=== PATIENT | female | born 1945 | race African-American/Black ===

== ENCOUNTER 2017-01-13 13:05 | Inpatient (IN) | payer OTHER, MEDICARE ==
[~2017-01-13] VITALS: Ht 160 cm; Wt 65.9 kg
--- NOTE | 2017-01-13 13:05 | NUR ---
PATIETN DIRECTLY TO CT SCAN AT THIS TIME WITH DR DE GUZMAN AND RNs RUDDY AND STAR.
--- NOTE | 2017-01-13 13:12 | NUR ---
STROKE ALERT CALLED PER NIKUNJ GODWIN AT 131
--- NOTE | 2017-01-13 13:20 | ED NEURO DEFICIT/STROKE ---
History of Present Illness General Chief Complaint: General Adult Stated Complaint: UNRESPONSIVE EPISODE Source: patient, family, EMS Exam Limitations: clinical condition Vital Signs & Intake/Output Vital Signs & Intake/Output Vital Signs Date Time Temp Pulse Resp B/P Pulse O2 O2 Flow FiO2 Ox Delivery Rate 01/14 0903 99.0 60 20 207/105 01/14 0400 100 Nasal 1.0L Cannula 01/14 0330 60 203/95 01/14 0025 64 213/108 01/14 0000 100 Nasal 1.0L Cannula 01/14 0000 99.3 66 22 220/80 100 Nasal 1.0L Cannula 01/13 2145 98 Nasal 1.0L Cannula 01/13 2133 64 221/93 01/13 1945 84 196/72 01/13 1909 97.8 64 18 192/70 100 Nasal 1.0L Cannula 01/13 1833 97.3 63 14 200/78 100 Nasal 1.0L Cannula 01/13 1809 97.3 65 16 212/80 01/13 1751 97.3 65 16 212/80 100 Nasal 2.0L Cannula 01/13 1728 97.2 68 15 220/78 01/13 1646 68 15 220/78 100 Nasal 3.0L Cannula 01/13 1537 100 Nasal 3.0L Cannula 01/13 1536 97.2 69 16 228/94 100 Nasal 3.0L Cannula 01/13 1518 97.3 71 20 240/88 01/13 1512 71 240/88 01/13 1455 97.3 62 20 250/94 01/13 1449 62 20 250/94 100 Nasal 4.0L Cannula 01/13 1431 97.3 64 16 234/92 01/13 1418 97.3 71 18 234/92 95 Nasal 4.0L Cannula 01/13 1350 64 24 260/110 01/13 1334 97.3 64 24 260/110 95 Nasal 2.0L Cannula 01/13 1320 95 Nasal 4.0L Cannula ED Intake and Output 01/14 0000 01/13 1200 Intake Total 100 Output Total Balance 100 Intake, IV 100 Patient 160 lb Weight Allergies Coded Allergies: No Known Allergies (01/13/17) Reconcile Medications Allopurinol 100 MG TABLET 1 TAB PO DAILY GOUT (Reported) Aspirin (Ecotrin*) 81 MG TABLET.DR 1 TAB PO EOD HEART/BLOOD (Reported) Calcium Acetate 667 MG CAPSULE 1 CAP PO TID PHOSPHORUS BINDER (Reported) Carvedilol 25 MG TABLET 0.5 TAB PO BID HEART/BP (Reported) Diltiazem HCl (Diltiazem 24HR ER) 360 MG CAP.ER.24H 1 CAP PO DAILY HEART/BP ( Reported) Doxazosin Mesylate 4 MG TABLET 1 TAB PO AD BP (Reported) Irbesartan 300 MG TABLET 1 TAB PO DAILY BP (Reported) Lovastatin 20 MG TABLET 1 TAB PO DAILY CHOLESTEROL (Reported) Metoclopramide HCl (Reglan) 5 MG TABLET 1 TAB PO 4 TIMES/DAY NPO N/V ( Reported) Omeprazole 40 MG CAPSULE.DR 1 CAP PO DAILY GI (Reported) Vit B Cmplx 3/FA/Vit C/Biotin (Jenny-Anthony Rx Tablet) 1 MG-60 MG-300 MCG TABLET 1 TAB PO DAILY SUPPLEMENT (Reported) Warfarin Sodium (Jantoven) (Unknown Strength) TABLET (Unknown Dose) PO AD BLOOD THINNER (Reported) Triage Nurses Notes Reviewed? yes Onset: Abrupt Duration: JUST PRIOR TO ARRIVAL Timing: single episode today Severity: severe New Weakness: RUE, RLE, right facial Baseline: alert, oriented x 3 Associated Symptoms: seizures HPI: 71-year-old female with history of hypertension, end-stage renal disease on hemodialysis of his history of previous CVA in 1979 presents via ambulance from home for chief complaint of seizure and unresponsive episode. According to the daughter (who is a nurse), she was complaining of headache. She measured her BP to be 200/80 and shortly after that she had tonic clonic movement of all extremities and had a right culver fixed gaze. After the seizure stopped she was unresponsive for a brief few seconds and then was post ictal. She states she vomited a large amount of food and then started to come to. She states she was protecting her airway at home. Past History Medical History Any Pertinent Medical History? see below for history Neurological: CVA Cardiovascular: hypertension Renal: ESRD on HD Surgical History Surgical History: none (av fistula) Psychosocial History Tobacco Use: Never used ETOH Use: denies use Illicit Drug Use: denies illicit drug use Family History Hx Contributory? No Review of Systems Review of Systems Constitutional: Denies: chills, fever. EENTM: Reports: no symptoms. Respiratory: Denies: short of breath. Cardiovascular: Denies: chest pain. GI: Denies: abdominal pain. Genitourinary: Reports: no symptoms. Musculoskeletal: Reports: no symptoms. Skin: Reports: no symptoms. Neurological/Psychological: Reports: confusion, headache, tremors. Hematologic/Endocrine: Denies: bleeding. Immunologic/Allergic: Reports: no symptoms. All Other Systems: Reviewed and Negative Physical Exam Physical Exam General Appearance: well developed/nourished, alert, moderate distress, severe distress Head: RIGHT FACIAL DROOP Eyes: Bilateral: PERRL. Ears, Nose, Throat: normal ENT inspection Neck: normal inspection, supple, full range of motion Respiratory: normal breath sounds, chest non-tender, no respiratory distress Cardiovascular: regular rate/rhythm Peripheral Pulses: 2+ radial (R), 2+ radial (L) Gastrointestinal: soft, non-tender Extremities: RIGHT LEG FLACCID RIGHT ARM 2/5 STRENGTH 2+ RADIAL PULSE Cranial Nerves: normal hearing, facial asymmetry, facial droop Coordination/Gait: UNTESTABLE Motor/Sensory: weak motor strength RUE, weak motor strength RLE Core Measures CVA/TIA Diagnosis: Yes NIH Stroke Scale: Total 13 Date Last Known Well: 01/13/17 Time Last Known Well: 1200 Neurological S/S of CVA: Right Hemiparesis, Slurred Speech Symptom Start Date: 01/13/17 Reason tPA not ordered+ Medical Contraindication Severe Sepsis Present: No Septic Shock Present: No Progress Differential Diagnosis: CVA/TIA, INTRACRANIAL HEMORRHAGE, ELIJAH'S PARALYSIS AFTER CVA, HYPERTENSIVE CRISIS Plan of Care: Orders Procedure Date/time Status ELECTROENCEPHALOGRAM 01/14 1643 Active SWALLOW EVALUATION 01/14 09 Active PT Evaluate & Treat 01/14 900 Active PROTHROMBIN TIME 01/14 0500 Complete ICU LAB BUNDLE 01/14 0500 Complete CBC WITHOUT DIFFERENTIAL 01/14 0500 Complete MRI-HEAD W & W/O SHANNON 01/14 UNK Active MISSING MEDICATION FORM 01/14 UNK Active ECHOCARDIOGRAM 01/14 UNK Active Nothing by Mouth 01/13 D Active Hemo-Dialysis 01/14 2156 Active VRE ACTIVE SURVIELLANCE 01/13 2102 Active ACTIVE SURVEILLANCE NARES 01/13 2102 Active Wound Care/Dressing 01/13 2035 Active Weight 01/13 2035 Active VTE Mechanical Prophylaxis 01/13 2035 Active Vital Signs 01/13 2035 Active Turn and Reposition 01/13 2035 Active Drains/Tubes 01/13 2035 Active Teach/Educate 01/13 2035 Active Skin Integrity Protocol 01/13 2035 Active Skin/Pressure Ulcer Assess (Sk 01/13 2035 Active Precautions 01/13 2035 Active Pain Treatment and Response 01/13 2035 Active Nutritional Intake, Monitor 01/13 2035 Active Isolation 01/13 2035 Active CIWA 01/13 2035 Active Patient Care Conference 01/13 2035 Active Activity/Ambulation 01/13 2035 Active URINALYSIS 01/13 180 Active Pathway - chart 01/13 153 Active Lab Add-on Test 01/13 153 Active Code Status 01/13 1534 Active Patient Data 01/13 1415 Active Admit to inpatient 01/13 1409 Active Vital Signs 01/13 1409 Active Code Status 01/13 1347 Complete Intake & Output 01/13 1335 Active LIPID PANEL 01/13 1330 Complete GLYCOSYLATED HGB 01/13 1330 Complete TROPONIN LEVEL 01/13 1319 Complete PARTIAL THROMBOPLASTIN TIME 01/13 1319 Complete PROTHROMBIN TIME 01/13 1319 Complete COMPREHENSIVE METABOLIC PANEL 01/13 1319 Complete CBC WITHOUT DIFFERENTIAL 01/13 1319 Complete EKG 01/13 1319 Active TYPE & SCREEN (NOT X-MATCH) 01/13 1319 Complete FingerStick- Glucose 01/13 1307 Active OXYGEN SETUP CHG 01/13 UNK Complete OXYGEN 01/13 UNK Complete OXYGEN TRANSPORT 01/13 UNK Complete OXYGEN DAILY CHARGE 01/13 UNK Complete House Staff 01/13 UNK Active VTE Mechanical Prophylaxis 01/13 UNK Active Vital Signs 01/13 UNK Active Precautions 01/13 UNK Active NIH Stroke Scale 01/13 UNK Active Mauro, Insertion/Removal/Asses 01/13 UNK Active PHYSICIAN CONSULT 01/13 UNK Active Current Medications Sig/Keyla Start time Last Medication Dose Stop Time Status Admin Aspirin 300 MG DAILY 01/14 1000 AC (Aspirin) Laboratory Tests 01/14/17 0400: Anion Gap 15, Estimated GFR 3 L, Glucose 87, Calcium 9.2, Phosphorus 5.8 H, Magnesium 2.3, Total Bilirubin 0.5, AST 16, ALT 29, Albumin 3.1 L, PT 13.2 H, INR 1.26 H, CBC w Diff NO MAN DIFF REQ, RBC 3.76 L, MCV 91.6, MCH 29.5, RDW 15.2 H, MPV 9.5, Gran % 64.7, Lymphocytes % 21.5, Monocytes % 10.4 H, Eosinophils % 2.8, Basophils % 0.6, Absolute Granulocytes 6.4, Absolute Lymphocytes 2.1, Absolute Monocytes 1.0 H, Absolute Eosinophils 0.3, Absolute Basophils 0.1, PUBS MCHC 32.2 L 01/13/17 1413: RBC 4.29, MCV 92.0, MCH 29.0, RDW 15.6 H, MPV 9.2, Gran % 77.2 H, Lymphocytes % 14.2 L, Monocytes % 4.9, Eosinophils % 3.3, Basophils % 0.4, Absolute Granulocytes 6.5, Absolute Lymphocytes 1.2, Absolute Monocytes 0.4, Absolute Eosinophils 0.3, Absolute Basophils 0, PUBS MCHC 31.5 L 01/13/17 1330: Anion Gap 22 H, Estimated GFR 4 L, BUN/Creatinine Ratio 4.7 L, Glucose 123 H , Hemoglobin A1c 5.1, Calcium 9.2, Total Bilirubin 0.6, AST 19, ALT 27, Alkaline Phosphatase 80, Troponin I < 0.01, Total Protein 7.5, Albumin 3.8, Globulin 3.7, Albumin/Globulin Ratio 1.0 L, Triglycerides 93, Cholesterol 168, LDL Cholesterol, Calc 91, HDL Cholesterol 59, Cholesterol/HDL Ratio 3, PT 12.7 H, INR 1.21 H, APTT 22 L Microbiology 01/13 2030 UPPER RESP: Surveillance Culture - RECD 01/13 2030 GI: Surveillance Culture - RECD STROKE CODE CALLED CT NEGATIVE FOR BLEED. BP 260/140. D/W DR PINON. NIH 13. 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 IV KEPPRA LOADED. IV LABETALOL ORDERED. patient on coumadin, IMPROVING RIGHT ARM SYMPTOMS, tpa contraindicated. REPEAT DOSES OF LABETALOL GIVEN. SYSTOLIC GOAL IS 180. REPEAT IV LABETALOL. GIVEN D/W DR PINON AT BEDSIDE. WILL TRY IV CARDIZEM FOR IMPROVED BP CONTROL. PATIENT REMAINS IMPROVED. (GAB ODELL,ERICK) Diagnostic Imaging: Viewed by Me: Radiology Read, CT Scan. Discussed w/RAD: Radiology Read, CT Scan. Radiology Impression: PATIENT: HERO LAWRENCE PRESENT AGE: 71 PATIENT ACCOUNT NO: [id number] : 43 LOCATION: [facility] ORDERING PHYSICIAN: ERICK HENSON MD SERVICE DATE: 01/13/17-1309 EXAM TYPE: CAT - CT HEAD WO IV CONTRAST EXAMINATION: CT HEAD WITHOUT CONTRAST CLINICAL INFORMATION: 71-year-old female with facial droop, episode of unresponsiveness, slurred speech. Suspected CVA. COMPARISON: None TECHNIQUE: Contiguous axial imaging was performed from the skull base to vertex without intravenous administration of contrast. DLP: 600.71 mGy-cm FINDINGS: There is no evidence of acute intracranial hemorrhage or territorial infarction. No abnormal mass effect or midline shift is seen. Preston to white matter differentiation is well preserved. No extra-axial fluid collections are identified. The ventricles are normal in size. There is evidence of encephalomalacia involving the left frontal lobe, extending into the adjacent external capsule and asymmetric ipsilateral dilatation of the left lateral ventricle present, consistent with old left MCA territorial infarction. Mild age-appropriate diffuse cortical atrophy and mild chronic microvascular deep white matter ischemic changes are noted. The osseous structures and soft tissues are normal. The mastoid air cells and visualized portions of the paranasal sinuses are well aerated. Subcentimeter calcification is noted at right parietal convexity region likely represent dural calcification versus calcified small meningioma. IMPRESSION: 1. No acute intracranial pathology. 2. 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 This critical result was discussed with Dr. Henson at 1:34 PM on 01/13/2017 and it was ascertained that the content and urgency of the report was understood at the time of direct communication. DICTATED BY: LIAM ESTRADA MD DATE/TIME DICTATED:01/13/171327 REHABILITATOR:KELI DATE/TIME TRANSCRIBED:01/13/171327 CONFIDENTIAL, DO NOT COPY WITHOUT APPROPRIATE AUTHORIZATION. <Electronically signed in Other Vendor System> SIGNED BY: LIAM ESTRADA MD 01/13/17 1339 Initial ED EKG: NSR Rhythm Strip: normal sinus rhythm Comments: PATIENT: HERO LAWRENCE PRESENT AGE: 71 PATIENT ACCOUNT NO: [id number] : 43 LOCATION: [facility] ORDERING PHYSICIAN: ERICK HENSON MD SERVICE DATE: 01/13/17-1346 EXAM TYPE: RAD - XRY-PORTABLE CHEST XRAY EXAMINATION: XR PORTABLE CHEST CLINICAL INFORMATION: Seizure, vomiting. Suspected aspiration. COMPARISON: Chest radiograph done at [facility] on 04/26/2015. TECHNIQUE: Portable AP erect view of the chest was obtained. FINDINGS: The patient is rotated to the right. Low lung volume is noted bilaterally. The cardiomediastinal silhouette is moderately enlarged with apparent widening of the superior mediastinum which could be related to the positioning. No discrete focal airspace disease. No effusion. There is a radiopaque stent seen projecting over the inferior part of the left axilla, new since prior study. IMPRESSION: Technically limited study. No discrete airspace disease to suspect pneumonia. Low lung volume. Apparent widening of the mediastinum, could be related to the technique and positioning. DICTATED BY: LIAM ESTRADA MD Departure Departure Time of Disposition: 1409 Disposition: STILL A PATIENT Condition: Stable Clinical Impression Primary Impression: Seizure Secondary Impressions: Elijah's paralysis Departure Forms: Customer Survey General Discharge Information Admission Note Spoke With: GRACE BAILEY M.D Documentation of Exam: Documentation of any treatments & extenuating circumstances including Concerns Regarding Discharge (functional status, medication knowledge or non-compliance, living conditions, etc.) that warrant an admission rather than observation: [ICU MONITOR, NEURO CHECKS, IV KEPPRA, BLOOD PRESSURE MEDICATIONS/MANAGEMENT, NEURO CONSULT DR PINON, CAROTID U/S, REPEAT NEURO IMAGING, RENAL CONSULT FOR DIALYSIS TOMORROW] Critical Care Note Critical Care Note Critical Care Time: 75-104 min
--- NOTE | 2017-01-13 13:20 | NUR ---
PINK RESTRICTION BAND APPLIED TO LEFT UPPER EXTREMITY.
--- NOTE | 2017-01-13 13:39 | CT SCAN REPORT ---
EXAMINATION: CT HEAD WITHOUT CONTRAST CLINICAL INFORMATION: 71-year-old female with facial droop, episode of unresponsiveness, slurred speech. Suspected CVA. COMPARISON: None TECHNIQUE: Contiguous axial imaging was performed from the skull base to vertex without intravenous administration of contrast. DLP: 600.71 mGy-cm FINDINGS: There is no evidence of acute intracranial hemorrhage or territorial infarction. No abnormal mass effect or midline shift is seen. Preston to white matter differentiation is well preserved. No extra-axial fluid collections are identified. The ventricles are normal in size. There is evidence of encephalomalacia involving the left frontal lobe, extending into the adjacent external capsule and asymmetric ipsilateral dilatation of the left lateral ventricle present, consistent with old left MCA territorial infarction. Mild age-appropriate diffuse cortical atrophy and mild chronic microvascular deep white matter ischemic changes are noted. The osseous structures and soft tissues are normal. The mastoid air cells and visualized portions of the paranasal sinuses are well aerated. Subcentimeter calcification is noted at right parietal convexity region likely represent dural calcification versus calcified small meningioma. IMPRESSION: 1. No acute intracranial pathology. 2. 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 This critical result was discussed with Dr. Henson at 1:34 PM on 01/13/2017 and it was ascertained that the content and urgency of the report was understood at the time of direct communication.
--- NOTE | 2017-01-13 13:44 | NUR ---
CHARLEEN DOSE VERIFIED WITH ARCHANA DENNIS.
--- NOTE | 2017-01-13 13:50 | NUR ---
REPEAT BP 240/92. GOAL SYSTOLIC 180. SECOND 10MG DOSE IV LABETOLOL ADMINISTERED.
[2017-01-13 13:51] LABS: PT 12.7 SEC (9.4-12.5); PTT 22 SEC (25-37)
--- NOTE | 2017-01-13 13:53 | NUR ---
PORTABLE CHEST XRAY IN PROGRESS.
--- NOTE | 2017-01-13 14:11 | NUR ---
CRITICAL TEST RESULTS [id number] HERO LAWRENCE 71 F TESTS AND RESULTS: CREATININE Results received and read back by: STAR ROJO Results received date and time: 01/13/17 1412 The following provider was notified of the results, and read the results back: DR AGUIRRE Notified date and time: 01/13/17 at 1412
--- NOTE | 2017-01-13 14:19 | NUR ---
REPEAT BP 234/92. MANUALLY. FAMILY REMAINS AT BEDSIDE.
--- NOTE | 2017-01-13 14:31 | NUR ---
THIRD DOSE OF 10MG LABETALOL; 234/92. ABLE TO MOVE RIGHT LOWER EXTREMITITY. SPEECH LIMITED. AROUSABLE TO VERBAL STIMULI. FAMILY AT BEDSIDE FOR EMOTIONAL SUPPORT. REMAINS ON ARC TRIMMER; RATE 60s.
--- NOTE | 2017-01-13 14:32 | History & Physical ---
AAYUSH ODELL,[facility] 01/13/17 1432: General Information and HPI History of Present Illness: 71-year-old female with past medical history of hypertension, ESRD on hemodialysis(MWF), history of CVA in 1987(no deficits), history of ADayron davis currently on Coumadin, came in with chief complaint of seizure and unresponsiveness. At baseline she is verbal, completely oriented to time space person but during she was not able to answer any questions. Majority of the history was taken from her daughter who was at the bed side. As per daughter, early in the morning she was complete of headache, upon checking the blood pressure was 200/ 80, soon followed by right hand shakiness, after which she started vomiting, evidence of tongue bite, no reports of no bladder or bowel incontinence. She does not have any history of seizure. The whole episode lasted for 10-15 minutes, she was nonverbal, drowsy after the episode. No recent changes in medication, She also has been compliant with her blood pressure medication. Patient has been having episodes of hyper and hypotensive in past, gets midodrine as needed with dialysis. Her blood pressure in the past has never been elevated more than 200 systolic. Denies any chest pain, palpitation, dizziness, abdominal pain, any recent changes in bowel movements, urinary symptoms, recent travels, sick contacts. She lives by herself, at baseline is able to do her daily chores herself without any difficulty. Does not smoke, denies alcohol consumption, denies any illicit drug abuse.She follows Dr. Huerta as her billet sawyer, Dr. Mcpherson as her ticket scheduler. Allergies/Medications Allergies: Coded Allergies: No Known Allergies (01/13/17) Compliance With Home Meds: GOOD Past History Travel History Traveled to [place] past 21 day No Medical History Neurological: CVA 1987 (NO DEFICITS) EENT: NONE Cardiovascular: hypertension, hyperlipidemia Respiratory: NONE Gastrointestinal: NONE Hepatic: NONE Renal: ESRDHD MON, WED, FRI Past Family/Social History Family History Relations & Conditions if any Relation not specified for: *No pertinent family history Psychosocial History Where do you live? Home Who Do You Live With? self Primary Language: Armenian Smoking Status: Never Smoked ETOH Use: denies use Illicit Drug Use: denies illicit drug use Functional Ability ADLs Independent: dressing, eating, toileting, bathing. Ambulation: independent Review of Systems Review of Systems Constitutional: Reports: see HPI. Exam & Diagnostic Data Last 24 Hrs of Vital Signs/I&O Vital Signs Date Time Temp Pulse Resp B/P Pulse O2 O2 Flow FiO2 Ox Delivery Rate 01/13 1537 100 Nasal 3.0L Cannula 01/13 1536 97.2 69 16 228/94 100 Nasal 3.0L Cannula 01/13 1518 97.3 71 20 240/88 01/13 1512 71 240/88 01/13 1455 97.3 62 20 250/94 01/13 1449 62 20 250/94 100 Nasal 4.0L Cannula 01/13 1431 97.3 64 16 234/92 01/13 1418 97.3 71 18 234/92 95 Nasal 4.0L Cannula 01/13 1350 64 24 260/110 01/13 1334 97.3 64 24 260/110 95 Nasal 2.0L Cannula 01/13 1320 95 Nasal 4.0L Cannula Physical Exam General Appearance No Acute Distress Skin No Rashes HEENT Atraumatic, PERRLA, EOMI Cardiovascular Regular Rate, Normal S1, Normal S2, No Murmurs Lungs Clear to Auscultation, Normal Air Movement Abdomen Normal Bowel Sounds, Soft, No Tenderness Neurological not following commands Extremities No Clubbing, No Cyanosis, trace b/l edema Diagnostic Data EKG Results Sinus rhythm, heart rate 64, QTC 450 CXR Results Technically limited study. No discrete airspace disease to suspect pneumonia. Low lung volume. Apparent widening of the mediastinum, could be related to the technique and positioning. Assessment/Plan Assessment: 71-year-old female with past medical history of hypertension, ESRD on hemodialysis, history of CVA in 1987, history of A. fib currently on Coumadin, came in with chief complaint of seizure and unresponsiveness. Vitals upon presentation afebrile, pulse 64, respiratory rate 24, blood pressure 260/110, Satting in the 90s on 2 L of nasal cannula oxygen. Head CT done upon presentation did not show any acute intracranial pathology. 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 Patient to be admitted to ICU for close monitoring : Hypertensive emergency: -Patient presented with blood pressure of 260/110, received a total of 30mg of labetalol, 10 MG of hydralazine. Blood pressure 234>250>240 systolic. -Patient started on labetalol dripwith goal blood pressure reduction off 25%, 180-190 systolic blood pressure to maintain permissive hypertension to ensure adequate cerebral perfusion. -Head CT done upon presentation did not show any acute intracranial pathology. 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 -MRI head in a.m. -Neurology and cardiology consult. Seizure: -She was found to have right extremity shakiness, along with tongue bite, no evidence of bowel or bladder incontinence, followed by confusion questionable postictal state -Does not have any history of seizure, not clear yet if a true seizure. -Aspiration precaution, keep head of bed elevated, seizure precautions. -Patient started on Keppra 100omg Q12. -EEG in a.m. -Neurology consult has been placed Dr. Villagran will see the patient. Atrial fibrillation currently on Coumadin : -Coumadin on hold for now, last dose of Coumadin on Saturday last week -Neuro to be consulted when to start coumadin End-stage renal disease on dialysis: -Patient sees Cleveland Huerta MD as her billet sawyer, gets dialysis on Saturday. -Nephrology service will be made aware. Diet : Nothing by mouth will get official swallow well DVT prophylaxis SQ hep/ALPS Patient is full code As Ranked By This Provider Problem List: 1. Seizure 2. Hypertensive emergency Core Measures/Miscellaneous Acute Coronary Syndrome ACS Diagnosis: No Cerebrovascular Accident CVA/TIA Diagnosis: Yes NIH Stroke Scale: Total 1 Date Last Known Well: 01/13/17 Time Last Known Well: 0900 Neurological S/S of CVA: Dizziness (headache) Symptom Start Date: 01/13/17 Symptom Start Time: 1100 Reason tPA not ordered Warfarin Therapy Started Bedside Swallow Eval Done: No Days in Hospital: 1 Antithrombotic: No No Antithrombotic d/t: Warfarin Therapy Started AFIB: Atrial Fibrillation Aflutter: No Anticoagulant: Yes Evidence of Atherosclerosis: Yes LDL Assessed Within 24 Hours: Yes Currently on Statin: No Rehab Needs Assessed: Medical Eval for Rehab PT Consult Ordered: Yes Congestive Heart Failure CHF Diagnosis: No Venous Thromboembolism VTE Risk Factors: Acute medical illness, Age > 40 No [facility] VTE prophylaxis d/t: No contraindications No VTE Pharm Prophylaxis d/t: No contraindications VTE Diagnosis: No VTE Type: NONE VTE Confirmed by (Test): NONE Severe Sepsis Severe Sepsis Present: No Septic Shock Septic Shock Present: No Miscellaneous Documentation Primary Care Physician: ANNETTE DE LA ROSA MD Patient sees these Specialists . Level of Patient Care: Critical Care (CRI) AVRIL ODELL,CAREN 01/13/17 8219: Past History Surgical History Surgical History: none Resident Review Statement Resident Statement: examined this patient, discussed with internal medicine nurse practitioner, agreed with internal medicine nurse practitioner, discussed with family, reviewed EMR data (avail), discussed with nursing Other Findings: 71 YRS old female with past medical history of end-stage renal disease and had hemodialysis ( MWF) , atrial fibrillation on Coumadin, previous CVA in 1979 without any residual damage, hypertension presents to the ED with complaints of unresponsiveness and seizure. History obtained from the daughter who is a nurse. Patient was complaining of headache this morning, blood pressure was checked and was found to be 200/80. Family also noticed her right upper extremity started twitching which lasted for a few minutes with deviation of her eyes to was the same side. Patient was confused after the event, staring and not talking. She was unaware of what was going around her. She had one episode of vomiting after the event. She is a chronic dialysis patient and has history of labile blood pressure. Blood pressure varies low and high, but never was this high. She is on midodrine but she sometimes need midodrine after dialysis if blood pressure is low, otherwise she takes her blood pressure medications regularly. According to the family INR is unstable too, requiring frequent adjustment of warfarin dosing which is managed by her ticket scheduler. Patient took her blood pressure medications this morning. And received 5 mg of Coumadin yesterday. At baseline she is independent, lives alone, her daughters help her and taking her to dialysis. Please look at H&P for labs and imaging. Examination patient arousable, lethargic, in mild distress HEENT: Pupils reactive to light, blood noticed on the tongue Cardiovascular: Stone, history regular, no murmurs Respiratory: Bilateral breath sounds equal Abdomen: Soft, nontender Neurology: Normal tone in the upper extremity, knee reflex bilaterally present, equivocal Babinski, rest of the exam not done due to patient's presentation Extremities: No pedal edema Assessment and plan: 71-year-old female with past medical history of a atrial fibrillation on Coumadin, hypertension, right-sided carotid endarterectomy presented to the ED with complaints of seizure and unresponsiveness. It is unlikely that this could be a primary seizure given her age. Seizure could be secondary to Hypertensive urgency which could have precipated it. She may have had a ischemic stroke, given her subtherapeutic INR and a previous history of carotid stenosis requiring endarterectomy which possibly precipitated a seizure. CAT scan in the ED ruled out intracranial bleed. She was not a candidate for TPA given her systolic pressure was more than 180. She is at high risk of hemorrhagic conversion given her extremely high blood pressure. Her postictal state explains that this could be Elijah's paralysis. She will need an MRI to rule out acute stroke. 1. Seizure most likely secondary to ischemic stroke vs infection( afebrile, no neck stiffness) vs space occupiying lesion( CT normal) -we'll admit the patient ICU - NPO -Neuro checks Q1 -She received 1000 Keppra every 12 which we will continue. -. Discussed with neurology recommended to continue Keppra and obtain MRI. - We'll obtain carotid ultrasound to rule out ischemic stroke, echocardiogram to look for source of emboli - Per rectal aspirin - Statins once able to swallow. - Cardiology consult - We will continue her on rectal aspirin pending swallow eval - PT/OT - Awaiting Neuro input on AC. 2. Hypertensive emergency - Blood pressure on admission was 260 - Funduscopic examination unobtainable due to presentation -Goal reduction is not more than 25%. Maintain blood pressure between 180-190 - We'll continue labetalol and hydralazine pushes for now. - If blood pressure does not respond we'll start her on labetalol drip - Will restart blood pressure medications once able to swallow 3. Chronic kidney disease on dialysis -We will obtain nephrology a.m. as patient has to have dialysis tomorrow - Potassium appears to be stable 4. A fib on Coumadin: - Will hold her Coumadin - Cardio consult for further assistance in managing blood pressure and AC - Echo ordered 5. Gout: - Will hold her PO medication untill patient able to take by mouth FULL code status DVT ppx with SHRUTHI BAILEY MD,GRACE 01/13/17 6391: General Information and HPI Allergies/Medications Home Med list Allopurinol 100 MG TABLET 1 TAB PO DAILY GOUT (Reported) Aspirin (Ecotrin*) 81 MG TABLET.DR 1 TAB PO EOD HEART/BLOOD (Reported) Calcium Acetate 667 MG CAPSULE 1 CAP PO TID PHOSPHORUS BINDER (Reported) Carvedilol 25 MG TABLET 0.5 TAB PO BID HEART/BP (Reported) Diltiazem HCl (Diltiazem 24HR ER) 360 MG CAP.ER.24H 1 CAP PO DAILY HEART/BP ( Reported) Doxazosin Mesylate 4 MG TABLET 1 TAB PO AD BP (Reported) Irbesartan 300 MG TABLET 1 TAB PO DAILY BP (Reported) Lovastatin 20 MG TABLET 1 TAB PO DAILY CHOLESTEROL (Reported) Metoclopramide HCl (Reglan) 5 MG TABLET 1 TAB PO 4 TIMES/DAY NPO N/V ( Reported) Omeprazole 40 MG CAPSULE.DR 1 CAP PO DAILY GI (Reported) Vit B Cmplx 3/FA/Vit C/Biotin (Jenny-Anthony Rx Tablet) 1 MG-60 MG-300 MCG TABLET 1 TAB PO DAILY SUPPLEMENT (Reported) Warfarin Sodium (Jantoven) (Unknown Strength) TABLET (Unknown Dose) PO AD BLOOD THINNER (Reported) Core Measures/Miscellaneous Miscellaneous Documentation Attending Case Discussed With: GRACE BAILEY M.D Attending MD Review Statement Attending Statement Attending MD Statement: examined this patient, discuss w/resident/PA/SHOPPER'S AIDE, agreed w/resident/PA/SHOPPER'S AIDE, discussed with family, reviewed EMR data (avail), discussed with nursing, amended to note Attending Assessment/Plan: Patient is a 71-year-old female with history of stroke with no baseline deficit, end-stage renal disease on hemodialysis and hypertension. Brought in for evaluation today after initially complaining of headache. On evaluation by her daughter she was found to have a blood pressure of 200 systolic. Patient developed generalized tonic-clonic movements particularly in the right upper extremity during the time of evaluation by her daughter. She was brought to the ED for eval. On arrival in the emergency room she was found to have a right facial droop. It is reported to me that patient was somnolent and not following commands when she arrived. Blood pressure was elevated with systolic blood pressure of 260. Head CT showed no acute intracranial process. She received several doses of labetalol and hydralazine with her blood pressure improving to about 220 systolic. Following discussion with the neurology service she was referred to the inpatient medical service for further management. Her daughters provided additional history to me that her blood pressure recently during dialysis has been running low to the point where they're told to hold her blood pressure medication and she was given midodrine on the days of dialysis. They however reported that midodrine was discontinued over a week and will and that she has been taking her routine blood pressure medications. Coreg dose however was decreased recently from 25 mg to 12.5 mg twice daily. She continued on her Cardizem and Ibersatan. When I evaluated the patient in the emergency room she was sleepy but arousable. She moved all extremities spontaneously and to command. She answers simple questions appropriately with short responses. She was able to identify her daughters at the bedside. She had a right facial droop with the daughter reports is new for her. Upper muscle strength in all extremities could not be adequately tested. She has normal muscle tone. Problems: 1. Hypertensive emergency 2. Altered mental status; likely metabolic encephalopathy from elevated blood pressure. 3. Rule out seizure 4. Atrial fibrillation on anticoagulation with subtherapeutic INR. Apparently she has not received her Coumadin since Saturday after initially being stopped for an elevated INR. 5. End-stage renal disease on hemodialysis 6. Widened mediastinum on chest x-ray. Plan: -Admit to the inpatient medical service. Further care will be continued in the intensive care unit. -Keep nothing by mouth and maintain seizure precautions. Elevate head of bed to prevent aspiration. -Patient appears to be responding to combination of IV labetalol and hydralazine. Will continue this regimen in the left avoid excessive reduction of her blood pressure. With her presenting blood pressure of 260 systolic, the target blood pressure of 25% reduction is 195 mmHg systolic. -If blood pressure becomes difficult to control with this regimen, initiate labetalol infusion. -Neuro checks every 1 hour. -Continue Keppra infusion as recommended by the neurology service. EEG in the morning. -Modified the dialysis service of her admission for hemodialysis tomorrow. -Hold Coumadin while blood pressure is markedly elevated to avoid spontaneous intracranial hemorrhage. Resume once blood pressure is better controlled mental status improves. -DVT prophylaxis with bilateral compression devices and subcutaneous heparin. -Once she is more clinically stable recommend chest CT with IV contrast for further evaluation of her widened mediastinum. -Please notify the adoption counselor on-call of patient's admission to the ICU and follow any additional recommendations.
[2017-01-13 14:44] LABS: ABSOLUTE BASOPHIL COUNT 0 /CUMM (0.0-0.2); ABSOLUTE EOSINOPHIL COUNT 0.3 /CUMM (0.0-0.7); ABSOLUTE GRANULOCYTE CT 6.5 /CUMM (1.4-6.5); ABSOLUTE LYMPH COUNT 1.2 /CUMM (1.2-3.4); ABSOLUTE MONOCYTE COUNT 0.4 /CUMM (0.10-0.60); BASOPHIL % 0.4 % (0.0-2.0); EOSINOPHIL % 3.3 % (0-5); GRANULOCYTE % 77.2 % (42.2-75.2); HEMATOCRIT 39.5 % (37-47); MEAN CORPUSCULAR HGB CONC 31.5 G/DL (33.0-37.0); MEAN PLATELET VOLUME 9.2 FL (7.4-10.4); PLATELET COUNT 224 /CUMM (130-400); RBC DISTRIBUTION WIDTH 15.6 % (11.5-14.5); RED BLOOD CELL CT 4.29 /CUMM (4.20-5.40); WHITE BLOOD CELL COUNT 8.4 /CUMM (4.8-10.8)
--- NOTE | 2017-01-13 14:54 | RADIOLOGY REPORT ---
EXAMINATION: XR PORTABLE CHEST CLINICAL INFORMATION: Seizure, vomiting. Suspected aspiration. COMPARISON: Chest radiograph done at [facility] on 04/26/2015. TECHNIQUE: Portable AP erect view of the chest was obtained. FINDINGS: The patient is rotated to the right. Low lung volume is noted bilaterally. The cardiomediastinal silhouette is moderately enlarged with apparent widening of the superior mediastinum which could be related to the positioning. No discrete focal airspace disease. No effusion. There is a radiopaque stent seen projecting over the inferior part of the left axilla, new since prior study. IMPRESSION: Technically limited study. No discrete airspace disease to suspect pneumonia. Low lung volume. Apparent widening of the mediastinum, could be related to the technique and positioning.
--- NOTE | 2017-01-13 14:55 | NUR ---
DR DE GUZMAN INFORMED OF REPEAT VITALS, 10MG HYDRALAZINE GIVEN NOW PER DR DE GUZMAN. HOUSE STAFF AT BEDSIDE. PT LAZAR, NOT FOLLOWING COMMANDS.
--- NOTE | 2017-01-13 15:40 | NUR ---
REPEAT BLOOD PRESSURE 228/94. RATE 69.
--- NOTE | 2017-01-13 15:59 | NUR ---
ULTRASOUND AT BEDSIDE. RESENDIZ INSERTED - 20CC CLEAR YELLOW URINE NOTED IN RESENDIZ TUBING - NOT COLLECTED AT THIS TIME. REPEAT PRESSURE 220/84.
--- NOTE | 2017-01-13 16:24 | NUR ---
DR ABILEY AT BEDSIDE TO DISCUSS PLAN OF CARE.
--- NOTE | 2017-01-13 16:30 | NUR ---
HOLDING LABETALOL DRIP ON HOLD AT THIS TIME PER HOUSE STAFF.
--- NOTE | 2017-01-13 16:35 | NUR ---
PER DR. BAILEY, HOLD OFF ON LABETOLOL GTT AT THIS TIME.
--- NOTE | 2017-01-13 16:57 | NUR ---
PT HAS A BED 114-01
--- NOTE | 2017-01-13 17:06 | ULTRASOUND REPORT ---
EXAMINATION: BILATERAL DUPLEX CAROTID ULTRASOUND CLINICAL INDICATION: 71-year-old female with seizure. COMPARISON: CT of the head done earlier today. TECHNIQUE: Real-time ultrasound and Doppler techniques (integrating B-mode 2D vascular images, Doppler spectral analysis and color flow Doppler imaging) were utilized to interrogate the extracranial carotid and vertebral arteries bilaterally. FINDINGS: On the RIGHT, there is mild atherosclerotic plaques are present at the carotid bifurcation. In the distal CCA, the peak systolic velocity is 71.5 cm/sec. In the proximal ICA, the peak systolic velocity is 123 cm/sec, and the end diastolic velocity is 15 cm/sec. The ICA/CCA ratio is 1.7. On the LEFT, there is moderate atherosclerotic plaques are present at the carotid bifurcation, extending into the origin, proximal part of the internal carotid artery. In the distal CCA, the peak systolic velocity is 52.2 cm/sec. In the proximal ICA, the peak systolic velocity is 288 cm/sec, and the end diastolic velocity is 12.6 cm/sec. The ICA/CCA ratio is 5.5. The vertebral arteries show antegrade flow with normal waveforms bilaterally. IMPRESSION: 1. The right internal carotid artery shows no hemodynamically significant stenosis. 2. The left internal carotid artery shows hemodynamically significant stenosis. 3. Both vertebral arteries are patent, and show antegrade flow.
--- NOTE | 2017-01-13 17:13 | Event Note ---
Event Note Event Note: Patient is being admitted to intensive care unit for further management of her hypertensive emergency.
--- NOTE | 2017-01-13 17:15 | Admission Certification ---
Admission Certification Certification Statement - As attending physician, I certify that at the time of - admission, based on clinical presentation, severity of - symptoms, need for further diagnostic testing and - therapeutic interventions, and risk of adverse outcomes - without in-hospital treatment, in my clinical assessment, - this patient requires an acute hospital stay for a minimum - of two nights or longer. I have also considered psychsocial - factors such as support system, advanced age, financial - issues, cognitive issues, and failed out-patient treatments, - past re-admission history, safety of patient, and lack of - compliance as applicable. Specific rationale supporting this admission is: Patient is being admitted to intensive care unit for further management of her hypertensive emergency.
[2017-01-13] MEDS ORDERED: DILTIAZEM 24HR360 MG PO (17:40)
[2017-01-13] MEDS ORDERED: IRBESARTAN300 M1 PO (17:40)
[2017-01-13] MEDS ORDERED: CARVEDILOL25 M1 PO (17:41)
[2017-01-13] MEDS ORDERED: JANTOVEN2.5 M1 PO (17:42)
[2017-01-13] MEDS ORDERED: LOVASTATIN20 M1 PO (17:42)
[2017-01-13] MEDS ORDERED: OMEPRAZOLE40 M1 PO (17:42)
[2017-01-13] MEDS ORDERED: ASPIRIN EC81 M1 PO (17:43)
[2017-01-13] MEDS ORDERED: CALCIUM ACETAT667 M3 PO (17:44)
[2017-01-13] MEDS ORDERED: DOXAZOSIN MESYLA4 M1 PO (17:45)
[2017-01-13] MEDS ORDERED: RENA-VITE RX T1 EACH PO (17:45)
[2017-01-13] MEDS ORDERED: ALLOPURINOL100 M1 PO (17:45)
--- NOTE | 2017-01-13 17:45 | NUR ---
QUESTION REGARDING CARDIZEM ORDER. ICU CALLED TO CONTACT DR MACKENZIE.
[2017-01-13] MEDS ORDERED: REGLAN5 M1 PO (17:46)
--- NOTE | 2017-01-13 17:56 | Cons- Neurology ---
General Information and HPI Consulting Request Date of Consult: 01/13/17 Requested By: GRACE BAILEY M.D Reason for Consult: Seizure Source of Information: patient, family, old records Exam Limitations: clinical condition History of Present Illness: This is a very pleasant 71-year-old woman with a previous of the MCA infarct ( 1987) was at home today in her normal state of health and she was noted by her daughter to be behaving odd and and was found to have very high blood pressure around 240 systolic. As her daughter was removing the blood pressure cuff she suddenly went into what seemed like a seizure with her right arm jerking and her eyes deviating to the right side. When on for about 10 seconds after which she passed out and vomited. MS was called and she was taken to the hospital without recurrence. In the hospital she was found to have a residual right facial droop and right arm weakness and was very laconic. She has since recovered some of her ability to speak but is highly hypersomnolent. Therefore cannot add any more to history. Her her daughters she has never had a seizure before. She is on dialysis for end-stage renal disease. Her last dialysis was on Saturday and everything was fine with it. She was also recently noted to have hypertension and was placed on midodrine but this was stopped last Saturday. Allergies/Medications Allergies: Coded Allergies: No Known Allergies (01/13/17) Home Med List: Allopurinol 100 MG TABLET 1 TAB PO DAILY GOUT (Reported) Aspirin (Ecotrin*) 81 MG TABLET.DR 1 TAB PO EOD HEART/BLOOD (Reported) Calcium Acetate 667 MG CAPSULE 1 CAP PO TID PHOSPHORUS BINDER (Reported) Carvedilol 25 MG TABLET 0.5 TAB PO BID HEART/BP (Reported) Diltiazem HCl (Diltiazem 24HR ER) 360 MG CAP.ER.24H 1 CAP PO DAILY HEART/BP ( Reported) Doxazosin Mesylate 4 MG TABLET 1 TAB PO AD BP (Reported) Irbesartan 300 MG TABLET 1 TAB PO DAILY BP (Reported) Lovastatin 20 MG TABLET 1 TAB PO DAILY CHOLESTEROL (Reported) Metoclopramide HCl (Reglan) 5 MG TABLET 1 TAB PO 4 TIMES/DAY NPO N/V ( Reported) Omeprazole 40 MG CAPSULE.DR 1 CAP PO DAILY GI (Reported) Vit B Cmplx 3/FA/Vit C/Biotin (Jenny-Anthony Rx Tablet) 1 MG-60 MG-300 MCG TABLET 1 TAB PO DAILY SUPPLEMENT (Reported) Warfarin Sodium (Jantoven) (Unknown Strength) TABLET (Unknown Dose) PO AD BLOOD THINNER (Reported) Review of Systems Review of Systems: As per HPI otherwise negative to temporal complete review of systems. Past History Travel History Traveled to [place] past 21 day No Medical History Neurological: CVA 1987 (NO DEFICITS) EENT: NONE Cardiovascular: hypertension, hyperlipidemia Respiratory: NONE Gastrointestinal: NONE Hepatic: NONE Renal: ESRDHD MON, WED, SAT Surgical History Surgical History: none Family History Relations & Conditions If Any: Relation not specified for: *No pertinent family history Psychosocial History Where Do You Live? Home Who Do You Live With? self Primary Language: Vincentian Smoking Status: Never Smoked ETOH Use: denies use Illicit Drug Use: denies illicit drug use Functional Ability ADLs Independent: dressing, eating, toileting, bathing. Ambulation: independent Exam & Diagnostic Data Vital Signs and I&O Vital Signs Date Time Temp Pulse Resp B/P Pulse O2 O2 Flow FiO2 Ox Delivery Rate 01/13 1728 97.2 68 15 220/78 01/13 1646 68 15 220 100 Nasal 3.0L Cannula 01/13 1537 100 Nasal 3.0L Cannula 01/13 1536 97.2 69 16 228/94 100 Nasal 3.0L Cannula 01/13 1518 97.3 71 20 240/88 01/13 1512 71 240/88 01/13 1455 97.3 62 20 250/94 01/13 1449 62 20 250/94 100 Nasal 4.0L Cannula 01/13 1431 97.3 64 16 234/92 01/13 1418 97.3 71 18 234/92 95 Nasal 4.0L Cannula 01/13 1350 64 24 260/110 01/13 1334 97.3 64 24 260/110 95 Nasal 2.0L Cannula 01/13 1320 95 Nasal 4.0L Cannula Physical Exam: General: The patient is in no distress. Pleasant and cooperative. MSE: Hypersomnolent and could not suspect if most of the exam. Cardiovascular: S1 and S2 are normal, regular rate and rhythm, and normal pedal pulses. Vision: Visual silver are intact to threat. Neurological: Extra ocular movements intact, JAH, slight right lower facial droop, tongue midline, uvula raises equally in the midline, V1-V3 sensation to touch is intact and equal bilaterallty, sternocleidomastoid and trapezius are strong on both sides, muscles of mastication are strong. No dysarthria noted. Motor exam reveals can move all limbs although the right arm seems weaker than the other limbs. Sensory exam did not reveal any deficits to touch. Reflexes are hyperactive on the right side. Last 48 Hours of Lab Results: Laboratory Tests 01/13 01/13 1413 1330 Chemistry Sodium (137 - 145 mmol/L) 138 Potassium (3.5 - 5.1 mmol/L) 4.2 Chloride (98 - 107 mmol/L) 100 Carbon Dioxide (22 - 30 mmol/L) 16 L Anion Gap (5 - 16) 22 H BUN (7 - 17 mg/dL) 48 H Creatinine (0.5 - 1.0 mg/dL) 10.3 *H Estimated GFR (>60 ml/min) 4 L BUN/Creatinine Ratio (7 - 25 %) 4.7 L Glucose (65 - 99 mg/dL) 123 H Hemoglobin A1c (4.2 - 5.8 %) Pending Calcium (8.4 - 10.2 mg/dL) 9.2 Total Bilirubin (0.2 - 1.3 mg/dL) 0.6 AST (14 - 36 U/L) 19 ALT (9 - 52 U/L) 27 Alkaline Phosphatase (<127 U/L) 80 Troponin I (< 0.11 ng/ml) < 0.01 Total Protein (6.3 - 8.2 g/dL) 7.5 Albumin (3.5 - 5.0 g/dL) 3.8 Globulin (1.9 - 4.2 gm/dL) 3.7 Albumin/Globulin Ratio (1.1 - 2.2 %) 1.0 L Triglycerides (<150 mg/dL) 93 Cholesterol (<200 MG/DL) 168 LDL Cholesterol, Calc (65 - 129 mg/dL) 91 HDL Cholesterol (40 - 60 mg/dL) 59 Cholesterol/HDL Ratio (0.00 - 4.23 %) 3 Coagulation PT (9.4 - 12.5 SEC) 12.7 H INR (0.90 - 1.19) 1.21 H APTT (25 - 37 SEC) 22 L Hematology WBC (4.8 - 10.8 /CUMM) 8.4 RBC (4.20 - 5.40 /CUMM) 4.29 Hgb (12.0 - 16.0 G/DL) 12.4 Hct (37 - 47 %) 39.5 MCV (81.0 - 99.0 FL) 92.0 MCH (27.0 - 31.0 PG) 29.0 RDW (11.5 - 14.5 %) 15.6 H Plt Count (130 - 400 /CUMM) 224 MPV (7.4 - 10.4 FL) 9.2 Gran % (42.2 - 75.2 %) 77.2 H Lymphocytes % (20.5 - 51.1 %) 14.2 L Monocytes % (1.7 - 9.3 %) 4.9 Eosinophils % (0 - 5 %) 3.3 Basophils % (0.0 - 2.0 %) 0.4 Absolute Granulocytes (1.4 - 6.5 /CUMM) 6.5 Absolute Lymphocytes (1.2 - 3.4 /CUMM) 1.2 Absolute Monocytes (0.10 - 0.60 /CUMM) 0.4 Absolute Eosinophils (0.0 - 0.7 /CUMM) 0.3 Absolute Basophils (0.0 - 0.2 /CUMM) 0 PUBS MCHC (33.0 - 37.0 G/DL) 31.5 L Imaging/Other Studies: IMPRESSION: 1. No acute intracranial pathology. 2. 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 This critical result was discussed with Dr. Henson at 1:34 PM on 01/13/2017 and it was ascertained that the content and urgency of the report was understood at the time of direct communication. Assessment/Plan Assessment: 71-year-old woman with a left MCA stroke occurring 30 years ago, now presenting with hypertensive emergency and a seizure. The seizure was complex partial seizure. Despite her having a potential focus for seizures within the left MCA old infarct it is odd that she would develop seizure disorder 30 years after the insult. It is possible that this was a provoked seizure with focality due to the hypertensive emergency in combination with the old damage she sustained in her MCA stroke years ago. Recommend obtaining an EEG to correct her eyes better and see if there is any other signs of systems aberrant electricity within the old stroke region. Recommendations: 1. Obtain EEG. 2. Continue with Keppra 500 every 12 hours. 3. Work with jarvism when necessary to bring blood pressure to 180 systolic. If this does not work resort to a drip. 4. Check UA for UTI. 5. MRI brain to exclude a new stroke. Consult Acknowledgment - Thank you for your consult request.
--- NOTE | 2017-01-13 18:30 | NUR ---
LABETALOL REMAINS ON HOLD AT THIS TIME.
--- NOTE | 2017-01-13 18:33 | NUR ---
repeat pressure 200/78
--- NOTE | 2017-01-13 18:55 | NUR ---
[facility]: [phone]
--- NOTE | 2017-01-13 19:11 | NUR ---
ASSUMED CARE AT THIS TIME, PT AWAKE AND ALERT TO VERBAL STIMILI, MANUAL BP 192/70, NSR ON MONITOR HR 64, PT NOTED WITH R SIDE FACIAL DROOP WHICH PER PREVIOUS NURSE PT ARRIVED WITH DROOP, PT DENIES PAIN AT THIS TIME, PT ABLE TO UNDERSTAND PT , BUT SPEECH NOTED TO BE SLIGHTLY GARBLED WHICH PREVIOUS NURSE ALSO STATED THAT THERE HAS BEEN NO CHANGE IN SPEECH SINCE ARRIVAL. PT ABLE TO MOVE ALL EXTREMITIES WHEN ASKED. RESENDIZ IN PLACE WITH NO URINE NOTED IN BAG, PT IS DIALYSIS PATIENT AND STATES THAT SHE DOES NOT PUT OUT URINE. LIGHTS DIMMED FOR COMFORT AND WILL CONTINUE TO MONITOR.
--- NOTE | 2017-01-13 19:16 | NUR ---
PER GILA CONNOLLY RN LABEETALOL DRIP IS ON HOLD PER DR BAILEY.
--- NOTE | 2017-01-13 19:50 | NUR ---
REPORT TO ERIC AND TRANSPORT CALLED
--- NOTE | 2017-01-13 19:56 | NUR ---
TRANSPORT HERE FOR PT
--- NOTE | 2017-01-13 22:45 | NUR ---
PT RECEIVED FROM ER DROWSY BUT AROUSABLE, LAZAR TO COMMAND, SPEECH SL SLURRED.SKIN INTACT. ORIENTED TO UNIT AND ACTIVITY RESTRICTIONS CALL LIGHT IN REACH. BP REMAINS ELEVATED AFTER DILTIAZEM GIVEN DR WILKINS AWARE
[2017-01-14] VITALS: BP 220/80
[2017-01-14 04:52] LABS: PT 13.2 SEC (9.4-12.5)
[2017-01-14 04:53] LABS: ABSOLUTE BASOPHIL COUNT 0.1 /CUMM (0.0-0.2); ABSOLUTE EOSINOPHIL COUNT 0.3 /CUMM (0.0-0.7); ABSOLUTE GRANULOCYTE CT 6.4 /CUMM (1.4-6.5); ABSOLUTE LYMPH COUNT 2.1 /CUMM (1.2-3.4); BASOPHIL % 0.6 % (0.0-2.0); EOSINOPHIL % 2.8 % (0-5); GRANULOCYTE % 64.7 % (42.2-75.2); MEAN CORPUSCULAR HGB 29.5 PG (27.0-31.0); MEAN CORPUSCULAR HGB CONC 32.2 G/DL (33.0-37.0); MEAN CORPUSCULAR VOLUME 91.6 FL (81.0-99.0); MEAN PLATELET VOLUME 9.5 FL (7.4-10.4); PLATELET COUNT 227 /CUMM (130-400); RBC DISTRIBUTION WIDTH 15.2 % (11.5-14.5); RED BLOOD CELL CT 3.76 /CUMM (4.20-5.40); WHITE BLOOD CELL COUNT 9.9 /CUMM (4.8-10.8)
[2017-01-14 05:01] LABS: HEMATOCRIT 34.4 % (37-47)
--- NOTE | 2017-01-14 07:30 | Cons- CRCU ---
ISABELLAFRANKIESURESHZAFAR 01/14/17 0729: General Information and HPI Consulting Request Date of Consult: 01/14/17 Requested By: Dr Beckman History of Present Illness: This is a 71-year-old female with past medical history of hypertension, end- stage renal disease on hemodialysis Saturday and Saturday, history of CVA in 1987 with no residual deficits, history of atrial fibrillation on Coumadin came in on 01/13/2017 with chief complaint of seizure-like episodes and unresponsiveness and was found to be in hypertensive emergeny.On presentation most of the history was obtained from the daughter, who is a nurse. Prior to presentation the patient was complaining of headache since morning of admission, her blood pressure was checked at home and was found to be 200/80. It was also noticed that she was having right upper extremity twitching which lasted for a few minutes and deviation of her eyes on the same side. She was confused after the event, she was staring and not talking. She wasn't aware of whar was going around her.She also had one episode of vomiting after the event. She is a chronic dialysis patient has history of labile blood pressure. Blood pressure varies low and high however has never been on the higher side since this admission.She was intially evaluated ny nuerology at the ED, CT head was done, no active haemorrhage was found. [facility] from [facility] were reviewed and it was noted that over the last year, her pressures were mostly on the lower side and gradullat she had been tapered off the antihypertensvies and her BP was noted to be as low as 89/48 and it was also noted that she tends ot drop BP after dialysis also. Allergies/Medications Allergies: Coded Allergies: No Known Allergies (01/13/17) Home Med List: Allopurinol 100 MG TABLET 1 TAB PO DAILY GOUT (Reported) Aspirin (Ecotrin*) 81 MG TABLET.DR 1 TAB PO EOD HEART/BLOOD (Reported) Calcium Acetate 667 MG CAPSULE 1 CAP PO TID PHOSPHORUS BINDER (Reported) Carvedilol 25 MG TABLET 0.5 TAB PO BID HEART/BP (Reported) Diltiazem HCl (Diltiazem 24HR ER) 360 MG CAP.ER.24H 1 CAP PO DAILY HEART/BP ( Reported) Doxazosin Mesylate 4 MG TABLET 1 TAB PO AD BP (Reported) Irbesartan 300 MG TABLET 1 TAB PO DAILY BP (Reported) Lovastatin 20 MG TABLET 1 TAB PO DAILY CHOLESTEROL (Reported) Metoclopramide HCl (Reglan) 5 MG TABLET 1 TAB PO 4 TIMES/DAY NPO N/V ( Reported) Omeprazole 40 MG CAPSULE. 1 CAP PO DAILY GI (Reported) Vit B Cmplx 3/FA/Vit C/Biotin (Jenny-Anthony Rx Tablet) 1 MG-60 MG-300 MCG TABLET 1 TAB PO DAILY SUPPLEMENT (Reported) Warfarin Sodium (Jantoven) (Unknown Strength) TABLET (Unknown Dose) PO AD BLOOD THINNER (Reported) Current Medications: Current Medications Sig/Keyla Start time Last Medication Dose Route Stop Time Status Admin Aspirin 300 MG DAILY 01/14 1000 AC AZ Aspirin 300 MG ONCE ONE 01/13 1500 DC 01/13 AZ 01/13 1501 1512 Diltiazem HCl 5 MG ONCE ONE 01/14 0015 DC 01/14 IV PUSH 01/14 0016 0025 Diltiazem HCl 5 MG Q6P PRN 01/13 2300 AC 01/14 IV 0330 Diltiazem HCl 0 .STK-MED ONE 01/13 1809 DC .ROUTE Diltiazem HCl 15 MG ONCE ONE 01/13 1730 DC 01/13 IV PUSH 01/13 1731 1809 Heparin Sodium 5,000 UNIT Q8 01/13 2200 AC 01/13 (Porcine) SC 2206 Hydralazine HCl 10 MG ONCE ONE 01/13 1500 DC 01/13 IV 01/13 1501 1455 Hydralazine HCl 0 .STK-MED ONE 01/13 1454 DC .ROUTE Labetalol HCl 20 MG ONCE ONE 01/13 1715 DC 01/13 IV 01/13 1716 1728 Labetalol HCl 200 MG Q24H 01/13 1630 DC Dextrose/Water 200 ML IV Labetalol HCl 0 .STK-MED ONE 01/13 1518 DC IV Labetalol HCl 20 MG ONCE ONE 01/13 1515 DC 01/13 IV 01/13 1516 1518 Labetalol HCl 10 MG ONCE ONE 01/13 1430 DC 01/13 IV 01/13 1431 1431 Labetalol HCl 0 .STK-MED ONE 01/13 1332 DC IV Labetalol HCl 20 MG ONCE ONE 01/13 1330 DC 01/13 IV 01/13 1331 1350 Levetiracetam 500 MG Q12 01/13 2200 AC 01/13 N/A 1 UNIT IV 2206 Levetiracetam 1,000 MG Q12 01/13 1329 DC 01/13 N/A 1 UNIT IV 1344 Patient Medication 1 UNIT ONE NR 01/13 1900 DC Teaching ED 01/13 1930 Review of Systems Review of Systems Constitutional: Reports: see HPI. EENTM: Reports: see HPI. Cardiovascular: Reports: see HPI. Respiratory: Denies: cough, hemoptysis. GI: Denies: abdominal pain, bloating, constipation, diarrhea. Genitourinary: Reports: see HPI. Musculoskeletal: Reports: see HPI. Skin: Reports: see HPI. Past History Travel History Traveled to [place] past 21 day No Medical History Blood Transfusion Hx: No Neurological: CVA 1987 (NO DEFICITS) EENT: NONE Cardiovascular: hypertension, hyperlipidemia Respiratory: NONE Gastrointestinal: NONE Hepatic: NONE Renal: ESRDHD MON, WED, FRI Musculoskeletal: ARTHRITIS GOUT Psychiatric: NONE Endocrine: NONE Blood Disorders: NONE Cancer(s): NONE [employer]ICE [employer]IDENT OF [employer]/Reproductive: NONE Surgical History Surgical History: none, AVFISTULA Family History Relations & Conditions If Any: Relation not specified for: *No pertinent family history Psychosocial History Where Do You Live? Home Who Do You Live With? self Services at Home: NONE Primary Language: Bhutanese Smoking Status: Never Smoked ETOH Use: denies use Illicit Drug Use: denies illicit drug use Functional Ability ADLs Independent: dressing, eating, toileting, bathing. Ambulation: independent Employment History Employment: Retired Exam & Diagnostic Data Last 24 Hrs of Vital Signs/I&O Vital Signs Date Time Temp Pulse Resp B/P Pulse O2 O2 Flow FiO2 Ox Delivery Rate 01/14 0400 100 Nasal 1.0L Cannula 01/14 0330 60 203/95 01/14 0025 64 213/108 01/14 0000 100 Nasal 1.0L Cannula 01/14 0000 99.3 66 22 220/80 100 Nasal 1.0L Cannula 01/135 98 Nasal 1.0L Cannula 01/133 64 221/93 01/13 1945 84 196/72 01/13 190 97.8 64 18 192/70 100 Nasal 1.0L Cannula 01/13 1833 97.3 63 14 200/78 100 Nasal 1.0L Cannula 01/13 1809 97.3 65 16 212/80 01/13 1751 97.3 65 16 212/80 100 Nasal 2.0L Cannula 01/13 1728 97.2 68 15 220/78 01/13 1646 68 15 220 100 Nasal 3.0L Cannula 01/13 1537 100 Nasal 3.0L Cannula 01/13 1536 97.2 69 16 228/94 100 Nasal 3.0L Cannula 01/13 1518 97.3 71 20 240/88 01/13 1512 71 240/88 01/13 1455 97.3 62 20 250/94 01/13 1449 62 20 250/94 100 Nasal 4.0L Cannula 01/13 1431 97.3 64 16 234/92 01/13 1418 97.3 71 18 234/92 95 Nasal 4.0L Cannula 01/13 1350 64 24 260/110 09 1334 97.3 64 24 260/110 95 Nasal 2.0L Cannula 01/13 1320 95 Nasal 4.0L Cannula Intake & Output 01/14 1600 01/14 0800 01/14 0000 Intake Total 0 100 Output Total 0 Balance 0 100 Intake, IV 0 100 Intake, Oral 0 Output, Urine 0 Patient 72.575 kg Weight Last 48 Hrs of Labs/Jesse: Laboratory Tests 01/14/17 0400: Anion Gap 15, Estimated GFR 3 L, Glucose 87, Calcium 9.2, Phosphorus 5.8 H, Magnesium 2.3, Total Bilirubin 0.5, AST 16, ALT 29, Albumin 3.1 L, PT 13.2 H, INR 1.26 H, CBC w Diff NO MAN DIFF REQ, RBC 3.76 L, MCV 91.6, MCH 29.5, RDW 15.2 H, MPV 9.5, Gran % 64.7, Lymphocytes % 21.5, Monocytes % 10.4 H, Eosinophils % 2.8, Basophils % 0.6, Absolute Granulocytes 6.4, Absolute Lymphocytes 2.1, Absolute Monocytes 1.0 H, Absolute Eosinophils 0.3, Absolute Basophils 0.1, PUBS MCHC 32.2 L 01/13/17 1413: RBC 4.29, MCV 92.0, MCH 29.0, RDW 15.6 H, MPV 9.2, Gran % 77.2 H, Lymphocytes % 14.2 L, Monocytes % 4.9, Eosinophils % 3.3, Basophils % 0.4, Absolute Granulocytes 6.5, Absolute Lymphocytes 1.2, Absolute Monocytes 0.4, Absolute Eosinophils 0.3, Absolute Basophils 0, PUBS MCHC 31.5 L 01/13/17 1330: Anion Gap 22 H, Estimated GFR 4 L, BUN/Creatinine Ratio 4.7 L, Glucose 123 H , Hemoglobin A1c Pending, Calcium 9.2, Total Bilirubin 0.6, AST 19, ALT 27, Alkaline Phosphatase 80, Troponin I < 0.01, Total Protein 7.5, Albumin 3.8, Globulin 3.7, Albumin/Globulin Ratio 1.0 L, Triglycerides 93, Cholesterol 168, LDL Cholesterol, Calc 91, HDL Cholesterol 59, Cholesterol/HDL Ratio 3, PT 12.7 H, INR 1.21 H, APTT 22 L Assessment/Plan Impression/Plan: In summary this is a 71-year-old female with past medical history of end-stage renal disease on hemodialysis Saturday and Saturday, atrial fibrillation on Coumadin, previous CVA in 1979 without any residual damage, labile hypertension was brought into the emergency department after having a seizure- like episode with post ictal confusion and unresponsiveness along with extremely high blood pressure 200/80 noted at home along with headache since the morning of admission. Vitals on admission temperature of 99.3, pulse of 60, respiration around 20s, blood pressure was noted to be systolic ranging from 221 up to 203, diastolic 70s up to 110. She was placed on 1 L of nasal cannula and was saturating 98%. Relevant labs white count of 9.9 on presentation, H/H of 11.1/34.4, BUN and creatinine was noted to be 55/11.3. Estimated GFR was 3 L. Initial presentation phosphorus was 5.8. And had an anion gap of 22, glucose of 123. INR of 1.21, lipid profile is within normal limits. Troponin was negative. Initially on presentation, stroke alert called, however CT was negative for any intracranial hemorrhage, blood pressure was noted to be 260/140 at the emergency department and IV Keppra was loaded. And continued to receive IV labetalol at the emergency department. IV Cardizem pushes were also given on the day of admission and overnight. Initially there was a thought of starting IV labetalol drip however this was not started and patient's blood pressure was managed with the Cardizem pushes. She was seen by Dr. Villagran at the emergency department. EKG showed normal sinus rhythm, no acute changes. Chest x-ray on the day of admission did not show any discrete airspace disease, low lung volumes and widening of the mediastinum. Nuerology saw the patient on 01/13/2017 and was thought that probably she had a complex partial seizure probably provoked with a hypertensive emergency in combination with the old left MCA stroke that she had 30 years ago (less likely) . It was decided to obtain an EEG and she was placed on Keppra 500 mg twice a day. Problem list along with assessment and plan Cardiology * Patiet came in with hypertensive emergency, has a history of A. fib on Coumadin. * Initial blood pressure was 260/140. * She recieved Iv labetalol pushes 70mg, * pressures coming down, however still around 200/100. * Patient had previously been hypotensive going back to previous years record at [facility] in last hour. * Will hold her Coumadin * Cardio consult for further assistance in managing blood pressure and AC * Echo pending. * Goal reduction is not more than 25%. Maintain blood pressure between 150 to 160 Metabolic * She is a chronic dialysis patient and has history of labile blood pressure, dialysis done today, next dialysis tmrw in am. * Blood pressure varies low and high, but never was this high. * She is on midodrine but she sometimes need midodrine after dialysis if blood pressure is low, otherwise she takes her blood pressure medications regularly. * Gout: Will hold her PO medication untill patient able to take by mouth Alimentary Nuerology Seizure most likely secondary to ischemic stroke vs infection( afebrile, no neck stiffness) vs space occupiying lesion( CT normal) * NPO pneding swallow. * Neuro checks Q1 * nuero consult aprreciated. * continue kepra BID. * Mri head awaited, will go after dialysis. * Carotid ultrasound resulted. * Ct asa and statin. * Cardiology consult appreciated. * PT/OT FC dvt px coumadin Consult Acknowledgment - Thank you for your consult request. CRISTOBAL ODELL,Lisseth STEVENS 01/14/17 1057: Assessment/Plan Other Findings/Comments: I have personally seen and examined the patient. Briefly, the patient is a 71- year-old female with a past medical history significant for hypertension, end- stage renal disease on hemodialysis, and a stroke in 1987 without residual deficits. She also has a history of atrial fibrillation on Coumadin. She presented with seizure like episodes and change in mental status. She was evaluated in the ED and found to have hypertensive emergency. She was further evaluated for seizures noting she had a head CT that showed no evidence of intracranial bleed. A CVA was considered however because the patient was extremely hypertensive, she was not a candidate for TPA. She was thought to have evidence of hot paralysis and an MRI has been ordered but not completed as of yet. For now, we will monitor the patient's neuro checks every hour. She received Keppra which she will continue. We discussed the case with neurology noting they recommended to continue Keppra and obtain an MRI. We will obtain a carotid ultrasound to rule out carotid artery disease. She will continue to receive aspirin and statins. A cardiology consult was placed. We'll request PT /OT. We'll follow up neurology's recommendations. For the patient's blood pressure, I have discussed this with nephrology at length. We will have a goal reduction of 25%, noting her blood pressure was 260 mmHg on admission. We'll maintain the blood pressure between 180 and 1 90 mmHg. We will continue labetalol and hydralazine. We will restart her blood pressure medicines once she is able to swallow. A nephrology consult was placed for hemodialysis. We will continue the patient on Coumadin for therapeutic INR. Echocardiogram has been ordered and we'll follow up the results. The patient will be nothing by mouth pending a swallowing evaluation which has been ordered. I have discussed the plan of care with housestaff and asked him to contact me should the patient' s condition change or deteriorate. Consult Acknowledgment - Thank you for your consult request.
[2017-01-14 08:00] VITALS: BP 204/80
--- NOTE | 2017-01-14 08:45 | NUR ---
REC'D THE PT IN BED DROWSY BUT AROUSABLE. PT IS A&OX2, CONFUSED TO TIME, ATTEMPTS TO REORIENT DON'T WORK. PT HAS A R FACIAL DROOP. MOVES BUE BUT THE R HAND GRASP IS SL WEAKER THAN THE L. CAN RAISE BLE OFF THE BED BUT IS UNABLE TO HOLD THEM IN THE AIR. PT IS IN A 1ST DEGREE AVBLOCK W/O ECTOPY PER THE INTEGRATION PROJECT MANAGER. NO EDEMA NOTED. DENISE BS WITH RHONCHI IN [place]CK[place]/RU/RML BUT DIMINSIHED AT THE BASES. O2 SAT IS 99% ON A 1LNC. ABD IS SOFT WITH NORMOACTIVE BOWEL SOUNDS. NPO AT THIS TIME IS AWAITING A SWALLOW EVALUATION. RESENDIZ IN PLACE DRAINING VERY SCANT AMOUNTS OF CLEAR YELLOW URINE. PT ONLY DRAINED 11ML OF URINE FROM 06-0800. DUE TO RECEIVE HEMO-DIALYSIS TODAY.
--- NOTE | 2017-01-14 10:00 | NUR ---
AT 0900 THE PT'S BP WAS NOTED TO BE 207/105 VIA THE AUTOCUFF. MILAGRO LOONEY NOTIFIED AND THE PT WAS ADMINISTERED CARDIZEM 5MG IV AT THAT TIME PER MD ORDER. BP CURRENTLY 193/99. PT HAD A BEDSIDE ECHO PERFORMED AT 0900.
--- NOTE | 2017-01-14 10:30 | Cons- Nephrology ---
General Information and HPI Consulting Request Date of Consult: 01/14/17 Requested By: GRACE BAILEY M.D Reason for Consult: Evaluation and management of end-stage renal disease Source of Information: old records Exam Limitations: clinical condition History of Present Illness: This 71-year-old woman with history of hypertension and end-stage renal disease has been on dialysis since 2011. She presented with a new seizure and likewise found to have accelerated hypertension. She remains somewhat confused. Of note , she recently had the reinstitution of her blood pressure medicines. She had been hospitalized in November 2015 with intractable hypotension. Reviewing the outpatient dialysis records, her blood pressure had been well controlled up until November of this year. In fact, she was on midodrine in an effort to keep her blood pressure elevated for dialysis. In November of last year heard Doxazosin had been stopped. According to the outpatient dialysis unit, Cleveland Huerta MD had been re-instituting blood pressure medications. It seems that her pressure had begun to rise in the middle of November. The patient herself cannot give me any history at this time. As an outpatient, long before she started dialysis, her compliance with blood pressure medicines as often an area of doubt. Is being said, up until this November, her blood pressure if anything has been running at target and sometimes low particularly after dialysis. Allergies/Medications Allergies: Coded Allergies: No Known Allergies (01/13/17) Home Med List: Allopurinol 100 MG TABLET 1 TAB PO DAILY GOUT (Reported) Aspirin (Ecotrin*) 81 MG TABLET.DR 1 TAB PO EOD HEART/BLOOD (Reported) Calcium Acetate 667 MG CAPSULE 1 CAP PO TID PHOSPHORUS BINDER (Reported) Carvedilol 25 MG TABLET 0.5 TAB PO BID HEART/BP (Reported) Diltiazem HCl (Diltiazem 24HR ER) 360 MG CAP.ER.24H 1 CAP PO DAILY HEART/BP ( Reported) Doxazosin Mesylate 4 MG TABLET 1 TAB PO AD BP (Reported) Irbesartan 300 MG TABLET 1 TAB PO DAILY BP (Reported) Lovastatin 20 MG TABLET 1 TAB PO DAILY CHOLESTEROL (Reported) Metoclopramide HCl (Reglan) 5 MG TABLET 1 TAB PO 4 TIMES/DAY NPO N/V ( Reported) Omeprazole 40 MG CAPSULE.DR 1 CAP PO DAILY GI (Reported) Vit B Cmplx 3/FA/Vit C/Biotin (Jenny-Anthony Rx Tablet) 1 MG-60 MG-300 MCG TABLET 1 TAB PO DAILY SUPPLEMENT (Reported) Warfarin Sodium (Jantoven) (Unknown Strength) TABLET (Unknown Dose) PO AD BLOOD THINNER (Reported) Review of Systems Review of Systems: Unobtainable Past History Travel History Traveled to [place] past 21 day No Medical History Blood Transfusion Hx: No Neurological: CVA 1987 (NO DEFICITS) EENT: NONE Cardiovascular: hypertension, hyperlipidemia Respiratory: NONE Gastrointestinal: diverticulosis Hepatic: NONE Renal: ESRD on HD, glomerulonephritis, ESRDHD MON, WED, SAT, end-stage renal disease was felt to be due to hypertension and/or a chronic glomerulonephritis., on hemodialysis since 2011 Musculoskeletal: ARTHRITIS GOUT Psychiatric: NONE Endocrine: hyperparathyroidism (secondary) Blood Disorders: 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 She had a bone marrow which was negative for multiple myeloma in March 2015 Cancer(s): NONE LIBRARY AIDE/Reproductive: NONE Other Medical Hx: Positive PPD Surgical History Surgical History: cataract removal, , tubal ligation, AVFISTULA Family History Relations & Conditions If Any: Relation not specified for: *No pertinent family history Psychosocial History Where Do You Live? Home Who Do You Live With? self Services at Home: NONE Primary Language: Bengali Smoking Status: Never Smoked ETOH Use: denies use Illicit Drug Use: denies illicit drug use Functional Ability ADLs Independent: dressing, eating, toileting, bathing. Ambulation: independent Exam & Diagnostic Data Vital Signs and I&O Vital Signs Date Time Temp Pulse Resp B/P Pulse O2 O2 Flow FiO2 Ox Delivery Rate 01/14 0903 99.0 60 20 207/105 01/14 0400 100 Nasal 1.0L Cannula 01/14 0330 60 203/95 01/14 0025 64 213/108 01/14 0000 100 Nasal 1.0L Cannula 01/14 0000 99.3 66 22 220/80 100 Nasal 1.0L Cannula 01/135 98 Nasal 1.0L Cannula 01/133 64 221/93 01/13 1945 84 196/72 01/13 1909 97.8 64 18 192/70 100 Nasal 1.0L Cannula 01/13 1833 97.3 63 14 200/78 100 Nasal 1.0L Cannula 01/13 1809 97.3 65 16 212/80 01/13 1751 97.3 65 16 212/80 100 Nasal 2.0L Cannula 01/13 1728 97.2 68 15 220/78 01/13 1646 68 15 220/78 100 Nasal 3.0L Cannula 01/13 1537 100 Nasal 3.0L Cannula 01/13 1536 97.2 69 16 228/94 100 Nasal 3.0L Cannula 01/13 1518 97.3 71 20 240/88 01/13 1512 71 240/88 01/13 1455 97.3 62 20 250/94 01/13 1449 62 20 250/94 100 Nasal 4.0L Cannula 01/13 1431 97.3 64 16 234/92 01/13 1418 97.3 71 18 234/92 95 Nasal 4.0L Cannula 01/13 1350 64 24 260/110 01/13 1334 97.3 64 24 260/110 95 Nasal 2.0L Cannula 01/13 1320 95 Nasal 4.0L Cannula Intake & Output 01/14 1600 01/14 04001/13 0400 01/12 1600 01/12 0400 Intake Total 0 100 Output Total 0 Balance 0 100 Intake, IV 0 100 Intake, Oral 0 Output, Urine 0 Patient 160 lb Weight Physical Exam General Appearance: well developed/nourished, no apparent distress, lethargic Head: atraumatic, normal appearance Eyes: Bilateral: PERRL, EOMI. Ears, Nose, Throat: hearing grossly normal Neck: normal inspection, supple Respiratory: normal breath sounds Cardiovascular: regular rate/rhythm, edema Peripheral Pulses: 2+ popliteal (R), 2+ popliteal (L), 2+ tibialis posterior (R), 2+ tibialis posterior (L), 2+ dorsalis pedis (R), 2+ dorsalis pedis (L) Gastrointestinal: normal bowel sounds, soft, non-tender Back: normal inspection, normal range of motion, vertebral tenderness Cranial Nerves: normal hearing, normal speech, PERRL Skin: intact, normal color, warm/dry Results Pertinent Lab Results: Laboratory Tests 01/14 01/13 01/13 0400 1413 1330 Chemistry Sodium (137 - 145 mmol/L) 137 138 Potassium (3.5 - 5.1 mmol/L) 3.9 4.2 Chloride (98 - 107 mmol/L) 100 100 Carbon Dioxide (22 - 30 mmol/L) 21 L 16 L Anion Gap (5 - 16) 15 22 H BUN (7 - 17 mg/dL) 55 H 48 H Creatinine (0.5 - 1.0 mg/dL) 11.3 *H 10.3 *H Estimated GFR (>60 ml/min) 3 L 4 L BUN/Creatinine Ratio (7 - 25 %) 4.7 L Glucose (65 - 99 mg/dL) 87 123 H Hemoglobin A1c (4.2 - 5.8 %) 5.1 Calcium (8.4 - 10.2 mg/dL) 9.2 9.2 Phosphorus (2.5 - 4.5 mg/dL) 5.8 H Magnesium (1.6 - 2.3 mg/dL) 2.3 Total Bilirubin (0.2 - 1.3 mg/dL) 0.5 0.6 AST (14 - 36 U/L) 16 19 ALT (9 - 52 U/L) 29 27 Alkaline Phosphatase (<127 U/L) 80 Troponin I (< 0.11 ng/ml) < 0.01 Total Protein (6.3 - 8.2 g/dL) 7.5 Albumin (3.5 - 5.0 g/dL) 3.1 L 3.8 Globulin (1.9 - 4.2 gm/dL) 3.7 Albumin/Globulin Ratio (1.1 - 2.2 %) 1.0 L Triglycerides (<150 mg/dL) 93 Cholesterol (<200 MG/DL) 168 LDL Cholesterol, Calc (65 - 129 mg/dL) 91 HDL Cholesterol (40 - 60 mg/dL) 59 Cholesterol/HDL Ratio (0.00 - 4.23 %) 3 Coagulation PT (9.4 - 12.5 SEC) 13.2 H 12.7 H INR (0.90 - 1.19) 1.26 H 1.21 H APTT (25 - 37 SEC) 22 L Hematology CBC w Diff NO MAN DIFF REQ WBC (4.8 - 10.8 /CUMM) 9.9 8.4 RBC (4.20 - 5.40 /CUMM) 3.76 L 4.29 Hgb (12.0 - 16.0 G/DL) 11.1 L 12.4 Hct (37 - 47 %) 34.4 L 39.5 MCV (81.0 - 99.0 FL) 91.6 92.0 MCH (27.0 - 31.0 PG) 29.5 29.0 RDW (11.5 - 14.5 %) 15.2 H 15.6 H Plt Count (130 - 400 /CUMM) 227 224 MPV (7.4 - 10.4 FL) 9.5 9.2 Gran % (42.2 - 75.2 %) 64.7 77.2 H Lymphocytes % (20.5 - 51.1 %) 21.5 14.2 L Monocytes % (1.7 - 9.3 %) 10.4 H 4.9 Eosinophils % (0 - 5 %) 2.8 3.3 Basophils % (0.0 - 2.0 %) 0.6 0.4 Absolute Granulocytes (1.4 - 6.5 /CUMM) 6.4 6.5 Absolute Lymphocytes (1.2 - 3.4 /CUMM) 2.1 1.2 Absolute Monocytes (0.10 - 0.60 /CUMM) 1.0 H 0.4 Absolute Eosinophils (0.0 - 0.7 /CUMM) 0.3 0.3 Absolute Basophils (0.0 - 0.2 /CUMM) 0.1 0 PUBS MCHC (33.0 - 37.0 G/DL) 32.2 L 31.5 L Imaging/Other Studies: PATIENT: HERO LAWRENCE PRESENT AGE: 71 PATIENT ACCOUNT NO: [id number] : 43 LOCATION: [facility] ORDERING PHYSICIAN: ERICK HENSON MD SERVICE DATE: 01/13/17 EXAM TYPE: RAD - XRY-PORTABLE CHEST XRAY EXAMINATION: XR PORTABLE CHEST CLINICAL INFORMATION: Seizure, vomiting. Suspected aspiration. COMPARISON: Chest radiograph done at [facility] on 04/26/2015. TECHNIQUE: Portable AP erect view of the chest was obtained. FINDINGS: The patient is rotated to the right. Low lung volume is noted bilaterally. The cardiomediastinal silhouette is moderately enlarged with apparent widening of the superior mediastinum which could be related to the positioning. No discrete focal airspace disease. No effusion. There is a radiopaque stent seen projecting over the inferior part of the left axilla, new since prior study. IMPRESSION: Technically limited study. No discrete airspace disease to suspect pneumonia. Low lung volume. Apparent widening of the mediastinum, could be related to the technique and positioning. DICTATED BY: LIAM ESTRADA MD DATE/TIME DICTATED:01/13/171430 GLAZE MAKER:KELI DATE/TIME TRANSCRIBED:01/13/171430 CONFIDENTIAL, DO NOT COPY WITHOUT APPROPRIATE AUTHORIZATION. <Electronically signed in Other Vendor System> SIGNED BY: LIAM ESTRADA MD 01/13/17 1454 PATIENT: HERO LAWRENCE PRESENT AGE: 71 PATIENT ACCOUNT NO: [id number] : 43 LOCATION: [facility] ORDERING PHYSICIAN: ERICK HENSON MD SERVICE DATE: 01/13/17 EXAM TYPE: CAT - CT HEAD WO IV CONTRAST EXAMINATION: CT HEAD WITHOUT CONTRAST CLINICAL INFORMATION: 71-year-old female with facial droop, episode of unresponsiveness, slurred speech. Suspected CVA. COMPARISON: None TECHNIQUE: Contiguous axial imaging was performed from the skull base to vertex without intravenous administration of contrast. DLP: 600.71 mGy-cm FINDINGS: There is no evidence of acute intracranial hemorrhage or territorial infarction. No abnormal mass effect or midline shift is seen. [place] to white matter differentiation is well preserved. No extra-axial fluid collections are identified. The ventricles are normal in size. There is evidence of encephalomalacia involving the left frontal lobe, extending into the adjacent external capsule and asymmetric ipsilateral dilatation of the left lateral ventricle present, consistent with old left MCA territorial infarction. Mild age-appropriate diffuse cortical atrophy and mild chronic microvascular deep white matter ischemic changes are noted. The osseous structures and soft tissues are normal. The mastoid air cells and visualized portions of the paranasal sinuses are well aerated. Subcentimeter calcification is noted at right parietal convexity region likely represent dural calcification versus calcified small meningioma. IMPRESSION: 1. No acute intracranial pathology. 2. 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 This critical result was discussed with Dr. Henson at 1:34 PM on 01/13/2017 and it was ascertained that the content and urgency of the report was understood at the time of direct communication. DICTATED BY: LIAM ESTRADA MD DATE/TIME DICTATED:01/13/171327 GLAZE MAKER:KELI DATE/TIME TRANSCRIBED:01/13/171327 CONFIDENTIAL, DO NOT COPY WITHOUT APPROPRIATE AUTHORIZATION. <Electronically signed in Other Vendor System> SIGNED BY: LIAM ESTRADA MD 01/13/17 [id number] Assessment/Plan Assessment/Recommendations Assessment: 1. Accelerated hypertension. Apparently labetalol was causing bradycardia. Other suggestions would be to use hydralazine or perhaps nicardipine if he can be obtained. In addition, we'll challenge her dry weight today and plan 3 L of ultrafiltration. 2. End-stage renal disease on hemodialysis since 2011 3. History of hypertension 4. Status post CVA but that was back in 1987 5. Anemia. Given her blood pressure, we'll hold the Epogen for now Recommendations: 1. Hemodialysis today. 2. Resume blood pressure medicines at home once she is taking by mouth 3. Next dialysis will be on Saturday
--- NOTE | 2017-01-14 11:12 | RADIOLOGY REPORT ---
EXAMINATION: XR PORTABLE CHEST CLINICAL INFORMATION: Elevated blood pressure. Dialysis patient. COMPARISON: 01/13/2017 TECHNIQUE: Portable AP view of the chest was obtained. FINDINGS: Low lung volumes. Central vascular prominence without overt edema. No significant pleural effusion. No pneumothorax. The cardiomediastinal silhouette is unchanged, with a calcified aorta. IMPRESSION: Central vascular prominence without overt edema.
--- NOTE | 2017-01-14 11:32 | NUR ---
PHYSICAL THERAPY. PT CONSULT RECEIVED AND CHART REVIEWED. DISCUSSED W/ NSG, Pt CURRENTLY W/ UNCONTROLLED HTN, PLAN IS FOR DIALYSIS THIS AFTERNOON. PT WILL F/U APPROPRIATE.
--- NOTE | 2017-01-14 12:40 | Cons- Cardiology ---
General Information and HPI Consulting Request Date of Consult: 01/14/17 Requested By: GRACE BAILEY M.D Reason for Consult: HTN urgency, ESRD Source of Information: patient, old records Exam Limitations: poor historian History of Present Illness: This is a 71 y/o Female with a PMH of prior CVA, ESRD on dialysis for last 5 years, HTN, and PAF on Coumadin, and HLD who presented to [place] with reported decreased mental status and seizure activity. She was also noted to be hypertensive. On my interview with the patient she was a limited historian and the HPI was obtained from the medical record. Of note the patient had issues with hypotension in the past although it appears recently BP had been trending up and some of her previous discontinued BP medications were being restarted. In the past she had required Midodrine for periods of low BP. Per report until recently that patient had been in her USOH without complaints of dyspnea, chest pain, or palpitations. Allergies/Medications Allergies: Coded Allergies: No Known Allergies (01/13/17) Home Med List: Allopurinol 100 MG TABLET 1 TAB PO DAILY GOUT (Reported) Aspirin (Ecotrin*) 81 MG TABLET.DR 1 TAB PO EOD HEART/BLOOD (Reported) Calcium Acetate 667 MG CAPSULE 1 CAP PO TID PHOSPHORUS BINDER (Reported) Carvedilol 25 MG TABLET 0.5 TAB PO BID HEART/BP (Reported) Diltiazem HCl (Diltiazem 24HR ER) 360 MG CAP.ER.24H 1 CAP PO DAILY HEART/BP ( Reported) Doxazosin Mesylate 4 MG TABLET 1 TAB PO AD BP (Reported) Irbesartan 300 MG TABLET 1 TAB PO DAILY BP (Reported) Lovastatin 20 MG TABLET 1 TAB PO DAILY CHOLESTEROL (Reported) Metoclopramide HCl (Reglan) 5 MG TABLET 1 TAB PO 4 TIMES/DAY NPO N/V ( Reported) Omeprazole 40 MG CAPSULE.DR 1 CAP PO DAILY GI (Reported) Vit B Cmplx 3/FA/Vit C/Biotin (Jenny-Anthony Rx Tablet) 1 MG-60 MG-300 MCG TABLET 1 TAB PO DAILY SUPPLEMENT (Reported) Warfarin Sodium (Jantoven) (Unknown Strength) TABLET (Unknown Dose) PO AD BLOOD THINNER (Reported) Current Medications: Current Medications Sig/Keyla Start time Last Medication Dose Route Stop Time Status Admin Aspirin 300 MG DAILY 01/14 1000 AC 01/14 RI 1118 Aspirin 300 MG ONCE ONE 01/13 1500 DC 01/13 RI 01/13 1501 1512 Diltiazem HCl 5 MG ONCE ONE 01/14 0015 DC 01/14 IV PUSH 01/14 0016 0025 Diltiazem HCl 5 MG Q6P PRN 01/13 2300 AC 01/14 IV 0903 Diltiazem HCl 0 .STK-MED ONE 01/13 1809 DC .ROUTE Diltiazem HCl 15 MG ONCE ONE 01/13 1730 DC 01/13 IV PUSH 01/13 1731 1809 Heparin Sodium 5,000 UNIT Q8 01/13 2200 AC 01/13 (Porcine) SC 2206 Hydralazine HCl 10 MG ONCE ONE 01/13 1500 DC 01/13 IV 01/13 1501 1455 Hydralazine HCl 0 .STK-MED ONE 01/13 1454 DC .ROUTE Labetalol HCl 20 MG ONCE ONE 01/13 1715 DC 01/13 IV 01/13 1716 1728 Labetalol HCl 200 MG Q24H 01/13 1630 DC Dextrose/Water 200 ML IV Labetalol HCl 0 .STK-MED ONE 01/13 1518 DC IV Labetalol HCl 20 MG ONCE ONE 01/13 1515 DC 01/13 IV 01/13 1516 1518 Labetalol HCl 10 MG ONCE ONE 01/13 1430 DC 01/13 IV 01/13 1431 1431 Labetalol HCl 0 .STK-MED ONE 01/13 1332 DC IV Labetalol HCl 20 MG ONCE ONE 01/13 1330 DC 01/13 IV 01/13 1331 1350 Levetiracetam 500 MG Q12 01/13 2200 AC 01/14 N/A 1 UNIT IV 1010 Levetiracetam 1,000 MG Q12 01/13 1329 DC 01/13 N/A 1 UNIT IV 1344 Patient Medication 1 UNIT ONE NR 01/13 1900 PR Teaching ED 01/13 1930 Review of Systems Review of Systems: Review of systems Limited as the patient is a limited historian Past History Travel History Traveled to [place] past 21 day No Medical History Blood Transfusion Hx: No Neurological: CVA EENT: NONE Cardiovascular: hypertension Respiratory: NONE Gastrointestinal: diverticulosis Hepatic: NONE Renal: ESRD on HD Musculoskeletal: ARTHRITIS GOUT Psychiatric: NONE Endocrine: hyperparathyroidism (secondary) Blood Disorders: 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 Home Who Do You Live With? self Services at Home: NONE Primary Language: Latvian Smoking Status: Never Smoked ETOH Use: denies use Illicit Drug Use: denies illicit drug use Functional Ability ADLs Independent: dressing, eating, toileting, bathing. Ambulation: independent Exam & Diagnostic Data Vital Signs and I&O Vital Signs Date Time Temp Pulse Resp B/P Pulse O2 O2 Flow FiO2 Ox Delivery Rate 01/14 1200 100 Nasal 1.0L Cannula 01/14 0903 99.0 60 20 207/105 01/14 0800 99 Nasal 1.0L Cannula 01/14 0800 99.0 64 20 204/80 99 Nasal 1.0L Cannula 01/14 0400 100 Nasal 1.0L Cannula 01/14 0330 60 203/95 01/14 0025 64 213/108 01/14 0000 100 Nasal 1.0L Cannula 01/14 0000 99.3 66 22 220/80 100 Nasal 1.0L Cannula 01/13 2145 98 Nasal 1.0L Cannula 01/13 2133 64 221/93 01/13 1945 84 196/72 01/13 1909 97.8 64 18 192/70 100 Nasal 1.0L Cannula 01/13 1833 97.3 63 14 200/78 100 Nasal 1.0L Cannula 01/13 1809 97.3 65 16 212/80 01/13 1751 97.3 65 16 212/80 100 Nasal 2.0L Cannula 01/13 1728 97.2 68 15 220/78 01/13 1646 68 15 220/78 100 Nasal 3.0L Cannula 01/13 1537 100 Nasal 3.0L Cannula 01/13 1536 97.2 69 16 228/94 100 Nasal 3.0L Cannula 01/13 1518 97.3 71 20 240/88 01/13 1512 71 240/88 01/13 1455 97.3 62 20 250/94 01/13 1449 62 20 250/94 100 Nasal 4.0L Cannula 01/13 1431 97.3 64 16 234/92 01/13 1418 97.3 71 18 234/92 95 Nasal 4.0L Cannula 01/13 1350 64 24 260/110 01/13 1334 97.3 64 24 260/110 95 Nasal 2.0L Cannula 01/13 1320 95 Nasal 4.0L Cannula Intake & Output 01/14 0801/14 0000 01/13 1600 01/13 0801/13 0000 Intake Total 0 100 Output Total 0 Balance 0 100 Intake, IV 0 100 Intake, Oral 0 Output, Urine 0 Patient 157 lb 160 lb Weight Physical Exam: General: no apparent distress. Lethargic but responding. Eyes: No obvious scleral icterus. HEENT: No jugular venous distention or abnormal jugular venous pulsations. Cardiovascular: Normal intensity S1/S2. Regular. 2-3/6 systolic murmur. Respiratory: No rales or rhonchi Abdomen: no guarding or rebound tenderness. Musculoskeletal: No clubbing or cyanosis noted, no edema Skin: Warm Neurologic: No gross focal deficits noted. Lymph: No gross lymphadenopathy. Labs/Jesse Results: Laboratory Tests 01/14 01/13 01/13 0400 1413 1330 Chemistry Sodium (137 - 145 mmol/L) 137 138 Potassium (3.5 - 5.1 mmol/L) 3.9 4.2 Chloride (98 - 107 mmol/L) 100 100 Carbon Dioxide (22 - 30 mmol/L) 21 L 16 L Anion Gap (5 - 16) 15 22 H BUN (7 - 17 mg/dL) 55 H 48 H Creatinine (0.5 - 1.0 mg/dL) 11.3 *H 10.3 *H Estimated GFR (>60 ml/min) 3 L 4 L BUN/Creatinine Ratio (7 - 25 %) 4.7 L Glucose (65 - 99 mg/dL) 87 123 H Hemoglobin A1c (4.2 - 5.8 %) 5.1 Calcium (8.4 - 10.2 mg/dL) 9.2 9.2 Phosphorus (2.5 - 4.5 mg/dL) 5.8 H Magnesium (1.6 - 2.3 mg/dL) 2.3 Total Bilirubin (0.2 - 1.3 mg/dL) 0.5 0.6 AST (14 - 36 U/L) 16 19 ALT (9 - 52 U/L) 29 27 Alkaline Phosphatase (<127 U/L) 80 Troponin I (< 0.11 ng/ml) < 0.01 Total Protein (6.3 - 8.2 g/dL) 7.5 Albumin (3.5 - 5.0 g/dL) 3.1 L 3.8 Globulin (1.9 - 4.2 gm/dL) 3.7 Albumin/Globulin Ratio (1.1 - 2.2 %) 1.0 L Triglycerides (<150 mg/dL) 93 Cholesterol (<200 MG/DL) 168 LDL Cholesterol, Calc (65 - 129 mg/dL) 91 HDL Cholesterol (40 - 60 mg/dL) 59 Cholesterol/HDL Ratio (0.00 - 4.23 %) 3 Coagulation PT (9.4 - 12.5 SEC) 13.2 H 12.7 H INR (0.90 - 1.19) 1.26 H 1.21 H APTT (25 - 37 SEC) 22 L Hematology CBC w Diff NO MAN DIFF REQ WBC (4.8 - 10.8 /CUMM) 9.9 8.4 RBC (4.20 - 5.40 /CUMM) 3.76 L 4.29 Hgb (12.0 - 16.0 G/DL) 11.1 L 12.4 Hct (37 - 47 %) 34.4 L 39.5 MCV (81.0 - 99.0 FL) 91.6 92.0 MCH (27.0 - 31.0 PG) 29.5 29.0 RDW (11.5 - 14.5 %) 15.2 H 15.6 H Plt Count (130 - 400 /CUMM) 227 224 MPV (7.4 - 10.4 FL) 9.5 9.2 Gran % (42.2 - 75.2 %) 64.7 77.2 H Lymphocytes % (20.5 - 51.1 %) 21.5 14.2 L Monocytes % (1.7 - 9.3 %) 10.4 H 4.9 Eosinophils % (0 - 5 %) 2.8 3.3 Basophils % (0.0 - 2.0 %) 0.6 0.4 Absolute Granulocytes (1.4 - 6.5 /CUMM) 6.4 6.5 Absolute Lymphocytes (1.2 - 3.4 /CUMM) 2.1 1.2 Absolute Monocytes (0.10 - 0.60 /CUMM) 1.0 H 0.4 Absolute Eosinophils (0.0 - 0.7 /CUMM) 0.3 0.3 Absolute Basophils (0.0 - 0.2 /CUMM) 0.1 0 PUBS MCHC (33.0 - 37.0 G/DL) 32.2 L 31.5 L Diagnostic Data EKG Results tracing personally reviewed, shows SR at 64 bpm with borderline 1st degree AVB and PRWP CXR Results IMPRESSION: Central vascular prominence without overt edema. Other Results Telemetry shows SR Head CT IMPRESSION: 1. No acute intracranial pathology. 2. 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 Assessment/Plan Assessment/Plan 1. AMS with seizure 2. Hypertensive Crisis 3. Hx of CVA 4. PAF on outpatient Coumadin 5. ESRD on dialysis 6. Murmur on exam Concern that elevated BP may have contributed to AMS/seizure. Neurology and Nephrology following. Will need to bring her BP down slowly/carefully and she has had issues with hypotension as well in the past. Would not favor IV cardizem , would use IV Hydralazine/labetalol until able to take PO medications, if not effective can start Labetalol or Nicardipine gtt but this may require arterial line BP monitoring. Remains in SR. INR subtherapeutic, resume Coumadin, MRI is pending. Echo is pending. When able to take PO would carefully resume her outpatient antihypertensive regimen. Keep on telemetry but no evidence of severe bradycardia at this time. No evidence of CHF or ACS. Condition is guarded. Collins Liz MD [facility] Consult Acknowledgment - Thank you for your consult request.
[2017-01-14 16:00] VITALS: BP 143/69
--- NOTE | 2017-01-14 20:34 | ECHOCARDIOGRAM REPORT ---
HERO LAWRENCE Age: 71 : 1945 Gender: F Exam Date: 01/14/2017 08:52 Exam Location: [facility] Ht (in): 63 Wt (lb): 160 BSA: 1.82 BP: 202 / 78 Ordering Physician: CAREN MACKENZIE MD Referring Physician: CAREN MACKENZIE MD Technologist: Armida Vilchis Room Number: 114 Indications: STROKE Rhythm: Technical Quality: Fair FINDINGS Left Ventricle Left ventricular cavity size normal. Left ventricular wall thickness mildly to moderately increased. No obvious regional wall motion abnormalities. Left ventricular ejection fraction is estimated at > 55 %. Abnormal relaxation filling pattern of the left ventricle (stage 1 diastolic dysfunction). Right Ventricle Normal right ventricular size and function. Right Atrium Normal right atrial size. Left Atrium Mild left atrial dilatation. Mitral Valve No mitral stenosis. Mild mitral annular calcification. Trace mitral regurgitation. Aortic Valve Diffuse thickening of the aortic valve cusps with reduced excursion. Mild aortic stenosis. Mild aortic regurgitation. Tricuspid Valve Structurally normal tricuspid valve. Trace tricuspid regurgitation. Unable to estimate the right ventricular systolic pressure. Pulmonic Valve Pulmonic valve not well visualized, grossly normal. Pericardium No pericardial effusion. Great Vessels Normal size aortic root. CONCLUSIONS Left ventricular cavity size normal. Left ventricular wall thickness mildly to moderately increased. No obvious regional wall motion abnormalities. Left ventricular ejection fraction is estimated at > 55 %. Abnormal relaxation filling pattern of the left ventricle (stage 1 diastolic dysfunction). Normal right ventricular size and function. Mild left atrial dilatation. Diffuse thickening of the aortic valve cusps with reduced excursion. Mild aortic stenosis. Unable to estimate the right ventricular systolic pressure. No pericardial effusion. Jorge Luis Liz M.D. (Electronically Signed) Final Date: 14 January 2017 20:34 MEASUREMENTS (Male / Female) Normal Values 2D ECHO LV Diastolic Diameter PLAX 3.4 cm 4.2 - 5.9 / 3.9 - 5.3 cm LV Systolic Diameter PLAX 2.2 cm 2.1 - 4.0 cm LV Fractional Shortening PLAX 35.3 % 25 - 46 % LV Ejection Fraction 2D Teich 65.8 % IVS Diastolic Thickness 1.2 cm LVPW Diastolic Thickness 1.3 cm LV Relative Wall Thickness 0.7 RV Internal Dim ED PLAX 2.2 cm 1.9 - 3.8 cm LVOT Diameter 2.0 cm Aortic Root Diameter 3.0 cm LA Systolic Diameter LX 3.3 cm 3.0 - 4.0 / 2.7 - 3.8 cm LA Volume 90.0 cm 18 - 58 / 22 - 52 cm Ascending Aorta Diameter 3.4 cm DOPPLER AV Peak Velocity 278.0 cm/s AV Peak Gradient 30.9 mmHg AV Mean Velocity 163.0 cm/s AV Mean Gradient 13.0 mmHg AV Velocity Time Integral 60.0 cm AI Deceleration [place] 243.0 cm/s AI Peak Velocity 429.0 cm/s AI Pressure Half Time 517.0 ms AI Peak Gradient 73.6 mmHg LVOT Peak Velocity 157.0 cm/s LVOT Peak Gradient 9.9 mmHg LVOT Mean Velocity 103.0 cm/s LVOT Mean Gradient 5.0 mmHg LVOT Velocity Time Integral 40.5 cm LVOT Stroke Volume 127.2 cm AV Area Cont Eq vti 2.1 cm AV Area Cont Eq pk 1.8 cm MV Peak Velocity 142.0 cm/s MV Peak Gradient 8.1 mmHg MV Mean Velocity 81.3 cm/s MV Mean Gradient 3.0 mmHg Mitral E Point Velocity 91.3 cm/s Mitral A Point Velocity 122.0 cm/s Mitral E to A Ratio 0.7 MV PHT Velocity 121.0 cm/s MV Deceleration [place] 424.0 cm/s MV Pressure Half Time 85.6 ms MV Area PHT 2.6 cm MV Deceleration Time 327.0 ms MR Peak Velocity 293.0 cm/s MR Peak Gradient 34.3 mmHg TR Peak Velocity 262.0 cm/s TR Peak Gradient 27.5 mmHg Right Atrial Pressure 5.0 mmHg Pulmonary Artery Systolic Pressu 32.5 mmHg Right Ventricular Systolic Press 32.5 mmHg PV Peak Velocity 116.0 cm/s PV Peak Gradient 5.4 mmHg PV Mean Velocity 82.2 cm/s PV Mean Gradient 3.0 mmHg PV Velocity Time Integral 27.5 cm LV E' Lateral Velocity 6.7 cm/s Mitral E to LV E' Lateral Ratio 13.6 LV E' Septal Velocity 6.5 cm/s Mitral E to LV E' Septal Ratio 14.0
--- NOTE | 2017-01-14 22:17 | NUR ---
PATIENT BP CONTINUING TO RISE. DR MASSEY NOTIFIED THAT MANUAL BP NOW 190/90. PATIENT ASYMPTOMATIC WITH NIH OF 0. ALERT CONVERSIVE.
[2017-01-15] VITALS: BP 200/100
--- NOTE | 2017-01-15 00:35 | NUR ---
PT AWAKE AND ALERT, DNIES PAIN AT THIS TIME MANUAL BP 200/100. CARDEVILOL 12.5MG PO GIVEN ORDERED. WILL MONITOR BP. MOVING ALL HER EXTREMETIES. NO DRIFT NOTED. LEFT AV SHUNT POSITIVE THRILL.
--- NOTE | 2017-01-15 01:11 | NUR ---
AUTOMATIC CUFF 190/106, AND DR. MASSEY AWARE.
--- NOTE | 2017-01-15 02:28 | NUR ---
MANUAL BP 200/80; AUTOMATIC CUFF 202/93. HYDRALAZINE 10MG IV GIVEN ORFERED BY . WILL MONITOR BP.
[2017-01-15 04:22] LABS: ABSOLUTE BASOPHIL COUNT 0.1 /CUMM (0.0-0.2); ABSOLUTE EOSINOPHIL COUNT 0.4 /CUMM (0.0-0.7); ABSOLUTE GRANULOCYTE CT 4.2 /CUMM (1.4-6.5); ABSOLUTE MONOCYTE COUNT 1.1 /CUMM (0.10-0.60); BASOPHIL % 0.7 % (0.0-2.0); EOSINOPHIL % 5.2 % (0-5); GRANULOCYTE % 54.1 % (42.2-75.2); MEAN CORPUSCULAR HGB 29.3 PG (27.0-31.0); MEAN CORPUSCULAR VOLUME 91.7 FL (81.0-99.0); MEAN PLATELET VOLUME 8.8 FL (7.4-10.4); PLATELET COUNT 237 /CUMM (130-400); RBC DISTRIBUTION WIDTH 15.4 % (11.5-14.5); RED BLOOD CELL CT 3.93 /CUMM (4.20-5.40); WHITE BLOOD CELL COUNT 7.8 /CUMM (4.8-10.8)
[2017-01-15 04:26] LABS: PT 15.2 SEC (9.4-12.5)
--- NOTE | 2017-01-15 04:48 | NUR ---
MANUAL BP 180/90, AWARE.
--- NOTE | 2017-01-15 07:04 | PN- Resident CRCU ---
Subjective HPI/CRCU Issues: Ms Crystal was seen and examined this morning. She reports no issues overnight although states she was unable to sleep well owing to the increased light coming into her room. She also states that she was very cold overnight and was unable to get much rest. She does endorse feeling better from a medical persepective. She denies any headaches or vision changes. She denies any motor or facial weakness. She denies any fever, chills, nausea, vomiting. Objective Vital Signs & I&O Last 8 Hrs of Vitals and I&O: BP: 01/15: T: 98, UT: 70, RR: 22, BP: 190/74 Pulse Ox 100 % on RA Exam General Appearance: well developed/nourished, no apparent distress, alert Respiratory: normal breath sounds, chest non-tender, quiet respiration Cardiovascular: regular rate/rhythm, systolic murmur Gastrointestinal: normal bowel sounds, soft, non-tender Extremities: normal inspection, no edema Cranial Nerves: normal hearing, normal speech Current Medications: Current Medications Sig/Keyla Start time Last Medication Dose Route Stop Time Status Admin Aspirin 300 MG DAILY 01/14 1000 AC 01/14 UT 1118 Carvedilol 12.5 MG BID 01/14 2300 AC 01/14 PO 2325 Carvedilol 12.5 MG BID 01/14 2211 DC PO Diltiazem HCl 5 MG Q6P PRN 01/13 2300 DC 01/14 IV 0903 Heparin Sodium 5,000 UNIT Q8 01/13 2200 DC 01/13 (Porcine) SC 2206 Hydralazine HCl 10 MG ONCE ONE 01/15 0230 DC 01/15 IV 01/15 0231 0223 Levetiracetam 500 MG Q12 01/13 2200 AC 01/14 N/A 1 UNIT IV 2139 Losartan Potassium 50 MG ONCE ONE 01/15 0845 DC PO 01/15 0846 Potassium Chloride 10 MEQ ONCE ONE 01/15 0600 DC 01/15 PO 01/15 0601 0616 Warfarin Sodium 5 MG COUMADIN 1700 ONE 01/15 1700 AC PO 01/15 1701 Warfarin Sodium 5 MG COUMADIN 1700 ONE 01/14 1700 DC 01/14 PO 01/14 1701 1759 Impression/Plan Impression/Problem List Impression: Ms Crystal is a 71-year-old female with past medical history of end-stage renal disease on hemodialysis, Saturday, Saturday and Saturday, atrial fibrillation on Coumadin, previous CVA in 1979 (without any residual damage), labile hypertension who was brought into the emergency department after having a seizure-like episode with post ictal confusion and decreased response. Cardiology Overnight the patient's blood pressures trended as follows: 143/69-->194/97--> 200/100-->202/93-->190/74, she is currently still not at goal. Following recommendations from cardiology we will begin the patient on her by mouth home medications. Patient takes at Irbesartan 300 mg at home, conversion checked with pharmacy: Losartan 50mg (this works out to 150 mg). Followed by additional 50 mg dose this evening if need be. If patient continues to remain hypertensive we can begin diltiazem. Respiratory Noncontrast CT scan of chest to rule out cause of widened mediastinum found on chest x-ray: 01/13/2017. Renal H&H above goal (11.5/36.0). We'll continue to hold off additional Neupogen for now. She will get additional hemodialysis scheduled for today 01/15/2017. Obtain repeat hemodialysis on 01/16/2017. Paricalcitol 3 days a week. Neurology Initial neurologic consult 01/13 stated that patient may have had a partial seizure provoked in the setting of hypertensive urgency. EEG and MRI results are pending. Continue Keppra 500 mg every 12 hours. Continue Statin. Alimentary Tolerating by mouth intake well. Continue current diet. May consider the addition of oral medications as tolerated. Ensure significant blood pressure drop does not occur > 25% in a 24 hour period. DVT prophylaxis Will dose Coumadin 7.5 mg this evening. INR today: Patient is on ALPS. Monitor INR in a.m. CODE: Full Code Problem List: 1. Seizure 2. Elijah's paralysis 3. Hypertension 4. Hypertensive emergency Pain Ratin Tomorrow's Labs & Rationales: CBC BEP INR Plan DVT/Prophylaxis: mechanical, pharmacological
[2017-01-15 08:00] VITALS: BP 190/74
--- NOTE | 2017-01-15 09:06 | PN- CRCU ---
Subjective HPI/Critical Care Issues: The patient is awake and alert. She appears less confused. She is afebrile. The patient's blood pressure continues to fluctuate, noting she is ranging in the 150s to the low 200s. She denies any headache or visual change. She is thirsty and wants to eat. There were no overnight events reported. Objective Current Medications: Current Medications Sig/Keyla Start time Last Medication Dose Route Stop Time Status Admin Aspirin 300 MG DAILY 01/14 1000 AC 01/14 MS 1118 Carvedilol 12.5 MG BID 01/14 2300 AC 01/14 PO 2325 Carvedilol 12.5 MG BID 01/14 2211 DC PO Diltiazem HCl 5 MG Q6P PRN 01/13 2300 DC 01/14 IV 0903 Heparin Sodium 5,000 UNIT Q8 01/13 2200 DC 01/13 (Porcine) SC 2206 Hydralazine HCl 10 MG ONCE ONE 01/15 0230 DC 01/15 IV 01/15 0231 0223 Levetiracetam 500 MG Q12 01/13 2200 AC 01/14 N/A 1 UNIT IV 2139 Losartan Potassium 50 MG ONCE ONE 01/15 0845 DC PO 01/15 0846 Potassium Chloride 10 MEQ ONCE ONE 01/15 0600 DC 01/15 PO 01/15 0601 0616 Warfarin Sodium 5 MG COUMADIN 1700 ONE 01/14 1700 DC 01/14 PO 01/14 1701 1759 Vital Signs & I&O Last 24 Hrs of Vitals and I&O: Vital Signs Date Time Temp Pulse Resp B/P Pulse O2 O2 Flow FiO2 Ox Delivery Rate 01/15 0400 99 Room Air 01/15 0223 64 26 202/93 01/15 0000 98 Room Air 01/15 0000 98.0 66 20 200/100 98 Room Air 01/14 2325 69 16 194/97 01/14 2000 98 Room Air 01/14 1600 100 Nasal 1.0L Cannula 01/14 1600 98.0 70 16 143/69 100 Nasal 1.0L Cannula 01/14 1200 100 Nasal 1.0L Cannula 01/14 0903 99.0 60 20 207/105 Intake & Output 01/15 1600 01/15 0800 01/15 0000 Intake Total 50 430 Output Total 4007 Balance 50 -3577 Intake, IV 110 Intake, Oral 50 320 Output, 4000 Dialysate Output, Urine 7 Exam General Appearance: no apparent distress, awake, comfortable Head: atraumatic, normal appearance Neck: supple Respiratory: diminished breath sounds, clear anteriorly Cardiovascular: regular rate/rhythm Abdomen: normal bowel sounds, soft, non-tender Extremities: edema present Skin: intact, normal color, warm/dry Results Last 24 Hrs of Lab Results: Laboratory Tests 01/15/17 0400: Anion Gap 17 H, Estimated GFR 5 L, Glucose 86, Calcium 8.6, Phosphorus 4.3, Magnesium 2.0, Total Bilirubin 0.5, AST 17, ALT 26, Albumin 3.5, PT 15.2 H, INR 1.45 H, CBC w Diff NO MAN DIFF REQ, RBC 3.93 L, MCV 91.7, MCH 29.3, RDW 15.4 H, MPV 8.8, Gran % 54.1, Lymphocytes % 26.3, Monocytes % 13.7 H, Eosinophils % 5.2 H, Basophils % 0.7, Absolute Granulocytes 4.2, Absolute Lymphocytes 2.0, Absolute Monocytes 1.1 H, Absolute Eosinophils 0.4, Absolute Basophils 0.1, PUBS MCHC 32.0 L Diagnostic Data CXR Findings: Central vascular prominence without overt edema. Impression/Plan Impression/Plan Impression/Plan: 1. Hypertensive emergency with seizure-like activity - BP better controlled but remains suboptimal. 2. History of PAF, on Coumadin. 3. End-stage renal disease, on hemodialysis since 2011. 4. Widened mediastinum, rule out etiology. 5. 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 6. History of gout. Recommendations: * Await hemodialysis. * Continue to monitor blood pressure closely. * Will continue to follow up cardiology and nephrology recommendations regarding BP control. * Resume Coumadin as per cardiology. * Check a noncontrast CT scan of the chest. * Follow-up EEG and MRI results. * Continue Keppra 500 mg every 12 hours per neurology. * OT/PT. * Continue aspirin and statins. * DVT prophylaxis at all times - on coumadin and alps. * Continue to monitor in the critical care unit.
--- NOTE | 2017-01-15 09:22 | PN- Cardiology ---
Subjective Subjective: The patient specifically denies chest pain or shortness of breath. She is eating breakfast. Review of Systems: Eyes no blurred or double vision Ears no deafness or ringing Nose and throat no recurrent sinusitis Lungs per history of present illness Heart per history of present illness Abdomen no nausea vomiting Musculoskeletal occasional muscle and joint pains Psych no anxiety or depression Neuro without recurrent headache or seizures Endocrine no heat or cold intolerance Objective Vital Signs and I&Os Vital Signs Date Time Temp Pulse Resp B/P Pulse O2 O2 Flow FiO2 Ox Delivery Rate 01/15 0400 99 Room Air 01/15 0223 64 26 202/93 01/15 0000 98 Room Air 01/15 0000 98.0 66 20 200/100 98 Room Air 01/14 2325 69 16 194/97 01/14 2000 98 Room Air 01/14 1600 100 Nasal 1.0L Cannula 01/14 1600 98.0 70 16 143/69 100 Nasal 1.0L Cannula 01/14 1200 100 Nasal 1.0L Cannula Intake & Output 01/15 1600 01/15 0800 01/15 0000 01/14 1600 01/14 0800 01/14 0000 Intake Total 50 430 100 0 100 Output Total 4007 11 0 Balance 50 -3577 89 0 100 Intake, IV 110 100 0 100 Intake, Oral 50 320 0 Output, 4000 Dialysate Output, Urine 7 11 0 Patient 157 lb 160 lb Weight Physical Exam: Patient is a well-developed well-nourished female appearing in no acute distress HEENT is unremarkable Neck is supple there is no JVD Lungs few scattered rhonchi Heart regular rhythm S1 and S2 are normal no gallops or rubs 2/6 systolic ejection murmur at the right upper sternal border Abdomen bowel sounds positive Extremities without edema Current Medications: Current Medications Sig/Keyla Start time Last Medication Dose Route Stop Time Status Admin Aspirin 300 MG DAILY 01/14 1000 AC 01/14 [place] 1118 Carvedilol 12.5 MG BID 01/14 2300 AC 01/14 PO 2325 Carvedilol 12.5 MG BID 01/14 221 DC PO Diltiazem HCl 5 MG Q6P PRN 01/13 2300 DC 01/14 IV 0903 Heparin Sodium 5,000 UNIT Q8 01/13 2200 DC 01/13 (Porcine) SC 2206 Hydralazine HCl 10 MG ONCE ONE 01/15 0230 DC 01/15 IV 01/15 0231 0223 Levetiracetam 500 MG Q12 01/13 2200 AC 01/14 N/A 1 UNIT IV 2139 Losartan Potassium 50 MG ONCE ONE 01/15 0845 DC PO 01/15 0846 Potassium Chloride 10 MEQ ONCE ONE 01/15 0600 DC 01/15 PO 01/15 0601 0616 Warfarin Sodium 5 MG COUMADIN 1700 ONE 01/14 1700 DC 01/14 PO 01/14 1701 1759 Results Last 48 Hrs of Labs/Mics: Laboratory Tests 01/15/17 0400: Anion Gap 17 H, Estimated GFR 5 L, Glucose 86, Calcium 8.6, Phosphorus 4.3, Magnesium 2.0, Total Bilirubin 0.5, AST 17, ALT 26, Albumin 3.5, PT 15.2 H, INR 1.45 H, CBC w Diff NO MAN DIFF REQ, RBC 3.93 L, MCV 91.7, MCH 29.3, RDW 15.4 H, MPV 8.8, Gran % 54.1, Lymphocytes % 26.3, Monocytes % 13.7 H, Eosinophils % 5.2 H, Basophils % 0.7, Absolute Granulocytes 4.2, Absolute Lymphocytes 2.0, Absolute Monocytes 1.1 H, Absolute Eosinophils 0.4, Absolute Basophils 0.1, PUBS MCHC 32.0 L 01/14/17 0400: Anion Gap 15, Estimated GFR 3 L, Glucose 87, Calcium 9.2, Phosphorus 5.8 H, Magnesium 2.3, Total Bilirubin 0.5, AST 16, ALT 29, Albumin 3.1 L, PT 13.2 H, INR 1.26 H, CBC w Diff NO MAN DIFF REQ, RBC 3.76 L, MCV 91.6, MCH 29.5, RDW 15.2 H, MPV 9.5, Gran % 64.7, Lymphocytes % 21.5, Monocytes % 10.4 H, Eosinophils % 2.8, Basophils % 0.6, Absolute Granulocytes 6.4, Absolute Lymphocytes 2.1, Absolute Monocytes 1.0 H, Absolute Eosinophils 0.3, Absolute Basophils 0.1, PUBS MCHC 32.2 L 01/13/17 1805: Urine Color Cancelled, Urine Clarity Cancelled, Urine pH Cancelled, Ur Specific [place] Cancelled, Urine Protein Cancelled, Urine Ketones Cancelled, Urine Nitrite Cancelled, Urine Bilirubin Cancelled, Urine Urobilinogen Cancelled, Ur Leukocyte Esterase Cancelled, Ur Microscopic Cancelled, Urine Hemoglobin Cancelled, Urine Glucose Cancelled 01/13/17 1413: RBC 4.29, MCV 92.0, MCH 29.0, RDW 15.6 H, MPV 9.2, Gran % 77.2 H, Lymphocytes % 14.2 L, Monocytes % 4.9, Eosinophils % 3.3, Basophils % 0.4, Absolute Granulocytes 6.5, Absolute Lymphocytes 1.2, Absolute Monocytes 0.4, Absolute Eosinophils 0.3, Absolute Basophils 0, PUBS MCHC 31.5 L 01/13/17 1330: Anion Gap 22 H, Estimated GFR 4 L, BUN/Creatinine Ratio 4.7 L, Glucose 123 H , Hemoglobin A1c 5.1, Calcium 9.2, Total Bilirubin 0.6, AST 19, ALT 27, Alkaline Phosphatase 80, Troponin I < 0.01, Total Protein 7.5, Albumin 3.8, Globulin 3.7, Albumin/Globulin Ratio 1.0 L, Triglycerides 93, Cholesterol 168, LDL Cholesterol, Calc 91, HDL Cholesterol 59, Cholesterol/HDL Ratio 3, PT 12.7 H, INR 1.21 H, APTT 22 L Microbiology 01/13 2030 UPPER RESP: Surveillance Culture - COMP 01/13 2030 GI: Surveillance Culture - COMP Telemetry personally reviewed sinus rhythm Recent Imaging Studies: Echocardiogram CONCLUSIONS Left ventricular cavity size normal. Left ventricular wall thickness mildly to moderately increased. No obvious regional wall motion abnormalities. Left ventricular ejection fraction is estimated at > 55 %. Abnormal relaxation filling pattern of the left ventricle (stage 1 diastolic dysfunction). Normal right ventricular size and function. Mild left atrial dilatation. Diffuse thickening of the aortic valve cusps with reduced excursion. Mild aortic stenosis. Unable to estimate the right ventricular systolic pressure. No pericardial effusion. Assessment/Plan Assessment/Plan 1. AMS with seizure improved 2. Hypertensive Crisis blood pressure still not at goal 3. Hx of CVA 4. PAF on outpatient Coumadin 5. ESRD on dialysis 6. Murmur on exam due to mild aortic stenosis Recommendations 1. As discussed with the residents since patient is tolerating by mouth would slowly resume her outpatient antihypertensive regimen. She is currently on carvedilol 12.5 twice a day would add irbesartan but started 150 mg daily and titrate as needed for blood pressure control. If she still remains hypertensive would then resume diltiazem. 2. Continue Coumadin monitoring INR 3. Maintain telemetry 4. Continue dialysis Continue telemetry? Yes
--- NOTE | 2017-01-15 10:31 | PN- Nephrology ---
Assessment/Plan Assessment: ESRD - Had been off anti-hypertensives and required midodrine during dialysis. Has needed reinstitution of BP meds in the last couple of months. Does have some extra fluid on exam but not significant. That being said, this may be the underlying cause of her HTN and she may just need further reduction in her EDW. Seizure - Seen by Neurology - noted to be Complex partial seizure in the setting of significant HTN. EEG pending. HTN - Plan for further ultrafiltration today to see if we can bring down her blood pressure. Her home BP meds are being slowly reintroduced as outlined by Dr. Mcpherson. Anemia - Hg above goal. Can hold off on further Epogen for now, especially while so hypertensive. CKD-MBD - Gets Hectorol which can be converted to Paricalctiol. Suggestion: -Dialysis today - 3L UF as tolerated -Dialysis tomorrow -Please get daily weights - ideally standing -Slow reintroduction of anti-hypertensives as outlined by Dr. Mcpherson - need to be careful given that we will be removing a lot of fluid with dialysis -f/u EEG -Paricalcitol TIW -Hold Epogen Please call [phone] with ?'s Subjective Subjective: Pt seen and examined on dialysis BP somewhat down with dialysis yesterday - 260/110 on presentation - now 190/74 Pt without specific complaints Last weight yesterday AM of 157lbs (71.2kg) - her target weight as an outpatient is 71.5kg Objective Vital Signs and I&Os Vital Signs Date Time Temp Pulse Resp B/P Pulse O2 O2 Flow FiO2 Ox Delivery Rate 01/15 0800 98.0 70 22 190/74 100 Room Air 01/15 0400 99 Room Air 01/15 0223 64 26 202/93 01/15 0000 98 Room Air 01/15 0000 98.0 66 20 200/100 98 Room Air 01/14 2325 69 16 194/97 01/14 2000 98 Room Air 01/14 1600 100 Nasal 1.0L Cannula 01/14 1600 98.0 70 16 143/69 100 Nasal 1.0L Cannula 01/14 1200 100 Nasal 1.0L Cannula Intake & Output 01/15 1600 01/15 0400 01/14 1600 01/14 0400 01/13 1600 01/13 0400 Intake Total 50 430 100 100 Output Total 4007 11 Balance 50 -3577 89 100 Intake, IV 110 100 100 Intake, Oral 50 320 0 Output, 4000 Dialysate Output, Urine 7 11 Patient 157 lb 160 lb Weight Physical Exam: Gen - NAD HEENT - supple CV - RRR Chest - clear anteriorly Abd - soft, nontender Ext - trace-1+ thigh edema Neuro - alert, oriented Current Medications: Current Medications Sig/Keyla Start time Last Medication Dose Route Stop Time Status Admin Aspirin 300 MG DAILY 01/14 1000 AC 01/14 [place] 1118 Carvedilol 12.5 MG BID 01/14 2300 AC 01/14 PO 2325 Carvedilol 12.5 MG BID 01/14 2211 DC PO Diltiazem HCl 5 MG Q6P PRN 01/13 2300 DC 01/14 IV 0903 Heparin Sodium 5,000 UNIT Q8 01/13 2200 DC 01/13 (Porcine) SC 2206 Hydralazine HCl 10 MG ONCE ONE 01/15 0230 DC 01/15 IV 01/15 0231 0223 Levetiracetam 500 MG Q12 01/13 2200 AC 01/14 N/A 1 UNIT IV 2139 Losartan Potassium 50 MG ONCE ONE 01/15 0845 DC PO 01/15 0846 Potassium Chloride 10 MEQ ONCE ONE 01/15 0600 DC 01/15 PO 01/15 0601 0616 Warfarin Sodium 5 MG COUMADIN 1700 ONE 01/15 1700 CAN PO 01/15 1701 Warfarin Sodium 7.5 MG COUMADIN 1700 ONE 01/15 1700 UNVr PO 01/15 1701 Warfarin Sodium 5 MG COUMADIN 1700 ONE 01/14 1700 DC 01/14 PO 01/14 1701 1759 Results Pertinent Lab Results: Laboratory Tests 01/15 01/14 0400 0400 Chemistry Sodium (137 - 145 mmol/L) 140 137 Potassium (3.5 - 5.1 mmol/L) 3.5 3.9 Chloride (98 - 107 mmol/L) 101 100 Carbon Dioxide (22 - 30 mmol/L) 22 21 L Anion Gap (5 - 16) 17 H 15 BUN (7 - 17 mg/dL) 24 H 55 H Creatinine (0.5 - 1.0 mg/dL) 7.7 *H 11.3 *H Estimated GFR (>60 ml/min) 5 L 3 L Glucose (65 - 99 mg/dL) 86 87 Calcium (8.4 - 10.2 mg/dL) 8.6 9.2 Phosphorus (2.5 - 4.5 mg/dL) 4.3 5.8 H Magnesium (1.6 - 2.3 mg/dL) 2.0 2.3 Total Bilirubin (0.2 - 1.3 mg/dL) 0.5 0.5 AST (14 - 36 U/L) 17 16 ALT (9 - 52 U/L) 26 29 Albumin (3.5 - 5.0 g/dL) 3.5 3.1 L Coagulation PT (9.4 - 12.5 SEC) 15.2 H 13.2 H INR (0.90 - 1.19) 1.45 H 1.26 H Hematology CBC w Diff NO MAN DIFF REQ NO MAN DIFF REQ WBC (4.8 - 10.8 /CUMM) 7.8 9.9 RBC (4.20 - 5.40 /CUMM) 3.93 L 3.76 L Hgb (12.0 - 16.0 G/DL) 11.5 L 11.1 L Hct (37 - 47 %) 36.0 L 34.4 L MCV (81.0 - 99.0 FL) 91.7 91.6 MCH (27.0 - 31.0 PG) 29.3 29.5 RDW (11.5 - 14.5 %) 15.4 H 15.2 H Plt Count (130 - 400 /CUMM) 237 227 MPV (7.4 - 10.4 FL) 8.8 9.5 Gran % (42.2 - 75.2 %) 54.1 64.7 Lymphocytes % (20.5 - 51.1 %) 26.3 21.5 Monocytes % (1.7 - 9.3 %) 13.7 H 10.4 H Eosinophils % (0 - 5 %) 5.2 H 2.8 Basophils % (0.0 - 2.0 %) 0.7 0.6 Absolute Granulocytes (1.4 - 6.5 /CUMM) 4.2 6.4 Absolute Lymphocytes (1.2 - 3.4 /CUMM) 2.0 2.1 Absolute Monocytes (0.10 - 0.60 /CUMM) 1.1 H 1.0 H Absolute Eosinophils (0.0 - 0.7 /CUMM) 0.4 0.3 Absolute Basophils (0.0 - 0.2 /CUMM) 0.1 0.1 PUBS MCHC (33.0 - 37.0 G/DL) 32.0 L 32.2 L 01/13 01/13 01/13 1805 1413 1330 Chemistry Sodium (137 - 145 mmol/L) 138 Potassium (3.5 - 5.1 mmol/L) 4.2 Chloride (98 - 107 mmol/L) 100 Carbon Dioxide (22 - 30 mmol/L) 16 L Anion Gap (5 - 16) 22 H BUN (7 - 17 mg/dL) 48 H Creatinine (0.5 - 1.0 mg/dL) 10.3 *H Estimated GFR (>60 ml/min) 4 L BUN/Creatinine Ratio (7 - 25 %) 4.7 L Glucose (65 - 99 mg/dL) 123 H Hemoglobin A1c (4.2 - 5.8 %) 5.1 Calcium (8.4 - 10.2 mg/dL) 9.2 Total Bilirubin (0.2 - 1.3 mg/dL) 0.6 AST (14 - 36 U/L) 19 ALT (9 - 52 U/L) 27 Alkaline Phosphatase (<127 U/L) 80 Troponin I (< 0.11 ng/ml) < 0.01 Total Protein (6.3 - 8.2 g/dL) 7.5 Albumin (3.5 - 5.0 g/dL) 3.8 Globulin (1.9 - 4.2 gm/dL) 3.7 Albumin/Globulin Ratio (1.1 - 2.2 %) 1.0 L Triglycerides (<150 mg/dL) 93 Cholesterol (<200 MG/DL) 168 LDL Cholesterol, Calc (65 - 129 mg/dL) 91 HDL Cholesterol (40 - 60 mg/dL) 59 Cholesterol/HDL Ratio (0.00 - 4.23 %) 3 Coagulation PT (9.4 - 12.5 SEC) 12.7 H INR (0.90 - 1.19) 1.21 H APTT (25 - 37 SEC) 22 L Hematology WBC (4.8 - 10.8 /CUMM) 8.4 RBC (4.20 - 5.40 /CUMM) 4.29 Hgb (12.0 - 16.0 G/DL) 12.4 Hct (37 - 47 %) 39.5 MCV (81.0 - 99.0 FL) 92.0 MCH (27.0 - 31.0 PG) 29.0 RDW (11.5 - 14.5 %) 15.6 H Plt Count (130 - 400 /CUMM) 224 MPV (7.4 - 10.4 FL) 9.2 Gran % (42.2 - 75.2 %) 77.2 H Lymphocytes % (20.5 - 51.1 %) 14.2 L Monocytes % (1.7 - 9.3 %) 4.9 Eosinophils % (0 - 5 %) 3.3 Basophils % (0.0 - 2.0 %) 0.4 Absolute Granulocytes (1.4 - 6.5 /CUMM) 6.5 Absolute Lymphocytes (1.2 - 3.4 /CUMM) 1.2 Absolute Monocytes (0.10 - 0.60 /CUMM) 0.4 Absolute Eosinophils (0.0 - 0.7 /CUMM) 0.3 Absolute Basophils (0.0 - 0.2 /CUMM) 0 PUBS MCHC (33.0 - 37.0 G/DL) 31.5 L Urines Urine Color Cancelled Urine Clarity Cancelled Urine pH Cancelled Ur Specific [place] Cancelled Urine Protein Cancelled Urine Ketones Cancelled Urine Nitrite Cancelled Urine Bilirubin Cancelled Urine Urobilinogen Cancelled Ur Leukocyte Esterase Cancelled Ur Microscopic Cancelled Urine Hemoglobin Cancelled Urine Glucose Cancelled Imaging/Other Studies: EXAM TYPE: RAD - XRY-PORTABLE CHEST XRAY EXAMINATION: XR PORTABLE CHEST CLINICAL INFORMATION: Elevated blood pressure. Dialysis patient. COMPARISON: 01/13/2017 TECHNIQUE: Portable AP view of the chest was obtained. FINDINGS: Low lung volumes. Central vascular prominence without overt edema. No significant pleural effusion. No pneumothorax. The cardiomediastinal silhouette is unchanged, with a calcified aorta. IMPRESSION: Central vascular prominence without overt edema. TTE CONCLUSIONS Left ventricular cavity size normal. Left ventricular wall thickness mildly to moderately increased. No obvious regional wall motion abnormalities. Left ventricular ejection fraction is estimated at > 55 %. Abnormal relaxation filling pattern of the left ventricle (stage 1 diastolic dysfunction). Normal right ventricular size and function. Mild left atrial dilatation. Diffuse thickening of the aortic valve cusps with reduced excursion. Mild aortic stenosis. Unable to estimate the right ventricular systolic pressure. No pericardial effusion. CT Head IMPRESSION: 1. No acute intracranial pathology. 2. 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
--- NOTE | 2017-01-15 11:26 | NUR ---
PHYSICAL THERAPY: Attempted to see patient this A.M. Patient continues to experience high uncontrollable blood pressure and was currently recieving dialysis. Will f/u as appropriate for P.TDayron stevenin.
--- NOTE | 2017-01-15 15:27 | CT SCAN REPORT ---
EXAMINATION: CT CHEST WITHOUT CONTRAST CLINICAL INFORMATION: : found on C-Xray 01/13/2017 Presumptive Dx: Rule out etiology of Widened Mediastinum Signs Symptoms: Diminished BS, Apparent widening of the mediastinum COMPARISON: Portable chest x-ray 01/14/2017. PA lateral chest 04/26/2015 TECHNIQUE: Multidetector volumetric CT imaging of the chest was done. Axial MIP volume rendering provided. Sagittal and coronal reformatted images were obtained. DLP: 177.22 mGy-cm FINDINGS: LUNGS: The lungs are clear with no evidence of inflammation or nodules. MEDIASTINUM: No mass or significant adenopathy. No fluid collection or hematoma. The ascending aorta measures 3.7 cm transverse at the level of the main pulmonary artery. Descending thoracic aorta at the aortic hiatus measures 2.5 cm. There is scattered vascular wall calcifications of aorta. No pericardial effusion. Assessment of the hilar difficult without IV contrast but no evidence for mass or significant lymphadenopathy. PLEURA: There is no pleural effusion. No pleural mass or thickening. AXILLA: No lymphadenopathy. UPPER ABDOMEN: Unremarkable. OSSEOUS STRUCTURES: Degenerative change of the spine with disc height narrowing and endplate spurs of the thoracic vertebrae. IMPRESSION: No acute change of the chest. No mediastinal mass or significant lymphadenopathy.
[2017-01-15 16:00] VITALS: BP 158/84
--- NOTE | 2017-01-15 17:50 | ELECTROENCEPHALOGRAM REPORT ---
Electroencephalogram Report Electroencephalogram Results Date of service: 01/15/17 Attending MD: GRACE BAILEY M.D [employer] Making Machine Operator: MONET Kay EEG Number: [id number] Test Utilizes: 10-20 system, 21 lead 18 channel digital recording Pertinent Hx/Physical/Neuro Findings/Clin Diagnosis: Altered mental status, Seizure Inpatient Medications: Current Medications Sig/Keyla Start time Last Medication Dose Route Stop Time Status Admin Aspirin 325 MG DAILY 01/16 1000 AC PO Aspirin 300 MG DAILY 01/14 1000 DC 01/15 RI 1250 Carvedilol 12.5 MG BID 01/14 2300 AC 01/15 PO 1249 Carvedilol 12.5 MG BID 01/14 2211 DC PO Diltiazem HCl 5 MG Q6P PRN 01/13 2300 DC 01/14 IV 0903 Hydralazine HCl 10 MG ONCE ONE 01/15 0230 DC 01/15 IV 01/15 0231 0223 Levetiracetam 500 MG Q12 01/13 2200 AC 01/15 N/A 1 UNIT IV 1249 Losartan Potassium 50 MG ONCE ONE 01/15 0845 DC 01/15 PO 01/15 0846 1249 Paricalcitol 6 MCG Saturday .. 01/16 1000 AC IV Potassium Chloride 10 MEQ ONCE ONE 01/15 0600 DC 01/15 PO 01/15 0601 0616 Warfarin Sodium 5 MG COUMADIN 1700 ONE 01/15 1700 CAN PO 01/15 1701 Warfarin Sodium 7.5 MG COUMADIN 1700 ONE 01/15 1700 DC 01/15 PO 01/15 1701 1659 Interpretation: When awake with eyes open the background is composed of irregular 8-9 hertz activity better formed anteriorly and centrally, with very low amplitdue beta activity superimposed and a degree of muscle artifact. With eyes closed there is a rapid onset of generalized higher amplitude slow activity in the theta and delta range. Slowing at times takes a somewhat anterior dominant triphasic appearance. No lateralized or epileptiform abnormalities are encountered. Hyperventilation could not be done, photic stimulaton adds no additional information. Impression: Abnormal due to generalized slowing of variable degree consistent with a diffuse toxic or metabolic encephalopathy but without focal or epileptiform abnormalities.
--- NOTE | 2017-01-15 19:44 | NUR ---
PT A/OX3, MOVES ALL EXTREMITIES, FOLLOWS COMMANDS, PUPILS EQUAL, ROUND, REACT SLUGGISHLY TO LIGHT. DENIES ANY PAIN AT PRESENT. BREATH SOUNDS CLEAR WITH DIMINISHED BREATH SOUNDS AT BASES BILATERALLY. NO COUGH, SOB OR RESP DISTRESS NOTED AT PRESENT. SEE FLOW SHEET FOR VS, 02 SATS, I/O'S. MONITOR SHOWS NSR, NO ECTOPY NOTED AT PRESENT. BP STABLE AT PRESENT. ABD SOFT, NONTENDER, NONDISTENDED, POSITIVE BOWEL SOUNDS. DOES NOT VOID. SKIN INTACT. LT AV SHUNT WITH POSITIVE THRILL AND BRUIT
[2017-01-15 23:00] VITALS: BP 160/70
[2017-01-16 05:57] LABS: PT 25.2 SEC (9.4-12.5)
[2017-01-16 06:00] LABS: ABSOLUTE BASOPHIL COUNT 0 /CUMM (0.0-0.2); ABSOLUTE EOSINOPHIL COUNT 0.4 /CUMM (0.0-0.7); ABSOLUTE GRANULOCYTE CT 5.4 /CUMM (1.4-6.5); ABSOLUTE LYMPH COUNT 2.5 /CUMM (1.2-3.4); ABSOLUTE MONOCYTE COUNT 1.4 /CUMM (0.10-0.60); BASOPHIL % 0.3 % (0.0-2.0); EOSINOPHIL % 4.5 % (0-5); GRANULOCYTE % 55.1 % (42.2-75.2); HEMATOCRIT 37.9 % (37-47); MEAN CORPUSCULAR HGB 29.1 PG (27.0-31.0); MEAN CORPUSCULAR HGB CONC 31.6 G/DL (33.0-37.0); MEAN CORPUSCULAR VOLUME 91.8 FL (81.0-99.0); MEAN PLATELET VOLUME 9.1 FL (7.4-10.4); PLATELET COUNT 234 /CUMM (130-400); RBC DISTRIBUTION WIDTH 15.7 % (11.5-14.5); RED BLOOD CELL CT 4.13 /CUMM (4.20-5.40); WHITE BLOOD CELL COUNT 9.7 /CUMM (4.8-10.8)
--- NOTE | 2017-01-16 06:35 | NUR ---
PT SLEPT MOST OF NIGHT. DROWSY, AROUSABLE TO VERBAL STIMULI. MOVES ALL EXTREMITIES, EQUAL STRENGHT, PUPILS EQUAL AND REACT SLUGGISHLY TO LIGHT. BREATH SOUNDS CLEAR WITH DIMINISHED BREATH SOUNDS AT BASES BILATERALLY. OCC COUGH NOTED, NONPRODUCTIVE, NO SOB OR RESP DISTRESS NOTED AT PRESENT. MONITOR NSR, NO ECTOPY NOTED THOUGHOUT SHIFT. SBP-180'S FOR PAST 2 HOURS-REPORTED TO AND DT. CUI-NO ORDERS GIVEN AT PRESENT PT TO BE DIALYZED TODAY PER DR. SANDOVAL. DOES NOT VOID. SKIN INTACT. DENIED ANY PAIN THOUGHOUT SHIFT
--- NOTE | 2017-01-16 06:54 | PN- Resident CRCU ---
Subjective HPI/CRCU Issues: Ms Crystal was seen and examined this morning. She is resting comfortably in bed. Patient appears very somnolent and laconic however is able to answer questions without any difficulty. Patient endorses that she was able to get some rest last night. She denies any vision changes, headaches, seizure-like activity or any paralysis. Patient denies any fever, chills, nausea, vomiting. Patient is tolerating by mouth intake well. Patient is scheduled for dialysis later this morning Objective Vital Signs & I&O Last 8 Hrs of Vitals and I&O: T: 99.0 GA:70 RR:18 BP: 142/78 98 on RA Exam General Appearance: well developed/nourished, no apparent distress Respiratory: normal breath sounds, chest non-tender, no respiratory distress Cardiovascular: regular rate/rhythm Gastrointestinal: normal bowel sounds, soft, non-tender Extremities: normal inspection, normal capillary refill, Edema R>L Current Medications: Current Medications Sig/Ekyla Start time Last Medication Dose Route Stop Time Status Admin Aspirin 325 MG DAILY 01/16 1000 AC 01/16 PO 1255 Atorvastatin Calcium 5 MG 1700 01/16 1700 AC PO Carvedilol 12.5 MG BID 01/14 2300 AC 01/16 PO 1255 Docusate Sodium 100 MG DAILY 01/16 1129 AC 01/16 PO 1255 Levetiracetam 500 MG BID 01/16 1330 AC PO Levetiracetam 500 MG BID 01/16 1314 DC PO Levetiracetam 500 MG Q12 01/13 2200 DC 01/16 N/A 1 UNIT IV 1255 Paricalcitol 6 MCG Saturday .. 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 Cardiology Overnight the patient's blood pressures trended as follows: 162/72-->160/70--> 160/72-->142/78. she is currently still not at goal. The patient does have a tendency to rebound her pressure after hemodialysis however we have not seen this change. We'll continue to monitor prior to administering any antihypertensive medications. Following recommendations from cardiology we will coninue he patient on her by mouth home medications, if pressure continues to increase. Patient takes at Irbesartan 300 mg, this can be reduced to 150mg: Losartan 50mg (this works out to 150 mg Irbesartan). Respiratory Noncontrast CT scan of chest to rule out cause of widened mediastinum found on chest x-ray: 01/13/2017.No acute change of the chest. No mediastinal mass or significant lymphadenopathy. Renal H&H above goal (12./37.9). We'll continue to hold off additional Neupogen for now. She will get additional hemodialysis scheduled for today 01/16/2017. Obtain repeat hemodialysis on 01/18/2017. Paricalcitol 3 days a week. Neurology Initial neurologic consult 01/13 stated that patient may have had a partial seizure provoked in the setting of hypertensive urgency. MRI results are pending. Continue Keppra 500 mg every 12 hours.--> PO Keppra Continue Statin, 5 mg Alimentary Tolerating by mouth intake well. Continue current diet. May consider the addition of oral medications as tolerated. Ensure significant blood pressure drop does not occur > 25% in a 24 hour period. Colace for constipation relief. DVT prophylaxis Will dose Coumadin 5.0 mg this evening. INR today: 2.42 Patient is on ALPS. Monitor INR in a.m. CODE: Full Code Problem List: 1. Hypertensive emergency 2. Elijah's paralysis 3. Seizure Pain Ratin Tomorrow's Labs & Rationales: CBC: Monitor H/H INR: Coumadin Monitoring ICU Bundle: Monitor Electorlytes Plan DVT/Prophylaxis: mechanical, pharmacological
[2017-01-16 08:00] VITALS: BP 160/72
--- NOTE | 2017-01-16 09:36 | PN- Nephrology ---
Assessment/Plan Assessment: ESRD - BP dropped during dialysis yesterday. Some of her HTN may be volume mediated but I think she's reaching her EDW. Goal 1-2L UF during dialysis today. Seizure - Seen by Neurology - noted to be Complex partial seizure in the setting of significant HTN. EEG pending. Going for MRI. HTN - If BP remains elevated after dialysis today, BP meds should continue to be uptitrated. Goal BP ~140-150/90. Anemia - Hg above goal. Can hold off on further Epogen for now. CKD-MBD - Gets Hectorol which can be converted to Paricalctiol. Suggestion: -Dialysis today - 1-2L UF as tolerated -Next dialysis on Saturday -Needs standing weight after dialysis today (apparently scale on 2nd floor is most accurate) -Cont current anti-hypertensives and uptitrate if BP remains above goal after dialysis today -f/u EEG, MRI -Paricalcitol TIW -Hold Epogen Please call [phone] with ?'s Subjective Subjective: Pt seen and examined at dialysis yesterday Yesterday had 2.3L removed - BP dropped during dialysis to 84/59 SBP on monitor this AM ~180 CT performed - no fluid Pt without specific complaints Objective Vital Signs and I&Os Vital Signs Date Time Temp Pulse Resp B/P Pulse O2 O2 Flow FiO2 Ox Delivery Rate 01/16 0400 98 Room Air Room Air 01/16 0000 98 Room Air Room Air 01/15 2300 98.4 64 18 160/70 98 Room Air Room Air 01/15 2203 69 19 162/70 01/15 1947 98 Room Air Room Air 01/15 1600 97.4 70 18 158/84 98 Room Air 01/15 1249 78 150/70 01/15 1249 78 150/70 Intake & Output 01/16 1600 01/16 0400 01/15 1600 01/15 0400 01/14 1600 01/14 0400 Intake Total 0 220 590 430 100 100 Output Total 0 0 2300 4007 11 Balance 0 220 -1710 -3577 89 100 Intake, IV 0 100 100 110 100 100 Intake, Oral 0 120 490 320 0 Number 0 0 0 Bowel Movements Output, 2300 4000 Dialysate Output, Urine 0 0 0 7 11 Patient 143 lb 151 lb 157 lb 160 lb Weight Physical Exam: Gen - NAD HEENT - supple CV - RRR Chest - clear anteriorly Abd - soft, nontender Ext - no significant edema in thighs Neuro - alert, oriented to person, place, and time Access - VITALIY AVF Current Medications: Current Medications Sig/Keyla Start time Last Medication Dose Route Stop Time Status Admin Aspirin 325 MG DAILY 01/16 1000 AC PO Aspirin 300 MG DAILY 01/14 1000 DC 01/15 [place] 1250 Carvedilol 12.5 MG BID 01/14 2300 AC 01/15 PO 220 Levetiracetam 500 MG Q12 01/13 2200 AC 01/15 N/A 1 UNIT IV 2203 Paricalcitol 6 MCG Saturday .. 01/16 1000 AC IV Warfarin Sodium 5 MG COUMADIN 1700 ONE 01/15 1700 CAN PO 01/15 170 Warfarin Sodium 7.5 MG COUMADIN 170 ONE 01/15 1700 DC 01/15 PO 01/15 170 1659 Results Pertinent Lab Results: Laboratory Tests 01/16 01/15 0450 0400 Chemistry Sodium (137 - 145 mmol/L) 140 140 Potassium (3.5 - 5.1 mmol/L) 4.2 3.5 Chloride (98 - 107 mmol/L) 99 101 Carbon Dioxide (22 - 30 mmol/L) 25 22 Anion Gap (5 - 16) 16 17 H BUN (7 - 17 mg/dL) 22 H 24 H Creatinine (0.5 - 1.0 mg/dL) 7.4 *H 7.7 *H Estimated GFR (>60 ml/min) 5 L 5 L Glucose (65 - 99 mg/dL) 92 86 Calcium (8.4 - 10.2 mg/dL) 9.7 8.6 Phosphorus (2.5 - 4.5 mg/dL) 5.0 H 4.3 Magnesium (1.6 - 2.3 mg/dL) 2.0 2.0 Total Bilirubin (0.2 - 1.3 mg/dL) 0.4 0.5 AST (14 - 36 U/L) 15 17 ALT (9 - 52 U/L) 21 26 Albumin (3.5 - 5.0 g/dL) 3.8 3.5 Coagulation PT (9.4 - 12.5 SEC) 25.2 H 15.2 H INR (0.90 - 1.19) 2.42 H 1.45 H Hematology CBC w Diff NO MAN DIFF REQ NO MAN DIFF REQ WBC (4.8 - 10.8 /CUMM) 9.7 7.8 RBC (4.20 - 5.40 /CUMM) 4.13 L 3.93 L Hgb (12.0 - 16.0 G/DL) 12.0 11.5 L Hct (37 - 47 %) 37.9 36.0 L MCV (81.0 - 99.0 FL) 91.8 91.7 MCH (27.0 - 31.0 PG) 29.1 29.3 RDW (11.5 - 14.5 %) 15.7 H 15.4 H Plt Count (130 - 400 /CUMM) 234 237 MPV (7.4 - 10.4 FL) 9.1 8.8 Gran % (42.2 - 75.2 %) 55.1 54.1 Lymphocytes % (20.5 - 51.1 %) 25.4 26.3 Monocytes % (1.7 - 9.3 %) 14.7 H 13.7 H Eosinophils % (0 - 5 %) 4.5 5.2 H Basophils % (0.0 - 2.0 %) 0.3 0.7 Absolute Granulocytes (1.4 - 6.5 /CUMM) 5.4 4.2 Absolute Lymphocytes (1.2 - 3.4 /CUMM) 2.5 2.0 Absolute Monocytes (0.10 - 0.60 /CUMM) 1.4 H 1.1 H Absolute Eosinophils (0.0 - 0.7 /CUMM) 0.4 0.4 Absolute Basophils (0.0 - 0.2 /CUMM) 0 0.1 PUBS MCHC (33.0 - 37.0 G/DL) 31.6 L 32.0 L 01/14 01/13 01/13 0400 1805 1413 Chemistry Sodium (137 - 145 mmol/L) 137 Potassium (3.5 - 5.1 mmol/L) 3.9 Chloride (98 - 107 mmol/L) 100 Carbon Dioxide (22 - 30 mmol/L) 21 L Anion Gap (5 - 16) 15 BUN (7 - 17 mg/dL) 55 H Creatinine (0.5 - 1.0 mg/dL) 11.3 *H Estimated GFR (>60 ml/min) 3 L Glucose (65 - 99 mg/dL) 87 Calcium (8.4 - 10.2 mg/dL) 9.2 Phosphorus (2.5 - 4.5 mg/dL) 5.8 H Magnesium (1.6 - 2.3 mg/dL) 2.3 Total Bilirubin (0.2 - 1.3 mg/dL) 0.5 AST (14 - 36 U/L) 16 ALT (9 - 52 U/L) 29 Albumin (3.5 - 5.0 g/dL) 3.1 L Coagulation PT (9.4 - 12.5 SEC) 13.2 H INR (0.90 - 1.19) 1.26 H Hematology CBC w Diff NO MAN DIFF REQ WBC (4.8 - 10.8 /CUMM) 9.9 8.4 RBC (4.20 - 5.40 /CUMM) 3.76 L 4.29 Hgb (12.0 - 16.0 G/DL) 11.1 L 12.4 Hct (37 - 47 %) 34.4 L 39.5 MCV (81.0 - 99.0 FL) 91.6 92.0 MCH (27.0 - 31.0 PG) 29.5 29.0 RDW (11.5 - 14.5 %) 15.2 H 15.6 H Plt Count (130 - 400 /CUMM) 227 224 MPV (7.4 - 10.4 FL) 9.5 9.2 Gran % (42.2 - 75.2 %) 64.7 77.2 H Lymphocytes % (20.5 - 51.1 %) 21.5 14.2 L Monocytes % (1.7 - 9.3 %) 10.4 H 4.9 Eosinophils % (0 - 5 %) 2.8 3.3 Basophils % (0.0 - 2.0 %) 0.6 0.4 Absolute Granulocytes (1.4 - 6.5 /CUMM) 6.4 6.5 Absolute Lymphocytes (1.2 - 3.4 /CUMM) 2.1 1.2 Absolute Monocytes (0.10 - 0.60 /CUMM) 1.0 H 0.4 Absolute Eosinophils (0.0 - 0.7 /CUMM) 0.3 0.3 Absolute Basophils (0.0 - 0.2 /CUMM) 0.1 0 PUBS MCHC (33.0 - 37.0 G/DL) 32.2 L 31.5 L Urines Urine Color Cancelled Urine Clarity Cancelled Urine pH Cancelled Ur Specific [place] Cancelled Urine Protein Cancelled Urine Ketones Cancelled Urine Nitrite Cancelled Urine Bilirubin Cancelled Urine Urobilinogen Cancelled Ur Leukocyte Esterase Cancelled Ur Microscopic Cancelled Urine Hemoglobin Cancelled Urine Glucose Cancelled 01/13 1330 Chemistry Sodium (137 - 145 mmol/L) 138 Potassium (3.5 - 5.1 mmol/L) 4.2 Chloride (98 - 107 mmol/L) 100 Carbon Dioxide (22 - 30 mmol/L) 16 L Anion Gap (5 - 16) 22 H BUN (7 - 17 mg/dL) 48 H Creatinine (0.5 - 1.0 mg/dL) 10.3 *H Estimated GFR (>60 ml/min) 4 L BUN/Creatinine Ratio (7 - 25 %) 4.7 L Glucose (65 - 99 mg/dL) 123 H Hemoglobin A1c (4.2 - 5.8 %) 5.1 Calcium (8.4 - 10.2 mg/dL) 9.2 Total Bilirubin (0.2 - 1.3 mg/dL) 0.6 AST (14 - 36 U/L) 19 ALT (9 - 52 U/L) 27 Alkaline Phosphatase (<127 U/L) 80 Troponin I (< 0.11 ng/ml) < 0.01 Total Protein (6.3 - 8.2 g/dL) 7.5 Albumin (3.5 - 5.0 g/dL) 3.8 Globulin (1.9 - 4.2 gm/dL) 3.7 Albumin/Globulin Ratio (1.1 - 2.2 %) 1.0 L Triglycerides (<150 mg/dL) 93 Cholesterol (<200 MG/DL) 168 LDL Cholesterol, Calc (65 - 129 mg/dL) 91 HDL Cholesterol (40 - 60 mg/dL) 59 Cholesterol/HDL Ratio (0.00 - 4.23 %) 3 Coagulation PT (9.4 - 12.5 SEC) 12.7 H INR (0.90 - 1.19) 1.21 H APTT (25 - 37 SEC) 22 L Imaging/Other Studies: EXAMINATION: CT CHEST WITHOUT CONTRAST CLINICAL INFORMATION: : found on C-Xray 01/13/2017 Presumptive Dx: Rule out etiology of Widened Mediastinum Signs Symptoms: Diminished BS, Apparent widening of the mediastinum COMPARISON: Portable chest x-ray 01/14/2017. PA lateral chest 04/26/2015 TECHNIQUE: Multidetector volumetric CT imaging of the chest was done. Axial MIP volume rendering provided. Sagittal and coronal reformatted images were obtained. DLP: 177.22 mGy-cm FINDINGS: LUNGS: The lungs are clear with no evidence of inflammation or nodules. MEDIASTINUM: No mass or significant adenopathy. No fluid collection or hematoma. The ascending aorta measures 3.7 cm transverse at the level of the main pulmonary artery. Descending thoracic aorta at the aortic hiatus measures 2.5 cm. There is scattered vascular wall calcifications of aorta. No pericardial effusion. Assessment of the hilar difficult without IV contrast but no evidence for mass or significant lymphadenopathy. PLEURA: There is no pleural effusion. No pleural mass or thickening. AXILLA: No lymphadenopathy. UPPER ABDOMEN: Unremarkable. OSSEOUS STRUCTURES: Degenerative change of the spine with disc height narrowing and endplate spurs of the thoracic vertebrae. IMPRESSION: No acute change of the chest. No mediastinal mass or significant lymphadenopathy. TTE CONCLUSIONS Left ventricular cavity size normal. Left ventricular wall thickness mildly to moderately increased. No obvious regional wall motion abnormalities. Left ventricular ejection fraction is estimated at > 55 %. Abnormal relaxation filling pattern of the left ventricle (stage 1 diastolic dysfunction). Normal right ventricular size and function. Mild left atrial dilatation. Diffuse thickening of the aortic valve cusps with reduced excursion. Mild aortic stenosis. Unable to estimate the right ventricular systolic pressure. No pericardial effusion.
--- NOTE | 2017-01-16 09:37 | PN- CRCU ---
Subjective HPI/Critical Care Issues: The patient is sleeping comfortably but then arousable. Her blood pressure continues to fluctuate, noting she was very elevated at 213/100 this morning. The patient is being prepared for dialysis. Her respiratory status remained stable noting she is 100% on room air. Her MAXIMUM TEMPERATURE over the past 24 hours was 99.4. She reports feeling tired but offers no other complaints. Objective Current Medications: Current Medications Sig/Keyla Start time Last Medication Dose Route Stop Time Status Admin Aspirin 325 MG DAILY 01/16 1000 AC PO Aspirin 300 MG DAILY 01/14 1000 DC 01/15 [place] 1250 Carvedilol 12.5 MG BID 01/14 2300 AC 01/15 PO 2203 Levetiracetam 500 MG Q12 01/13 220 AC 01/15 N/A 1 UNIT IV 220 Paricalcitol 6 MCG Saturday .. 01/16 1000 AC IV Warfarin Sodium 5 MG COUMADIN 1700 ONE 01/15 1700 CAN PO 01/15 1701 Warfarin Sodium 7.5 MG COUMADIN 1700 ONE 01/15 1700 DC 01/15 PO 01/15 1701 1659 Vital Signs & I&O Last 24 Hrs of Vitals and I&O: Vital Signs Date Time Temp Pulse Resp B/P Pulse O2 O2 Flow FiO2 Ox Delivery Rate 01/16 0400 98 Room Air Room Air 01/16 0000 98 Room Air Room Air 01/15 2300 98.4 64 18 160/70 98 Room Air Room Air 01/15 2203 69 19 162/70 01/15 1947 98 Room Air Room Air 01/15 1600 97.4 70 18 158/84 98 Room Air 01/15 1249 78 150/70 01/15 1249 78 150/70 Intake & Output 01/16 1600 01/16 0800 01/16 0000 Intake Total 0 220 Output Total 0 0 Balance 0 220 Intake, IV 0 100 Intake, Oral 0 120 Number 0 0 Bowel Movements Output, Urine 0 0 Patient 143 lb Weight Exam General Appearance: no apparent distress, awake, comfortable Head: atraumatic, normal appearance Neck: supple Respiratory: diminished breath sounds, clear anteriorly Cardiovascular: regular rate/rhythm Abdomen: normal bowel sounds, soft, non-tender Extremities: edema present Skin: intact, normal color, warm/dry Results Last 24 Hrs of Lab Results: Laboratory Tests 01/16/17 0450: Anion Gap 16, Estimated GFR 5 L, Glucose 92, Calcium 9.7, Phosphorus 5.0 H, Magnesium 2.0, Total Bilirubin 0.4, AST 15, ALT 21, Albumin 3.8, PT 25.2 H, INR 2.42 H, CBC w Diff NO MAN DIFF REQ, RBC 4.13 L, MCV 91.8, MCH 29.1, RDW 15.7 H, MPV 9.1, Gran % 55.1, Lymphocytes % 25.4, Monocytes % 14.7 H, Eosinophils % 4.5, Basophils % 0.3, Absolute Granulocytes 5.4, Absolute Lymphocytes 2.5, Absolute Monocytes 1.4 H, Absolute Eosinophils 0.4, Absolute Basophils 0, PUBS MCHC 31.6 L Impression/Plan Impression/Plan Impression/Plan: 1. Hypertensive crisis, blood pressure still not at goal. 2. History of PAF, on Coumadin. 3. End-stage renal disease, on hemodialysis since 2011. 4. Widened mediastinum, rule out etiology. 5. 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 6. History of gout. 7. Mild aortic stenosis. Recommendations: * For hemodialysis today. * Continue to monitor blood pressure closely. * Will continue to follow up cardiology recommendations regarding BP control. Medication will need to be titrated were optimal control. * Resume Coumadin as per cardiology. * Check a noncontrast CT scan of the chest. * Follow-up EEG and MRI results. * Continue Keppra 500 mg every 12 hours per neurology, will follow up input. * OT/PT. * Continue aspirin and statins. * DVT prophylaxis at all times - on coumadin and alps. * Continue to monitor in the critical care unit.
--- NOTE | 2017-01-16 09:41 | NUR ---
PHYSICAL THERAPY: ATTEMPTED TO SEE PATIENT THIS A.M.; BLOOD PRESSURE IS BETTER MANAGED; HOWEVER PATIENT IS CURRENTLY RECIEVING DIAYLSIS. WILL F/U APPROPRIATE LATER TODAY TO COMPLETE P.T. EVALUATION.
--- NOTE | 2017-01-16 12:12 | PN- Cardiology ---
Subjective Subjective: Patient seen while undergoing dialysis. Laying flat and appears comfortable. Mental status improved. Objective Vital Signs and I&Os Vital Signs Date Time Temp Pulse Resp B/P Pulse O2 O2 Flow FiO2 Ox Delivery Rate 01/16 0800 98 Room Air 01/16 0800 99.0 67 18 160/72 98 Room Air 01/16 0400 98 Room Air Room Air 01/16 0000 98 Room Air Room Air 01/15 2300 98.4 64 18 160/70 98 Room Air Room Air 01/15 2203 69 19 162/70 01/15 1947 98 Room Air Room Air 01/15 1600 97.4 70 18 158/84 98 Room Air 01/15 1249 78 150/70 01/15 1249 78 150/70 Intake & Output 01/16 1600 01/16 0800 01/16 0000 01/15 1600 01/15 0800 01/15 0000 Intake Total 0 220 540 50 430 Output Total 0 0 2300 4007 Balance 0 220 -1760 50 -3577 Intake, IV 0 100 100 110 Intake, Oral 0 120 440 50 320 Number 0 0 0 Bowel Movements Output, 2300 4000 Dialysate Output, Urine 0 0 0 7 Patient 144 lb 143 lb 151 lb Weight Physical Exam: General: no apparent distress. Alert. Eyes: No obvious scleral icterus. HEENT: No jugular venous distention or abnormal jugular venous pulsations. Cardiovascular: Normal intensity S1/S2. Regular. 2/6 systolic murmur. Respiratory: No rales or rhonchi Abdomen: no guarding or rebound tenderness. Musculoskeletal: No clubbing or cyanosis noted, no edema Skin: Warm Current Medications: Current Medications Sig/Keyla Start time Last Medication Dose Route Stop Time Status Admin Aspirin 325 MG DAILY 01/16 1000 AC PO Aspirin 300 MG DAILY 01/14 1000 DC 01/15 [place] 1250 Atorvastatin Calcium 5 MG 1700 01/16 1700 AC PO Carvedilol 12.5 MG BID 01/14 2300 AC 01/15 PO 2203 Docusate Sodium 100 MG DAILY 01/16 1129 AC PO Levetiracetam 500 MG Q12 01/13 2200 AC 01/15 N/A 1 UNIT IV 2204 Paricalcitol 6 MCG Saturday .. 01/16 1000 AC IV Warfarin Sodium 5 MG COUMADIN 1700 ONE 01/16 1700 AC PO 01/16 1701 Warfarin Sodium 7.5 MG COUMADIN 1700 ONE 01/15 1700 DC 01/15 PO 01/15 1701 1659 Results Last 48 Hrs of Labs/Mics: Laboratory Tests 01/16/17 0450: Anion Gap 16, Estimated GFR 5 L, Glucose 92, Calcium 9.7, Phosphorus 5.0 H, Magnesium 2.0, Total Bilirubin 0.4, AST 15, ALT 21, Albumin 3.8, PT 25.2 H, INR 2.42 H, CBC w Diff NO MAN DIFF REQ, RBC 4.13 L, MCV 91.8, MCH 29.1, RDW 15.7 H, MPV 9.1, Gran % 55.1, Lymphocytes % 25.4, Monocytes % 14.7 H, Eosinophils % 4.5, Basophils % 0.3, Absolute Granulocytes 5.4, Absolute Lymphocytes 2.5, Absolute Monocytes 1.4 H, Absolute Eosinophils 0.4, Absolute Basophils 0, PUBS MCHC 31.6 L 01/15/17 0400: Anion Gap 17 H, Estimated GFR 5 L, Glucose 86, Calcium 8.6, Phosphorus 4.3, Magnesium 2.0, Total Bilirubin 0.5, AST 17, ALT 26, Albumin 3.5, PT 15.2 H, INR 1.45 H, CBC w Diff NO MAN DIFF REQ, RBC 3.93 L, MCV 91.7, MCH 29.3, RDW 15.4 H, MPV 8.8, Gran % 54.1, Lymphocytes % 26.3, Monocytes % 13.7 H, Eosinophils % 5.2 H, Basophils % 0.7, Absolute Granulocytes 4.2, Absolute Lymphocytes 2.0, Absolute Monocytes 1.1 H, Absolute Eosinophils 0.4, Absolute Basophils 0.1, PUBS MCHC 32.0 L Recent Imaging Studies: Telemetry tracings were personally reviewed and shows sinus rhythm with some brief paroxysms of atrial fibrillation Assessment/Plan Assessment/Plan 1. AMS with seizure, improved 2. Hypertensive Crisis, improving 3. Hx of CVA 4. PAF on outpatient Coumadin 5. ESRD on dialysis 6. Murmur on exam due to mild aortic stenosis Blood pressure improved compared with presentation and is now back on carvedilol. Mental status has also improved. INR now therapeutic today. If no hypotension with dialysis consider resuming the outpatient irbesartan at a lower dose of 150 mg by mouth daily. Collins Liz MD [facility] Continue telemetry? Yes
--- NOTE | 2017-01-16 12:37 | NUR ---
OCCUPATIONAL THERAPY NOTE: OT CONSULT RECEIVED AND CHART REVIEWED. PT RECEIVING HD IN AM. OT WILL F/U TOMORROW IF APPROPRIATE.
[2017-01-16 16:00] VITALS: BP 120/70
--- NOTE | 2017-01-16 16:24 | MRI REPORT ---
EXAMINATION: MR BRAIN WITHOUT CONTRAST CLINICAL INFORMATION: Hypertensive emergency. Question stroke. COMPARISON: Head CT 01/13/2017. TECHNIQUE: The patient was only able to tolerate a single sagittal T1 and single axial diffusion series for this exam. No additional imaging could be obtained. FINDINGS/IMPRESSION: Nondiagnostic sagittal T1 and axial diffusion series are obtained for this study. The stroke sensitive diffusion series is markedly obscured by artifact. No large territorial infarcts are identified however small infarcts could be obscured given the degree of artifact. Any repeat MR imaging should be performed with sedation.
--- NOTE | 2017-01-16 20:31 | NUR ---
PT DROWSY, AROUSABLE TO VERBAL STIMULI, FOLLOWS COMMANDS, MOVES ALL EXTEMITIES PUPILS EQUAL AND REACT SLUGGISHLY TO LIGHT. BREATH SOUNDS CLEAR WITH BREATH SOUNDS. NO COUGH, SOB OR RESP DISTRESS NOTED AT PRESENT. SEE FLOW SHEET FOR VS, O2 SATS, I/O'S. MONITOR SHOWS 1ST AVB, NO ECTOPY. BP STABLE AT PRESENT. NO SEIZURE ACTIVITY NOTED AT PRESENT. ABD SOFT, NONTENDER, NONDISTENDED, POSITIVE BOWEL SOUNDS. DOES NOT VOID. SKIN INTACT. LT AV SHUNT WITH POSITIVE THRILL AND BRUIT
[2017-01-16 23:00] VITALS: BP 164/80
[2017-01-17 06:24] LABS: ABSOLUTE BASOPHIL COUNT 0 /CUMM (0.0-0.2); ABSOLUTE EOSINOPHIL COUNT 0.2 /CUMM (0.0-0.7); ABSOLUTE GRANULOCYTE CT 9.3 /CUMM (1.4-6.5); ABSOLUTE LYMPH COUNT 2.5 /CUMM (1.2-3.4); BASOPHIL % 0.2 % (0.0-2.0); EOSINOPHIL % 1.3 % (0-5); GRANULOCYTE % 66.2 % (42.2-75.2); HEMATOCRIT 39.8 % (37-47); MEAN CORPUSCULAR HGB 29.1 PG (27.0-31.0); MEAN CORPUSCULAR HGB CONC 31.8 G/DL (33.0-37.0); MEAN CORPUSCULAR VOLUME 91.7 FL (81.0-99.0); MEAN PLATELET VOLUME 9.3 FL (7.4-10.4); PLATELET COUNT 235 /CUMM (130-400); RBC DISTRIBUTION WIDTH 16.1 % (11.5-14.5); RED BLOOD CELL CT 4.34 /CUMM (4.20-5.40); WHITE BLOOD CELL COUNT 14.1 /CUMM (4.8-10.8)
[2017-01-17 06:53] LABS: PT 60.8 SEC (9.4-12.5)
--- NOTE | 2017-01-17 07:15 | PN- Resident CRCU ---
Subjective HPI/CRCU Issues: Ms Crystal was seen and examined this morning. She is resting comfortably in bed. She reports no issues overnight. She continues to be somnolent and expresses that she is tired. She does state that she has been able to get adequate rest. She currently denies any further complaints and is laconic. Tolerateing PO intake well. She denies any fever, chills, nausea, vomiting. Objective Vital Signs & I&O Last 8 Hrs of Vitals and I&O: T: 98.2 MT: 74 RR: 22 BP: 141/71 97% on RA Exam General Appearance: well developed/nourished, no apparent distress, alert, comfortable Neck: normal inspection Respiratory: normal breath sounds, chest non-tender, no respiratory distress Cardiovascular: systolic murmur Gastrointestinal: normal bowel sounds, soft, non-tender Extremities: normal inspection, no edema Cranial Nerves: normal speech Skin: intact Current Medications: Current Medications Sig/Keyla Start time Last Medication Dose Route Stop Time Status Admin Aspirin 325 MG DAILY 01/16 1000 DC 01/16 PO 1255 Atorvastatin Calcium 5 MG 1700 01/16 1700 AC 01/16 PO 1738 Carvedilol 12.5 MG BID 01/14 2300 AC 01/17 PO 0935 Docusate Sodium 100 MG DAILY 01/16 1129 AC 01/17 PO 0935 Levetiracetam 500 MG BID 01/16 1330 AC 01/17 PO 0935 Levetiracetam 500 MG BID 01/16 1314 DC PO Levetiracetam 500 MG Q12 01/13 2200 DC 01/16 N/A 1 UNIT IV 1255 Losartan Potassium 50 MG ONCE ONE 01/17 0845 DC PO 01/17 0846 Paricalcitol 6 MCG Saturday .. 01/16 1000 AC 01/16 IV 1030 Warfarin Sodium 5 MG COUMADIN 1700 ONE 01/16 1700 DC 01/16 PO 01/16 1701 1738 Radiology Findings: MRI: FINDINGS/IMPRESSION: Nondiagnostic sagittal T1 and axial diffusion series are obtained for this study. The stroke sensitive diffusion series is markedly obscured by artifact. No large territorial infarcts are identified however small infarcts could be obscured given the degree of artifact. Any repeat MR imaging should be performed with sedation. Impression/Plan Impression/Problem List Impression: Ms Crystal is a 71-year-old female with past medical history of end-stage renal disease on hemodialysis, Saturday, Saturday and Saturday, atrial fibrillation on Coumadin, previous CVA in 1979 (without any residual damage), labile hypertension who was brought into the emergency department after having a seizure-like episode with post ictal confusion and decreased response. Cardiology The patient does have a tendency to rebound her pressure after hemodialysis however we have not seen this change. We'll continue to monitor prior to administering any antihypertensive medications. Following recommendations from cardiology we will coninue he patient on her by mouth home medications, if pressure continues to increase. Patient takes at Irbesartan 300 mg, this can be reduced to 150mg: Losartan 50mg was ordered but not administered, this has been held owing to the patient being hypotensive. Respiratory Noncontrast CT scan of chest to rule out cause of widened mediastinum found on chest x-ray: 01/13/2017.No acute change of the chest. No mediastinal mass or significant lymphadenopathy. Renal H&H above goal (12.6/39.8). We'll continue to hold off additional Neupogen for now. She will get additional hemodialysis scheduled for today 01/16/2017. Obtain repeat hemodialysis on 01/18/2017. Paricalcitol 3 days a week. Neurology Initial neurologic consult 01/13 stated that patient may have had a partial seizure provoked in the setting of hypertensive urgency. Continue Keppra 500 mg every 12 hours.--> PO Keppra--> Reduced to 500mg Daily from 01/18/2017, confrimed with Neurologist. Continue Statin, 5 mg Alimentary Tolerating by mouth intake well. Continue current diet. May consider the addition of oral medications as tolerated. Ensure significant blood pressure drop does not occur > 25% in a 24 hour period. Colace for constipation relief. Dulcolax MT Suppository Ordered. DVT prophylaxis Coumadin 5.0 mg dosed 01/16/2017. INR today: 5.69. Hold Further coumadin. Once INR drifts down, maintain INR with 1-2 mg daily. Aspirin discontinued Patient is on ALPS. Monitor INR in a.m. CODE: Full Code Problem List: 1. Hypertensive emergency 2. Hypertension 3. Elijah's paralysis 4. Seizure Pain Ratin Tomorrow's Labs & Rationales: CBC: monitror H/H INR: Coumadin Dosing BEP: Monitor electrolytes Plan DVT/Prophylaxis: mechanical, pharmacological
--- NOTE | 2017-01-17 07:38 | NUR ---
PT SLEPT MOST OF NIGHT. DROWSY, AROUSABLE TO VERBAL STIMULI, FOLLOWS COMMANDS. NO SEIZURE ACTIVITY NOTED THOUGHOUT SHIFT. NSR-1ST DEGREE AVB THOUGHOUT SHIFT, NO ECTOPY. PT DNV. DENIED ANY PAIN THOUGHOUT SHIFT. NO OTHER CHANGE IN PT ASSESSMENTS THOUGHOUT SHIFT
[2017-01-17 08:00] VITALS: BP 140/70
--- NOTE | 2017-01-17 08:34 | NUR ---
OCCUPATIONAL THERAPY NOTE: CHART REVIEWED, PT WITH ELEVATED INR 5.89 TODAY. OT CX FOR TODAY. OT WILL F/U WITH PT TOMORROW IF MEDICALLY APPROPRIATE. THANK YOU.
--- NOTE | 2017-01-17 08:38 | PN- Cardiology ---
Subjective Subjective: Patient appears to be resting. Does not volunteer for spontaneous speech but answers appropriately. Telemetry reviewed sinus rhythm throughout. Objective Vital Signs and I&Os Vital Signs Date Time Temp Pulse Resp B/P Pulse O2 O2 Flow FiO2 Ox Delivery Rate 01/17 0400 99 Room Air Room Air 01/17 0000 98 Room Air Room Air 01/16 2302 77 27 167/84 01/16 2300 99.6 75 25 164/80 98 Room Air Room Air 01/16 2000 96 Room Air Room Air 01/16 1600 98.0 71 18 120/70 95 Room Air 01/16 1255 70 142/78 Intake & Output 01/17 1600 01/17 0800 01/17 0000 01/16 1600 01/16 0800 01/16 0000 Intake Total 0 120 210 0 220 Output Total 0 0 1500 0 0 Balance 0 120 -1290 0 220 Intake, IV 0 110 0 100 Intake, Oral 0 120 100 0 120 Number 0 0 0 0 0 Bowel Movements Output, 1500 Dialysate Output, Urine 0 0 0 0 0 Patient 141 lb 143 lb Weight Physical Exam: Gen. exam patient appears comfortable supine resting quietly. Head normocephalic atraumatic Eyes sclera anicteric conjunctiva showed no pallor extraocular muscles were normal Neck no jugular venous distention no thyroid masses no palpable nodes Chest lungs were clear bilaterally Heart regular rhythm with a 1 to 2/6 systolic murmur Abdomen soft no organomegaly bowel sounds normal Extremities, brawny induration but no definite edema Neurological no gross motor deficit Current Medications: Current Medications Sig/Keyla Start time Last Medication Dose Route Stop Time Status Admin Aspirin 325 MG DAILY 01/16 1000 AC 01/16 PO 1255 Atorvastatin Calcium 5 MG 1700 01/16 1700 AC 01/16 PO 1738 Carvedilol 12.5 MG BID 01/14 2300 AC 01/16 PO 2302 Docusate Sodium 100 MG DAILY 01/16 1129 AC 01/16 PO 1255 Levetiracetam 500 MG BID 01/16 1330 AC 01/16 PO 2302 Levetiracetam 500 MG BID 01/16 1314 DC PO Levetiracetam 500 MG Q12 01/13 2200 DC 01/16 N/A 1 UNIT IV 1255 Paricalcitol 6 MCG Saturday .. 01/16 1000 AC 01/16 IV 1030 Warfarin Sodium 5 MG COUMADIN 1700 ONE 01/16 1700 DC 01/16 PO 01/16 1701 1738 Results Last 48 Hrs of Labs/Mics: Laboratory Tests 01/17/17 0525: Anion Gap 17 H, Estimated GFR 6 L, BUN/Creatinine Ratio 3.4 L, PT 60.8 *H, INR 5.89 *H, CBC w Diff NO MAN DIFF REQ, RBC 4.34, MCV 91.7, MCH 29.1, RDW 16.1 H, MPV 9.3, Gran % 66.2, Lymphocytes % 18.0 L, Monocytes % 14.3 H, Eosinophils % 1.3, Basophils % 0.2, Absolute Granulocytes 9.3 H, Absolute Lymphocytes 2.5, Absolute Monocytes 2.0 H, Absolute Eosinophils 0.2, Absolute Basophils 0, PUBS MCHC 31.8 L 01/16/17 0450: Anion Gap 16, Estimated GFR 5 L, Glucose 92, Calcium 9.7, Phosphorus 5.0 H, Magnesium 2.0, Total Bilirubin 0.4, AST 15, ALT 21, Albumin 3.8, PT 25.2 H, INR 2.42 H, CBC w Diff NO MAN DIFF REQ, RBC 4.13 L, MCV 91.8, MCH 29.1, RDW 15.7 H, MPV 9.1, Gran % 55.1, Lymphocytes % 25.4, Monocytes % 14.7 H, Eosinophils % 4.5, Basophils % 0.3, Absolute Granulocytes 5.4, Absolute Lymphocytes 2.5, Absolute Monocytes 1.4 H, Absolute Eosinophils 0.4, Absolute Basophils 0, PUBS MCHC 31.6 L Recent Imaging Studies: Echocardiogram revealed CONCLUSIONS Left ventricular cavity size normal. Left ventricular wall thickness mildly to moderately increased. No obvious regional wall motion abnormalities. Left ventricular ejection fraction is estimated at > 55 %. Abnormal relaxation filling pattern of the left ventricle (stage 1 diastolic dysfunction). Normal right ventricular size and function. Mild left atrial dilatation. Diffuse thickening of the aortic valve cusps with reduced excursion. Mild aortic stenosis. Unable to estimate the right ventricular systolic pressure. No pericardial effusion. Assessment/Plan Assessment/Plan In summary this 71-year-old female has the following problems 1. AMS with seizure, improved 2. Hypertensive Crisis, improving 3. Hx of CVA 4. PAF on outpatient Coumadin 5. ESRD on dialysis Her blood pressure has been fair. She could be started on losartan 50 mg. In absence of known coronary disease or known atherosclerotic carotid disease I don 't see any indication for aspirin particularly in combination with anticoagulants. Supratherapeutic INR is noted. I would hold warfarin until she drifts downwards and then to start her on a maintenance dose of 1-2 mg. Continue telemetry? Yes
--- NOTE | 2017-01-17 10:15 | PN- CRCU ---
Subjective HPI/Critical Care Issues: The patient is awake and resting. She does not offer any particular complaints. She is not eating well. She wants to get out of bed. She has had improved blood pressure control which still need some improvement. There were no overnight events reported. Objective Current Medications: Current Medications Sig/Keyla Start time Last Medication Dose Route Stop Time Status Admin Aspirin 325 MG DAILY 01/16 1000 DC 01/16 PO 1255 Atorvastatin Calcium 5 MG 1700 01/16 1700 AC 01/16 PO 1738 Carvedilol 12.5 MG BID 01/14 2300 AC 01/17 PO 0935 Docusate Sodium 100 MG DAILY 01/16 1129 AC 01/17 PO 0935 Levetiracetam 500 MG BID 01/16 1330 AC 01/17 PO 0935 Levetiracetam 500 MG BID 01/16 1314 DC PO Levetiracetam 500 MG Q12 01/13 2200 DC 01/16 N/A 1 UNIT IV 1255 Losartan Potassium 50 MG ONCE ONE 01/17 0845 DC PO 01/17 0846 Paricalcitol 6 MCG Saturday .. 01/16 1000 AC 01/16 IV 1030 Warfarin Sodium 5 MG COUMADIN 1700 ONE 01/16 1700 DC 01/16 PO 01/16 1701 1738 Vital Signs & I&O Last 24 Hrs of Vitals and I&O: Vital Signs Date Time Temp Pulse Resp B/P Pulse O2 O2 Flow FiO2 Ox Delivery Rate 01/17 0935 74 141/71 01/17 0400 99 Room Air Room Air 01/17 0000 98 Room Air Room Air 01/16 2302 77 27 167/84 01/16 2300 99.6 75 25 164/80 98 Room Air Room Air 01/16 2000 96 Room Air Room Air 01/16 1600 98.0 71 18 120/70 95 Room Air 01/16 1255 70 142/78 Intake & Output 01/17 1600 01/17 0800 01/17 0000 Intake Total 0 120 Output Total 0 0 Balance 0 120 Intake, IV 0 Intake, Oral 0 120 Number 0 0 Bowel Movements Output, Urine 0 0 Exam General Appearance: no apparent distress, awake, comfortable Head: atraumatic, normal appearance Neck: supple Respiratory: diminished breath sounds, clear anteriorly Cardiovascular: regular rate/rhythm Abdomen: normal bowel sounds, soft, non-tender Extremities: edema present Skin: intact, normal color, warm/dry Results Last 24 Hrs of Lab Results: Laboratory Tests 01/17/17 0525: Anion Gap 17 H, Estimated GFR 6 L, BUN/Creatinine Ratio 3.4 L, PT 60.8 *H, INR 5.89 *H, CBC w Diff NO MAN DIFF REQ, RBC 4.34, MCV 91.7, MCH 29.1, RDW 16.1 H, MPV 9.3, Gran % 66.2, Lymphocytes % 18.0 L, Monocytes % 14.3 H, Eosinophils % 1.3, Basophils % 0.2, Absolute Granulocytes 9.3 H, Absolute Lymphocytes 2.5, Absolute Monocytes 2.0 H, Absolute Eosinophils 0.2, Absolute Basophils 0, PUBS MCHC 31.8 L Diagnostic Data Radiology Findings: Nondiagnostic sagittal T1 and axial diffusion series are obtained for this study. The stroke sensitive diffusion series is markedly obscured by artifact. No large territorial infarcts are identified however small infarcts could be obscured given the degree of artifact. Any repeat MR imaging should be performed with sedation. Impression/Plan Impression/Plan Impression/Plan: 1. Hypertensive crisis, blood pressure still not at goal, but overall control is improving. 2. History of PAF, on Coumadin. 3. End-stage renal disease, on hemodialysis since 2011. 4. Widened mediastinum, rule out etiology. 5. 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 6. History of gout. 7. Mild aortic stenosis. Recommendations: * Continue to monitor blood pressure closely. * Will continue to follow up cardiology recommendations regarding BP control. Medication will need to be titrated for optimal control. * Hold Coumadin as per cardiology, monitor INR. * Check a noncontrast CT scan of the chest. * Continue Keppra 500 mg every 12 hours per neurology, will follow up input. * OT/PT. * Continue aspirin and statins. * DVT prophylaxis at all times - INR elevated and on and alps. * Downgraded from ICU. Please discuss with cardiology if they prefer the patient on telemetry, otherwise transfer to [facility].
--- NOTE | 2017-01-17 10:26 | PN- Nephrology ---
Assessment/Plan Assessment: ESRD - Weights significantly down and BP much improved. HTN must have been volume. She must have been failing to thrive with significant weight loss of fat/muscle. Seizure - Seen by Neurology - noted to be Complex partial seizure in the setting of significant HTN. EEG pending. MRI limited by artifact but no large CVA. HTN - Much improved. May be OK on Carvedilol monotherapy. Anemia - Hg above goal. Can hold off on further Epogen for now. CKD-MBD - Gets Hectorol which can be converted to Paricalctiol. Suggestion: -Dialysis tomorrow -Daily weights -Cont Carvedilol monotherapy -Paricalcitol TIW -Hold Epogen Please call [phone] with ?'s Subjective Subjective: Pt had dialysis yesterday - 1.5L UF Weight after dialysis was 64kg (prior EDW was 71.5kg) BP much improved - 141/71 this AM On carvedilol 12.5mg BID only Pt groggy and unable to elicit any complaints EEG without focal or epileptiform abnormalities MRI without large infarct but limited by artifact Objective Vital Signs and I&Os Vital Signs Date Time Temp Pulse Resp B/P Pulse O2 O2 Flow FiO2 Ox Delivery Rate 01/17 0935 74 141/71 01/17 0800 98.2 72 22 140/70 97 Room Air 01/17 0400 99 Room Air Room Air 01/17 0000 98 Room Air Room Air 01/16 2302 77 27 167/84 01/16 2300 99.6 75 25 164/80 98 Room Air Room Air 01/16 2000 96 Room Air Room Air 01/16 1600 98.0 71 18 120/70 95 Room Air 01/16 1255 70 142/78 Intake & Output 01/17 1600 01/17 0400 01/16 1600 01/16 0400 01/15 1600 01/15 0400 Intake Total 0 120 210 220 590 430 Output Total 0 0 1500 0 2300 4007 Balance 0 120 -1290 220 -1710 -3577 Intake, IV 0 110 100 100 110 Intake, Oral 0 120 100 120 490 320 Number 0 0 0 0 0 Bowel Movements Output, 1500 2300 4000 Dialysate Output, Urine 0 0 0 0 0 7 Patient 141 lb 143 lb 151 lb Weight Physical Exam: Gen - groggy HEENT - supple CV - RRR Chest - clear anteriorly Abd - soft, nontender Ext - no significant edema Neuro - very groggy - unable to determine orientation Access - VITALIY AVF Current Medications: Current Medications Sig/Keyla Start time Last Medication Dose Route Stop Time Status Admin Aspirin 325 MG DAILY 01/16 1000 DC 01/16 PO 1255 Atorvastatin Calcium 5 MG 1700 01/16 1700 AC 01/16 PO 1738 Carvedilol 12.5 MG BID 01/14 2300 AC 01/17 PO 0935 Docusate Sodium 100 MG DAILY 01/16 1129 AC 01/17 PO 0935 Levetiracetam 500 MG BID 01/16 1330 AC 01/17 PO 0935 Levetiracetam 500 MG BID 01/16 1314 DC PO Levetiracetam 500 MG Q12 01/13 2200 DC 01/16 N/A 1 UNIT IV 1255 Losartan Potassium 50 MG ONCE ONE 01/17 0845 DC PO 01/17 0846 Paricalcitol 6 MCG Saturday .. 01/16 1000 AC 01/16 IV 1030 Warfarin Sodium 5 MG COUMADIN 1700 ONE 01/16 1700 DC 01/16 PO 01/16 1701 1738 Results Pertinent Lab Results: Laboratory Tests 01/17 01/16 0525 0450 Chemistry Sodium (137 - 145 mmol/L) 138 140 Potassium (3.5 - 5.1 mmol/L) 4.2 4.2 Chloride (98 - 107 mmol/L) 96 L 99 Carbon Dioxide (22 - 30 mmol/L) 25 25 Anion Gap (5 - 16) 17 H 16 BUN (7 - 17 mg/dL) 22 H 22 H Creatinine (0.5 - 1.0 mg/dL) 6.5 *H 7.4 *H Estimated GFR (>60 ml/min) 6 L 5 L BUN/Creatinine Ratio (7 - 25 %) 3.4 L Glucose (65 - 99 mg/dL) 92 Calcium (8.4 - 10.2 mg/dL) 9.7 Phosphorus (2.5 - 4.5 mg/dL) 5.0 H Magnesium (1.6 - 2.3 mg/dL) 2.0 Total Bilirubin (0.2 - 1.3 mg/dL) 0.4 AST (14 - 36 U/L) 15 ALT (9 - 52 U/L) 21 Albumin (3.5 - 5.0 g/dL) 3.8 Coagulation PT (9.4 - 12.5 SEC) 60.8 *H 25.2 H INR (0.90 - 1.19) 5.89 *H 2.42 H Hematology CBC w Diff NO MAN DIFF REQ NO MAN DIFF REQ WBC (4.8 - 10.8 /CUMM) 14.1 H 9.7 RBC (4.20 - 5.40 /CUMM) 4.34 4.13 L Hgb (12.0 - 16.0 G/DL) 12.6 12.0 Hct (37 - 47 %) 39.8 37.9 MCV (81.0 - 99.0 FL) 91.7 91.8 MCH (27.0 - 31.0 PG) 29.1 29.1 RDW (11.5 - 14.5 %) 16.1 H 15.7 H Plt Count (130 - 400 /CUMM) 235 234 MPV (7.4 - 10.4 FL) 9.3 9.1 Gran % (42.2 - 75.2 %) 66.2 55.1 Lymphocytes % (20.5 - 51.1 %) 18.0 L 25.4 Monocytes % (1.7 - 9.3 %) 14.3 H 14.7 H Eosinophils % (0 - 5 %) 1.3 4.5 Basophils % (0.0 - 2.0 %) 0.2 0.3 Absolute Granulocytes (1.4 - 6.5 /CUMM) 9.3 H 5.4 Absolute Lymphocytes (1.2 - 3.4 /CUMM) 2.5 2.5 Absolute Monocytes (0.10 - 0.60 /CUMM) 2.0 H 1.4 H Absolute Eosinophils (0.0 - 0.7 /CUMM) 0.2 0.4 Absolute Basophils (0.0 - 0.2 /CUMM) 0 0 PUBS MCHC (33.0 - 37.0 G/DL) 31.8 L 31.6 L 01/15 0400 Chemistry Sodium (137 - 145 mmol/L) 140 Potassium (3.5 - 5.1 mmol/L) 3.5 Chloride (98 - 107 mmol/L) 101 Carbon Dioxide (22 - 30 mmol/L) 22 Anion Gap (5 - 16) 17 H BUN (7 - 17 mg/dL) 24 H Creatinine (0.5 - 1.0 mg/dL) 7.7 *H Estimated GFR (>60 ml/min) 5 L Glucose (65 - 99 mg/dL) 86 Calcium (8.4 - 10.2 mg/dL) 8.6 Phosphorus (2.5 - 4.5 mg/dL) 4.3 Magnesium (1.6 - 2.3 mg/dL) 2.0 Total Bilirubin (0.2 - 1.3 mg/dL) 0.5 AST (14 - 36 U/L) 17 ALT (9 - 52 U/L) 26 Albumin (3.5 - 5.0 g/dL) 3.5 Coagulation PT (9.4 - 12.5 SEC) 15.2 H INR (0.90 - 1.19) 1.45 H Hematology CBC w Diff NO MAN DIFF REQ WBC (4.8 - 10.8 /CUMM) 7.8 RBC (4.20 - 5.40 /CUMM) 3.93 L Hgb (12.0 - 16.0 G/DL) 11.5 L Hct (37 - 47 %) 36.0 L MCV (81.0 - 99.0 FL) 91.7 MCH (27.0 - 31.0 PG) 29.3 RDW (11.5 - 14.5 %) 15.4 H Plt Count (130 - 400 /CUMM) 237 MPV (7.4 - 10.4 FL) 8.8 Gran % (42.2 - 75.2 %) 54.1 Lymphocytes % (20.5 - 51.1 %) 26.3 Monocytes % (1.7 - 9.3 %) 13.7 H Eosinophils % (0 - 5 %) 5.2 H Basophils % (0.0 - 2.0 %) 0.7 Absolute Granulocytes (1.4 - 6.5 /CUMM) 4.2 Absolute Lymphocytes (1.2 - 3.4 /CUMM) 2.0 Absolute Monocytes (0.10 - 0.60 /CUMM) 1.1 H Absolute Eosinophils (0.0 - 0.7 /CUMM) 0.4 Absolute Basophils (0.0 - 0.2 /CUMM) 0.1 PUBS MCHC (33.0 - 37.0 G/DL) 32.0 L Imaging/Other Studies: MRI FINDINGS/IMPRESSION: Nondiagnostic sagittal T1 and axial diffusion series are obtained for this study. The stroke sensitive diffusion series is markedly obscured by artifact. No large territorial infarcts are identified however small infarcts could be obscured given the degree of artifact. Any repeat MR imaging should be performed with sedation.
--- NOTE | 2017-01-17 11:43 | Event Note ---
Event Note Event Note: S: Patient continues to be somnolent over the last 24 hours. She is alert and oriented 3 and able to follow verbal and motor commands. She is currently comfortable seated on the chair beside the bed. B: Since Keppra was recently started on her admission on 01/13/2017 this may be a contributing factor to the patient's somnolence due to the fact that she is not on any other sedating medications. A phone call was made to the on-call neurologist and after a brief discussion the following conclusion was reached. A/R: Dose of Keppra will be reduced to 500 mg on a daily basis. Dr. Ramirez will attempt to see the patient over the course of the day.
--- NOTE | 2017-01-17 13:42 | Transfer of Care Summary ---
Hospital Course Course Hospital Course: Ms Crystal is a 71-year-old female with past medical history of end-stage renal disease on hemodialysis, Saturday, Saturday and Saturday, atrial fibrillation on Coumadin, previous CVA in 1979 (without any residual damage), labile hypertension who was brought into the emergency department after having a seizure-like episode with post ictal confusion and decreased response. While the patient was admitted in the intensive care unit her blood pressure was carefully managed. She subsequently had an EEG and an MRI to rule out any acute pathological issues. She was started on Keppra owing to seizures which was evident at the time prior to presentation at the emergency department. A noncontrast CT of the chest was performed to rule out widened mediastinum etiology. After being stabilized in the intensive care unit she was subsequently transferred to the general medical floor for further management. Pertinent Lab Results: EXAMINATION: BILATERAL DUPLEX CAROTID ULTRASOUND CLINICAL INDICATION: 71-year-old female with seizure. COMPARISON: CT of the head done earlier today. TECHNIQUE: Real-time ultrasound and Doppler techniques (integrating B-mode 2D vascular images, Doppler spectral analysis and color flow Doppler imaging) were utilized to interrogate the extracranial carotid and vertebral arteries bilaterally. FINDINGS: On the RIGHT, there is mild atherosclerotic plaques are present at the carotid bifurcation. In the distal CCA, the peak systolic velocity is 71.5 cm/sec. In the proximal ICA, the peak systolic velocity is 123 cm/sec, and the end diastolic velocity is 15 cm/sec. The ICA/CCA ratio is 1.7. On the LEFT, there is moderate atherosclerotic plaques are present at the carotid bifurcation, extending into the origin, proximal part of the internal carotid artery. In the distal CCA, the peak systolic velocity is 52.2 cm/sec. In the proximal ICA, the peak systolic velocity is 288 cm/sec, and the end diastolic velocity is 12.6 cm/sec. The ICA/CCA ratio is 5.5. The vertebral arteries show antegrade flow with normal waveforms bilaterally. IMPRESSION: 1. The right internal carotid artery shows no hemodynamically significant stenosis. 2. The left internal carotid artery shows hemodynamically significant stenosis. 3. Both vertebral arteries are patent, and show antegrade flow. DICTATED BY: LIAM ESTRADA MD Assessment/Plan: Cardiology Management of this patient's antihypertensive regiment has to be carefully monitored. Her home dose of Irbesartan 300 mg daily, needs to be addressed. Prior to discharge from the intensive care unit the patient's angiotensin receptor zuly was reduced. Renal Since admission the patient was aggressively dialyzed and attempts to reduce the amount of fluid she are on board was addressed. The patient does have a tendency to rebound her pressure after hemodialysis however we have not seen this change on the final day of admission in the ICU. Ensure blood pressure medications are started based on what the patient can tolerate to prevent any rapid fluctuations and changes of her hypertension. Neurology Initial neurologic consult 01/13 stated that patient may have had a partial seizure provoked in the setting of hypertensive urgency. Initially the patient was started on Keppra 500 mg every 12 hours. This was subsequently decreased to 500 mg daily. Please confirm with neurology whether they would like the patient to be continued on Keppra and at what dose. Patient was continued on her statin while she was admitted. DVT prophylaxis While the patient was admitted it was recommended from cardiology that aspirin be discontinued. Please touch base with cardiology one more time to find out whether this patient should be kept off aspirin indefinitely. The patient's INR was subsequently elevated owing to multifactorial causes. It is imperative to ensure that this patient is Coumadin is dosed appropriately. She normally follows up with her new accounts representative Dr. Mcpherson on a weekly basis to ensure her INR is kept within the therapeutic range. Please follow-up with speech therapy regarding diet the patient should be sent home on. CODE: Full Code
[2017-01-17 14:16] VITALS: BP 130/80
--- NOTE | 2017-01-17 14:41 | Discharge Summary ---
Visit Information Visit Dates Admission Date: 01/13/17 Discharge Date: 01/21/17 Hospital Course Course Attending Physician: GRACE BAILEY M.D Primary Care Physician: RJ ODELL,ANNETTE Zuluaga Hospital Course: This is a 71 y/o Female with a PMH of prior CVAwith no residual deficit, ESRD on dialysis for last 5 years, HTN, and PAF on Coumadin, and HLD who presented to [place] with reported decreased mental status and seizure activity. She was also noted to be hypertensive. On evaluation by her daughter she was found to have a blood pressure of 200 systolic @ home. Patient developed generalized tonic- clonic movements particularly in the right upper extremity during the time of evaluation by her daughter. She was brought to the ED for eval. On arrival in the emergency room she was found to have a right facial droop. Was also reported by the ED that patient was somnolent and not following commands when she arrived. Blood pressure was elevated with systolic blood pressure of 260on repeat examination and measurement. Head CT showed no acute intracranial process. She received several doses of labetalol and hydralazine with her blood pressure improving to about 220 systolic. Her daughters provided additional that her blood pressure recently during dialysis has been running low to the point where they're told to hold her blood pressure medication and she was given midodrine on the days of dialysis. They however reported that midodrine was discontinued over a week and will and that she has been taking her routine blood pressure medications. Coreg dose however was decreased recently from 25 mg to 12.5 mg twice daily. She continued on her Cardizem and Ibersatan Following discussion with the neurology service she was referred to the the medical service and was admitted to the ICU and was treated for the following problems: Patient's physical exam at the time of presentation was as follows: Physical Exam: General: The patient is in no distress. Pleasant and cooperative. MSE: Hypersomnolent and could not suspect if most of the exam. Cardiovascular: S1 and S2 are normal, regular rate and rhythm, and normal pedal pulses. Vision: Visual silver are intact to threat. Neurological: Extra ocular movements intact, JAH, slight right lower facial droop, tongue midline, uvula raises equally in the midline, V1-V3 sensation to touch is intact and equal bilaterallty, sternocleidomastoid and trapezius are strong on both sides, muscles of mastication are strong. No dysarthria noted. Motor exam reveals can move all limbs although the right arm seems weaker than the other limbs. Sensory exam did not reveal any deficits to touch. Reflexes are hyperactive on the right side. The patient was admitted in the ICUAnd then ultimately to general medicine floor for the following problems: 1. AMS with seizure 2. Hypertensive Crisis 3. Hx of CVA 4. PAF on outpatient Coumadin 5. ESRD on dialysis(MWF)since 2011 6. History of cardiac 7. Widened mediastinum on chest x-ray of unknown etiology Hospital course Considering the patient's initial nausea mental status CVA was considered that the patient was hypertensive TPA was not up suitable and the patient was not a candidate for TPA therapy. Considering a seizure episodePatient was started on IV Keppra initially 500 mg twice a day with inflated taper to 250 mg bid . Consiodering the patient's blood pressure it was reduced from 220 to 180 systolic. Slowly the patient's outpatient blood pressure medications were resumed. She was initially started on carvedilol monotherapy considering that the patient becomes hypotensive during the hemodialysis. Cardiology team was also consulted who recommended that it was okay for the patient to be resumed on a ARB,Lorasatrtin 50 mg po daily with holding rafi,eter <140/90 neurological workup for CVA which includes CT head and MRI was negative for any intracranial pathology or any acute bleed or ischemia She was discharged home with [facility] Allergies: Coded Allergies: No Known Allergies (01/13/17) Significant Procedures: XAM TYPE: MRI - MRI-HEAD W/O SHANNON EXAMINATION: MR BRAIN WITHOUT CONTRAST CLINICAL INFORMATION: Hypertensive emergency. Question stroke. COMPARISON: Head CT 01/13/2017. TECHNIQUE: The patient was only able to tolerate a single sagittal T1 and single axial diffusion series for this exam. No additional imaging could be obtained. FINDINGS/IMPRESSION: Nondiagnostic sagittal T1 and axial diffusion series are obtained for this study. The stroke sensitive diffusion series is markedly obscured by artifact. No large territorial infarcts are identified however small infarcts could be obscured given the degree of artifact. Any repeat MR imaging should be performed with sedation. EXAM TYPE: CARD - ECHOCARDIOGRAM HERO LAWRENCE Age: 71 : 1945 Gender: F Exam Date: 01/14/2017 08:52 Exam Location: [facility] Ht (in): 63 Wt (lb): 160 BSA: 1.82 BP: 202 / 78 Ordering Physician: CAREN MACKENZIE MD Referring Physician: CAREN MACKENZIE MD Technologist: Armida Vilchis Room Number: 114 Indications: STROKE Rhythm: Technical Quality: Fair FINDINGS Left Ventricle Left ventricular cavity size normal. Left ventricular wall thickness mildly to moderately increased. No obvious regional wall motion abnormalities. Left ventricular ejection fraction is estimated at > 55 %. Abnormal relaxation filling pattern of the left ventricle (stage 1 diastolic dysfunction). Right Ventricle Normal right ventricular size and function. Right Atrium Normal right atrial size. Left Atrium Mild left atrial dilatation. Mitral Valve No mitral stenosis. Mild mitral annular calcification. Trace mitral regurgitation. Aortic Valve Diffuse thickening of the aortic valve cusps with reduced excursion. Mild aortic stenosis. Mild aortic regurgitation. Tricuspid Valve Structurally normal tricuspid valve. Trace tricuspid regurgitation. Unable to estimate the right ventricular systolic pressure. Pulmonic Valve Pulmonic valve not well visualized, grossly normal. Pericardium No pericardial effusion. Great Vessels Normal size aortic root. CONCLUSIONS Left ventricular cavity size normal. Left ventricular wall thickness mildly to moderately increased. No obvious regional wall motion abnormalities. Left ventricular ejection fraction is estimated at > 55 %. Abnormal relaxation filling pattern of the left ventricle (stage 1 diastolic dysfunction). Normal right ventricular size and function. Mild left atrial dilatation. Diffuse thickening of the aortic valve cusps with reduced excursion. Mild aortic stenosis. Unable to estimate the right ventricular systolic pressure. No pericardial effusion. EEG: Interpretation: When awake with eyes open the background is composed of irregular 8-9 hertz activity better formed anteriorly and centrally, with very low amplitdue beta activity superimposed and a degree of muscle artifact. With eyes closed there is a rapid onset of generalized higher amplitude slow activity in the theta and delta range. Slowing at times takes a somewhat anterior dominant triphasic appearance. No lateralized or epileptiform abnormalities are encountered. Hyperventilation could not be done, photic stimulaton adds no additional information. Impression: Abnormal due to generalized slowing of variable degree consistent with a diffuse toxic or metabolic encephalopathy but without focal or epileptiform abnormalities. Disposition Summary Disposition Principal Diagnosis: Hypertensive emergency Additional Diagnosis: 1. AMS with seizure 2. Hypertensive Crisis 3. Hx of CVA 4. PAF on outpatient Coumadin 5. ESRD on dialysis(MWF)since 2011 6. History of cardiac 7. Widened mediastinum on chest x-ray of unknown etiolog Discharge Disposition: home health services Discharge Instructions General Discharge Information Code Status: Full Code Patient's Diet: As tolerated Patient's Activity: Tolerated Follow-Up Instructions/Appts: f/u with pcp in 1 week f/u with pathology secretary in 1 week Medications at Discharge Discharge Medications: Stop taking the following medications: Irbesartan (Irbesartan) 300 MG TABLET ORAL DAILY Qty = 90 Aspirin (Ecotrin*) 81 MG TABLET.DR MADRIGAL Every other day Continue taking these medications: Diltiazem HCl (Diltiazem 24HR ER) 360 MG CAP.ER.24H 1 Capsule ORAL DAILY Qty = 90 Comments: Last Taken: NOT GIVEN Time: Carvedilol (Carvedilol) 25 MG TABLET 0.5 Tablet ORAL TWICE DAILY Qty = 180 Comments: Last Taken: 01/21/17 Time: 5 PM Omeprazole (Omeprazole) 40 MG CAPSULE. 1 Capsule ORAL DAILY Qty = 30 Comments: Last Taken: 01/21/17 Time: 06 AM Warfarin Sodium (Jantoven) (Unknown Strength) TABLET Unknown Dose ORAL As Directed Comments: Last Taken: NOT GIVEN Time: Lovastatin (Lovastatin) 20 MG TABLET 1 Tablet ORAL DAILY Qty = 90 Comments: Last Taken: 01/21/17 Time: 5 PM Calcium Acetate (Calcium Acetate) 667 MG CAPSULE 1 Capsule ORAL THREE TIMES DAILY Qty = 390 Comments: Last Taken: NOT GIVEN Time: Vit B Cmplx 3/FA/Vit C/Biotin (Jenny-Anthony Rx Tablet) 1 MG-60 MG-300 MCG TABLET 1 Tablet ORAL DAILY Comments: Last Taken: NOT GIVEN Time: Doxazosin Mesylate (Doxazosin Mesylate) 4 MG TABLET 1 Tablet ORAL As Directed Qty = 90 Comments: Last Taken: NOT GIVEN Time: Allopurinol (Allopurinol) 100 MG TABLET 1 Tablet ORAL DAILY Qty = 90 Comments: Last Taken: NOT GIVEN Time: Metoclopramide HCl (Reglan) 5 MG TABLET 1 Tablet ORAL 4 TIMES/DAY NPO Start taking the following new medications: Levetiracetam (Keppra) 500 MG TABLET 250 Milligram ORAL TWICE DAILY Qty = 30 No Refills Comments: Last Taken: 01/21/17 Time: 5 PM Losartan Potassium (Cozaar) 50 MG TABLET 1 Tablet ORAL DAILY Qty = 30 No Refills Instructions: TAKE IF BP > 140/90 Comments: Last Taken: 01/21/17 Time: 5 PM Copies To: PRIYA ODELL,VELIA Cota; RJ ODELL,ANNETTE Zuluaga; CINDY ODELL,ANAMARIA
[2017-01-17] MEDS ORDERED: KEPPRA500 M1 PO (14:47)
[2017-01-17] MEDS ORDERED: COZAAR50 M1 PO (14:47)
--- NOTE | 2017-01-17 14:49 | Patient Discharge Instructions ---
Discharge Instructions General Discharge Information You were seen/treated for: Hypertensive crisis or elevated blood pressure Special Instructions: primary care physician in one week Acute Coronary Syndrome Inclusion Criteria At DC or during hospital stay patient has or had the following: ACS DIAGNOSIS No Discharge Core Measures Meds if any: Prescribed or Continued at Discharge Meds if any: NOT Prescribed or Continued at Discharge Congestive Heart Failure Inclusion Criteria At DC or during hospital stay patient has or had the following: CHF DIAGNOSIS No Discharge Core Measures Meds if any: Prescribed or Continued at Discharge Meds if any: NOT Prescribed or Continued at Discharge Cerebrovascular accident Inclusion Criteria At DC or during hospital stay patient has or had the following: CVA/TIA Diagnosis No Discharge Core Measures Meds if any: Prescribed or Continued at Discharge Meds if any: NOT Prescribed or Continued at Discharge Venous thromboembolism Inclusion Criteria VTE Diagnosis No VTE Type NONE VTE Confirmed by (Test) NONE Discharge Core Measures - Per Current guidelines, there needs to be overlap - treatment for the first 5 days of Warfarin therapy. - If discharged on Warfarin prior to 5 days of - overlap therapy, the patient will need to be - assessed for post discharge needs including - *Post discharge parental anticoagulation - *Warfarin and/or parental anticoagulation education - *Follow up date to check INR post discharge At least 5 days overlap therapy as Inpatient No Meds if any: Prescribed or Continued at Discharge Note: Overlap Therapy is Warfarin and Anticoagulant Meds if any: NOT Prescribed or Continued at Discharge
--- NOTE | 2017-01-17 17:53 | PN- Neurology ---
Subjective Subjective: To reevaluate due to hypersomnolence According to family the patient improved considerably after presenting 9 with seizure-like activity consisting of shaking of the right arm and head and eye deviation. She has had a remote left hemispheric stroke with persistent mild right side weakness. There is no history of prior seizures and none reported since in this hospitalization Family states that mental status had improved but in the last 2 days has been progressively declining. She is hard to arouse and at this point will not even stay awake to be fed. The patient herself can offer no complaints or further information Review of Systems: Awake only long enough to deny headache and pain. RLS limited by her clinical state Objective Vital Signs and I&Os Vital Signs Date Time Temp Pulse Resp B/P Pulse O2 O2 Flow FiO2 Ox Delivery Rate 01/17 1416 98.1 75 20 130/80 92 Room Air 01/17 1312 70 118/70 01/17 0935 74 141/71 01/17 0800 98.2 72 22 140/70 97 Room Air 01/17 0400 99 Room Air Room Air 01/17 0000 98 Room Air Room Air 01/16 2302 77 27 167/84 01/16 2300 99.6 75 25 164/80 98 Room Air Room Air 01/16 2000 96 Room Air Room Air Intake & Output 01/17 1600 01/17 0800 01/17 0000 01/16 1600 01/16 0800 01/16 0000 Intake Total 240 0 120 210 0 220 Output Total 0 0 1500 0 0 Balance 240 0 120 -1290 0 220 Intake, IV 0 0 110 0 100 Intake, Oral 240 0 120 100 0 120 Number 1 0 0 0 0 0 Bowel Movements Output, 1500 Dialysate Output, Urine 0 0 0 0 0 Patient 141 lb 143 lb Weight Physical Exam: Appears comfortable, skin color and temperature good, no apparent distress. Breathing regularly. Neck supple. Arouses briefly to light stimulation and voice but falls rapidly back to sleep. Stayed awake long enough to give her first name. Not oriented to [place] saying she was in [facility]. Unable to give month or year, family feels this could be pre-existing memory impairment Pupils midsize equal round and reactive to light Eyes conjugate, followed somewhat to the left and right with conjugate movements. Racial asymmetry. 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 Tone decreased on the right and tendon reflexes slightly brisker on the left. Right Babinski sign. Unable to perform remaining elements of the complete neuro exam due to her somnolence Current Medications: Current Medications Sig/Keyla Start time Last Medication Dose Route Stop Time Status Admin Aspirin 325 MG DAILY 01/16 1000 DC 01/16 PO 1255 Atorvastatin Calcium 5 MG 1700 01/16 1700 AC 01/16 PO 1738 Bisacodyl 10 MG ONCE ONE 01/17 1030 DC 01/17 NM 01/17 1031 1256 Carvedilol 12.5 MG BID 01/14 2300 AC 01/17 PO 0935 Docusate Sodium 100 MG DAILY 01/16 1129 AC 01/17 PO 0935 Levetiracetam 500 MG DAILY 01/18 1000 AC PO Levetiracetam 500 MG BID 01/16 1330 DC 01/17 PO 0935 Losartan Potassium 50 MG DAILY 01/18 1000 AC PO Losartan Potassium 50 MG ONCE ONE 01/17 0845 DC PO 01/17 0846 Paricalcitol 6 MCG Saturday .. 01/16 1000 AC 01/16 IV 1030 Results Last 24 Hours of Lab Results: Laboratory Tests 01/17 0525 Chemistry Sodium (137 - 145 mmol/L) 138 Potassium (3.5 - 5.1 mmol/L) 4.2 Chloride (98 - 107 mmol/L) 96 L Carbon Dioxide (22 - 30 mmol/L) 25 Anion Gap (5 - 16) 17 H BUN (7 - 17 mg/dL) 22 H Creatinine (0.5 - 1.0 mg/dL) 6.5 *H Estimated GFR (>60 ml/min) 6 L BUN/Creatinine Ratio (7 - 25 %) 3.4 L Coagulation PT (9.4 - 12.5 SEC) 60.8 *H INR (0.90 - 1.19) 5.89 *H Hematology CBC w Diff NO MAN DIFF REQ WBC (4.8 - 10.8 /CUMM) 14.1 H RBC (4.20 - 5.40 /CUMM) 4.34 Hgb (12.0 - 16.0 G/DL) 12.6 Hct (37 - 47 %) 39.8 MCV (81.0 - 99.0 FL) 91.7 MCH (27.0 - 31.0 PG) 29.1 RDW (11.5 - 14.5 %) 16.1 H Plt Count (130 - 400 /CUMM) 235 MPV (7.4 - 10.4 FL) 9.3 Gran % (42.2 - 75.2 %) 66.2 Lymphocytes % (20.5 - 51.1 %) 18.0 L Monocytes % (1.7 - 9.3 %) 14.3 H Eosinophils % (0 - 5 %) 1.3 Basophils % (0.0 - 2.0 %) 0.2 Absolute Granulocytes (1.4 - 6.5 /CUMM) 9.3 H Absolute Lymphocytes (1.2 - 3.4 /CUMM) 2.5 Absolute Monocytes (0.10 - 0.60 /CUMM) 2.0 H Absolute Eosinophils (0.0 - 0.7 /CUMM) 0.2 Absolute Basophils (0.0 - 0.2 /CUMM) 0 PUBS MCHC (33.0 - 37.0 G/DL) 31.8 L Recent Imaging Studies: MRI nondiagnostic due to movement CT of brain without contrast 01/13/2017: There is no evidence of acute intracranial hemorrhage or territorial infarction. No abnormal mass effect or midline shift is seen. Preston to white matter differentiation is well preserved. No extra-axial fluid collections are identified. The ventricles are normal in size. There is evidence of encephalomalacia involving the left frontal lobe, extending into the adjacent external capsule and asymmetric ipsilateral dilatation of the left lateral ventricle present, consistent with old left MCA territorial infarction. Mild age-appropriate diffuse cortical atrophy and mild chronic microvascular deep white matter ischemic changes are noted. Carotid Dopplers and echocardiogram revealed no pertinent abnormalities EEG revealed generalized slowing consistent with a toxic or metabolic encephalopathy but no epileptiform abnormalities Assessment/Plan Assessment: Worsening hypersomnolence over the last few days despite steady improvement in renal parameters on dialysis. Suspect adverse reaction to Keppra, cannot fully exclude subclinical nonconvulsive seizure Single seizure, occurred with elevated BUN and creatinine, prior stroke A likely focus for seizure development, no history of seizures over the years, however. On Keppra but risk of seizure recurrence not fully established Plan: EEG Keppra dose reduced, if EEG shows no epileptiform abnormalities would discontinue completely Improvement in mental state may lag behind erection of metabolic abnormalities and withdrawal of medications If somnolence persists check ABG to rule out elevated CO2, check TSH
--- NOTE | 2017-01-17 20:45 | NUR ---
MD AWARE THAT PT IS DROWSY AND AROUSABLE AT TIMES. PT WAS ABLE TO STATE LAST NAME. FAMILY WAS AT BEDSIDE ATTEMPTING TO FEED PT. CONTINUE TO MONITOR.
[2017-01-17 23:30] VITALS: BP 124/62
[2017-01-18 07:37] VITALS: BP 120/66
--- NOTE | 2017-01-18 11:18 | PN- Nephrology ---
See Addendum Assessment/Plan Assessment: ESRD - Weights significantly down and BP much improved. HTN must have been volume. She must have been failing to thrive with significant weight loss of fat/muscle. Seizure - Seen by Neurology - noted to be Complex partial seizure in the setting of significant HTN. EEG without focal or epileptiform abnormalities. MRI limited by artifact but no large CVA. Lethargy - ?Medication effect. BP is down so cannot rule out relative hypoperfusion - should back off a bit on BP control. There does not seem to be any other obvious etiology - she has had multiple radiologic studies which were negative for anything acute. HTN - Much improved. I would try and target a BP closer to 140/90 to see if that helps improve her mental status. Anemia - Hg above goal. Can hold off on further Epogen for now. CKD-MBD - Gets Hectorol which can be converted to Paricalctiol. Suggestion: -Dialysis today - ~1L goal UF -Would hold ARB - target BP ~140/90 -Cont carvedilol -Daily weights -Paricalcitol TIW -Hold Epogen -Management of anti-epileptics as per Neurology Please call [phone] with ?'s Subjective Subjective: Pt out to floor SBP 110's-140's/60's-80's Very drowsy although following commands - not eliciting any complaints ?Medication effect - seen by Dr. Ramirez (Neurology) - plan for dose reduction of Keppra and EEG Weight today of 111lbs not accurate Objective Vital Signs and I&Os Vital Signs Date Time Temp Pulse Resp B/P Pulse O2 O2 Flow FiO2 Ox Delivery Rate 01/18 0737 98.9 68 20 120/66 95 Room Air 01/18 0000 Room Air 01/17 2330 99.2 71 20 124/62 94 Room Air 01/17 2115 78 134/82 01/17 1600 Room Air 01/17 1416 98.1 75 20 130/80 92 Room Air 01/17 1312 70 118/70 Intake & Output 01/18 0400 01/17 1600 01/17 0400 01/16 1600 01/16 0400 Intake Total 0 240 120 210 220 Output Total 0 0 1500 0 Balance 0 240 120 -1290 220 Intake, IV 0 110 100 Intake, Oral 0 240 120 100 120 Number 1 0 0 0 Bowel Movements Output, 1500 Dialysate Output, Urine 0 0 0 0 Patient 111 lb 141 lb 143 lb Weight Physical Exam: Gen - groggy HEENT - supple CV - RRR Chest - clear anteriorly Abd - soft, nontender Ext - no significant edema Neuro - very groggy - unable to determine orientation Access - VITALIY AVF Current Medications: Current Medications Sig/Keyla Start time Last Medication Dose Route Stop Time Status Admin Atorvastatin Calcium 5 MG 1700 01/16 1700 AC 01/17 PO 1849 Carvedilol 12.5 MG BID 01/14 2300 AC 01/17 PO 2115 Docusate Sodium 100 MG DAILY 01/16 1129 AC 01/17 PO 0935 Levetiracetam 500 MG DAILY 01/18 1000 AC PO Levetiracetam 500 MG BID 01/16 1330 DC 01/17 PO 0935 Losartan Potassium 50 MG DAILY 01/18 1000 AC PO Paricalcitol 6 MCG Saturday .. 01/16 1000 AC 01/16 IV 1030 Results Pertinent Lab Results: Laboratory Tests 01/17 01/16 0525 0450 Chemistry Sodium (137 - 145 mmol/L) 138 140 Potassium (3.5 - 5.1 mmol/L) 4.2 4.2 Chloride (98 - 107 mmol/L) 96 L 99 Carbon Dioxide (22 - 30 mmol/L) 25 25 Anion Gap (5 - 16) 17 H 16 BUN (7 - 17 mg/dL) 22 H 22 H Creatinine (0.5 - 1.0 mg/dL) 6.5 *H 7.4 *H Estimated GFR (>60 ml/min) 6 L 5 L BUN/Creatinine Ratio (7 - 25 %) 3.4 L Glucose (65 - 99 mg/dL) 92 Calcium (8.4 - 10.2 mg/dL) 9.7 Phosphorus (2.5 - 4.5 mg/dL) 5.0 H Magnesium (1.6 - 2.3 mg/dL) 2.0 Total Bilirubin (0.2 - 1.3 mg/dL) 0.4 AST (14 - 36 U/L) 15 ALT (9 - 52 U/L) 21 Albumin (3.5 - 5.0 g/dL) 3.8 Coagulation PT (9.4 - 12.5 SEC) 60.8 *H 25.2 H INR (0.90 - 1.19) 5.89 *H 2.42 H Hematology CBC w Diff NO MAN DIFF REQ NO MAN DIFF REQ WBC (4.8 - 10.8 /CUMM) 14.1 H 9.7 RBC (4.20 - 5.40 /CUMM) 4.34 4.13 L Hgb (12.0 - 16.0 G/DL) 12.6 12.0 Hct (37 - 47 %) 39.8 37.9 MCV (81.0 - 99.0 FL) 91.7 91.8 MCH (27.0 - 31.0 PG) 29.1 29.1 RDW (11.5 - 14.5 %) 16.1 H 15.7 H Plt Count (130 - 400 /CUMM) 235 234 MPV (7.4 - 10.4 FL) 9.3 9.1 Gran % (42.2 - 75.2 %) 66.2 55.1 Lymphocytes % (20.5 - 51.1 %) 18.0 L 25.4 Monocytes % (1.7 - 9.3 %) 14.3 H 14.7 H Eosinophils % (0 - 5 %) 1.3 4.5 Basophils % (0.0 - 2.0 %) 0.2 0.3 Absolute Granulocytes (1.4 - 6.5 /CUMM) 9.3 H 5.4 Absolute Lymphocytes (1.2 - 3.4 /CUMM) 2.5 2.5 Absolute Monocytes (0.10 - 0.60 /CUMM) 2.0 H 1.4 H Absolute Eosinophils (0.0 - 0.7 /CUMM) 0.2 0.4 Absolute Basophils (0.0 - 0.2 /CUMM) 0 0 PUBS MCHC (33.0 - 37.0 G/DL) 31.8 L 31.6 L Imaging/Other Studies: MRI 01/16 FINDINGS/IMPRESSION: Nondiagnostic sagittal T1 and axial diffusion series are obtained for this study. The stroke sensitive diffusion series is markedly obscured by artifact. No large territorial infarcts are identified however small infarcts could be obscured given the degree of artifact. Any repeat MR imaging should be performed with sedation.
--- NOTE | 2017-01-18 11:26 | PN- Housestaff ---
KIZZY ODELL,SILVANA 01/18/17 1125: Subjective Follow-up For: HTN crisis santanazure esrd on HD A.fiv on coumadin Subjective: Separation at bedside this a.m. She looked much improved. She was sitting up in chair and eating breakfast. She was responsive and seemed much less lethargic than yesterday. Review of Systems Constitutional: Reports: no symptoms. Cardiovascular: Denies: chest pain. Respiratory: Denies: cough, short of breath. Gastrointestinal: Denies: abdominal pain, constipation, diarrhea. Genitourinary: Reports: no symptoms. Musculoskeletal: Denies: back pain. Skin: Reports: no symptoms. Objective Last 24 Hrs of Vital Signs/I&O Vital Signs Date Time Temp Pulse Resp B/P Pulse O2 O2 Flow FiO2 Ox Delivery Rate 01/18 0737 98.9 68 20 120/66 95 Room Air 01/18 0000 Room Air 01/17 2330 99.2 71 20 124/62 94 Room Air 01/17 2115 78 134/82 01/17 1600 Room Air Intake & Output 01/18 1600 01/18 0800 01/18 0000 Intake Total 300 0 Output Total Balance 300 0 Intake, Oral 300 0 Patient 50.349 kg Weight Physical Exam General Appearance: Alert, Oriented X3, Cooperative, No Acute Distress Skin: No Rashes HEENT: Atraumatic, PERRLA Neck: Supple Cardiovascular: Regular Rate, Normal S1, Normal S2 Lungs: Normal Air Movement Abdomen: Soft Neurological: Normal Speech Extremities: No Clubbing, No Cyanosis Current Medications: Current Medications Sig/Keyla Start time Last Medication Dose Route Stop Time Status Admin Atorvastatin Calcium 5 MG 1700 01/16 1700 AC 01/17 PO 1849 Carvedilol 12.5 MG BID 01/14 2300 AC 01/17 PO 2115 Docusate Sodium 100 MG DAILY 01/16 1129 AC 01/17 PO 0935 Levetiracetam 250 MG BID 01/18 2200 AC PO Levetiracetam 500 MG DAILY 01/18 1000 DC PO Losartan Potassium 50 MG DAILY 01/18 1000 AC PO Paricalcitol 6 MCG Saturday .. 01/16 1000 AC 01/16 IV 1030 Last 24 Hrs of Lab/Jesse Results Last 24 Hrs of Labs/Mics: Laboratory Tests 01/18/17 1410: PT Pending, INR Pending 01/18/17 1155: Anion Gap 20 H, Estimated GFR 4 L, BUN/Creatinine Ratio 4.4 L, Glucose 154 H , Calcium 9.0, CBC w Diff NO MAN DIFF REQ, RBC 3.86 L, MCV 91.4, MCH 29.2, RDW 15.4 H, MPV 9.4, Gran % 70.0, Lymphocytes % 17.6 L, Monocytes % 8.5, Eosinophils % 3.5, Basophils % 0.4, Absolute Granulocytes 8.7 H, Absolute Lymphocytes 2.2, Absolute Monocytes 1.1 H, Absolute Eosinophils 0.4, Absolute Basophils 0.1, PUBS MCHC 32.0 L 01/18/17 0500: Sodium Cancelled, Potassium Cancelled, Chloride Cancelled, Carbon Dioxide Cancelled, Anion Gap Cancelled, BUN Cancelled, Creatinine Cancelled, BUN/ Creatinine Ratio Cancelled Assessment/Plan Assessment: This is a 68-year-old woman with past medical history significant for ESRD on hemodialysis, A. fib on Coumadin, CVA 1979 without residual deficit, labile hypertension who came to the ED for chief complaint of a seizure-like episode with some confusion and decreased responsiveness. plan: Leukocytosis: Patient has new onset leukocytosis today at 14. Previously under 10. She has remained afebrile and has no complaints of pain. Currently unsure of etiology. We'll remeasure her CBC and treated appropriately. * Repeat CBC in a.m. * Monitor clinically * Follow off antibiotics Hypertension: Patient came in w/ a systolic of 260. After appropriate blood pressure management in ICU today her blood pressure is 120/66. There was concern that aggressive management of her blood pressure was depressing her mental status. She was scheduled to start losartan yesterday per Dr. Mp Vieira MD the help desk team leader. * Hold off losartan today * Consider starting losartan tomorrow blood pressure permits * Continue to monitor BP Widened mediastinum: Chest x-ray on 01/13/2017 showed a widened mediastinum, is subsequent CT scan ruled out any acute intra-thoracic pathology suggest mass or significant lymphadenopathy. ESRD: Patient is on Saturday hemodialysis. * Continue MWF regimen * Paricalcitol 3 days a week. Anemia: Patient has hemoglobin of 12.6 and hematocrit of 39.8. Currently above goal. * Hold Neupogen Seizure: Patient came in with complex partial seizure possibly secondary to hypertensive crisis. He was started on Keppra 500 mg every 12 then subsequently decreased to 500 daily on 01/18/2017, and today was switched to 250 by mouth twice a day. * Continue Keppra 250 mg by mouth twice a day * Continue statin * Patient is tolerating by mouth intake well continue regular diet * Manage blood pressure adequately * Per neurology, if patient continues to be lethargic we'll consider imaging and a TSH. Atrial fibrillation: Patient has had prolonged history of A. fib on Coumadin. Initially she was subtherapeutic given 7.5 and 5 mg. Subsequent INR measured at 5.89 and her Coumadin was held. Today we are pending her INR * Monitor INR * Dose Coumadin Alps Full code Renal diet Problem List: 1. Seizure 2. Hypertensive emergency Pain Ratin Pain Location: none Pain Goal: Remain pain free Pain Plan: none Tomorrow's Labs & Rationales: cbc bep NEENAGUSTAVO Nielsen 01/18/17 1356: Attending MD Review Statement Attending Statement Attending MD Statement: examined this patient, discuss w/resident/PA/SENIOR PLANNING ANALYST, agreed w/resident/PA/SENIOR PLANNING ANALYST, discussed with family, reviewed EMR data (avail), discussed with nursing, discussed with case mgmt, reviewed images Attending Assessment/Plan: 71 o/f with PMH of ESRD on HD, HTN, stroke, gout, Mild aortic stenosis comes with hypertensive crisis managed in critical care setting started on keppra possible seizure vs toxic metabolic encephlaopthy transferred to floor yesterday ASSESSMENT 1. Hypertensive crisis 2. History of PAF, on Coumadin. 3. End-stage renal disease, on hemodialysis since 2011. 4. Widened mediastinum, rule out etiology. 5. 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 6. History of gout. 7. Mild aortic stenosis. 8. Supratherapeutic INR. PLAN monitor BP, HD plan as per nephro. Hold Coumadin as per cardiology, monitor INR. f/u noncontrast CT scan of the chest. Continue Keppra as per neurology, f/u neurology Continue aspirin and statins. DVT prophylaxis at all times - INR elevated and on and alps. cardio/nephro/neurology on board. PT eval for d/c planning. STR , patient wants to go home. d/c planning.
--- NOTE | 2017-01-18 11:30 | NUR ---
PT TO DIALYSIS, PO MEDS HELD TILL AFTER DIALYSIS
[2017-01-18 12:38] LABS: ABSOLUTE BASOPHIL COUNT 0.1 /CUMM (0.0-0.2); ABSOLUTE EOSINOPHIL COUNT 0.4 /CUMM (0.0-0.7); ABSOLUTE GRANULOCYTE CT 8.7 /CUMM (1.4-6.5); ABSOLUTE LYMPH COUNT 2.2 /CUMM (1.2-3.4); ABSOLUTE MONOCYTE COUNT 1.1 /CUMM (0.10-0.60); BASOPHIL % 0.4 % (0.0-2.0); EOSINOPHIL % 3.5 % (0-5); HEMATOCRIT 35.3 % (37-47); MEAN CORPUSCULAR HGB 29.2 PG (27.0-31.0); MEAN CORPUSCULAR VOLUME 91.4 FL (81.0-99.0); MEAN PLATELET VOLUME 9.4 FL (7.4-10.4); PLATELET COUNT 218 /CUMM (130-400); RBC DISTRIBUTION WIDTH 15.4 % (11.5-14.5); RED BLOOD CELL CT 3.86 /CUMM (4.20-5.40); WHITE BLOOD CELL COUNT 12.4 /CUMM (4.8-10.8)
[2017-01-18] MEDS ORDERED: KEPPRA500 M1 PO (14:27)
--- NOTE | 2017-01-18 14:50 | Event Note ---
Event Note Event Note: Spoke to Dr. Anguiano, the covering neurologist who recommended that the patient should be continued on Keppra 250 mg twice a day and should be discharging dose as well.
[2017-01-18 15:46] LABS: PT 98.2 SEC (9.4-12.5)
--- NOTE | 2017-01-18 15:49 | NUR ---
SPEECH THERAPY: ATTEMPTED TO SEE PT FOR DYSPHAGIA TX. UNABLE TO BE SEEN 2' PT CURRENTLY PARTICIPATING IN DIALYSIS. ST CONTINUE TO FOLLOW CLINICALLY INDICATED. D/W RN.
[2017-01-18 16:25] VITALS: BP 112/70
[2017-01-18 22:06] VITALS: BP 106/62
[2017-01-19 07:12] VITALS: BP 120/64
--- NOTE | 2017-01-19 08:32 | PN- Housestaff ---
THAD ODELL,ISNMIL 01/19/17 0832: Subjective Follow-up For: HTN crisis siezure esrd on HD A.fiv on coumadin Subjective: Afebrile, hemodynamically stable, sitting on recliner looks relaxed and comfortable. No acute overnight events reported. Patient denies any current complaints. Review of Systems Constitutional: Reports: no symptoms. Objective Last 24 Hrs of Vital Signs/I&O Vital Signs Date Time Temp Pulse Resp B/P Pulse O2 O2 Flow FiO2 Ox Delivery Rate 01/19 1327 97.5 59 18 100/80 100 Room Air 01/19 0917 70 114/70 01/19 0916 70 114/70 01/19 0712 99.6 68 20 120/64 93 Room Air 01/18 2206 98.9 92 20 106/62 94 Room Air 01/18 2115 68 102/72 01/18 1625 97.4 90 20 112/70 95 Room Air Intake & Output 01/19 1600 01/19 0800 01/19 0000 Intake Total 130 240 Output Total Balance 130 240 Intake, IV 10 Intake, Oral 120 240 Patient 63.616 kg Weight Physical Exam General Appearance: Alert, Oriented X3, Cooperative, No Acute Distress HEENT: Atraumatic, PERRLA, EOMI, Mucous Membr. moist/pink Cardiovascular: Regular Rate, Normal S1, Normal S2, No Murmurs Lungs: Clear to Auscultation, Normal Air Movement Abdomen: Normal Bowel Sounds, Soft, No Tenderness Neurological: Normal Speech Extremities: No Clubbing, No Cyanosis, No Edema Current Medications: Current Medications Sig/Keyla Start time Last Medication Dose Route Stop Time Status Admin Atorvastatin Calcium 5 MG 1700 01/16 1700 AC 01/18 PO 1619 Carvedilol 12.5 MG BID 01/14 2300 AC 01/19 PO 0917 Docusate Sodium 100 MG DAILY 01/16 1129 AC 01/19 PO 0917 Levetiracetam 250 MG BID 01/18 2200 AC 01/19 PO 0917 Levetiracetam 500 MG DAILY 01/18 1000 DC PO Losartan Potassium 50 MG DAILY 01/18 1000 AC PO Paricalcitol 6 MCG Saturday .. 01/16 1000 AC 01/16 IV 1030 Last 24 Hrs of Lab/Jesse Results Last 24 Hrs of Labs/Mics: Laboratory Tests 01/19/17 0805: Anion Gap 17 H, Estimated GFR 6 L, BUN/Creatinine Ratio 3.9 L, PT 69.0 *H, INR 6.70 *H, CBC w Diff NO MAN DIFF REQ, RBC 3.95 L, MCV 92.3, MCH 29.3, RDW 16.0 H, MPV 9.4, Gran % 59.9, Lymphocytes % 23.0, Monocytes % 9.6 H, Eosinophils % 7.0 H, Basophils % 0.5, Absolute Granulocytes 6.3, Absolute Lymphocytes 2.4, Absolute Monocytes 1.0 H, Absolute Eosinophils 0.7, Absolute Basophils 0.1, PUBS MCHC 31.7 L 01/18/17 1410: PT 98.2 *H, INR 9.56 *H Assessment/Plan Assessment: This is a 68-year-old woman with past medical history significant for ESRD on hemodialysis, A. fib on Coumadin, CVA 1979 without residual deficit, labile hypertension who came to the ED for chief complaint of a seizure-like episode with some confusion and decreased responsiveness. plan: Leukocytosis: Patient has new onset leukocytosis yesterday at 14 up from 10 the day before. She has remained afebrile and has no complaints of pain. This morning her WBCs is back to 10 without any intervention. The etiology of this transient leukocytosis is not clear. * Repeat CBC in a.m. * Monitor clinically * Follow off antibiotics Hypertension: Patient came in w/ a systolic of 260. After appropriate blood pressure management in ICU today her blood pressure is 120/66. There was concern that aggressive management of her blood pressure was depressing her mental status. She was scheduled to start losartan [address] Mp Em MD the order department supervisor. Patient blood pressure still low. * Continue holding losartan today * Consider starting losartan tomorrow blood pressure permits * Continue to monitor BP Widened mediastinum: Chest x-ray on 01/13/2017 showed a widened mediastinum, is subsequent CT scan ruled out any acute intra-thoracic pathology suggest mass or significant lymphadenopathy. * NTD ESRD: Patient is on Saturday hemodialysis. * Continue MWF regimen * Paricalcitol 3 days a week. Anemia: Patient has hemoglobin of 11.6 and hematocrit of 36.5. Currently above goal. * Continue holding Neupogen Seizure: Patient came in with complex partial seizure possibly secondary to hypertensive crisis. He was started on Keppra 500 mg every 12 then subsequently decreased to 500 daily on 01/18/2017, and today was switched to 250 by mouth twice a day. * Continue Keppra 250 mg by mouth twice a day * Continue statin * Patient is tolerating by mouth intake well continue regular renal dialysis diet * Manage blood pressure adequately * Per neurology, if patient continues to be lethargic we'll consider imaging and a TSH. Atrial fibrillation: Patient has had prolonged history of A. fib on Coumadin. Initially she was subtherapeutic given 7.5 and 5 mg. yesterday INR was 9.56, this a.m. INR 6.75. * Continue holding Coumadin * Monitor INR Alps Full code Renal diet Problem List: 1. Hypertensive emergency 2. Hypertension 3. Seizure Pain Ratin Pain Location: na Pain Goal: Remain pain free Pain Plan: see A&P Tomorrow's Labs & Rationales: INR GUSTAVO CHAUDHARY 01/19/17 1026: Attending MD Review Statement Attending Statement Attending MD Statement: examined this patient, discuss w/resident/PA/REGIONAL FACILITIES MANAGER, agreed w/resident/PA/REGIONAL FACILITIES MANAGER, discussed with family, reviewed EMR data (avail), discussed with nursing, discussed with case mgmt, reviewed images, amended to note Attending Assessment/Plan: 71 o/f with PMH of ESRD on HD, HTN, stroke, gout, Mild aortic stenosis comes with hypertensive crisis managed in critical care setting started on keppra possible seizure vs toxic metabolic encephlaopthy transferred to floor. Patient stable. ASSESSMENT 1. Hypertensive crisis 2. History of PAF, on Coumadin. 3. End-stage renal disease, on hemodialysis since 2011. 4. Widened mediastinum, rule out etiology. 5. 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 6. History of gout. 7. Mild aortic stenosis. 8. Supratherapeutic INR. PLAN monitor BP, HD plan as per nephro. Hold Coumadin as per cardiology, monitor INR. f/u noncontrast CT scan of the chest. Continue Keppra as per neurology, f/u neurology Continue aspirin and statins. DVT prophylaxis at all times - INR elevated and on and alps. cardio/nephro/neurology on board. PT eval for d/c planning. STR , patient wants to go home. d/c planning.
[2017-01-19 08:36] LABS: ABSOLUTE BASOPHIL COUNT 0.1 /CUMM (0.0-0.2); ABSOLUTE EOSINOPHIL COUNT 0.7 /CUMM (0.0-0.7); ABSOLUTE GRANULOCYTE CT 6.3 /CUMM (1.4-6.5); ABSOLUTE LYMPH COUNT 2.4 /CUMM (1.2-3.4); BASOPHIL % 0.5 % (0.0-2.0); GRANULOCYTE % 59.9 % (42.2-75.2); HEMATOCRIT 36.5 % (37-47); MEAN CORPUSCULAR HGB 29.3 PG (27.0-31.0); MEAN CORPUSCULAR HGB CONC 31.7 G/DL (33.0-37.0); MEAN CORPUSCULAR VOLUME 92.3 FL (81.0-99.0); MEAN PLATELET VOLUME 9.4 FL (7.4-10.4); PLATELET COUNT 235 /CUMM (130-400); RED BLOOD CELL CT 3.95 /CUMM (4.20-5.40); WHITE BLOOD CELL COUNT 10.6 /CUMM (4.8-10.8)
[2017-01-19 13:27] VITALS: BP 100/80
--- NOTE | 2017-01-19 13:34 | PN- Neurology ---
Subjective Subjective: Follow-up seizure-like episode and lethargy. Currently seems much more alert on lower dose of Keppra Objective Vital Signs and I&Os Vital Signs Date Time Temp Pulse Resp B/P Pulse O2 O2 Flow FiO2 Ox Delivery Rate 01/19 1327 97.5 59 18 100/80 100 Room Air 01/19 0917 70 114/70 01/19 0916 70 114/70 01/19 0712 99.6 68 20 120/64 93 Room Air 01/18 2206 98.9 92 20 106/62 94 Room Air 01/18 2115 68 102/72 01/18 1625 97.4 90 20 112/70 95 Room Air Intake & Output 01/19 1600 01/19 0800 01/19 0000 01/18 1600 01/18 0800 01/18 0000 Intake Total 130 240 300 0 Output Total Balance 130 240 300 0 Intake, IV 10 Intake, Oral 120 240 300 0 Patient 140 lb 111 lb Weight Awake and alert. Up in chair and feeding self. Face symmetric. No dysarthria. No gross lateralizing weakness. Current Medications: Current Medications Sig/Keyla Start time Last Medication Dose Route Stop Time Status Admin Atorvastatin Calcium 5 MG 1700 01/16 1700 AC 01/18 PO 1619 Carvedilol 12.5 MG BID 01/14 2300 AC 01/19 PO 0917 Docusate Sodium 100 MG DAILY 01/16 1129 AC 01/19 PO 0917 Levetiracetam 250 MG BID 01/18 2200 AC 01/19 PO 0917 Levetiracetam 500 MG DAILY 01/18 1000 DC PO Losartan Potassium 50 MG DAILY 01/18 1000 AC PO Paricalcitol 6 MCG Saturday .. 01/16 1000 AC 01/16 IV 1030 Assessment/Plan Assessment: Neurologically stable. Lethargy seems to be resolved. Plan: Continue Keppra 250 mg twice a day. Please call with any further questions.
[2017-01-19 20:10] VITALS: BP 120/50
[2017-01-20 06:56] VITALS: BP 116/56
[2017-01-20 08:03] LABS: ABSOLUTE BASOPHIL COUNT 0 /CUMM (0.0-0.2); ABSOLUTE EOSINOPHIL COUNT 0.8 /CUMM (0.0-0.7); ABSOLUTE GRANULOCYTE CT 6.3 /CUMM (1.4-6.5); ABSOLUTE LYMPH COUNT 2.6 /CUMM (1.2-3.4); BASOPHIL % 0.4 % (0.0-2.0); EOSINOPHIL % 7.2 % (0-5); GRANULOCYTE % 58.4 % (42.2-75.2); HEMATOCRIT 33.9 % (37-47); MEAN CORPUSCULAR HGB 29.4 PG (27.0-31.0); MEAN CORPUSCULAR HGB CONC 32.2 G/DL (33.0-37.0); MEAN CORPUSCULAR VOLUME 91.4 FL (81.0-99.0); MEAN PLATELET VOLUME 9.5 FL (7.4-10.4); PLATELET COUNT 233 /CUMM (130-400); RBC DISTRIBUTION WIDTH 15.4 % (11.5-14.5); RED BLOOD CELL CT 3.71 /CUMM (4.20-5.40); WHITE BLOOD CELL COUNT 10.8 /CUMM (4.8-10.8)
--- NOTE | 2017-01-20 08:23 | PN- Housestaff ---
THAD ODELL,ISMAIL 01/20/17 0823: Subjective Follow-up For: HTN crisis siezure esrd on HD A.fiv on coumadin Subjective: Afebrile, hemodynamically stable, sitting on recliner looks relaxed and comfortable. No acute overnight events reported. Patient denies any current complaints. Review of Systems Constitutional: Reports: no symptoms. Objective Last 24 Hrs of Vital Signs/I&O Vital Signs Date Time Temp Pulse Resp B/P Pulse O2 O2 Flow FiO2 Ox Delivery Rate 01/20 1050 62 122/60 01/20 1049 62 122/60 01/20 0656 98.6 60 17 116/56 97 Room Air 01/19 2010 98.8 61 16 120/50 96 Room Air 01/19 2005 61 120/50 01/19 1600 Room Air 01/19 1327 97.5 59 18 100/80 100 Room Air Intake & Output 01/20 1600 01/20 0800 01/20 0000 Intake Total 120 130 Output Total Balance 120 130 Intake, IV 10 Intake, Oral 120 120 Patient 65.771 kg Weight Physical Exam General Appearance: Alert, Oriented X3, Cooperative, No Acute Distress Skin: No Rashes HEENT: Atraumatic, PERRLA, EOMI, Mucous Membr. moist/pink Cardiovascular: Normal S1, Normal S2 Lungs: Clear to Auscultation, Normal Air Movement Abdomen: Normal Bowel Sounds, Soft, No Tenderness Neurological: Normal Speech, Strength at 5/5 X4 Ext Extremities: No Clubbing, No Cyanosis, No Edema Current Medications: Current Medications Sig/Keyla Start time Last Medication Dose Route Stop Time Status Admin Atorvastatin Calcium 5 MG 1700 01/16 1700 AC 01/19 PO 1814 Carvedilol 12.5 MG BID 01/14 2300 AC 01/20 PO 1049 Docusate Sodium 100 MG DAILY 01/16 1129 AC 01/20 PO 1049 Levetiracetam 250 MG BID 01/18 2200 AC 01/20 PO 1048 Losartan Potassium 50 MG DAILY 01/18 1000 AC PO Paricalcitol 6 MCG Saturday .. 01/16 1000 AC 01/16 IV 1030 Last 24 Hrs of Lab/Jesse Results Last 24 Hrs of Labs/Mics: Laboratory Tests 01/20/17 0620: PT 55.6 *H, INR 5.38 *H, CBC w Diff NO MAN DIFF REQ, RBC 3.71 L, MCV 91.4, MCH 29.4, RDW 15.4 H, MPV 9.5, Gran % 58.4, Lymphocytes % 24.4, Monocytes % 9.6 H, Eosinophils % 7.2 H, Basophils % 0.4, Absolute Granulocytes 6.3, Absolute Lymphocytes 2.6, Absolute Monocytes 1.0 H, Absolute Eosinophils 0.8, Absolute Basophils 0, PUBS MCHC 32.2 L Assessment/Plan Assessment: This is a 68-year-old woman with past medical history significant for ESRD on hemodialysis, A. fib on Coumadin, CVA 1979 without residual deficit, labile hypertension who came to the ED for chief complaint of a seizure-like episode with some confusion and decreased responsiveness. plan: Leukocytosis: This morning her WBCs is still 10 without any intervention. The etiology of this transient leukocytosis is not clear. * Repeat CBC in a.m. * Monitor clinically * Follow off antibiotics Hypertension: Patient came in w/ a systolic of 260. After appropriate blood pressure management in ICU today her blood pressure is 120/66. There was concern that aggressive management of her blood pressure was depressing her mental status. She was scheduled to start losartan [address] Mp Em MD the sales and production manager. Patient blood pressure still low. * Continue holding losartan today * Consider starting losartan tomorrow blood pressure permits * Continue to monitor BP Widened mediastinum: Chest x-ray on 01/13/2017 showed a widened mediastinum, is subsequent CT scan ruled out any acute intra-thoracic pathology suggest mass or significant lymphadenopathy. * NTD ESRD: Patient is on Saturday hemodialysis. * Continue MWF regimen * Paricalcitol 3 days a week. Anemia: Patient has hemoglobin of 11.6 and hematocrit of 36.5. Currently above goal. * Continue holding Neupogen Seizure: Patient came in with complex partial seizure possibly secondary to hypertensive crisis. He was started on Keppra 500 mg every 12 then subsequently decreased to 500 daily on 01/18/2017, and today was switched to 250 by mouth twice a day. * Continue Keppra 250 mg by mouth twice a day * Continue statin * Patient is tolerating by mouth intake well continue regular renal dialysis diet * Manage blood pressure adequately * Per neurology, if patient continues to be lethargic we'll consider imaging and a TSH. Atrial fibrillation: Patient has had prolonged history of A. fib on Coumadin. Initially she was subtherapeutic given 7.5 and 5 mg. yesterday INR today is 5 * Continue holding Coumadin * Monitor INR Alps Full code Renal diet Problem List: 1. Seizure 2. Hypertension Pain Ratin Pain Location: NA Pain Goal: Remain pain free Pain Plan: See A&P Tomorrow's Labs & Rationales: CBC and BEP and INR GUSTAVO CHAUDHARY 01/20/17 0908: Attending MD Review Statement Attending Statement Attending MD Statement: examined this patient, discuss w/resident/PA/FIRE EXTINGUISHER INSTALLER, agreed w/resident/PA/FIRE EXTINGUISHER INSTALLER, discussed with family, reviewed EMR data (avail), discussed with nursing, discussed with case mgmt, reviewed images, amended to note Attending Assessment/Plan: 71 o/f with PMH of ESRD on HD, HTN, stroke, gout, Mild aortic stenosis comes with hypertensive crisis managed in critical care setting started on keppra possible seizure vs toxic metabolic encephlaopthy transferred to floor. Patient stable. ASSESSMENT 1. Hypertensive crisis 2. History of PAF, on Coumadin. 3. End-stage renal disease, on hemodialysis since 2011. 4. Widened mediastinum, rule out etiology. 5. 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 6. History of gout. 7. Mild aortic stenosis. 8. Supratherapeutic INR. PLAN monitor BP, HD plan as per nephro. Hold Coumadin as per cardiology, monitor INR. f/u noncontrast CT scan of the chest. Continue Keppra as per neurology, f/u neurology Continue aspirin and statins. DVT prophylaxis at all times - INR elevated and on and alps. cardio/nephro/neurology on board. PT eval for d/c planning. STR , patient wants to go home. d/c planning. conuslt case managment.
[2017-01-20 09:12] LABS: PT 55.6 SEC (9.4-12.5)
[2017-01-20 13:41] VITALS: BP 100/70
[2017-01-20 20:01] VITALS: BP 118/70
--- NOTE | 2017-01-20 20:10 | CT SCAN REPORT ---
EXAMINATION: CT CHEST WITHOUT CONTRAST CLINICAL INFORMATION: Mediastinal mass. COMPARISON: Chest CT dated 01/15/2017. TECHNIQUE: Multidetector volumetric CT imaging of the chest was done. Axial MIP volume rendering provided. Sagittal and coronal reformatted images were obtained. DLP: 206.47 mGy-cm FINDINGS: OFFICE MACHINES SALES REPRESENTATIVE: No significant findings. LUNGS: The lungs are clear with no evidence of inflammation or nodules. MEDIASTINUM: No mediastinal mass is identified. There is mild cardiomegaly. Atherosclerotic calcifications are seen within the thoracic aorta. There is no significant mediastinal adenopathy. PLEURA: There is no pleural effusion. No pleural mass or thickening. AXILLA: No lymphadenopathy. UPPER ABDOMEN: Multiple subcentimeter hypodensities are seen within the visualized aspect of the liver, too small to characterize. The largest measures 7 mm in greatest diameter. The partially visualized kidneys are atrophic. Extensive diverticular seen within the hepatic flexure. OSSEOUS STRUCTURES: Bridging endplate osteophytes are seen within the lower thoracic spine. There are no lytic or blastic osseous lesions. IMPRESSION: 1. No pulmonary consolidation or mass. No pleural effusion or pneumothorax. 2. No mediastinal mass. Mild cardiomegaly. 3. Multiple subcentimeter hypodensities within the liver, too small to characterize. Partially visualized, atrophic kidneys. Colonic diverticula within the visualized hepatic flexure. 4. No significant interval change since the prior examination.
[2017-01-20 22:02] VITALS: BP 160/64
[2017-01-21 06:57] VITALS: BP 160/70
--- NOTE | 2017-01-21 09:52 | PN- Housestaff ---
KIZZY ODELL,SILVANA 01/21/17 0951: Subjective Follow-up For: HTN CVA Subjective: Saw patient at bedside this a.m. She stated that she felt well. No acute overnight events. No complaints. Review of Systems Constitutional: Denies: chills, malaise, weakness. EENTM: Reports: no symptoms. Cardiovascular: Reports: no symptoms. Denies: chest pain, palpitations. Respiratory: Denies: short of breath. Gastrointestinal: Denies: abdominal pain. Genitourinary: Reports: no symptoms. Objective Last 24 Hrs of Vital Signs/I&O Vital Signs Date Time Temp Pulse Resp B/P Pulse O2 O2 Flow FiO2 Ox Delivery Rate 01/21 0657 98.3 62 18 160/70 96 Room Air 01/21 0000 98 Room Air 01/20 2202 98.0 95 20 160/64 98 01/20 2002 60 118/70 01/20 2001 97.6 60 16 118/70 97 01/20 1341 98.0 60 18 100/70 92 Room Air 01/20 1050 62 122/60 01/20 1049 62 122/60 Intake & Output 01/21 1600 01/21 0800 01/21 0000 Intake Total 0 Output Total 0 Balance 0 Intake, IV 0 Intake, Oral 0 Number 0 Bowel Movements Output, Urine 0 Patient 66.224 kg Weight Physical Exam General Appearance: Alert, Oriented X3, Cooperative, No Acute Distress Skin: No Rashes, No Significant Lesion HEENT: Atraumatic, PERRLA, EOMI Neck: Supple Cardiovascular: Regular Rate, Normal S1, Normal S2, 3/6 MURMUR AT rusb Lungs: Normal Air Movement Abdomen: Soft, No Tenderness Extremities: No Edema Current Medications: Current Medications Sig/Keyla Start time Last Medication Dose Route Stop Time Status Admin Atorvastatin Calcium 5 MG 1700 01/16 1700 AC 01/20 PO 1623 Carvedilol 12.5 MG BID 01/14 2300 AC 01/20 PO 2001 Docusate Sodium 100 MG DAILY 01/16 1129 AC 01/20 PO 1049 Levetiracetam 250 MG BID 01/18 2200 AC 01/20 PO 2002 Losartan Potassium 50 MG DAILY 01/18 1000 AC PO Paricalcitol 6 MCG Saturday .. 01/16 1000 AC 01/16 IV 1030 Assessment/Plan Assessment: This is a 68-year-old woman with past medical history significant for ESRD on hemodialysis, A. fib on Coumadin, CVA 1979 without residual deficit, labile hypertension who came to the ED for chief complaint of a seizure-like episode with some confusion and decreased responsiveness. PLAN: Leukocytosis: Pending wbc this AM. Was 14--> 10--> pending. * Repeat CBC in a.m. * Monitor clinically * Follow off antibiotics Hypertension: Patient came in w/ a systolic of 260. After appropriate blood pressure management in ICU. today her blood pressure is 160/70. She was scheduled to start losartan [address] Mp Weaver MD the manager office but held off as bp was low. Today will start medication. * Start losartan today * Continue to monitor BP Widened mediastinum: RESOLVED. Chest x-ray on 01/13/2017 showed a widened mediastinum, is subsequent CT scan ruled out any acute intra-thoracic pathology suggest mass or significant lymphadenopathy. ESRD: STABLE. Patient is on Saturday hemodialysis. * Continue MWF regimen * Paricalcitol 3 days a week. Anemia: Patient has hemoglobin of 11.6 and hematocrit of 36.5. * Continue holding Neupogen Seizure: STABLE. Patient came in with complex partial seizure possibly secondary to hypertensive crisis. He was started on Keppra 500 mg every 12 then subsequently decreased to 500 daily on 01/18/2017, and now on 250 by mouth twice a day. * Continue Keppra 250 mg by mouth twice a day * Continue statin * Patient is tolerating by mouth intake well continue regular renal dialysis diet * Manage blood pressure adequately * Per neurology, if patient continues to be lethargic we'll consider imaging and a TSH. Atrial fibrillation: Patient has had prolonged history of A. fib on Coumadin. Initially she was subtherapeutic given 7.5 and 5 mg. yesterday INR today is 5 * Continue holding Coumadin * Monitor INR Alps Full code Renal diet Problem List: 1. Hypertension 2. Hypertensive emergency Pain Ratin Pain Location: none Pain Goal: Remain pain free Pain Plan: none Tomorrow's Labs & Rationales: none GUSTAVO CHAUDHARY 01/21/17 1146: Attending MD Review Statement Attending Statement Attending MD Statement: examined this patient, discuss w/resident/PA/CLIENT ACCOUNT MANAGER, agreed w/resident/PA/CLIENT ACCOUNT MANAGER, discussed with family, reviewed EMR data (avail), discussed with nursing, discussed with case mgmt, reviewed images, amended to note Attending Assessment/Plan: 71 o/f with PMH of ESRD on HD, HTN, stroke, gout, Mild aortic stenosis comes with hypertensive crisis managed in critical care setting started on keppra possible seizure vs toxic metabolic encephlaopthy transferred to floor. Patient stable. ASSESSMENT 1. Hypertensive crisis 2. History of PAF, on Coumadin. 3. End-stage renal disease, on hemodialysis since 2011. 4. Widened mediastinum, rule out etiology. 5. 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 6. History of gout. 7. Mild aortic stenosis. 8. Supratherapeutic INR. PLAN monitor BP, HD plan as per nephro. Hold Coumadin as per cardiology, monitor INR. resume couamdin at home. CT chest with no acute pathology. multiple subcentimeter hypodensity in liver unable to characterize. f/u outpatient PCP. Continue Keppra as per neurology, f/u neurology as o/p. Continue aspirin and statins. DVT prophylaxis at all times - INR elevated and on and alps. cardio/nephro/neurology on board. PT eval for d/c planning. STR , patient wants to go home. d/c planning. conuslt case managment. patient stable to be discharged.
--- NOTE | 2017-01-21 12:04 | NUR ---
NURSING NOTE: PT LEFT FLOOR VIA BED WITH DISTRIBUTION FOR DIALYSIS.PT AWAKE, A/OX3, SOFT SPOKEN, DENIES COMPLAINTS, ATE LUNCH BEFORE GOING TO DILAYSIS. PT REQUESTING ALL AM MEDS AFTER DILAYSIS. AM WEIGHT OBTAINED. LAB LABELS SENT WITH PT; CHERYL RN AWARE, CONT TO MONITOR. AWAIT RETURN TO FLOOR
--- NOTE | 2017-01-21 12:18 | PN- Nephrology ---
Assessment/Plan Assessment: Stable from renal standpoint. Does not look volume overloaded. Suggestion: Will UF 2 liters with dialysis today. Subjective Subjective: Patient with no new complaints. Denies SOB. Objective Vital Signs and I&Os Vital Signs Date Time Temp Pulse Resp B/P Pulse O2 O2 Flow FiO2 Ox Delivery Rate 01/21 0657 98.3 62 18 160/70 96 Room Air 01/21 0000 98 Room Air 01/20 2202 98.0 95 20 160/64 98 01/20 2002 60 118/70 01/20 2001 97.6 60 16 118/70 97 01/20 1341 98.0 60 18 100/70 92 Room Air Intake & Output 01/21 1600 01/21 0400 01/20 0400 01/19 1600 01/19 0400 Intake Total 0 645 130 610 240 Output Total 0 Balance 0 645 130 610 240 Intake, IV 0 10 10 Intake, Oral 0 645 120 600 240 Number 0 Bowel Movements Output, Urine 0 Patient 146 lb 145 lb 140 lb Weight Physical Exam: NAD VS as above. Lungs: clear CV: no rub Abd: non-tender Exts: no edema Neuro: A&O Current Medications: Current Medications Sig/Keyla Start time Last Medication Dose Route Stop Time Status Admin Atorvastatin Calcium 5 MG 1700 01/16 1700 AC 01/20 PO 1623 Carvedilol 12.5 MG BID 01/14 2300 AC 01/20 PO 2001 Docusate Sodium 100 MG DAILY 01/16 1129 AC 01/20 PO 1049 Levetiracetam 250 MG BID 01/18 2200 AC 01/20 PO 2002 Losartan Potassium 50 MG DAILY 01/18 1000 AC PO Paricalcitol 6 MCG Saturday .. 01/16 1000 AC 01/16 IV 1030 Results Pertinent Lab Results: Laboratory Tests 01/20 01/19 0620 0805 Chemistry Sodium (137 - 145 mmol/L) 143 Potassium (3.5 - 5.1 mmol/L) 4.0 Chloride (98 - 107 mmol/L) 98 Carbon Dioxide (22 - 30 mmol/L) 28 Anion Gap (5 - 16) 17 H BUN (7 - 17 mg/dL) 25 H Creatinine (0.5 - 1.0 mg/dL) 6.4 *H Estimated GFR (>60 ml/min) 6 L BUN/Creatinine Ratio (7 - 25 %) 3.9 L Coagulation PT (9.4 - 12.5 SEC) 55.6 *H 69.0 *H INR (0.90 - 1.19) 5.38 *H 6.70 *H Hematology CBC w Diff NO MAN DIFF REQ NO MAN DIFF REQ WBC (4.8 - 10.8 /CUMM) 10.8 10.6 RBC (4.20 - 5.40 /CUMM) 3.71 L 3.95 L Hgb (12.0 - 16.0 G/DL) 10.9 L 11.6 L Hct (37 - 47 %) 33.9 L 36.5 L MCV (81.0 - 99.0 FL) 91.4 92.3 MCH (27.0 - 31.0 PG) 29.4 29.3 RDW (11.5 - 14.5 %) 15.4 H 16.0 H Plt Count (130 - 400 /CUMM) 233 235 MPV (7.4 - 10.4 FL) 9.5 9.4 Gran % (42.2 - 75.2 %) 58.4 59.9 Lymphocytes % (20.5 - 51.1 %) 24.4 23.0 Monocytes % (1.7 - 9.3 %) 9.6 H 9.6 H Eosinophils % (0 - 5 %) 7.2 H 7.0 H Basophils % (0.0 - 2.0 %) 0.4 0.5 Absolute Granulocytes (1.4 - 6.5 /CUMM) 6.3 6.3 Absolute Lymphocytes (1.2 - 3.4 /CUMM) 2.6 2.4 Absolute Monocytes (0.10 - 0.60 /CUMM) 1.0 H 1.0 H Absolute Eosinophils (0.0 - 0.7 /CUMM) 0.8 0.7 Absolute Basophils (0.0 - 0.2 /CUMM) 0 0.1 PUBS MCHC (33.0 - 37.0 G/DL) 32.2 L 31.7 L 14 1410 Coagulation PT (9.4 - 12.5 SEC) 98.2 *H INR (0.90 - 1.19) 9.56 *H
[2017-01-21 13:05] LABS: ABSOLUTE BASOPHIL COUNT 0 /CUMM (0.0-0.2); ABSOLUTE EOSINOPHIL COUNT 0.9 /CUMM (0.0-0.7); ABSOLUTE GRANULOCYTE CT 4.3 /CUMM (1.4-6.5); ABSOLUTE LYMPH COUNT 2.2 /CUMM (1.2-3.4); ABSOLUTE MONOCYTE COUNT 0.6 /CUMM (0.10-0.60); BASOPHIL % 0.5 % (0.0-2.0); EOSINOPHIL % 10.9 % (0-5); GRANULOCYTE % 53.9 % (42.2-75.2); HEMATOCRIT 32.8 % (37-47); MEAN CORPUSCULAR HGB 29.4 PG (27.0-31.0); MEAN CORPUSCULAR HGB CONC 32.3 G/DL (33.0-37.0); MEAN CORPUSCULAR VOLUME 91.2 FL (81.0-99.0); MEAN PLATELET VOLUME 9.3 FL (7.4-10.4); PLATELET COUNT 258 /CUMM (130-400); RBC DISTRIBUTION WIDTH 15.3 % (11.5-14.5)
--- NOTE | 2017-01-21 13:16 | NUR ---
SPEECH THERAPY: PER MD DECISION, PT UPGRADED TO REGULAR DIET (FROM PUREE) AND THIN LIQUIDS. ST ATTEMPTED TO SEE PT FOR DYSPHAGIA TX, HOWEVER, PT CURRENTLY PARTICIPATING IN DIALYSIS. RN STATES THAT PT HAS BEEN TOLERATING REGULAR DIET/THIN LIQUIDS W/OUT DIFFICULTY. ST CONTINUE TO FOLLOW FOR DIET TOLERANCE. D/W RN.
[2017-01-21 17:04] VITALS: BP 152/90
--- NOTE | 2017-01-21 17:09 | NUR ---
PT UP TO FLOOR FROM DIALYSIS VIA BED. PT A/O. PT ON RA. VITALIY AV FISTULA + BRUIT + THRILL. BANDAID PRESENT TO SITE C/D/I. NO DRAINAGE. PT WEIGHED ON CHAIR SCALE. SEE VFS. PT PLACED IN CHAIR AND EATING DINNER . DENIES PAIN WILL MONITOR .
[2017-01-21] MEDS ORDERED: COZAAR50 M1 PO (18:14)
== END 2017-01-21 19:06 | disposition home health service (06) | DRG 100 ==
LOC: ENRESERVDT → ENRESERVTM → ERH 13:05 → ERHI 14:09 → CRI 14:09 → 2NA 01-17 13:21
PROVIDERS: Emergency Medicine; Internal Medicine; Internal Medicine Nephrology; Student in an Organized Health Care Education/Training Program; ADMIT Internal Medicine
DX: G40.209 Localization-related (focal) (partial) symptomatic epilepsy and epileptic syndromes with complex partial seizures, not intractable, without status epilepticus (principal); G93.41 Metabolic encephalopathy; I48.2 Chronic atrial fibrillation; I12.0 Hypertensive chronic kidney disease with stage 5 chronic kidney disease or end stage renal disease; N18.6 End stage renal disease; I48.91 Unspecified atrial fibrillation; G83.84 Todd's paralysis (postepileptic); D63.1 Anemia in chronic kidney disease; I35.0 Nonrheumatic aortic (valve) stenosis; I16.1 Hypertensive emergency; Z99.2 Dependence on renal dialysis; Z79.01 Long term (current) use of anticoagulants; Z86.73 Personal history of transient ischemic attack (TIA), and cerebral infarction without residual deficits; M10.9 Gout, unspecified
CPT/HCPCS: 2NAP; 70551; CCU; 36415; 82436; 93005; 93010; 93306; 95816; 96374; 96375; 97110-GO; 97116-GO; 97162-GP; 97165-GO; 97530-GO; 99291; J0360; J1644; J1953; J2501

== ENCOUNTER 2017-12-08 20:45 | Inpatient (IN) | payer OTHER, MEDICARE ==
[~2017-12-08] VITALS: Ht 157.5 cm; Wt 67.8 kg
[~2017-12-08 20:45] MED LIST: ALLOPURINOL100 M1 PO; ASPIRIN EC81 M1 PO; ASPIRIN81 M4 PO; AVAPRO300 M1 PO; CALCIUM ACETAT667 M3 PO; CARDURA4 M1 PO; CARVEDILOL25 M1 PO; COZAAR100 M1 PO; COZAAR50 M1 PO; DILTIAZEM 24HR360 MG PO; DOXAZOSIN MESYLA8 M1 PO; HYDRALAZINE HCL25 M1 PO; IRBESARTAN300 M1 PO; JANTOVEN5 M1 PO; KEPPRA500 M1 PO; KEPPRA750 M1 PO; LOVASTATIN20 M1 PO; OMEPRAZOLE40 M1 PO; REGLAN5 M1 PO; RENA-VITE RX T1 EACH PO
--- NOTE | 2017-12-08 20:52 | ED GENERAL ADULT ---
History of Present Illness General Chief Complaint: Dyspnea (COPD, CHF, Other) Stated Complaint: BIBA FOR EVAL DIFF BREATHER Source: patient, family, old records, EMS Exam Limitations: LETHARGY BUT RESPONSIVE Vital Signs & Intake/Output Vital Signs & Intake/Output Vital Signs Date Time Temp Pulse Resp B/P B/P Pulse O2 O2 Flow FiO2 Mean Ox Delivery Rate 12/09 2223 96.5 40 16 146/62 98 Room Air 12/08 2122 38 18 142/60 98 Room Air 12/08 2053 96.0 48 20 182/80 99 Room Air Allergies Coded Allergies: No Known Allergies (01/13/17) Reconcile Medications Allopurinol 100 MG TABLET 1 TAB PO DAILY GOUT (Reported) Aspirin (Aspirin*) 81 MG TAB.CHEW 1 TAB PO DAILY HEART HEALTH (Reported) Calcium Acetate 667 MG CAPSULE 1 CAP PO TID PHOSPHORUS BINDER (Reported) Carvedilol 25 MG TABLET 1 TAB PO BID HEART/BP (Reported) Diltiazem HCl (Diltiazem 24HR ER) 360 MG CAP.ER.24H 1 CAP PO DAILY HEART/BP ( Reported) Doxazosin Mesylate 8 MG TABLET 1 TAB PO QPM BP (Reported) Doxazosin Mesylate (Cardura) 4 MG TABLET 1 TAB PO DAILY BP (Reported) Hydralazine HCl 25 MG TABLET 1 TAB PO BID BP (Reported) Irbesartan (Avapro) 300 MG TABLET 1 TAB PO DAILY HEART (Reported) Levetiracetam (Keppra) 750 MG TABLET 1 TAB PO BID SEIZURES (Reported) Losartan (Cozaar) 100 MG TABLET 100 MG PO DAILY hypertension Lovastatin 20 MG TABLET 1 TAB PO DAILY CHOLESTEROL (Reported) Metoclopramide HCl (Reglan) 5 MG TABLET 1 TAB PO 4XDAILY N/V (Reported) Omeprazole 40 MG CAPSULE.DR 1 CAP PO DAILY GI (Reported) Vit B Cmplx 3/FA/Vit C/Biotin (Jenny-Anthony Rx Tablet) 1 MG-60 MG-300 MCG TABLET 1 TAB PO DAILY SUPPLEMENT (Reported) Warfarin Sodium (Jantoven) 5 MG TABLET 1 TAB PO 1700 BLOOD THINNER (Reported) Triage Nurses Notes Reviewed? yes HPI: Patient was at dialysis Saturday. Over the past 48 hours she has been having increasing dyspnea on exertion, weakness and fatigue. This evening she had 2 episodes of bowel incontinence which is unusual for her. Patient was very lethargic so family called the ambulance. Upon EMS arrival patient was found to be very bradycardic with heart rate in the 30s. Patient's blood pressure and oxygen levels were normal. Patient denied any chest pain or palpitations. Patient denied any lightheadedness. There is no nausea or vomiting. Patient is slow to respond but is alert and oriented. Past History Travel History Traveled to [place] past 21 day No Medical History Any Pertinent Medical History? 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 No Review of Systems Review of Systems Constitutional: Reports: see HPI, weakness. EENTM: Reports: no symptoms. Respiratory: Reports: see HPI, short of breath. Cardiovascular: Reports: no symptoms. GI: Reports: see HPI. Genitourinary: Reports: no symptoms. Musculoskeletal: Reports: no symptoms. Skin: Reports: no symptoms. Neurological/Psychological: Reports: no symptoms. Hematologic/Endocrine: Reports: no symptoms. Immunologic/Allergic: Reports: no symptoms. All Other Systems: Reviewed and Negative Physical Exam Physical Exam General Appearance: well developed/nourished, alert, awake, lethargic, moderate distress Head: atraumatic, normal appearance Eyes: Bilateral: PERRL, EOMI. Ears, Nose, Throat: normal pharynx, normal ENT inspection, DRY MUCOSA Neck: normal inspection, supple, full range of motion, NO JVD Respiratory: chest non-tender, rhonchi (BIBASILAR) Cardiovascular: normal peripheral pulses, bradycardia Gastrointestinal: normal bowel sounds, soft, non-tender, no organomegaly Extremities: normal inspection, no edema Neurologic/Psych: no motor/sensory deficits, awake, alert, oriented x 3, normal mood/affect Skin: intact, normal color, COOL Core Measures ACS in differential dx? Yes CVA/TIA Diagnosis: No Sepsis Present: No Sepsis Focused Exam Completed? No Progress Differential Diagnoses I considered the following diagnoses in my evaluation of the patient: [SICK SINUS SYNDROME, MEDICATION TOXICITY, LYME, ELECTROLYTE ABNORMALITY, AMI] Plan of Care: Orders Procedure Date/time Status LACTIC ACID 12/08 2350 Active Admit to inpatient 12/09 2255 Active PARTIAL THROMBOPLASTIN TIME 12/09 2051 Complete PROTHROMBIN TIME 12/09 2051 Complete Telemetry/Pupil Personnel Services Director 12/08 2050 Active THYROID STIMULATING HORMONE 12/08 2050 Active TROPONIN LEVEL 12/08 2050 Active LYME TITRE 12/08 2050 Active LACTIC ACID 12/08 2050 Active DIGOXIN 12/08 2050 Active COMPREHENSIVE METABOLIC PANEL 12/08 2050 Active CBC WITHOUT DIFFERENTIAL 12/08 2050 Complete EKG 12/08 2048 Active Laboratory Tests 12/08/174: Anion Gap 18 H, Estimated GFR 4 L, BUN/Creatinine Ratio 6.2 L, Glucose 102 H , Lactic Acid Pending, Calcium 9.3, Total Bilirubin 0.8, AST 18, ALT 19, Alkaline Phosphatase 80, Troponin I Pending, Total Protein 7.2, Albumin 3.8, Globulin 3.4, Albumin/Globulin Ratio 1.1, TSH Pending, Digoxin < 0.4 L 12/08/172104: PT 34.2 H, INR 3.10 H, APTT 46 H, CBC w Diff NO MAN DIFF REQ, RBC 4.32, MCV 93.3, MCH 29.2, MCHC 31.3 L, RDW 14.8 H, MPV 9.6, Gran % 53.1, Lymphocytes % 34.4, Monocytes % 7.6, Eosinophils % 4.4, Basophils % 0.5, Absolute Granulocytes 3.3, Absolute Lymphocytes 2.2, Absolute Monocytes 0.5, Absolute Eosinophils 0.3, Absolute Basophils 0, Lyme Disease Antibody Pending Diagnostic Imaging: Viewed by Me: Radiology Read. Discussed w/RAD: Radiology Read. CXR Impression: PATIENT: HERO LAWRENCE PRESENT AGE: 72 PATIENT ACCOUNT NO: [id number] : 43 LOCATION: [facility] ORDERING PHYSICIAN: Duncan Velasquez MD SERVICE DATE: 12/08/17 EXAM TYPE: RAD - XRY- PORTABLE CHEST XRAY EXAMINATION: XR PORTABLE CHEST CLINICAL INFORMATION: Pneumonia and lethargy. COMPARISON: Chest radiography 09/08/2017. TECHNIQUE: Portable frontal view of the chest was obtained. FINDINGS: The lungs are well expanded. There is bronchovascular prominence bilaterally. Mild left basilar opacification. No pneumothorax or large pleural effusion. The cardiac contour is enlarged. Aortic atherosclerotic calcification. Left arm vascular stent. No acute osseous abnormalities. IMPRESSION: Bronchovascular prominence without overt pulmonary edema. Mild left basilar opacification, consider atelectasis, aspiration, or pneumonia. DICTATED BY: Jules Syed MD DATE/TIME DICTATED:01/22 SUPERINTENDENT QUARRY:KELI DATE/TIME TRANSCRIBED:12/08/172145 CONFIDENTIAL, DO NOT COPY WITHOUT APPROPRIATE AUTHORIZATION. <Electronically signed in Other Vendor System> SIGNED BY: Jules Syed MD 12/08/172150 Pre-Hospital EKG: JUNCTIONAL ESCAPE RHYTHM AT 36 Initial ED EKG: JUNCTIONAL ESCAPE RHYTHM Prior EKG: changed Rhythm Strip: BRADYCARDIA Comments: D/W DR. BOWERS, ICU, HOLD MEDS, PACER PADS, ATROPINE AT BEDSIDE. Departure Departure Disposition: STILL A PATIENT Condition: Critical Clinical Impression Primary Impression: Bradycardia Secondary Impressions: Hyperkalemia, Stage 4 chronic kidney disease Referrals: Maria ODELL,Mp Zuluaga (PCP/Family) Departure Forms: Customer Survey General Discharge Information Admission Note Spoke With: Angelina Beckman MD Documentation of Exam: Documentation of any treatments & extenuating circumstances including Concerns Regarding Discharge (functional status, medication knowledge or non-compliance, living conditions, etc.) that warrant an admission rather than observation: [ICU ADMISSION, HOLD COREG AND DILT, TELE MONITORING, PACER AT BEDSIDE, ATROPINE AT BEDSIDE, IF SHE GETS HYPOTENSIVE SHE MAY REQUIRE PACER, CARDIOLOGY CONSULTATION, NEPHROLOGY CONSULTATION - DUE FOR DIALYSIS TOMORROW] Critical Care Note Critical Care Note Critical Care Time: mins: (120 MIN)
[2017-12-08 21:27] LABS: ABSOLUTE BASOPHIL COUNT 0 /CUMM (0.0-0.2); ABSOLUTE EOSINOPHIL COUNT 0.3 /CUMM (0.0-0.7); ABSOLUTE GRANULOCYTE CT 3.3 /CUMM (1.4-6.5); ABSOLUTE LYMPH COUNT 2.2 /CUMM (1.2-3.4); ABSOLUTE MONOCYTE COUNT 0.5 /CUMM (0.10-0.60); BASOPHIL % 0.5 % (0.0-2.0); EOSINOPHIL % 4.4 % (0-5); GRANULOCYTE % 53.1 % (42.2-75.2); HEMATOCRIT 40.3 % (37-47); MEAN CORPUSCULAR HGB 29.2 PG (27.0-31.0); MEAN CORPUSCULAR HGB CONC 31.3 G/DL (33.0-37.0); MEAN CORPUSCULAR VOLUME 93.3 FL (81.0-99.0); MEAN PLATELET VOLUME 9.6 FL (7.4-10.4); PLATELET COUNT 206 /CUMM (130-400); RBC DISTRIBUTION WIDTH 14.8 % (11.5-14.5); RED BLOOD CELL CT 4.32 /CUMM (4.20-5.40); WHITE BLOOD CELL COUNT 6.3 /CUMM (4.8-10.8)
[2017-12-08 21:37] LABS: PT 34.2 SEC (9.4-12.5); PTT 46 SEC (25-37)
--- NOTE | 2017-12-08 21:51 | RADIOLOGY REPORT ---
EXAMINATION: XR PORTABLE CHEST CLINICAL INFORMATION: Pneumonia and lethargy. COMPARISON: Chest radiography 09/08/2017. TECHNIQUE: Portable frontal view of the chest was obtained. FINDINGS: The lungs are well expanded. There is bronchovascular prominence bilaterally. Mild left basilar opacification. No pneumothorax or large pleural effusion. The cardiac contour is enlarged. Aortic atherosclerotic calcification. Left arm vascular stent. No acute osseous abnormalities. IMPRESSION: Bronchovascular prominence without overt pulmonary edema. Mild left basilar opacification, consider atelectasis, aspiration, or pneumonia.
--- NOTE | 2017-12-08 23:40 | History & Physical ---
Veronica Garcia MD 12/08/17 8354: General Information and HPI MD Statement: I have seen and personally examined HERO LAWRENCE and documented this H&P. The patient is a 72 year old F who presented with a patient stated chief complaint of [weakness and dyspnea]. Source of Information: patient, family, old records Exam Limitations: poor historian History of Present Illness: Patient is a 72-year-old female with past medical history of end-stage renal disease on dialysis (Saturday, Saturday, Saturday), 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 Patient during interview was lethargic and unsure of her medical history and current condition. Much of the history was supplemented by her 2 daughters. Report that patient has become increasingly weak and fatigued over the last 2-3 days. Daughter reports that patient becomes short of breath while walking stairs and walks at a much slower pace. Reports that patient has had 2 episodes of bowel incontinence and loose stool. Patient reports feeling tired. Patient denies chest pain, palpitations, dizziness, lightheadedness, shortness of breath at this time, cough, diarrhea, nausea/vomiting, fever/chills, lower extremity swelling. Patient is on hemodialysis (Saturday, Saturday, Saturday) with last reported session on 12/06/2017. Per patient's daughters, she has had no new medication changes. Patient's daughter gives patient her medication and uses a pillbox to ensure she receives the appropriate medications and dosages. Patient's cardiology is Dr. Weaver. Medications: Allopurinol 100mg, Calcium Acetate TID, Carvedilol 12.5mg BID, Diltiazem 360mg daily, Doxazosin qPM (only per patient's daughter, not in AM), hydralazine 25mg TID, Irbesartan 300mg daily (not taking losartan as well), kepra 500mg BID (not taking an extra dose on dialysis days), reglan 5mg, omperazole 40mg, warfarin 5mg as needed, vitamin B/folic acid/vitamin C/Biotin complex daily, robitussin for cough. Allergies/Medications Allergies: Coded Allergies: No Known Allergies (01/13/17) Home Med list Allopurinol 100 MG TABLET 1 TAB PO DAILY GOUT (Reported) Amlodipine Besylate 5 MG TABLET 1 TAB PO DAILY BLOOD PRESSURE . Calcium Acetate 667 MG CAPSULE 4 CAP PO TID PHOSPHORUS BINDER (Reported) Doxazosin Mesylate (Cardura) 4 MG TABLET 1 TAB PO DAILY BP (Reported) Hydralazine HCl 25 MG TABLET 1 TAB PO TID bp (Reported) Irbesartan (Avapro) 300 MG TABLET 1 TAB PO DAILY HEART (Reported) Levetiracetam (Keppra) 500 MG TABLET 1 TAB PO BID seizures (Reported) Lovastatin 20 MG TABLET 1 TAB PO DAILY CHOLESTEROL (Reported) Omeprazole 40 MG CAPSULE.DR 1 CAP PO DAILY GI (Reported) Vit B Cmplx 3/FA/Vit C/Biotin ([facility] Tablet) 1 MG-60 MG-300 MCG TABLET 1 TAB PO DAILY SUPPLEMENT (Reported) Warfarin Sodium (Jantoven) 5 MG TABLET 1 TAB PO 1700 BLOOD THINNER (Reported) Past History Travel History Traveled to [place] past 21 day No Medical History Neurological: CVA EENT: NONE Cardiovascular: CAD, hypertension Respiratory: NONE Gastrointestinal: lower GI bleed, diverticulosis Hepatic: NONE Renal: ESRD on HD Musculoskeletal: ARTHRITIS GOUT Psychiatric: NONE Endocrine: hyperparathyroidism (secondary) Blood Disorders: monoclonal gammopathy of unknown 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 She had a bone marrow which was negative for multiple myeloma in March 2015 Cancer(s): NONE [employer] MAIN LINE/Reproductive: NONE Other Medical Hx: Positive PPD History of MRSA: No History of VRE: No History of CDIFF: No Pneumonia Vaccine: 07/07/17 Influenza Vaccine: 08/07/17 Surgical History Surgical History: AV FISTULA Past Family/Social History Family History Relations & Conditions if any Relation not specified for: *No pertinent family history Psychosocial History Who Do You Live With? self Services at Home: NONE Primary Language: Croatian ETOH Use: denies use Illicit Drug Use: denies illicit drug use Functional Ability ADLs Independent: dressing, eating, toileting, bathing. Ambulation: independent Review of Systems Review of Systems Constitutional: Reports: see HPI. Cardiovascular: Reports: no symptoms. Respiratory: Reports: see HPI, cough. GI: Reports: see HPI. Genitourinary: Reports: no symptoms. Musculoskeletal: Reports: no symptoms. Skin: Reports: no symptoms. Neurological/Psychological: Reports: see HPI. Hematologic/Endocrine: Reports: no symptoms. Immunologic/Allergic: Reports: no symptoms. All Other Systems: Reviewed and Negative Exam & Diagnostic Data Last 24 Hrs of Vital Signs/I&O Vital Signs Date Time Temp Pulse Resp B/P B/P Pulse O2 O2 Flow FiO2 Mean Ox Delivery Rate 12/09 08 98.7 46 12 160/66 95 Room Air 12/09 0800 95 Room Air 12/09 0400 97 Room Air 12/09 0045 100 Room Air 12/09 0045 98.5 36 13 138/78 100 Room Air / 2328 96.6 38 16 133/60 100 Room Air 12/08 2224 96.5 40 16 146/62 98 Room Air 12/08 2123 38 18 142/60 98 Room Air 12/08 2054 96.0 48 20 182/80 99 Room Air Intake & Output 12/09 1600 12/09 0800 12/09 0000 Intake Total 50 0 Output Total 0 0 Balance 50 0 Intake, Oral 50 0 Number 0 Bowel Movements Output, Urine 0 0 Patient 149 lb 160 lb Weight Weight Bed scale Measurement Method Physical Exam General Appearance Oriented X3, Cooperative, No Acute Distress, lethargic, AxO x1, awake but lethargic, responds to questions slowly, keeps closing eyes during interview Skin No Rashes Skin Temp/Moisture Exam: Warm/Dry HEENT Atraumatic, PERRLA, EOMI, Mucous Membr. moist/pink Neck Supple, No JVD, No thryomegaly Cardiovascular Regular Rate, Normal S1, Normal S2, systolic ejection murmur Lungs bibasilar crackles Abdomen Normal Bowel Sounds, Soft, No Tenderness Neurological Normal Tone, Sensation Intact, Cranial Nerves 3-12 NL, Reflexes 2+, right sided facial droop, slow slurred speech, strength 4/5 in RUE and RLE Extremities No Clubbing, No Cyanosis, Normal Pulses, No Tenderness/Swelling, trace bilateral lower extremity pitting edema, left arm - av fistula, well healed surgical incision Last 24 Hrs of Labs/Jesse: Laboratory Tests 12/08/174: Anion Gap 18 H, Estimated GFR 4 L, BUN/Creatinine Ratio 6.2 L, Glucose 102 H , Lactic Acid 1.2, Calcium 9.3, Total Bilirubin 0.8, AST 18, ALT 19, Alkaline Phosphatase 80, Troponin I < 0.01, Total Protein 7.2, Albumin 3.8, Globulin 3.4, Albumin/Globulin Ratio 1.1, TSH 2.120, Digoxin < 0.4 L 12/08/17 2105: PT 34.2 H, INR 3.10 H, APTT 46 H, CBC w Diff NO MAN DIFF REQ, RBC 4.32, MCV 93.3, MCH 29.2, MCHC 31.3 L, RDW 14.8 H, MPV 9.6, Gran % 53.1, Lymphocytes % 34.4, Monocytes % 7.6, Eosinophils % 4.4, Basophils % 0.5, Absolute Granulocytes 3.3, Absolute Lymphocytes 2.2, Absolute Monocytes 0.5, Absolute Eosinophils 0.3, Absolute Basophils 0, Lyme Disease Antibody Pending Microbiology 12/09 99 UPPER RESP: Surveillance Culture - RECD 12/09 99 GI: Surveillance Culture - RECD Assessment/Plan Assessment: Patient is a 72-year-old female with past medical history of end-stage renal disease on dialysis (Saturday, Saturday, Saturday), 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 Assessment and Plan: Patient is a 72 y/o female presenting with increased weakness and lethargy with bradycardia to the 30s and 40s. Cardiology was contacted in the ED and patient will likely require pacemaker placement. Patient will be admitted to ICU for close monitoring. Patient's bradycardia is likely sinus bradycardia with junctional escape rhythm with no discernable p waves seen on EKG likely secondary to medications however other etiologies should be excluded. Differential diagnoses include sick sinus syndrome, medications (patient is on diltiazem), myocardial infarcation, obstructive sleep apnea, vasovagal activity, neurologic dysfunction, infectious etiologies such as lyme disease, and hypothyroidism. Patient's daughters deny any recent illness or tick bites. Deny thyroid dysfunction with normal TSH on this admission. Patient has had no recent medication changes. Patient denies any chest pain, palpitations. No focal neurological deficits except for chronic sequelae of previous CVA with no worsening of residual symptoms. Patient has ESRD on dialysis with elevated creatinine. Patient has paroxysmal atrial fibrillation Patient also has K+ of 5.8 this admission. She was given kaexelate, insulin and dextrose. Calcium gluconate was held as one of its side effect is bradycardia. Due to patient's bradycardia she requires very close monitoring and will be admitted to ICU. Patient will have atroprine as needed and pacer pads placed on patient. Problems: 1. Symptomatic bradycardia with junctional escape rhythm 2. Hyperkalemia 3. ESRD on hemodialysis 4. Supratherapeutic INR 5. Paroxysmal Atrial Fibrillation 6. Hypertension 7. Seizures on Keppra Plan: Admit to ICU Check Vitals every hour Atropine when necessary for bradycardia Pacer pads Serial EKG and Troponin to rule out ACS Echo pending Cardiology consult Nephrology consult for hemodialysis Hemodialysis in a.m. Diltiazem and carvedilol held due to bradycardia Patient to resume antihypertensives after hemodialysis if her blood pressure and heart rate tolerates Hold Coumadin for now due to supratherapeutic INR Continue to monitor INR and dose Coumadin Repeat CBC Repeat BMP to monitor potassium Continue Keppra Diet:Renal dialysis diet Code: Full code DVT PPx: supratherapeutic INR As Ranked By This Provider Problem List: 1. Symptomatic bradycardia 2. ESRD (end stage renal disease) on dialysis 3. Supratherapeutic INR 4. Hypertension Core Measures/Misc (06/23) Acute Coronary Syndrome ACS Diagnosis: No Congestive Heart Failure Congestive Heart Failure Diagnosis No Cerebrovascular Accident CVA/TIA Diagnosis: No VTE (View Protocol) VTE Risk Factors Age>40 No Mechanical VTE Prophylaxis d/t N/A MechProphylax Ordered No VTE Pharm Prophylaxis d/t Supratherapeutic INR Sepsis (View protocol) Sepsis Present: No Vivek Yarbrough 12/09/17 0222: Resident Review Statement Resident Statement: examined this patient, discussed with public health internship, amended to note Other Findings: Mr Lawrence is a 72 year old woman w/ a PMHx of hypertension, end-stage renal disease on hemodialysis Saturday, previous history of stroke-CVA ( dx'e 1997 ) with residual right facial droop and right-sided weakness who was brought in with a chief concern of increasing lethargy, weakness and exertional dyspnea 1 day. She underwent hemodialysis on Saturday, after which she was more lethargic, and had worsening dyspnea progressing to the point where she had difficulty walking up to her bathroom. She did not have any chest pain, palpitations. She did not have any new neurological symptoms, loss of consciousness, vision changes, seizures. At the time of admission, vitals- temperature 96.0, pulse rate 48, blood pressure 182/80, which improved to 142/60, pulse ox 99% on room air. On examination, she appeared to be lethargic, but oriented to time place and person. She had pallor, no JVD, but lung examination revealed bibasilar crackles. Cardiac vascular examination revealed systolic murmur. Neurological examination revealed residual right facial droop, sensation intact, strength 4/5 on right upper and lower extremities, sensations in place. EKG revealed junctional escape rhythm. HR 30-40s Lab findings revealed: WBC 6.3, hemoglobin 12.6, platelets 206 Sodium 133, potassium 5.8, bicarbonate 20 BUN 1 BUN 58, creatinine 9.2 INR 3.43 Lyme antibody-pending. Chest x-ray revealed bronchovascular prominence without overt pulmonary edema. Mild left basilar opacification, consider atelectasis, aspiration, or pneumonia. Plan: 1. Itqdcyorest-xzqlahdbaya-ocjrrwcrf stable. 2. Infectious-stable 3. Circulatory-continues to have bradycardia, likely pharmacological related. Plan to hold beta zuly at this time. Pacer pads in place. Atropine at bedside. Hold carvedilol and diltiazem. Serial EKGs and troponins to rule out ACS. Echocardiogram to be obtained. Cardiology consult in the a.m. Blood pressure seems stable at this time, but would restart hydralazine in the a.m. For now hold losartan, doxazosin. Restart after hemodialysis. History of atrial fibrillation on Coumadin-supra therapeutic INR. Hold Coumadin for now, dose in a.m after checking INR. Monitor vitals closely. 4. Hematology-stable at this time. Monitor for anemia. 5. Metabolic-serum creatinine elevated. Nephro has been consulted for hemodialysis. Calcium acetate on hold at this time. Restart after discussing with cardiology and nephrology. 6. Alimentary-renal dialysis diet. 7. Neurology-continue Keppra. Housekeeping- 1. DVT prophylaxis-Coumadin 2. CODE STATUS-full code 3. Lines-peripheral 4. Consults-neurology, nephrology, cardiology. Rk ODELL, [facility] 12/09/17 0324: Attending MD Review Statement Attending Statement Attending MD Statement: examined this patient, discuss w/resident/PA/INSURANCE POLICY ISSUE CLERK, agreed w/resident/PA/INSURANCE POLICY ISSUE CLERK, discussed with family, reviewed images, amended to note Attending Assessment/Plan: 72 yo F with h/o HTN, ESRD on HD (), CVA (1997) with residual right facial droop and mild right sided weakness, Pafib on coumadin, subclinical seizures, last admitted to [place] (Sep 2017) for hypertensive crisis, is brought in by family for 2-day h/o increasing weakness, fatigue, lethargy and exertional dyspnea with a flight of stairs. Patient currently denies chest pain, lightheadedness or dyspnea. At baseline, patient is independent with her ADL's. Today daughter noted that patient was finding it difficult to use the bathroom by herself and was very lethargic. She had two episodes of diarrhea/ semi-formed stools today and was incontinent. Patient was last dialyzed on SaturdayDecember 06, she continues to make urine. Daughter reports no recent changes or no new medications. Patient has been compliant with her meds. Vitals: afebrile, BP 182/80 --> 142/60, HR 30-40's, sats 100% RA. Exam: Awake, but lethargic, responding to questions though slowly, speech slow and slurred, no pallor or icterus, PERRL, MMM, no JVD, Chest basilar crackles+, Heart S1S2 regular, systolic murmur+, Abd soft, NT, LE: trace edema. Neuro: right facial droop, power 4/5 on right side. Left upper arm: AV fistula in situ, clean site, thrill+. Labs: no leukocytosis, INR 3.10, Na 133, K 5.8, bicarb 19, AG 18, BUN 57, creat 9.2, glucose 102, lactic acid 1.2, trop neg. CXR: bronchovascular prominence without overt pulmonary edema, mild left basilar opacification ?atelectasis or pneumonia. EKG: junctional escape rhythm, HR 36. Echo (2016): EF 55%, stage 1 diastolic dysfunction, mild aortic stenosis. Assessment and plan: 1. Symptomatic bradycardia, junctional rhythm 2. Essential hypertension 3. ESRD on HD 4. Hyperkalemia and metabolic acidosis 5. Paroxysmal Afib on coumadin 6. Supratherapeutic INR - Admit to ICU - Vitals q1 hourly - Check TSH, free T4, lyme titers - Hold carvedilol and diltiazem - Atropine at bedside - Pacer pads on - Serial EKG and troponin to rule out ACS - Obtain echocardiogram - Cardio consult (Dr. Weaver) - Nephro consult to schedule dialysis (MWF) - [facility] consult in AM - IV insulin and dextrose, kayexalate for hyperkalemia tonight, avoid calcium gluconate given bradycardia - Resume hydralazine, irbesartan (convert to losartan) and doxazosin post dialysis in AM - Resume keppra, statin and allopurinol - Hold calcium acetate until arrhythmia resolves - Hold coumadin and recheck INR to dose accordingly DVT ppx supratherapeutic INR on coumadin. Full code. TTS > 55 mins - Hold coumadin and recheck INR to dose accordingly DVT ppx supratherapeutic INR on coumadin. Full code. TTS > 55 mins
[2017-12-09] MEDS ORDERED: KEPPRA500 M1 PO (00:27)
[2017-12-09 00:45] VITALS: BP 138/78
--- NOTE | 2017-12-09 02:43 | Admission Certification ---
Admission Certification Certification Statement - As attending physician, I certify that at the time of - admission, based on clinical presentation, severity of - symptoms, need for further diagnostic testing and - therapeutic interventions, and risk of adverse outcomes - without in-hospital treatment, in my clinical assessment, - this patient requires an acute hospital stay for a minimum - of two nights or longer. I have also considered psychsocial - factors such as support system, advanced age, financial - issues, cognitive issues, and failed out-patient treatments, - past re-admission history, safety of patient, and lack of - compliance as applicable. Specific rationale supporting this admission is: Symptomatic bradycardia requiring ICU level of care.
[2017-12-09 05:45] LABS: ABSOLUTE BASOPHIL COUNT 0 /CUMM (0.0-0.2); ABSOLUTE EOSINOPHIL COUNT 0.2 /CUMM (0.0-0.7); ABSOLUTE LYMPH COUNT 2.6 /CUMM (1.2-3.4); ABSOLUTE MONOCYTE COUNT 0.8 /CUMM (0.10-0.60); EOSINOPHIL % 2.7 % (0-5); MEAN CORPUSCULAR HGB CONC 32.3 G/DL (33.0-37.0)
[2017-12-09 06:00] LABS: ABSOLUTE GRANULOCYTE CT 2.4 /CUMM (1.4-6.5); BASOPHIL % 0.7 % (0.0-2.0); GRANULOCYTE % 40.4 % (42.2-75.2); MEAN CORPUSCULAR HGB 29.8 PG (27.0-31.0); MEAN CORPUSCULAR VOLUME 92.2 FL (81.0-99.0); MEAN PLATELET VOLUME 9.4 FL (7.4-10.4); PLATELET COUNT 174 /CUMM (130-400); RBC DISTRIBUTION WIDTH 15.4 % (11.5-14.5); RED BLOOD CELL CT 3.83 /CUMM (4.20-5.40); WHITE BLOOD CELL COUNT 6.1 /CUMM (4.8-10.8)
[2017-12-09 06:05] LABS: HEMATOCRIT 35.3 % (37-47)
[2017-12-09 06:09] LABS: PT 37.8 SEC (9.4-12.5)
[2017-12-09 08:00] VITALS: BP 160/66
--- NOTE | 2017-12-09 09:41 | Cons- CRCU ---
Toni ODELL,[facility] 12/09/17 0941: General Information and HPI Consulting Request Date of Consult: 12/07/17 Requested By: Dr. 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 Patient climbed a flight of stairs and family felt that she was about to pass out. She did not lose consciousness. She denies any chest pain, lightheadedness or palpitation. As per admitting physician notes patient's daughter reported she was having difficulty using the bathroom and was very lethargic lately. Before presentation patient had 2 episodes of semiformed stool and was incontinent. (not her baseline) Patient is independent with her ADL's and compliant with her medication. Of note patient last admission was in September 2017 for hypertensive crisis. Allergies/Medications Allergies: Coded Allergies: No Known Allergies (01/13/17) Home Med List: Allopurinol 100 MG TABLET 1 TAB PO DAILY GOUT (Reported) Calcium Acetate 667 MG CAPSULE 4 CAP PO TID PHOSPHORUS BINDER (Reported) Carvedilol 25 MG TABLET 0.5 TAB PO BID HEART/BP (Reported) Diltiazem HCl (Diltiazem 24HR ER) 360 MG CAP.ER.24H 1 CAP PO DAILY HEART/BP ( Reported) Doxazosin Mesylate (Cardura) 4 MG TABLET 1 TAB PO DAILY BP (Reported) Hydralazine HCl 25 MG TABLET 1 TAB PO TID bp (Reported) Irbesartan (Avapro) 300 MG TABLET 1 TAB PO DAILY HEART (Reported) Levetiracetam (Keppra) 500 MG TABLET 1 TAB PO BID seizures (Reported) Lovastatin 20 MG TABLET 1 TAB PO DAILY CHOLESTEROL (Reported) Metoclopramide HCl (Reglan) 5 MG TABLET 1 TAB PO 4XDAILY N/V (Reported) Omeprazole 40 MG CAPSULE. 1 CAP PO DAILY GI (Reported) Vit B Cmplx 3/FA/Vit C/Biotin (Jenny-Anthony Rx Tablet) 1 MG-60 MG-300 MCG TABLET 1 TAB PO DAILY SUPPLEMENT (Reported) Warfarin Sodium (Jantoven) 5 MG TABLET 1 TAB PO 1700 BLOOD THINNER (Reported) Review of Systems Review of Systems Constitutional: Reports: see HPI. 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 She had a bone marrow which was negative for multiple myeloma in March 2015 Cancer(s): NONE DOG DAYCARE PROVIDER/Reproductive: NONE Other Medical Hx: Positive PPD Surgical History Surgical History: AV FISTULA Family History Relations & Conditions If Any: Relation not specified for: *No pertinent family history Psychosocial History Where Do You Live? Home Who Do You Live With? self Services at Home: NONE Primary Language: Vietnamese Smoking Status: Never Smoked ETOH Use: denies use Illicit Drug Use: denies illicit drug use Functional Ability ADLs Independent: dressing, eating, toileting, bathing. Ambulation: independent Exam & Diagnostic Data Last 24 Hrs of Vital Signs/I&O Vital Signs Date Time Temp Pulse Resp B/P B/P Pulse O2 O2 Flow FiO2 Mean Ox Delivery Rate 12/09 0800 98.7 46 12 160/66 95 Room Air / 0800 95 Room Air / 0400 97 Room Air / 0045 100 Room Air / 0045 98.5 36 13 138/78 100 Room Air / 2328 96.6 38 16 133/60 100 Room Air / 2224 96.5 40 16 146/62 98 Room Air / 2123 38 18 142/60 98 Room Air /4 96.0 48 20 182/80 99 Room Air Intake & Output / 1600 /05 0800 / 0000 Intake Total 50 0 Output Total 0 0 Balance 50 0 Intake, Oral 50 0 Number 0 Bowel Movements Output, Urine 0 0 Patient 149 lb 160 lb Weight Weight Bed scale Measurement Method Physical Exam General Appearance: awake, lethargic Head: atraumatic Ears, Nose, Throat: normal pharynx Neck: normal inspection, supple Respiratory: crackles (bibasilar) Cardiovascular: bradycardia, systolic murmur Gastrointestinal: normal bowel sounds, soft, non-tender Extremities: AV fistula L upper arm Neurologic/Psych: awake, alert, oriented x 3, facial droop (R), motor weakness ( 4/5 R) Last 48 Hrs of Labs/Jesse: Laboratory Tests 12/09/17 0507: Anion Gap 14, Estimated GFR 4 L, Glucose 79, Calcium 8.8, Phosphorus 3.5, Magnesium 2.0, Total Bilirubin 0.6, AST 13 L, ALT 23, Troponin I < 0.01, Albumin 3.1 L, PT 37.8 H, INR 3.43 H, CBC w Diff NO MAN DIFF REQ, RBC 3.83 L , MCV 92.2, MCH 29.8, MCHC 32.3 L, RDW 15.4 H, MPV 9.4, Gran % 40.4 L, Lymphocytes % 43.6, Monocytes % 12.6 H, Eosinophils % 2.7, Basophils % 0.7, Absolute Granulocytes 2.4, Absolute Lymphocytes 2.6, Absolute Monocytes 0.8 H, Absolute Eosinophils 0.2, Absolute Basophils 0 12/09/17 0400: Troponin I Cancelled 12/08/17 2351: Lactic Acid Cancelled 12/08/17 2214: Anion Gap 18 H, Estimated GFR 4 L, BUN/Creatinine Ratio 6.2 L, Glucose 102 H , Lactic Acid 1.2, Calcium 9.3, Total Bilirubin 0.8, AST 18, ALT 19, Alkaline Phosphatase 80, Troponin I < 0.01, Total Protein 7.2, Albumin 3.8, Globulin 3.4, Albumin/Globulin Ratio 1.1, TSH 2.120, Digoxin < 0.4 L 12/08/17 2105: PT 34.2 H, INR 3.10 H, APTT 46 H, CBC w Diff NO MAN DIFF REQ, RBC 4.32, MCV 93.3, MCH 29.2, MCHC 31.3 L, RDW 14.8 H, MPV 9.6, Gran % 53.1, Lymphocytes % 34.4, Monocytes % 7.6, Eosinophils % 4.4, Basophils % 0.5, Absolute Granulocytes 3.3, Absolute Lymphocytes 2.2, Absolute Monocytes 0.5, Absolute Eosinophils 0.3, Absolute Basophils 0, Lyme Disease Antibody Pending Assessment/Plan CRCU Impression/Plan: The patient is 72 year old female with past medical history of 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 She was found to be bradycardic and 36 with blood pressure of 182/80 on presentation. The patient was admitted to ICU for symptomatic bradycardia. She is being treated evaluated for following conditions Respiratory stable Infection none Cardiovascular #Symptomatic bradycardia Pt presented with heart rate ranging from 30s to 40s, likely medication-induced. TSH within normal limits. Lyme panel negative. Carvedilol and Cardizem were put on hold. Atropine at bedside and pacer pads on. Subsequently patient's heart rate has been improving -Continuous telemetry monitoring for heart rate. Currently ranging in the 40s to 50s -Continue to hold carvedilol and diltiazem -If her heart rate continues to improve consider reduction in the doses of calcium channel zuly and beta zuly. -If not consider pacemaker -3 sets of troponin negative ACS ruled out -Echocardiogram pending #Essential Hypertension At present patient is on5 medications for blood pressure control. Of note patient last admission was in September 2017 for hypertensive crisis. -Carvedilol and diltiazem on hold secondary to bradycardia -Continue hydralazine, doxazosin and irbesartan -Consider addition of amlodipine instead of AV kaity blocking agents #Paroxysmal atrial fibrillation -INR supratherapeutic,Warfarin on hold today -Dose Coumadin as INR Hematology #Supratherapeutic INR -Continue to monitor INR -Warfarin on hold #Chronic anemia 2/2 ESRD -Continue to monitor Metabolic #Hyperkalemia Patient presented with potassium of 5.8 likely secondary to ESRD -Received IV insulin and Kayexalate overnight -Repeat potassium level is 4.6 -Continue to monitor -Dialyze on [facility] #Anion gap metabolic acidosis likely secondary to uremia secondary to ESRD -Dialysis on [facility] Alimentary #Renal dialysis diet Nephrology #ESRD on HD ([facility]) -Nephrology on the board, HD today Neurology #Subclinical seizures -Continue Kera DVT prophylaxis on Coumadin supratherapeutic INR CODE STATUS Full code Consult Acknowledgment - Thank you for your consult request. Nathaniel Marshall MD 12/09/17 1131: Assessment/Plan CRCU Other Findings/Comments: Nathaniel Moreno M.D. have examined this patient, reviewed available EMR data, personally reviewed images, discussed with resident/PA/OPEN DEVELOPER OPERATOR, discussed management plan with housestaff and nursing staff, discussed managment plan all of healthcare providers, discussed management plan with patient and/or family, agreed with resident/PA/OPEN DEVELOPER OPERATOR. The past history and parts of the chart have been autopopulated. Impression 72 year old woman * sinus bradycardia - poss secondar to meds, improved * esrd on hd Plan -per cardiology bradycardia management -if remains stable dg to tele -f/u renal for esrd/hd recs DVT prophylaxis at all times TTS 35 min Consult Acknowledgment - Thank you for your consult request.
--- NOTE | 2017-12-09 12:11 | Cons- Nephrology ---
General Information and HPI Consulting Request Date of Consult: 12/09/17 Requested By: Rk ODELL,Angelina Reason for Consult: ESRD Source of Information: patient, old records Exam Limitations: no limitations History of Present Illness: The patient is a 72-year-old woman with a past medical history most significant for end-stage renal disease on hemodialysis, that is post CVA, hypertension Gerardo seizure disorder on Keppra who presents for weakness. The patient presented yesterday with 1 day of weakness and exertional dyspnea. On presentation she is out of blood pressure 182/80 heart rate 48. Her heart rate dropped to 36 which was ultimately thought to be the reason for her weakness. Otherwise, her workup was notable for white blood cell count 6.3, negative troponin. chest x-ray with bronchovascular prominence without overt pulmonary edema. No micro. Her last dialysis was on Saturday at which time she left 0.6 kg below her dry weight after having approximately 1.5L removed. Allergies/Medications Allergies: Coded Allergies: No Known Allergies (01/13/17) Home Med List: Allopurinol 100 MG TABLET 1 TAB PO DAILY GOUT (Reported) Calcium Acetate 667 MG CAPSULE 4 CAP PO TID PHOSPHORUS BINDER (Reported) Carvedilol 25 MG TABLET 0.5 TAB PO BID HEART/BP (Reported) Diltiazem HCl (Diltiazem 24HR ER) 360 MG CAP.ER.24H 1 CAP PO DAILY HEART/BP ( Reported) Doxazosin Mesylate (Cardura) 4 MG TABLET 1 TAB PO DAILY BP (Reported) Hydralazine HCl 25 MG TABLET 1 TAB PO TID bp (Reported) Irbesartan (Avapro) 300 MG TABLET 1 TAB PO DAILY HEART (Reported) Levetiracetam (Keppra) 500 MG TABLET 1 TAB PO BID seizures (Reported) Lovastatin 20 MG TABLET 1 TAB PO DAILY CHOLESTEROL (Reported) Metoclopramide HCl (Reglan) 5 MG TABLET 1 TAB PO 4XDAILY N/V (Reported) Omeprazole 40 MG CAPSULE.DR 1 CAP PO DAILY GI (Reported) Vit B Cmplx 3/FA/Vit C/Biotin (Jenny-Anthony Rx Tablet) 1 MG-60 MG-300 MCG TABLET 1 TAB PO DAILY SUPPLEMENT (Reported) Warfarin Sodium (Jantoven) 5 MG TABLET 1 TAB PO 1700 BLOOD THINNER (Reported) Current Medications: Current Medications Sig/Keyla Start time Last Medication Dose Route Stop Time Status Admin Acetaminophen 650 MG Q8P PRN 12/09 0430 AC PO Acetaminophen 1,000 MG BID PRN 12/09 0430 AC IV Allopurinol 100 MG DAILY 12/09 1000 AC 12/09 PO 0959 Atorvastatin Calcium 40 MG 1700 12/09 1700 AC PO Atropine Sulfate 0.5 MG ONE PRN 12/09 0100 AC IV Calcium Acetate 2,668 MG TID 12/09 1000 CAN PO Dextrose 25 GM ONCE ONE 12/09 004 DC 12/09 IV 12/09 004 0230 Hydralazine HCl 25 MG TID 12/09 1600 AC PO Insulin Human Regular 10 UNITS ONCE ONE 12/09 004 DC 12/09 IV 12/09 004 0230 Levetiracetam 500 MG BID 12/09 1000 AC 12/09 PO 0959 Omeprazole 40 MG DAILY AC 12/09 0700 AC 12/09 PO 0731 Sodium Polystyrene 0 .STK-MED ONE 12/09 0032 DC Sulfonate .ROUTE Sodium Polystyrene 60 ML ONCE ONE 12/09 0015 DC 12/09 Sulfonate PO 12/09 0016 0039 Tramadol HCl 50 MG Q8P PRN 12/09 0430 AC PO Review of Systems Review of Systems: Complete 14 point ROS neg except as per HPI Past History Travel History Traveled to [place] past 21 day No Medical History Blood Transfusion Hx: No Neurological: CVA EENT: NONE Cardiovascular: CAD, hypertension Respiratory: NONE Gastrointestinal: lower GI bleed, diverticulosis Hepatic: NONE Renal: ESRD on HD Musculoskeletal: ARTHRITIS GOUT Psychiatric: NONE Endocrine: hyperparathyroidism (secondary) Blood Disorders: 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 She had a bone marrow which was negative for multiple myeloma in March 2015 Cancer(s): NONE RING FACER/Reproductive: NONE Other Medical Hx: Positive PPD Surgical History Surgical History: AV FISTULA Family History Relations & Conditions If Any: Relation not specified for: *No pertinent family history Psychosocial History Where Do You Live? Home Who Do You Live With? self Services at Home: NONE Primary Language: Luxembourgish Smoking Status: Never Smoked ETOH Use: denies use Illicit Drug Use: denies illicit drug use Functional Ability ADLs Independent: dressing, eating, toileting, bathing. Ambulation: independent Exam & Diagnostic Data Vital Signs and I&O Vital Signs Date Time Temp Pulse Resp B/P B/P Pulse O2 O2 Flow FiO2 Mean Ox Delivery Rate 12/10 799 98.7 46 12 160/66 95 Room Air 12/09 0800 95 Room Air 12/09 0400 97 Room Air 12/09 0045 100 Room Air 12/09 0045 98.5 36 13 138/78 100 Room Air 12/08 2328 96.6 38 16 133/60 100 Room Air 12/08 2224 96.5 40 16 146/62 98 Room Air 12/08 2123 38 18 142/60 98 Room Air 12/08 2054 96.0 48 20 182/80 99 Room Air Intake & Output 12/09 04012/08 04012/07 040 Intake Total 50 0 Output Total 0 0 Balance 50 0 Intake, Oral 50 0 Number 0 Bowel Movements Output, Urine 0 0 Patient 149 lb Weight Weight Bed scale Measurement Method Physical Exam: Gen - OK appearing Head - NCAT Eyes - anicteric sclera, EOMI Neck - supple, no JVD CV - RRR, no m/r/g Chest - clear anteriorly, no w/r/r Abd - soft, NTND Upper ext - warm, no edema, VITALIY AVG +thrill/+bruit Lower ext - warm, no edema Skin - no rash or jaundice Neuro - AOX3, grossly nonfocal Results Pertinent Lab Results: Laboratory Tests 12/09 12/09 12/09 1050 0507 0400 Chemistry Sodium (137 - 145 mmol/L) 133 L Potassium (3.5 - 5.1 mmol/L) 4.6 Chloride (98 - 107 mmol/L) 99 Carbon Dioxide (22 - 30 mmol/L) 20 L Anion Gap (5 - 16) 14 BUN (7 - 17 mg/dL) 58 H Creatinine (0.5 - 1.0 mg/dL) 9.3 *H Estimated GFR (>60 ml/min) 4 L Glucose (65 - 99 mg/dL) 79 Calcium (8.4 - 10.2 mg/dL) 8.8 Phosphorus (2.5 - 4.5 mg/dL) 3.5 Magnesium (1.6 - 2.3 mg/dL) 2.0 Total Bilirubin (0.2 - 1.3 mg/dL) 0.6 AST (14 - 36 U/L) 13 L ALT (9 - 52 U/L) 23 Troponin I (< 0.11 ng/ml) Pending < 0.01 Cancelled Albumin (3.5 - 5.0 g/dL) 3.1 L Coagulation PT (9.4 - 12.5 SEC) 37.8 H INR (0.90 - 1.19) 3.43 H Hematology CBC w Diff NO MAN DIFF REQ WBC (4.8 - 10.8 /CUMM) 6.1 RBC (4.20 - 5.40 /CUMM) 3.83 L Hgb (12.0 - 16.0 G/DL) 11.4 L Hct (37 - 47 %) 35.3 L MCV (81.0 - 99.0 FL) 92.2 MCH (27.0 - 31.0 PG) 29.8 MCHC (33.0 - 37.0 G/DL) 32.3 L RDW (11.5 - 14.5 %) 15.4 H Plt Count (130 - 400 /CUMM) 174 MPV (7.4 - 10.4 FL) 9.4 Gran % (42.2 - 75.2 %) 40.4 L Lymphocytes % (20.5 - 51.1 %) 43.6 Monocytes % (1.7 - 9.3 %) 12.6 H Eosinophils % (0 - 5 %) 2.7 Basophils % (0.0 - 2.0 %) 0.7 Absolute Granulocytes (1.4 - 6.5 /CUMM) 2.4 Absolute Lymphocytes (1.2 - 3.4 /CUMM) 2.6 Absolute Monocytes (0.10 - 0.60 /CUMM) 0.8 H Absolute Eosinophils (0.0 - 0.7 /CUMM) 0.2 Absolute Basophils (0.0 - 0.2 /CUMM) 0 03/04 /01 07/ 2351 2214 2105 Chemistry Sodium (137 - 145 mmol/L) 133 L Potassium (3.5 - 5.1 mmol/L) 5.8 H Chloride (98 - 107 mmol/L) 96 L Carbon Dioxide (22 - 30 mmol/L) 19 L Anion Gap (5 - 16) 18 H BUN (7 - 17 mg/dL) 57 H Creatinine (0.5 - 1.0 mg/dL) 9.2 *H Estimated GFR (>60 ml/min) 4 L BUN/Creatinine Ratio (7 - 25 %) 6.2 L Glucose (65 - 99 mg/dL) 102 H Lactic Acid (0.7 - 2.1 mmol/L) Cancelled 1.2 Calcium (8.4 - 10.2 mg/dL) 9.3 Total Bilirubin (0.2 - 1.3 mg/dL) 0.8 AST (14 - 36 U/L) 18 ALT (9 - 52 U/L) 19 Alkaline Phosphatase (<127 U/L) 80 Troponin I (< 0.11 ng/ml) < 0.01 Total Protein (6.3 - 8.2 g/dL) 7.2 Albumin (3.5 - 5.0 g/dL) 3.8 Globulin (1.9 - 4.2 gm/dL) 3.4 Albumin/Globulin Ratio (1.1 - 2.2 %) 1.1 TSH (0.270 - 4.200 uIU/mL) 2.120 Coagulation PT (9.4 - 12.5 SEC) 34.2 H INR (0.90 - 1.19) 3.10 H APTT (25 - 37 SEC) 46 H Hematology CBC w Diff NO MAN DIFF REQ WBC (4.8 - 10.8 /CUMM) 6.3 RBC (4.20 - 5.40 /CUMM) 4.32 Hgb (12.0 - 16.0 G/DL) 12.6 Hct (37 - 47 %) 40.3 MCV (81.0 - 99.0 FL) 93.3 MCH (27.0 - 31.0 PG) 29.2 MCHC (33.0 - 37.0 G/DL) 31.3 L RDW (11.5 - 14.5 %) 14.8 H Plt Count (130 - 400 /CUMM) 206 MPV (7.4 - 10.4 FL) 9.6 Gran % (42.2 - 75.2 %) 53.1 Lymphocytes % (20.5 - 51.1 %) 34.4 Monocytes % (1.7 - 9.3 %) 7.6 Eosinophils % (0 - 5 %) 4.4 Basophils % (0.0 - 2.0 %) 0.5 Absolute Granulocytes (1.4 - 6.5 /CUMM) 3.3 Absolute Lymphocytes (1.2 - 3.4 /CUMM) 2.2 Absolute Monocytes (0.10 - 0.60 /CUMM) 0.5 Absolute Eosinophils (0.0 - 0.7 /CUMM) 0.3 Absolute Basophils (0.0 - 0.2 /CUMM) 0 Serology Lyme Disease Antibody (RATIO) 0.14 Toxicology Digoxin (0.8 - 2.0 ng/mL) < 0.4 L Imaging/Other Studies: Chest x-ray reviewed Assessment/Plan Assessment/Recommendations Assessment: ESRD - Due for routine HD today. Perhaps mild pulm edema. EDW recently downtitrated from 66.0->65.5kg. May need to go down further - will aim for 2L UF today as tolerated Weakness/DEGROOT - Could be combination of fluid as above as well as symptomatic bradycardia - in ICU - Cards to see. Anemia - Not on MOHAN given Hg >11. MBD - Will dose Paricalcitol 4mcg TIW. Recommendations: -HD today - 2L UF as tolerated -Possible further downtitration of dry weight -Kelvin blockade being held; Cards to see -Paricalcitol 4mcg TIW Please call [phone] with ?'s
--- NOTE | 2017-12-09 12:23 | Cons- Cardiology ---
General Information and HPI Consulting Request Date of Consult: 12/09/17 Requested By: Rk ODELL,Angelina Reason for Consult: Bradycardia Source of Information: patient, old records Exam Limitations: no limitations History of Present Illness: The patient is a 72-year-old woman with a past medical history of end-stage renal disease on hemodialysis, prior CVA, paroxysmal atrial fibrillation (on warfarin), hypertension and MGUS. She presents to our hospital with symptoms of increasing fatigue, and was found to be bradycardic. The patient states he had been increasing over a period of approximately or days. There was no concurrent symptoms of chest pains nor palpitations. She otherwise denies is in her medical regimen nor other [id number] agents. She states otherwise compliance with and tolerance of her medication regimen. She was mildly hyperkalemic at 5.8. Following admission, her regimen of diltiazem as well as carvedilol were held. Her degree of hyperkalemia was corrected She had significantly improved heart rates noted. Allergies/Medications Allergies: Coded Allergies: No Known Allergies (01/13/17) Home Med List: Allopurinol 100 MG TABLET 1 TAB PO DAILY GOUT (Reported) Calcium Acetate 667 MG CAPSULE 4 CAP PO TID PHOSPHORUS BINDER (Reported) Carvedilol 25 MG TABLET 0.5 TAB PO BID HEART/BP (Reported) Diltiazem HCl (Diltiazem 24HR ER) 360 MG CAP.ER.24H 1 CAP PO DAILY HEART/BP ( Reported) Doxazosin Mesylate (Cardura) 4 MG TABLET 1 TAB PO DAILY BP (Reported) Hydralazine HCl 25 MG TABLET 1 TAB PO TID bp (Reported) Irbesartan (Avapro) 300 MG TABLET 1 TAB PO DAILY HEART (Reported) Levetiracetam (Keppra) 500 MG TABLET 1 TAB PO BID seizures (Reported) Lovastatin 20 MG TABLET 1 TAB PO DAILY CHOLESTEROL (Reported) Metoclopramide HCl (Reglan) 5 MG TABLET 1 TAB PO 4XDAILY N/V (Reported) Omeprazole 40 MG CAPSULE.DR 1 CAP PO DAILY GI (Reported) Vit B Cmplx 3/FA/Vit C/Biotin (Jenny-Anthony Rx Tablet) 1 MG-60 MG-300 MCG TABLET 1 TAB PO DAILY SUPPLEMENT (Reported) Warfarin Sodium (Jantoven) 5 MG TABLET 1 TAB PO 1700 BLOOD THINNER (Reported) Review of Systems Review of Systems: The review of systems is negative for chest pains, palpitations. There was fatigue as above.. The remainder of the 14 point review of systems is noncontributory with the exception of above. Past History Travel History Traveled to [place] past 21 day No Medical History Blood Transfusion Hx: No Neurological: CVA EENT: NONE Cardiovascular: CAD, hypertension Respiratory: NONE Gastrointestinal: lower GI bleed, diverticulosis Hepatic: NONE Renal: ESRD on HD Musculoskeletal: ARTHRITIS GOUT Psychiatric: NONE Endocrine: hyperparathyroidism (secondary) Blood Disorders: monoclonal gammopathy of unknown significance.this was an IgA [place] monoclonal. 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 Home Who Do You Live With? self Services at Home: NONE Primary Language: Togolese Smoking Status: Never Smoked ETOH Use: denies use Illicit Drug Use: denies illicit drug use Functional Ability ADLs Independent: dressing, eating, toileting, bathing. Ambulation: independent Exam & Diagnostic Data Vital Signs and I&O Vital Signs Date Time Temp Pulse Resp B/P B/P Pulse O2 O2 Flow FiO2 Mean Ox Delivery Rate 12/10 799 98.7 46 12 160/66 95 Room Air 12/09 0800 95 Room Air 12/09 0400 97 Room Air 12/09 0045 100 Room Air / 0045 98.5 36 13 138/78 100 Room Air / 2328 96.6 38 16 133/60 100 Room Air / 2224 96.5 40 16 146/62 98 Room Air / 2123 38 18 142/60 98 Room Air /4 96.0 48 20 182/80 99 Room Air Intake & Output 12/09 1600 12/09 08/ 0000 12/08 1600 12/08 0000 Intake Total 50 0 Output Total 0 0 Balance 50 0 Intake, Oral 50 0 Number 0 Bowel Movements Output, Urine 0 0 Patient 149 lb 160 lb Weight Weight Bed scale Measurement Method Physical Exam: General: Nontoxic, no apparent distress. HEENT: Sclera and conjunctiva within normal limits, without xanthelasmas. Neck: Carotids 2+ without bruits. Respiratory: Clear to auscultation, air movement is good, without accessory respiratory muscle use. Heart: Regular rate and rhythm, without murmurs, without JVD. Abdomen: Soft, nontender, no masses, normoactive bowel sounds. Extremities: Without clubbing, cyanosis, without edema. Neuro: Nonfocal exam, strength, 5 out of 5 Skin: Within normal limits without lesions. Psych: Mood and affect: Normal Labs/Jesse Results: Laboratory Tests 12/09 12/09 12/09 1050 0507 0400 Chemistry Sodium (137 - 145 mmol/L) 133 L Potassium (3.5 - 5.1 mmol/L) 4.6 Chloride (98 - 107 mmol/L) 99 Carbon Dioxide (22 - 30 mmol/L) 20 L Anion Gap (5 - 16) 14 BUN (7 - 17 mg/dL) 58 H Creatinine (0.5 - 1.0 mg/dL) 9.3 *H Estimated GFR (>60 ml/min) 4 L Glucose (65 - 99 mg/dL) 79 Calcium (8.4 - 10.2 mg/dL) 8.8 Phosphorus (2.5 - 4.5 mg/dL) 3.5 Magnesium (1.6 - 2.3 mg/dL) 2.0 Total Bilirubin (0.2 - 1.3 mg/dL) 0.6 AST (14 - 36 U/L) 13 L ALT (9 - 52 U/L) 23 Troponin I (< 0.11 ng/ml) Pending < 0.01 Cancelled Albumin (3.5 - 5.0 g/dL) 3.1 L Coagulation PT (9.4 - 12.5 SEC) 37.8 H INR (0.90 - 1.19) 3.43 H Hematology CBC w Diff NO MAN DIFF REQ WBC (4.8 - 10.8 /CUMM) 6.1 RBC (4.20 - 5.40 /CUMM) 3.83 L Hgb (12.0 - 16.0 G/DL) 11.4 L Hct (37 - 47 %) 35.3 L MCV (81.0 - 99.0 FL) 92.2 MCH (27.0 - 31.0 PG) 29.8 MCHC (33.0 - 37.0 G/DL) 32.3 L RDW (11.5 - 14.5 %) 15.4 H Plt Count (130 - 400 /CUMM) 174 MPV (7.4 - 10.4 FL) 9.4 Gran % (42.2 - 75.2 %) 40.4 L Lymphocytes % (20.5 - 51.1 %) 43.6 Monocytes % (1.7 - 9.3 %) 12.6 H Eosinophils % (0 - 5 %) 2.7 Basophils % (0.0 - 2.0 %) 0.7 Absolute Granulocytes (1.4 - 6.5 /CUMM) 2.4 Absolute Lymphocytes (1.2 - 3.4 /CUMM) 2.6 Absolute Monocytes (0.10 - 0.60 /CUMM) 0.8 H Absolute Eosinophils (0.0 - 0.7 /CUMM) 0.2 Absolute Basophils (0.0 - 0.2 /CUMM) 0 03/01 07/01 07/ 2351 2214 2105 Chemistry Sodium (137 - 145 mmol/L) 133 L Potassium (3.5 - 5.1 mmol/L) 5.8 H Chloride (98 - 107 mmol/L) 96 L Carbon Dioxide (22 - 30 mmol/L) 19 L Anion Gap (5 - 16) 18 H BUN (7 - 17 mg/dL) 57 H Creatinine (0.5 - 1.0 mg/dL) 9.2 *H Estimated GFR (>60 ml/min) 4 L BUN/Creatinine Ratio (7 - 25 %) 6.2 L Glucose (65 - 99 mg/dL) 102 H Lactic Acid (0.7 - 2.1 mmol/L) Cancelled 1.2 Calcium (8.4 - 10.2 mg/dL) 9.3 Total Bilirubin (0.2 - 1.3 mg/dL) 0.8 AST (14 - 36 U/L) 18 ALT (9 - 52 U/L) 19 Alkaline Phosphatase (<127 U/L) 80 Troponin I (< 0.11 ng/ml) < 0.01 Total Protein (6.3 - 8.2 g/dL) 7.2 Albumin (3.5 - 5.0 g/dL) 3.8 Globulin (1.9 - 4.2 gm/dL) 3.4 Albumin/Globulin Ratio (1.1 - 2.2 %) 1.1 TSH (0.270 - 4.200 uIU/mL) 2.120 Coagulation PT (9.4 - 12.5 SEC) 34.2 H INR (0.90 - 1.19) 3.10 H APTT (25 - 37 SEC) 46 H Hematology CBC w Diff NO MAN DIFF REQ WBC (4.8 - 10.8 /CUMM) 6.3 RBC (4.20 - 5.40 /CUMM) 4.32 Hgb (12.0 - 16.0 G/DL) 12.6 Hct (37 - 47 %) 40.3 MCV (81.0 - 99.0 FL) 93.3 MCH (27.0 - 31.0 PG) 29.2 MCHC (33.0 - 37.0 G/DL) 31.3 L RDW (11.5 - 14.5 %) 14.8 H Plt Count (130 - 400 /CUMM) 206 MPV (7.4 - 10.4 FL) 9.6 Gran % (42.2 - 75.2 %) 53.1 Lymphocytes % (20.5 - 51.1 %) 34.4 Monocytes % (1.7 - 9.3 %) 7.6 Eosinophils % (0 - 5 %) 4.4 Basophils % (0.0 - 2.0 %) 0.5 Absolute Granulocytes (1.4 - 6.5 /CUMM) 3.3 Absolute Lymphocytes (1.2 - 3.4 /CUMM) 2.2 Absolute Monocytes (0.10 - 0.60 /CUMM) 0.5 Absolute Eosinophils (0.0 - 0.7 /CUMM) 0.3 Absolute Basophils (0.0 - 0.2 /CUMM) 0 Serology Lyme Disease Antibody (RATIO) 0.14 Toxicology Digoxin (0.8 - 2.0 ng/mL) < 0.4 L Assessment/Plan Assessment/Plan 72-year-old woman with a past medical history of end-stage renal disease on hemodialysis, prior CVA, paroxysmal atrial fibrillation (on warfarin), hypertension and MGUS. She presents to our hospital with symptoms of increasing fatigue, and was found to be bradycardic. Fatigue/bradycardia: The patient presented with increasing fatigue and was noted to be bradycardic. This is likely multifactorial including her care anemia as well as regimen. Currently, her heart rate has improved following holding her carvedilol as well as diltiazem with correction of hyperkalemia. We may consider reintroduction of her regimen of carvedilol without concurrent diltiazem if heart rates continued to improve. Hypertension: The patient has suboptimally controlled hypertension and her concurrent bradycardia, consideration of changing her diltiazem to an agent such as amlodipine and official. We may start at 5 mg by mouth daily and increase to 10 g by mouth daily as needed. End-stage renal disease/hyperkalemia: Continue treatment as per nephrology. Thank you for allowing us to participate in the care of your patient. Please do not hesitate to contact us further with any questions. Sincerely, Carlos Lal MD [facility] Consult Acknowledgment - Thank you for your consult request.
[2017-12-09 16:00] VITALS: BP 150/68
--- NOTE | 2017-12-09 20:17 | ECHOCARDIOGRAM REPORT ---
HERO LAWRENCE Age: 72 : 1945 Gender: F Exam Date: 12/09/2017 09:24 Exam Location: [facility] Ht (in): 63 Wt (lb): 160 BSA: 1.82 BP: 172 / 68 Ordering Physician: Vivek Yarbrough MD Referring Physician: Vivek Yarbrough MD Technologist: Cody Barrett [facility] Room Number: 114-1 Indications: HEART FAILURE Rhythm: Sinus Technical Quality: fair FINDINGS Left Ventricle Normal size left ventricle. Left ventricular wall thickness at upper limits of normal. Normal left ventricular ejection fraction estimated at 60-65%. Right Ventricle Normal right ventricular size and function. Right Atrium Normal right atrial size. Left Atrium Mild left atrial dilatation. Mitral Valve Mild mitral annular calcification. Mild mitral regurgitation. Aortic Valve Diffuse thickening of the aortic valve cusps with reduced excursion. Moderate aortic stenosis. Mild aortic regurgitation. Tricuspid Valve Tricuspid valve is normal in structure and function. Moderate tricuspid regurgitation. Right ventricular systolic pressure estimated to be elevated at 54 mmHg. Pulmonic Valve Structurally normal pulmonic valve. Pericardium Minimal pericardial effusion (normal variant). Great Vessels Normal size aortic root. CONCLUSIONS Normal left and right ventricular systolic function. Borderline LVH. Mild Left atrial enlargement. Moderate Aortic Stenosis. Moderate Pulmonary hypertension. Mp Weaver M.D. (Electronically Signed) Final Date: 09 December 2017 20:16 MEASUREMENTS (Male / Female) Normal Values 2D ECHO LV Diastolic Diameter PLAX 4.7 cm 4.2 - 5.9 / 3.9 - 5.3 cm LV Systolic Diameter PLAX 2.9 cm 2.1 - 4.0 cm LV Fractional Shortening PLAX 38.3 % 25 - 46 % LV Ejection Fraction 2D Teich 68.5 % IVS Diastolic Thickness 1.1 cm LVPW Diastolic Thickness 1.1 cm LV Relative Wall Thickness 0.5 RV Internal Dim ED PLAX 2.7 cm 1.9 - 3.8 cm LVOT Diameter 1.7 cm Aortic Root Diameter 2.6 cm LA Volume 67.0 cm 18 - 58 / 22 - 52 cm Ascending Aorta Diameter 3.6 cm DOPPLER AV Peak Velocity 279.0 cm/s AV Peak Gradient 31.1 mmHg AV Mean Velocity 188.0 cm/s AV Mean Gradient 16.0 mmHg AV Velocity Time Integral 78.8 cm AI Deceleration [place] 224.0 cm/s AI Peak Velocity 373.0 cm/s AI Pressure Half Time 487.0 ms AI Peak Gradient 55.7 mmHg LVOT Peak Velocity 163.0 cm/s LVOT Peak Gradient 10.6 mmHg LVOT Mean Velocity 110.0 cm/s LVOT Mean Gradient 6.0 mmHg LVOT Velocity Time Integral 44.7 cm LVOT Stroke Volume 101.5 cm AV Area Cont Eq vti 1.3 cm AV Area Cont Eq pk 1.3 cm MV Peak Velocity 190.0 cm/s MV Peak Gradient 14.4 mmHg MV Mean Velocity 90.2 cm/s MV Mean Gradient 4.0 mmHg Mitral E Point Velocity 124.0 cm/s Mitral A Point Velocity 122.0 cm/s Mitral E to A Ratio 1.0 MV PHT Velocity 186.0 cm/s MV Deceleration [place] 673.0 cm/s MV Pressure Half Time 82.9 ms MV Area PHT 2.7 cm MV Deceleration Time 423.0 ms TR Peak Velocity 335.0 cm/s TR Peak Gradient 44.9 mmHg Right Atrial Pressure 10.0 mmHg Pulmonary Artery Systolic Pressu 54.9 mmHg Right Ventricular Systolic Press 54.9 mmHg PV Peak Velocity 129.0 cm/s PV Peak Gradient 6.7 mmHg PV Mean Velocity 85.9 cm/s PV Mean Gradient 4.0 mmHg PV Velocity Time Integral 32.5 cm LV E' Lateral Velocity 7.9 cm/s Mitral E to LV E' Lateral Ratio 15.7 LV E' Septal Velocity 8.0 cm/s Mitral E to LV E' Septal Ratio 15.5
[2017-12-10] VITALS: BP 170/68
[2017-12-10 05:24] LABS: PT 31.5 SEC (9.4-12.5)
[2017-12-10 05:25] LABS: ABSOLUTE BASOPHIL COUNT 0 /CUMM (0.0-0.2); ABSOLUTE EOSINOPHIL COUNT 0.3 /CUMM (0.0-0.7); ABSOLUTE GRANULOCYTE CT 2.5 /CUMM (1.4-6.5); ABSOLUTE LYMPH COUNT 2.2 /CUMM (1.2-3.4); ABSOLUTE MONOCYTE COUNT 0.6 /CUMM (0.10-0.60); BASOPHIL % 0.7 % (0.0-2.0); EOSINOPHIL % 4.5 % (0-5); MEAN CORPUSCULAR HGB 29.9 PG (27.0-31.0); MEAN CORPUSCULAR HGB CONC 32.5 G/DL (33.0-37.0); MEAN CORPUSCULAR VOLUME 91.9 FL (81.0-99.0); MEAN PLATELET VOLUME 9.5 FL (7.4-10.4); PLATELET COUNT 181 /CUMM (130-400); WHITE BLOOD CELL COUNT 5.5 /CUMM (4.8-10.8)
[2017-12-10 08:00] VITALS: BP 158/66
--- NOTE | 2017-12-10 08:31 | PN- Resident CRCU ---
See Addendum Subjective HPI/CRCU Issues: Patient seen and examined HR ranging 60s to 70s Blood pressure ranging from 190s to 170s/80s to 70s overnight. offers no complaints. Objective Vital Signs & I&O Last 8 Hrs of Vitals and I&O: Vital Signs Date Time Temp Pulse Resp B/P B/P Pulse O2 O2 Flow FiO2 Mean Ox Delivery Rate 12/11 799 94 Room Air Room Air 12/10 0400 96 Room Air 12/10 0000 98.5 61 16 170/68 95 Room Air 12/10 0000 96 Room Air 12/09 203 58 16 185/87 12/10 2031 99.8 59 16 185/87 12/10 1999 96 Room Air 12/10 1599 99.2 51 28 150/68 96 Room Air Intake & Output 12/10 0812/10 0000 Intake Total 100 440 Output Total 0 1999 Balance 100 -1560 Intake, IV 0 0 Intake, Oral 100 440 Number 0 Bowel Movements Output, 2000 Dialysate Output, Urine 0 Patient 147 lb Weight Weight Bed scale Measurement Method Exam General Appearance: well developed/nourished, no apparent distress Head: atraumatic Neck: normal inspection Respiratory: normal breath sounds, chest non-tender, no respiratory distress Cardiovascular: regular rate/rhythm Gastrointestinal: normal bowel sounds, soft, non-tender Extremities: no edema Current Medications: Current Medications Sig/Keyla Start time Last Medication Dose Route Stop Time Status Admin Acetaminophen 650 MG Q8P PRN 12/09 0430 AC PO Acetaminophen 1,000 MG BID PRN 12/09 0430 AC IV Allopurinol 100 MG DAILY 12/09 1000 AC 12/09 PO 0959 Amlodipine Besylate 5 MG DAILY 12/10 1000 AC PO Amlodipine Besylate 5 MG DAILY 12/09 1253 DC PO Atorvastatin Calcium 40 MG 1700 12/09 1700 AC PO Atropine Sulfate 0.5 MG ONE PRN 12/09 0100 AC IV Doxazosin Mesylate 4 MG DAILY 12/10 1000 AC 12/10 PO 0525 Hydralazine HCl 25 MG TID 12/09 1600 AC 12/09 PO 203 Levetiracetam 500 MG BID 12/09 1000 AC 12/09 PO 2207 Losartan Potassium 100 MG DAILY 12/09 1258 AC 12/09 PO 203 Omeprazole 40 MG DAILY AC 12/09 0700 AC 12/09 PO 0731 Paricalcitol 4 MCG 12/11 1000 CAN PO Paricalcitol 4 MCG Saturday .. 12/09 1930 AC IV Tramadol HCl 50 MG Q8P PRN 12/09 0430 AC PO Impression/Plan Impression/Problem List Impression: The patient is 72 year old female with past medical history of CVA in 1997 with residual right-sided facial droop and right-sided weakness, hypertension, ESRD on hemodialysis schedule of Saturday and Saturday, atrial fibrillation on Coumadin and subclinical seizures on Keprra The patient presented to [place] ED on 12/09 with complaint of fatigue weakness, lethargy and exertional dyspnea. She was found to be bradycardic and 36 with blood pressure of 182/80 on presentation. The patient was admitted to ICU for symptomatic bradycardia. She is being treated evaluated for following conditions Respiratory stable Infection none Cardiovascular #Symptomatic bradycardia secondary to medications -Continue telemetry monitoring for heart rate -Carvedilol and Cardizem on hold, If need to be started consider dose reduction -Echocardiogram showed borderline LVH with moderate aortic stenosis and moderate pulmonary hypertension. #Essential Hypertension Patient is on 5 antihypertensive medications in home. Of note patient last admission was in September 2017 for hypertensive crisis. -Continue losartan, hydralazine and doxazosin. Patient has been started on amlodipine. Carvedilol Cardizem on hold. -Closely monitor patient's blood pressures. #Atrial fibrillation, supratherapeutic INR Patient is on Coumadin for atrial fibrillation dose at 5 mg daily. Resented with INR of 3.4 -Continue to monitor her INR and dose warfarin accordingly. Goal INR will be between 2-3 for atrial fibrillation. Hematology #Chronic anemia 2/2 ESRD -Continue to monitor Metabolic #Hyperkalemia Patient presented with potassium of 5.8 likely secondary to ESRD -Received IV insulin and Kayexalate overnight -Repeat potassium level is 4.6 -Continue to monitor -Dialyze on F #Anion gap metabolic acidosis likely secondary to uremia secondary to ESRD -Dialysis on [facility] Alimentary #Renal dialysis diet Nephrology #ESRD on HD ([facility]) -Nephrology on the board, HD today Neurology #Subclinical seizures -Continue Kera DVT prophylaxis on Coumadin supratherapeutic INR CODE STATUS Full code Problem List: 1. Supratherapeutic INR Pain Ratin Tomorrow's Labs & Rationales: cbc icu bundle Plan DVT/Prophylaxis: pharmacological Pain Ratin Tomorrow's Labs & Rationales: cbc icu bundle
--- NOTE | 2017-12-10 09:23 | Transfer of Care Summary ---
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 Before presentation patient had 2 episodes of semiformed stool and was incontinent. (not her baseline) Patient is independent with her ADL's and compliant with her medication. Of note patient last admission was in September 2017 for hypertensive crisis. Interval events She was found to be bradycardic to 36 with blood pressure of 182/80 on presentation. likely medication-induced secondary to AV blockage caused by beta blockers and calcium channel blockers. Cardizem and carvedilol were put on hold. To rule out other causes of thyroid function tests within normal limits, Lyme panel negative. Patient was transferred to ICU for further management, external pacers were placed. Atropine placed at bedside. However patient's HR improved subsequently (ranging in the 50s to 60s today) just with stopping Cardizem and carvedilol. ACS has been ruled out with 3 sets of troponin and negative EKG. Patient's blood pressure has been running in higher range. Losartan, doxazosin and hydralazine have been restarted. We also added amlodipine for better blood pressure control current range 170s/80s. AV blocking agents remain on hold. She is on Coumadin for atrial fibrillation with goal INR of 2-3 She presented with supratherapeutic INR. We continue to monitor her INR and dose warfarin accordingly. She was also hypokalemic on presentation received IV insulin, dextrose and Kayexalate, hyperkalemia has resolved subsequently. Of note patient has ESRD and her dialysis schedule is Saturday and Saturday. She is being treated and evaluated for following conditions #Symptomatic bradycardia secondary to medications -Continue telemetry monitoring for heart rate -Carvedilol and Cardizem on hold, If need to be started consider dose reduction -Echocardiogram showed borderline LVH with moderate aortic stenosis and moderate pulmonary hypertension. #Essential Hypertension Patient is on 5 antihypertensive medications in home. Of note patient last admission was in September 2017 for hypertensive crisis. -Continue losartan, hydralazine and doxazosin. Patient has been started on amlodipine. Carvedilol Cardizem on hold. -Closely monitor patient's blood pressures. #Atrial fibrillation, supratherapeutic INR Patient is on Coumadin for atrial fibrillation dose at 5 mg daily. Resented with INR of 3.4 -Continue to monitor her INR and dose warfarin accordingly. Goal INR will be between 2-3 for atrial fibrillation. #ESRD on HD (MWF) #Chronic anemia 2/2 ESRD -Continue to monitor H/H currently stable #Subclinical seizures-Continue Keppra #Anion gap metabolic acidosis-resolved #Hyperkalemia-resolved Mechanical ventilation None NIIPPV none Antibiotic plan None Thinks to be followed up -Follow-up cardiology recommendations for bradycardia and hypertension -Continue to monitor blood pressure closely -Carvedilol and Cardizem are on hold, If need to be started consider dose reduction to avoid future episodes of bradycardia. -Continue to monitor her INR daily and dose Coumadin accordingly. Goal for atrial fibrillation 2 to 3 -Dialysis on Saturday and Saturday -Continue to monitor H/H -There is room to go up in amlodipine dose currently at 5mg, consider increasing to 10mg if needed Nutrition Renal dialysis diet DVT prophylaxis with Coumadin CODE STATUS full code Assessment/Plan: see above
--- NOTE | 2017-12-10 10:29 | PN- Cardiology ---
Subjective Subjective: The patient is awake, lethargic The events of the last 24 hours as well as telemetry were reviewed. Review of Systems: The review of systems is negative for chest pains, palpitations nor lightheadedness. The remainder of the 14 point review of systems is noncontributory with the exception of above. Objective Vital Signs and I&Os Vital Signs Date Time Temp Pulse Resp B/P B/P Pulse O2 O2 Flow FiO2 Mean Ox Delivery Rate 12/10 1024 62 186/67 12/10 1024 62 186/67 12/10 1023 62 186/67 12/10 0800 94 Room Air Room Air 12/10 0800 98.9 57 22 158/66 94 Room Air Room Air 12/10 0400 96 Room Air 12/10 0000 98.5 61 16 170/68 95 Room Air 12/10 0000 96 Room Air / 2033 58 16 185/87 / 203 99.8 59 16 185/87 / 2000 96 Room Air / 1600 99.2 51 28 150/68 96 Room Air Intake & Output 12/10 1600 12/10 0800 / 0000 / 1600 / 0800 03/05 0000 Intake Total 100 440 230 50 0 Output Total 0 2000 0 0 0 Balance 100 -1560 230 50 0 Intake, IV 0 0 0 Intake, Oral 100 440 230 50 0 Number 0 0 Bowel Movements Output, 2000 Dialysate Output, Urine 0 0 0 0 Patient 147 lb 149 lb 160 lb Weight Weight Bed scale Bed scale Measurement Method Physical Exam: General: Nontoxic, no apparent distress. HEENT: Sclera and conjunctiva within normal limits, without xanthelasmas. Neck: Carotids 2+ without bruits. Respiratory: Clear to auscultation, air movement is good, without accessory respiratory muscle use. Heart: Regular rate and rhythm, without murmurs, without JVD. Abdomen: Soft, nontender, no masses, normoactive bowel sounds. Extremities: Without clubbing, cyanosis, without edema. Neuro: Nonfocal exam, strength, 5 out of 5 Skin: Within normal limits without lesions. Psych: Mood and affect: Normal Current Medications: Current Medications Sig/Keyla Start time Last Medication Dose Route Stop Time Status Admin Acetaminophen 650 MG Q8P PRN 12/090 AC PO Acetaminophen 1,000 MG BID PRN 03/05 0430 AC IV Allopurinol 100 MG DAILY 12/09 1000 AC 12/10 PO 1023 Amlodipine Besylate 5 MG DAILY 12/10 1000 AC 12/10 PO 1024 Amlodipine Besylate 5 MG DAILY 12/09 1253 DC PO Atorvastatin Calcium 40 MG 1700 12/09 1700 AC PO Atropine Sulfate 0.5 MG ONE PRN 12/09 0100 AC IV Doxazosin Mesylate 4 MG DAILY 12/10 1000 AC 12/10 PO 0525 Hydralazine HCl 25 MG TID 12/09 1600 AC 12/10 PO 1024 Levetiracetam 500 MG BID 12/09 1000 AC 12/10 PO 1023 Losartan Potassium 100 MG DAILY 12/09 1258 AC 12/10 PO 1023 Omeprazole 40 MG DAILY AC 12/09 0700 AC 12/10 PO 1024 Paricalcitol 4 MCG 12/11 1000 CAN PO Paricalcitol 4 MCG Saturday .. 12/09 1930 AC IV Tramadol HCl 50 MG Q8P PRN 12/09 0430 AC PO Results Last 48 Hrs of Labs/Mics: Laboratory Tests 12/10/17 0419: Anion Gap 11, Estimated GFR 6 L, Glucose 73, Calcium 8.7, Phosphorus 3.8, Magnesium 2.0, Total Bilirubin 0.5, AST 13 L, ALT 25, Albumin 3.1 L, PT 31.5 H, INR 2.86 H, CBC w Diff NO MAN DIFF REQ, RBC 3.70 L, MCV 91.9, MCH 29.9, MCHC 32.5 L, RDW 15.0 H, MPV 9.5, Gran % 45.0, Lymphocytes % 39.7, Monocytes % 10.1 H, Eosinophils % 4.5, Basophils % 0.7, Absolute Granulocytes 2.5, Absolute Lymphocytes 2.2, Absolute Monocytes 0.6, Absolute Eosinophils 0.3, Absolute Basophils 0 12/09/17 1050: Troponin I < 0.01 12/09/17 0507: Anion Gap 14, Estimated GFR 4 L, Glucose 79, Calcium 8.8, Phosphorus 3.5, Magnesium 2.0, Total Bilirubin 0.6, AST 13 L, ALT 23, Troponin I < 0.01, Albumin 3.1 L, PT 37.8 H, INR 3.43 H, CBC w Diff NO MAN DIFF REQ, RBC 3.83 L , MCV 92.2, MCH 29.8, MCHC 32.3 L, RDW 15.4 H, MPV 9.4, Gran % 40.4 L, Lymphocytes % 43.6, Monocytes % 12.6 H, Eosinophils % 2.7, Basophils % 0.7, Absolute Granulocytes 2.4, Absolute Lymphocytes 2.6, Absolute Monocytes 0.8 H, Absolute Eosinophils 0.2, Absolute Basophils 0 12/09/17 0400: Troponin I Cancelled 12/08/17 2351: Lactic Acid Cancelled 12/08/17 2214: Anion Gap 18 H, Estimated GFR 4 L, BUN/Creatinine Ratio 6.2 L, Glucose 102 H , Lactic Acid 1.2, Calcium 9.3, Total Bilirubin 0.8, AST 18, ALT 19, Alkaline Phosphatase 80, Troponin I < 0.01, Total Protein 7.2, Albumin 3.8, Globulin 3.4, Albumin/Globulin Ratio 1.1, TSH 2.120, Digoxin < 0.4 L 12/08/172104: PT 34.2 H, INR 3.10 H, APTT 46 H, CBC w Diff NO MAN DIFF REQ, RBC 4.32, MCV 93.3, MCH 29.2, MCHC 31.3 L, RDW 14.8 H, MPV 9.6, Gran % 53.1, Lymphocytes % 34.4, Monocytes % 7.6, Eosinophils % 4.4, Basophils % 0.5, Absolute Granulocytes 3.3, Absolute Lymphocytes 2.2, Absolute Monocytes 0.5, Absolute Eosinophils 0.3, Absolute Basophils 0, Lyme Disease Antibody 0.14 Microbiology 12/09 99 UPPER RESP: Surveillance Culture - COMP 12/09 99 GI: Surveillance Culture - COMP Assessment/Plan Assessment/Plan 72-year-old woman with a past medical history of end-stage renal disease on hemodialysis, prior CVA, paroxysmal atrial fibrillation (on warfarin), hypertension and MGUS. She presents to our hospital with symptoms of increasing fatigue, and was found to be bradycardic. Fatigue/bradycardia: The patient presented with increasing fatigue and was noted to be bradycardic. This is likely multifactorial including her medication regimen and electrolyte abnormality. Currently, her heart rate has improved following holding her carvedilol as well as diltiazem with correction of hyperkalemia. Further titration of her regimen may be performed as an outpatient Hypertension: The patient has suboptimally controlled hypertension. Amlodipine has been initiated, and we will continue with her current regimen including amlodipine, hydralazine, losartan and doxazosin. Further titration of her regimen will be performed as needed. Amlodipine may be increased to 10 mg daily. End-stage renal disease/hyperkalemia: Continue treatment as per nephrology. Continue telemetry? Yes
[2017-12-10 16:00] VITALS: BP 168/62
[2017-12-10 20:38] VITALS: BP 150/84
[2017-12-10 22:57] VITALS: BP 156/84
[2017-12-11 07:07] VITALS: BP 152/78
--- NOTE | 2017-12-11 07:32 | PN- Housestaff ---
Grace ODELL,[facility] 12/11/17 0731: Subjective Follow-up For: Lethargy/weakness Bradycardia Hypertension Atrial fibrillation Supratherapeutic INR ESRD on hemodialysis Complaints: no complaints Tele-Events Since Last Visit: Sinus bradycardia/sinus rhythm. Heart rate 59-64 bpm. No events. Subjective: Ms. Crystal has no complaints this morning. She denies lightheadedness, syncope , chest pain, palpitations, shortness of breath, cough, fevers or chills. She denies abdominal pain, nausea or vomiting. She had one normal bowel movement yesterday and denies diarrhea or hematochezia. She denies dysuria. Review of Systems Constitutional: Reports: see HPI. Denies: chills, fever. Objective Last 24 Hrs of Vital Signs/I&O Vital Signs Date Time Temp Pulse Resp B/P B/P Pulse O2 O2 Flow FiO2 Mean Ox Delivery Rate 12/11 1014 61 150/70 12/11 0800 Room Air 12/11 0707 98.8 61 20 152/78 94 / 2257 98.7 63 20 156/84 94 /06 2048 61 150/84 / 2038 98.4 61 16 150/84 95 Room Air / 1600 94 Room Air Room Air / 1600 99.8 64 20 168/62 95 Room Air Room Air Intake & Output 12/11 1600 12/11 0800 12/11 0000 Intake Total Output Total Balance Patient 145 lb 145 lb Weight Weight Bed scale Measurement Method Physical Exam General Appearance: Alert, Oriented X3, Cooperative, No Acute Distress Skin: No Rashes Skin Temp/Moisture Exam: Warm/Dry Sepsis Skin Exam (color): Normal for Ethnicity HEENT: Atraumatic, PERRLA, EOMI, Mucous Membr. moist/pink Neck: Supple, No JVD, No thryomegaly Lymphatic: Cervical nl Cardiovascular: Normal S1, Normal S2, No Murmurs Lungs: Normal Air Movement, bibasilar coarse crepitations Abdomen: Normal Bowel Sounds, Soft, No Tenderness, No Hepatospenomegaly, No Masses Neurological: Normal Speech, Strength at 5/5 X4 Ext, Normal Tone, Cranial Nerves 3-12 NL Extremities: No Clubbing, No Edema Vascular: Normal Pulses, Pulses Symmetrical Current Medications: Current Medications Sig/Keyla Start time Last Medication Dose Route Stop Time Status Admin Acetaminophen 650 MG Q8P PRN 12/09 0430 AC PO Acetaminophen 1,000 MG BID PRN 12/09 0430 AC IV Allopurinol 100 MG DAILY 12/09 1000 AC 12/10 PO 1023 Amlodipine Besylate 5 MG DAILY 12/10 1000 AC 12/10 PO 1024 Atorvastatin Calcium 40 MG 1700 12/09 1700 AC 12/10 PO 1716 Atropine Sulfate 0.5 MG ONE PRN 12/09 0100 AC IV Doxazosin Mesylate 4 MG DAILY 12/10 1000 AC 12/10 PO 0525 Hydralazine HCl 25 MG TID 12/09 1600 AC 12/11 PO 1014 Levetiracetam 500 MG BID 12/09 1000 AC 12/11 PO 1014 Losartan Potassium 100 MG DAILY 12/09 1258 AC 12/10 PO 1023 Omeprazole 40 MG DAILY AC 12/09 0700 AC 12/11 PO 0622 Paricalcitol 4 MCG Saturday .. 12/09 1930 AC IV Tramadol HCl 50 MG Q8P PRN 12/09 0430 AC PO Warfarin Sodium 5 MG COUMADIN 1700 ONE 12/11 1700 AC PO 12/11 1701 Last 24 Hrs of Lab/Jesse Results Last 24 Hrs of Labs/Mics: Laboratory Tests 12/11/17 0622: Anion Gap 14, Estimated GFR 4 L, BUN/Creatinine Ratio 6.6 L, Calcium 8.8, Phosphorus 4.5, Magnesium 1.9, PT 17.5 H, INR 1.60 H, CBC w Diff NO MAN DIFF REQ, RBC 3.64 L, MCV 91.6, MCH 29.2, MCHC 31.9 L, RDW 14.7 H, MPV 9.4, Gran % 40.9 L, Lymphocytes % 42.7, Monocytes % 11.8 H, Eosinophils % 4.1, Basophils % 0.5, Absolute Granulocytes 2.9, Absolute Lymphocytes 3.0, Absolute Monocytes 0.8 H, Absolute Eosinophils 0.3, Absolute Basophils 0 Assessment/Plan Assessment: The patient is 72-year-old woman with a past medical history of 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 She presented to [facility] ED on 12/09 with complaints of fatigue weakness, lethargy and exertional dyspnea. On further evaluation she was found to be bradycardic with a heart rate of 86 bpm and blood pressure of 182/80 mmhg on presentation. The patient was admitted to ICU for symptomatic bradycardia and now by mouth Cardizem and carvedilol were discontinued. Her heart rate improved after this intervention. Her home medication of doxazosin, hydralazine and losartan (at equivalent dose for her irbesartan home medication) were continued. In addition she was started on by mouth amlodipine for her elevated blood pressure with improvement in her blood pressure control. Her Coumadin had been held for a supratherapeutic INR that was 3.4. INR is now 1.6 and her Coumadin can be restarted. 1. Symptomatic bradycardia secondary to medications * Patient heart rate is now improved and in acceptable rate after discontinuing Cardizem and carvedilol * Cardiology consultation input appreciated * Patient can be discharged to follow-up with cardiology as outpatient for further alteration of medications 2. Essential Hypertension * Patient has a history of difficult to control hypertension was on 5 medications at home * Blood pressure has been improved since starting the amlodipine 5 mg daily * Continue losartan, hydralazine and doxazosin * Patient can be discharged for further outpatient adjustment of medications 3. Atrial fibrillation, supratherapeutic INR * Patient's INR was supratherapeutic at 3.4 on Coumadin for atrial fibrillation dose at 5 mg daily. * INR this morning 1.6 * Restart Coumadin at 4 mg daily dose today * Continue to monitor her INR and dose warfarin accordingly. Goal INR will be between 2-3 for atrial fibrillation. 4. Chronic anemia 2/2 ESRD * Patient's hemoglobin has been relatively the same for the past 3 days * Continue to monitor CBC as outpatient 5. End-stage renal disease on hemodialysis * Continue hemodialysis Saturday * Monitor electrolytes 6. Subclinical seizures * Continue Keppra DVT prophylaxis on Coumadin CODE STATUS Full code Problem List: 1. Symptomatic bradycardia 2. Bradycardia 3. Supratherapeutic INR 4. ESRD (end stage renal disease) on dialysis 5. Hypertension 6. Hypertensive urgency Pain Ratin Pain Location: none Pain Goal: Remain pain free Pain Plan: Tylenol when necessary Tomorrow's Labs & Rationales: Not needed Hanane Jovel MD 12/11/17 1510: Attending MD Review Statement Attending Statement Attending MD Statement: examined this patient, discuss w/resident/PA/VIRGINIA LINE ATTENDANT, agreed w/resident/PA/VIRGINIA LINE ATTENDANT, reviewed EMR data (avail), discussed with nursing, discussed with case mgmt, amended to note Attending Assessment/Plan: Patient resting comfortably and not in any acute distress. No issues overnight. No events on telemetry monitoring. Cardiology follow-up appreciated. Patient undergoing hemodialysis this afternoon. Blood pressure was significantly elevated today in the 200 systolic prior to dialysis. Discussed with the nephrology service. Apparently patient on systolic as high as 190s prior to dialysis in the outpatient setting. Blood pressure is expected to run higher now that she is also before kaity blocking agents. The goal will be to aim for lower dry weight and monitor for improvement of her blood pressure. We will monitor patient overnight to ensure that her blood pressure is stable. Patient is on losartan, hydralazine and doxaosin. Patient has been started on amlodipine. If blood pressure is still elevated tomorrow may consider increasing the dose. She is able to be taken off telemetry monitoring and transfered to the general medical floor.
[2017-12-11 08:12] LABS: ABSOLUTE BASOPHIL COUNT 0 /CUMM (0.0-0.2); ABSOLUTE EOSINOPHIL COUNT 0.3 /CUMM (0.0-0.7); ABSOLUTE GRANULOCYTE CT 2.9 /CUMM (1.4-6.5); ABSOLUTE MONOCYTE COUNT 0.8 /CUMM (0.10-0.60); BASOPHIL % 0.5 % (0.0-2.0); EOSINOPHIL % 4.1 % (0-5); GRANULOCYTE % 40.9 % (42.2-75.2); HEMATOCRIT 33.4 % (37-47); MEAN CORPUSCULAR HGB 29.2 PG (27.0-31.0); MEAN CORPUSCULAR HGB CONC 31.9 G/DL (33.0-37.0); MEAN CORPUSCULAR VOLUME 91.6 FL (81.0-99.0); MEAN PLATELET VOLUME 9.4 FL (7.4-10.4); PLATELET COUNT 175 /CUMM (130-400); RBC DISTRIBUTION WIDTH 14.7 % (11.5-14.5); RED BLOOD CELL CT 3.64 /CUMM (4.20-5.40)
[2017-12-11 08:17] LABS: PT 17.5 SEC (9.4-12.5)
[2017-12-11] MEDS ORDERED: AMLODIPINE BESYL5 M1 PO (11:00)
--- NOTE | 2017-12-11 11:03 | Patient Discharge Instructions ---
Discharge Instructions General Discharge Information You were seen/treated for: Lethargy, weakness, elevated blood pressure and slow heart rate, supratherapeutic or elevated INR Special Instructions: 1. Follow-up with your primary care provider within 1 week of discharge 2. Follow-up with your sheetfed press operator within 1 week of discharge 3. Follow-up with your direct mail coordinator within 1 week of discharge Diet Recommended Diet: Heart Healthy, Renal Dialysis Activity Full Activity/No Limits: No Activity Self Limited: Yes Acute Coronary Syndrome Inclusion Criteria At DC or during hospital stay patient has or had the following: ACS DIAGNOSIS No Discharge Core Measures Meds if any: Prescribed or Continued at Discharge Meds if any: NOT Prescribed or Continued at Discharge Congestive Heart Failure Inclusion Criteria At DC or during hospital stay patient has or had the following: CHF DIAGNOSIS No Discharge Core Measures Meds if any: Prescribed or Continued at Discharge Meds if any: NOT Prescribed or Continued at Discharge Cerebrovascular accident Inclusion Criteria At DC or during hospital stay patient has or had the following: CVA/TIA Diagnosis No Discharge Core Measures Meds if any: Prescribed or Continued at Discharge Meds if any: NOT Prescribed or Continued at Discharge Venous thromboembolism Inclusion Criteria VTE Diagnosis No VTE Type NONE VTE Confirmed by (Test) NONE Discharge Core Measures - Per Current guidelines, there needs to be overlap - treatment for the first 5 days of Warfarin therapy. - If discharged on Warfarin prior to 5 days of - overlap therapy, the patient will need to be - assessed for post discharge needs including - *Post discharge parental anticoagulation - *Warfarin and/or parental anticoagulation education - *Follow up date to check INR post discharge At least 5 days overlap therapy as Inpatient No Meds if any: Prescribed or Continued at Discharge Note: Overlap Therapy is Warfarin and Anticoagulant Meds if any: NOT Prescribed or Continued at Discharge
--- NOTE | 2017-12-11 12:01 | Discharge Summary ---
Visit Information Visit Dates Admission Date: 12/08/17 Discharge Date: 12/12/17 Hospital Course Course Attending Physician: Hanane Jovel MD Primary Care Physician: Mp Sifuentes MD Consulting Request: 1 Consulting Specialty: Cardiology Consulting Physician: Dr. Lal Reason for Consult: Symptomatic bradycardia Consulting Request: 2 Consulting Specialty: Nephrology Consulting Physician: Dr. 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 She presented to [facility] ED on with complaints of fatigue weakness, lethargy and exertional dyspnea of 3 days duration. On further evaluation she was found to be bradycardic with a heart rate around 30-40 bpm and blood pressure of 182/80 mmhg on presentation. The patient was admitted to ICU for symptomatic bradycardia and her by mouth cardizem and carvedilol were discontinued. Her heart rate improved after this intervention. Her home medication of doxazosin, hydralazine and losartan (substituted at equivalent dose for her irbesartan home medication) were continued. In addition she was started on by mouth amlodipine 5 mg daily for her elevated blood pressure with improvement in her blood pressure control. She continued her hemodialysis while on admission. Her Coumadin had been held for a supratherapeutic INR that was 3.4. her coumadin was restarted at 5 mg daily after her INR drifted down to subtherapeutic levels. She was discharged to follow up with her model maker and manager provider relations and to have home health care. Allergies: Coded Allergies: No Known Allergies (01/13/17) Disposition Summary Disposition Principal Diagnosis: 1. Symptomatic bradycardia secondary to medications 2. Essential Hypertension 3. Atrial fibrillation 4. Supratherapeutic INR Additional Diagnosis: 5. Chronic anemia 2/2 ESRD 6. End-stage renal disease on hemodialysis 7. History of subclinical seizures Discharge Disposition: home health services Discharge Instructions General Discharge Information Code Status: Full Code Patient's Diet: Heart Healthy, Renal Dialysis diet Patient's Activity: Self-limited activity Follow-Up Instructions/Appts: 1. Follow-up with your primary care provider within 1 week of discharge 2. Follow-up with your model maker within 1 week of discharge 3. Follow-up with your manager provider relations within 1 week of discharge Medications at Discharge Discharge Medications: Stop taking the following medications: Diltiazem HCl (Diltiazem 24HR ER) 360 MG CAP.ER.24H ORAL DAILY Qty = 90 Carvedilol (Carvedilol) 25 MG TABLET ORAL TWICE DAILY Qty = 180 Metoclopramide HCl (Reglan) 5 MG TABLET ORAL 4XDAILY Continue taking these medications: Omeprazole (Omeprazole) 40 MG CAPSULE.DR 1 Capsule ORAL DAILY Qty = 30 Comments: Last Taken: 12/11/17 Time: 6:30 AM Warfarin Sodium (Jantoven) 5 MG TABLET 1 Tablet ORAL 5 PM Comments: Last Taken: 12/11/17 Time: 4:20 PM Lovastatin (Lovastatin) 20 MG TABLET 1 Tablet ORAL DAILY Qty = 90 Comments: Last Taken: 12/11/17 Time: 5:00 PM Calcium Acetate (Calcium Acetate) 667 MG CAPSULE 4 Capsule ORAL THREE TIMES DAILY Qty = 390 Comments: Last Taken: 09/12/17 Time: 930 AM Vit B Cmplx 3/FA/Vit C/Biotin (Jenny-Anthony Rx Tablet) 1 MG-60 MG-300 MCG TABLET 1 Tablet ORAL DAILY Comments: Last Taken: 09/12/17 Time: 930 AM Allopurinol (Allopurinol) 100 MG TABLET 1 Tablet ORAL DAILY Qty = 90 Comments: Last Taken: 12/12/17 Time:1000 Hydralazine HCl (Hydralazine HCl) 25 MG TABLET 1 Tablet ORAL THREE TIMES DAILY Comments: Last Taken:12/12/17 Time: 1000 Irbesartan (Avapro) 300 MG TABLET 1 Tablet ORAL DAILY Doxazosin Mesylate (Cardura) 4 MG TABLET 1 Tablet ORAL DAILY Comments: Last Taken:12/12/17 Time:1000 Levetiracetam (Keppra) 500 MG TABLET 1 Tablet ORAL TWICE DAILY Comments: Last Taken:12/12/17 Time:1000 Start taking the following new medications: Amlodipine Besylate (Amlodipine Besylate) 5 MG TABLET 1 Tablet ORAL DAILY Qty = 30 No Refills Instructions: . Comments: Last Taken:12/12/17 Time:1000 Copies To: Henry ODELL,Duncan Amaro; Maria ODELL,Mp Zuluaga; Vida ODELL,Frederick Montanez; Lukasz ODELL, Carlos Attending MD Review Statement Documenting Attending: Hanane Jovel MD Other Findings: Medically stable to be discharged home today.
--- NOTE | 2017-12-11 12:25 | PN- Cardiology ---
Subjective Subjective: The patient was awoken from sleep, lethargic The events of the last 24 hours as well as telemetry were reviewed. Review of Systems: The review of systems is negative for chest pains, palpitations nor lightheadedness. The remainder of the 14 point review of systems is noncontributory with the exception of above. Objective Vital Signs and I&Os Vital Signs Date Time Temp Pulse Resp B/P B/P Pulse O2 O2 Flow FiO2 Mean Ox Delivery Rate 12/11 1014 61 150/70 12/11 0800 Room Air 12/11 0707 98.8 61 20 152/78 94 / 2257 98.7 63 20 156/84 94 / 2048 61 150/84 03/ 2038 98.4 61 16 150/84 95 Room Air 12/10 1600 94 Room Air Room Air 12/10 1600 99.8 64 20 168/62 95 Room Air Room Air Intake & Output 12/11 1600 / 0800 / 0000 / 1600 12/10 0800 12/10 0000 Intake Total 400 100 440 Output Total 0 0 2000 Balance 400 100 -1560 Intake, IV 0 0 Intake, Oral 400 100 440 Number 0 Bowel Movements Output, 2000 Dialysate Output, Urine 0 0 Patient 145 lb 145 lb 147 lb Weight Weight Bed scale Bed scale Measurement Method Physical Exam: General: Nontoxic, no apparent distress. HEENT: Sclera and conjunctiva within normal limits, without xanthelasmas. Neck: Carotids 2+ without bruits. Respiratory: Clear to auscultation, air movement is good, without accessory respiratory muscle use. Heart: Regular rate and rhythm, without murmurs, without JVD. Abdomen: Soft, nontender, no masses, normoactive bowel sounds. Extremities: Without clubbing, cyanosis, without edema. Neuro: Nonfocal exam, strength, 5 out of 5 Skin: Within normal limits without lesions. Psych: Mood and affect: Normal Current Medications: Current Medications Sig/Keyla Start time Last Medication Dose Route Stop Time Status Admin Acetaminophen 650 MG Q8P PRN 12/09 0430 AC PO Acetaminophen 1,000 MG BID PRN 12/09 0430 AC IV Allopurinol 100 MG DAILY 12/09 1000 AC 12/10 PO 1023 Amlodipine Besylate 5 MG DAILY 12/10 1000 AC 12/10 PO 1024 Atorvastatin Calcium 40 MG 1700 12/09 1700 AC 12/10 PO 1716 Atropine Sulfate 0.5 MG ONE PRN 12/09 0100 AC IV Doxazosin Mesylate 4 MG DAILY 12/10 1000 AC 12/10 PO 0525 Hydralazine HCl 25 MG TID 12/09 1600 AC 12/11 PO 1014 Levetiracetam 500 MG BID 12/09 1000 AC 12/11 PO 1014 Losartan Potassium 100 MG DAILY 12/09 1258 AC 12/10 PO 1023 Omeprazole 40 MG DAILY AC 12/09 07 AC 12/11 PO 0622 Paricalcitol 4 MCG Saturday .. 12/09 193 AC IV Tramadol HCl 50 MG Q8P PRN 12/09 0430 AC PO Warfarin Sodium 5 MG COUMADIN 1700 ONE 12/11 1700 AC PO 12/11 170 Results Last 48 Hrs of Labs/Mics: Laboratory Tests 12/11/17621: Anion Gap 14, Estimated GFR 4 L, BUN/Creatinine Ratio 6.6 L, Calcium 8.8, Phosphorus 4.5, Magnesium 1.9, PT 17.5 H, INR 1.60 H, CBC w Diff NO MAN DIFF REQ, RBC 3.64 L, MCV 91.6, MCH 29.2, MCHC 31.9 L, RDW 14.7 H, MPV 9.4, Gran % 40.9 L, Lymphocytes % 42.7, Monocytes % 11.8 H, Eosinophils % 4.1, Basophils % 0.5, Absolute Granulocytes 2.9, Absolute Lymphocytes 3.0, Absolute Monocytes 0.8 H, Absolute Eosinophils 0.3, Absolute Basophils 0 12/10/17418: Anion Gap 11, Estimated GFR 6 L, Glucose 73, Calcium 8.7, Phosphorus 3.8, Magnesium 2.0, Total Bilirubin 0.5, AST 13 L, ALT 25, Albumin 3.1 L, PT 31.5 H, INR 2.86 H, CBC w Diff NO MAN DIFF REQ, RBC 3.70 L, MCV 91.9, MCH 29.9, MCHC 32.5 L, RDW 15.0 H, MPV 9.5, Gran % 45.0, Lymphocytes % 39.7, Monocytes % 10.1 H, Eosinophils % 4.5, Basophils % 0.7, Absolute Granulocytes 2.5, Absolute Lymphocytes 2.2, Absolute Monocytes 0.6, Absolute Eosinophils 0.3, Absolute Basophils 0 Assessment/Plan Assessment/Plan 72-year-old woman with a past medical history of end-stage renal disease on hemodialysis, prior CVA, paroxysmal atrial fibrillation (on warfarin), hypertension and MGUS. She presents to our hospital with symptoms of increasing fatigue, and was found to be bradycardic. Fatigue/bradycardia: The patient presented with increasing fatigue and was noted to be bradycardic. This is likely multifactorial including her medication regimen and electrolyte abnormality. Currently, her heart rate has improved following holding her carvedilol as well as diltiazem with correction of hyperkalemia. Further titration of her regimen may be performed as an outpatient Hypertension: The patient has suboptimally controlled hypertension. Amlodipine has been initiated, and we will continue with her current regimen including amlodipine, hydralazine, losartan and doxazosin. Further titration of her regimen will be performed as needed. Amlodipine may be increased to 10 mg daily. This may be performed as an outpatient. End-stage renal disease/hyperkalemia: Continue treatment as per nephrology. Continue telemetry? No
[2017-12-11] MEDS ORDERED: COUMADIN4 M1 PO (14:26)
[2017-12-11 14:42] VITALS: BP 209/76
--- NOTE | 2017-12-11 14:43 | PN- Nephrology ---
Assessment/Plan Nephrology Assessment: ESRD - Routine HD today. EDW likely needs to be downtitrated. Weakness - ?2/2 bradycardia - much better off kelvin blockade. Anemia - Not on MOHAN given Hg >11. MBD - Will dose Paricalcitol 4mcg TIW. HTN - SBP at baseline 170's-190's - can come down with treatment suggesting a volume component. Her dry weight may need to come down. Suggestion: -HD today - 2UF as tolerated -Downtitration of EDW -f/u BP post HD Please call [phone] with ?'s Subjective Subjective: Pt seen and examined on dialysis Kelvin blockade stopped - HR 60's SBP 170's Objective Vital Signs and I&Os Vital Signs Date Time Temp Pulse Resp B/P B/P Pulse O2 O2 Flow FiO2 Mean Ox Delivery Rate 12/11 1403 175/73 12/11 1402 175/73 12/11 1014 61 150/70 12/11 0800 Room Air 12/11 0707 98.8 61 20 152/78 94 12/10 2257 98.7 63 20 156/84 94 / 2048 61 150/84 / 203 98.4 61 16 150/84 95 Room Air / 1600 94 Room Air Room Air / 1600 99.8 64 20 168/62 95 Room Air Room Air Intake & Output 12/11 1600 12/11 0400 12/10 1600 12/10 0400 12/09 1600 12/09 0400 Intake Total 500 440 280 0 Output Total 0 2000 0 0 Balance 500 -1560 280 0 Intake, IV 0 0 0 Intake, Oral 500 440 280 0 Number 0 0 Bowel Movements Output, 2000 Dialysate Output, Urine 0 0 0 Patient 145 lb 145 lb 147 lb 149 lb Weight Weight Bed scale Bed scale Bed scale Measurement Method Physical Exam: Gen - OK appearing HEENT - supple CV - RRR, no m/r/g Chest - clear anteriorly, no w/r/r Abd - soft, NTND Ext - no edema, VITALIY AVG +thrill/+bruit Neuro - AOX3, grossly nonfocal Current Medications: Current Medications Sig/Keyla Start time Last Medication Dose Route Stop Time Status Admin Acetaminophen 650 MG Q8P PRN 12/09 0430 AC PO Acetaminophen 1,000 MG BID PRN 12/09 0430 AC IV Allopurinol 100 MG DAILY 12/09 1000 AC 12/11 PO 1400 Amlodipine Besylate 5 MG DAILY 12/10 1000 AC 12/11 PO 1403 Atorvastatin Calcium 40 MG 1700 12/09 1700 AC 12/10 PO 1716 Atropine Sulfate 0.5 MG ONE PRN 12/09 0100 AC IV Doxazosin Mesylate 4 MG DAILY 12/10 1000 AC 12/11 PO 1401 Hydralazine HCl 25 MG TID 12/09 1600 AC 12/11 PO 1014 Levetiracetam 500 MG BID 12/09 1000 AC 12/11 PO 1014 Losartan Potassium 100 MG DAILY 12/09 1258 AC 12/11 PO 1402 Omeprazole 40 MG DAILY AC 12/09 0700 AC 12/11 PO 0622 Paricalcitol 4 MCG Saturday .. 12/09 1930 AC IV Tramadol HCl 50 MG Q8P PRN 12/09 0430 AC PO Warfarin Sodium 5 MG COUMADIN 1700 ONE 12/11 1700 DC PO 12/11 1701 Warfarin Sodium 4 MG COUMADIN 170 ONE 12/11 1700 AC PO 12/11 170 Results Pertinent Lab Results: Laboratory Tests 12/11 0419 Chemistry Sodium (137 - 145 mmol/L) 135 L 136 L Potassium (3.5 - 5.1 mmol/L) 4.9 4.7 Chloride (98 - 107 mmol/L) 98 101 Carbon Dioxide (22 - 30 mmol/L) 23 24 Anion Gap (5 - 16) 14 11 BUN (7 - 17 mg/dL) 61 H 35 H Creatinine (0.5 - 1.0 mg/dL) 9.2 *H 6.7 *H Estimated GFR (>60 ml/min) 4 L 6 L BUN/Creatinine Ratio (7 - 25 %) 6.6 L Glucose (65 - 99 mg/dL) 73 Calcium (8.4 - 10.2 mg/dL) 8.8 8.7 Phosphorus (2.5 - 4.5 mg/dL) 4.5 3.8 Magnesium (1.6 - 2.3 mg/dL) 1.9 2.0 Total Bilirubin (0.2 - 1.3 mg/dL) 0.5 AST (14 - 36 U/L) 13 L ALT (9 - 52 U/L) 25 Albumin (3.5 - 5.0 g/dL) 3.1 L Coagulation PT (9.4 - 12.5 SEC) 17.5 H 31.5 H INR (0.90 - 1.19) 1.60 H 2.86 H Hematology CBC w Diff NO MAN DIFF REQ NO MAN DIFF REQ WBC (4.8 - 10.8 /CUMM) 7.0 5.5 RBC (4.20 - 5.40 /CUMM) 3.64 L 3.70 L Hgb (12.0 - 16.0 G/DL) 10.6 L 11.1 L Hct (37 - 47 %) 33.4 L 34.0 L MCV (81.0 - 99.0 FL) 91.6 91.9 MCH (27.0 - 31.0 PG) 29.2 29.9 MCHC (33.0 - 37.0 G/DL) 31.9 L 32.5 L RDW (11.5 - 14.5 %) 14.7 H 15.0 H Plt Count (130 - 400 /CUMM) 175 181 MPV (7.4 - 10.4 FL) 9.4 9.5 Gran % (42.2 - 75.2 %) 40.9 L 45.0 Lymphocytes % (20.5 - 51.1 %) 42.7 39.7 Monocytes % (1.7 - 9.3 %) 11.8 H 10.1 H Eosinophils % (0 - 5 %) 4.1 4.5 Basophils % (0.0 - 2.0 %) 0.5 0.7 Absolute Granulocytes (1.4 - 6.5 /CUMM) 2.9 2.5 Absolute Lymphocytes (1.2 - 3.4 /CUMM) 3.0 2.2 Absolute Monocytes (0.10 - 0.60 /CUMM) 0.8 H 0.6 Absolute Eosinophils (0.0 - 0.7 /CUMM) 0.3 0.3 Absolute Basophils (0.0 - 0.2 /CUMM) 0 0 /05 03/05 03/05 1050 0507 0400 Chemistry Sodium (137 - 145 mmol/L) 133 L Potassium (3.5 - 5.1 mmol/L) 4.6 Chloride (98 - 107 mmol/L) 99 Carbon Dioxide (22 - 30 mmol/L) 20 L Anion Gap (5 - 16) 14 BUN (7 - 17 mg/dL) 58 H Creatinine (0.5 - 1.0 mg/dL) 9.3 *H Estimated GFR (>60 ml/min) 4 L Glucose (65 - 99 mg/dL) 79 Calcium (8.4 - 10.2 mg/dL) 8.8 Phosphorus (2.5 - 4.5 mg/dL) 3.5 Magnesium (1.6 - 2.3 mg/dL) 2.0 Total Bilirubin (0.2 - 1.3 mg/dL) 0.6 AST (14 - 36 U/L) 13 L ALT (9 - 52 U/L) 23 Troponin I (< 0.11 ng/ml) < 0.01 < 0.01 Cancelled Albumin (3.5 - 5.0 g/dL) 3.1 L Coagulation PT (9.4 - 12.5 SEC) 37.8 H INR (0.90 - 1.19) 3.43 H Hematology CBC w Diff NO MAN DIFF REQ WBC (4.8 - 10.8 /CUMM) 6.1 RBC (4.20 - 5.40 /CUMM) 3.83 L Hgb (12.0 - 16.0 G/DL) 11.4 L Hct (37 - 47 %) 35.3 L MCV (81.0 - 99.0 FL) 92.2 MCH (27.0 - 31.0 PG) 29.8 MCHC (33.0 - 37.0 G/DL) 32.3 L RDW (11.5 - 14.5 %) 15.4 H Plt Count (130 - 400 /CUMM) 174 MPV (7.4 - 10.4 FL) 9.4 Gran % (42.2 - 75.2 %) 40.4 L Lymphocytes % (20.5 - 51.1 %) 43.6 Monocytes % (1.7 - 9.3 %) 12.6 H Eosinophils % (0 - 5 %) 2.7 Basophils % (0.0 - 2.0 %) 0.7 Absolute Granulocytes (1.4 - 6.5 /CUMM) 2.4 Absolute Lymphocytes (1.2 - 3.4 /CUMM) 2.6 Absolute Monocytes (0.10 - 0.60 /CUMM) 0.8 H Absolute Eosinophils (0.0 - 0.7 /CUMM) 0.2 Absolute Basophils (0.0 - 0.2 /CUMM) 0 03/12/08 2351 2214 2105 Chemistry Sodium (137 - 145 mmol/L) 133 L Potassium (3.5 - 5.1 mmol/L) 5.8 H Chloride (98 - 107 mmol/L) 96 L Carbon Dioxide (22 - 30 mmol/L) 19 L Anion Gap (5 - 16) 18 H BUN (7 - 17 mg/dL) 57 H Creatinine (0.5 - 1.0 mg/dL) 9.2 *H Estimated GFR (>60 ml/min) 4 L BUN/Creatinine Ratio (7 - 25 %) 6.2 L Glucose (65 - 99 mg/dL) 102 H Lactic Acid (0.7 - 2.1 mmol/L) Cancelled 1.2 Calcium (8.4 - 10.2 mg/dL) 9.3 Total Bilirubin (0.2 - 1.3 mg/dL) 0.8 AST (14 - 36 U/L) 18 ALT (9 - 52 U/L) 19 Alkaline Phosphatase (<127 U/L) 80 Troponin I (< 0.11 ng/ml) < 0.01 Total Protein (6.3 - 8.2 g/dL) 7.2 Albumin (3.5 - 5.0 g/dL) 3.8 Globulin (1.9 - 4.2 gm/dL) 3.4 Albumin/Globulin Ratio (1.1 - 2.2 %) 1.1 TSH (0.270 - 4.200 uIU/mL) 2.120 Coagulation PT (9.4 - 12.5 SEC) 34.2 H INR (0.90 - 1.19) 3.10 H APTT (25 - 37 SEC) 46 H Hematology CBC w Diff NO MAN DIFF REQ WBC (4.8 - 10.8 /CUMM) 6.3 RBC (4.20 - 5.40 /CUMM) 4.32 Hgb (12.0 - 16.0 G/DL) 12.6 Hct (37 - 47 %) 40.3 MCV (81.0 - 99.0 FL) 93.3 MCH (27.0 - 31.0 PG) 29.2 MCHC (33.0 - 37.0 G/DL) 31.3 L RDW (11.5 - 14.5 %) 14.8 H Plt Count (130 - 400 /CUMM) 206 MPV (7.4 - 10.4 FL) 9.6 Gran % (42.2 - 75.2 %) 53.1 Lymphocytes % (20.5 - 51.1 %) 34.4 Monocytes % (1.7 - 9.3 %) 7.6 Eosinophils % (0 - 5 %) 4.4 Basophils % (0.0 - 2.0 %) 0.5 Absolute Granulocytes (1.4 - 6.5 /CUMM) 3.3 Absolute Lymphocytes (1.2 - 3.4 /CUMM) 2.2 Absolute Monocytes (0.10 - 0.60 /CUMM) 0.5 Absolute Eosinophils (0.0 - 0.7 /CUMM) 0.3 Absolute Basophils (0.0 - 0.2 /CUMM) 0 Serology Lyme Disease Antibody (RATIO) 0.14 Toxicology Digoxin (0.8 - 2.0 ng/mL) < 0.4 L Imaging/Other Studies: TTE CONCLUSIONS Normal left and right ventricular systolic function. Borderline LVH. Mild Left atrial enlargement. Moderate Aortic Stenosis. Moderate Pulmonary hypertension.
[2017-12-11 22:43] VITALS: BP 150/100
[2017-12-12 07:35] VITALS: BP 170/90
--- NOTE | 2017-12-12 07:47 | PN- Housestaff ---
Grace ODELL,[facility] 12/12/17 0747: Subjective Follow-up For: Lethargy/weakness Bradycardia Hypertension Atrial fibrillation Supratherapeutic INR ESRD on hemodialysis Complaints: Sleepiness Tele-Events Since Last Visit: Sinus rhythm, HR 60-64 bpm. No events Subjective: Ms. Crystal did not sleep well overnight and complains of sleepiness today. She denies lightheadedness, syncope, chest pain, palpitations, shortness of breath, cough, fevers or chills. She denies abdominal pain, nausea or vomiting. She had one normal bowel movement yesterday and denies diarrhea or hematochezia. She denies dysuria. Review of Systems Constitutional: Reports: see HPI. Denies: chills, fever. Objective Last 24 Hrs of Vital Signs/I&O Vital Signs Date Time Temp Pulse Resp B/P B/P Pulse O2 O2 Flow FiO2 Mean Ox Delivery Rate 12/12 0840 168/74 12/12 0840 168/74 12/12 0839 168/74 12/12 0735 99.2 62 16 170/90 93 Room Air 12/12 0000 Room Air 12/11 2243 99.6 66 20 150/100 94 12/11 1442 98.8 69 20 209/76 95 Room Air / 1403 175/73 03/07 1402 175/73 /07 1014 61 150/70 Intake & Output 12/12 1600 08 0800 /08 0000 Intake Total 150 300 Output Total Balance 150 300 Intake, Oral 150 300 Patient 149 lb Weight Physical Exam General Appearance: Alert, Oriented X3, Cooperative, No Acute Distress Skin: No Rashes Skin Temp/Moisture Exam: Warm/Dry Sepsis Skin Exam (color): Normal for Ethnicity HEENT: Atraumatic, PERRLA, EOMI, Mucous Membr. moist/pink Neck: Supple Lymphatic: Cervical nl Cardiovascular: Regular Rate, Normal S1, Normal S2, No Murmurs Lungs: Clear to Auscultation, Normal Air Movement Abdomen: Normal Bowel Sounds, Soft, No Tenderness, No Hepatospenomegaly, No Masses Neurological: Normal Speech, Strength at 5/5 X4 Ext, Normal Tone, Cranial Nerves 3-12 NL, Right facial droop noted-chronic Extremities: No Clubbing, No Edema Current Medications: Current Medications Sig/Keyla Start time Last Medication Dose Route Stop Time Status Admin Acetaminophen 650 MG Q8P PRN 12/09 0430 AC PO Acetaminophen 1,000 MG BID PRN 12/09 0430 AC IV Allopurinol 100 MG DAILY 12/09 1000 AC 12/12 PO 0840 Amlodipine Besylate 5 MG DAILY 12/10 1000 AC 12/12 PO 0840 Atorvastatin Calcium 40 MG 1700 12/09 1700 AC 12/11 PO 1800 Atropine Sulfate 0.5 MG ONE PRN 12/09 0100 AC IV Doxazosin Mesylate 4 MG DAILY 12/10 1000 AC 12/12 PO 0840 Hydralazine HCl 25 MG TID 12/09 1600 AC 12/12 PO 0840 Levetiracetam 500 MG BID 12/09 1000 AC 12/12 PO 0840 Losartan Potassium 100 MG DAILY 12/09 1258 AC 12/12 PO 0839 Omeprazole 40 MG DAILY AC 12/09 0700 AC 12/12 PO 0623 Paricalcitol 4 MCG Saturday .. 12/09 1930 AC IV Tramadol HCl 50 MG Q8P PRN 12/09 0430 AC PO Warfarin Sodium 5 MG COUMADIN 1700 ONE 12/12 1700 AC PO 12/12 1701 Warfarin Sodium 5 MG COUMADIN 1700 ONE 12/11 1700 DC PO 12/11 1701 Warfarin Sodium 4 MG COUMADIN 1700 ONE 12/11 1700 DC 12/11 PO 12/11 1701 1800 Last 24 Hrs of Lab/Jesse Results Last 24 Hrs of Labs/Mics: Laboratory Tests 12/12/17 0630: Anion Gap 11, Estimated GFR 6 L, BUN/Creatinine Ratio 5.9 L, PT 15.1 H, INR 1.38 H, CBC w Diff NO MAN DIFF REQ, RBC 3.68 L, MCV 91.0, MCH 29.5, MCHC 32.4 L, RDW 14.8 H, MPV 9.5, Gran % 45.7, Lymphocytes % 31.4, Monocytes % 18.4 H, Eosinophils % 4.0, Basophils % 0.5, Absolute Granulocytes 2.3, Absolute Lymphocytes 1.6, Absolute Monocytes 0.9 H, Absolute Eosinophils 0.2, Absolute Basophils 0 12/11/17 1317: BUN Cancelled Assessment/Plan Assessment: The patient is 72-year-old woman with a past medical history of 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 She presented to [facility] ED on 12/09 with complaints of fatigue weakness, lethargy and exertional dyspnea. On further evaluation she was found to be bradycardic with a heart rate of 86 bpm and blood pressure of 182/80 mmhg on presentation. The patient was admitted to ICU for symptomatic bradycardia and now by mouth Cardizem and carvedilol were discontinued. Her heart rate improved after this intervention. Her home medication of doxazosin, hydralazine and losartan (at equivalent dose for her irbesartan home medication) were continued. In addition she was started on by mouth amlodipine for her elevated blood pressure with improvement in her blood pressure control. Her Coumadin had been held for a supratherapeutic INR that was 3.4. INR is now subtherapeutic 1.38. Her Coumadin has been restarted. She has no more bradycardic episodes overnight and is stable for discharge. 1. Symptomatic bradycardia secondary to medications * Patient heart rate is now improved and in acceptable rate after discontinuing Cardizem and carvedilol * Cardiology consultation input appreciated * Patient can be discharged to follow-up with cardiology as outpatient for further adjustments to her medications 2. Essential Hypertension * Patient has a history of difficult to control hypertension was on 5 medications at home * Blood pressure has been improved since starting the amlodipine 5 mg daily * Continue losartan, hydralazine and doxazosin * Patient can be discharged on current regimen for further outpatient adjustment of medications 3. Atrial fibrillation, supratherapeutic INR * Patient's INR was supratherapeutic at 3.4 on Coumadin for atrial fibrillation dose at 5 mg daily. * INR this morning 1.38 * Increase Coumadin to 5 mg daily * Goal INR will be between 2-3 for atrial fibrillation. 4. Chronic anemia 2/2 ESRD * Patient's hemoglobin has been relatively the same for the past 3 days * Continue to monitor CBC as outpatient 5. End-stage renal disease on hemodialysis * Continue hemodialysis Saturday * Monitor electrolytes 6. Subclinical seizures * Continue Keppra DVT prophylaxis on Coumadin CODE STATUS Full code Problem List: 1. Symptomatic bradycardia 2. Hypertension 3. Supratherapeutic INR 4. ESRD (end stage renal disease) on dialysis Pain Ratin Pain Location: None Pain Goal: Remain pain free Pain Plan: None needed Tomorrow's Labs & Rationales: None needed Med ODELL,Hanane 12/12/17 1100: Attending MD Review Statement Attending Statement Attending MD Statement: examined this patient, discuss w/resident/PA/LICENSED REACTOR OPERATOR, agreed w/resident/PA/LICENSED REACTOR OPERATOR, reviewed EMR data (avail), discussed with nursing, discussed with case mgmt, amended to note Attending Assessment/Plan: Patient seen and examined. Resting comfortably not in any acute distress. No issues overnight. No episodes of significant bradycardia on telemetry monitoring. Blood pressure is better controlled this morning. Patient is lethargic but she is oriented 3. Not in any acute distress. She offers no complaints at present. She was seen by the physical therapy service and cleared for discharge home. She will be discharged home today in the company of her family. Her kaity blocking agents have been discontinued. Amlodipine has been added on for blood pressure control. The dialysis service will also be aiming for a lower dry weight in order to keep her blood pressure better controlled as well.
[2017-12-12 08:22] LABS: ABSOLUTE BASOPHIL COUNT 0 /CUMM (0.0-0.2); ABSOLUTE EOSINOPHIL COUNT 0.2 /CUMM (0.0-0.7); ABSOLUTE GRANULOCYTE CT 2.3 /CUMM (1.4-6.5); ABSOLUTE LYMPH COUNT 1.6 /CUMM (1.2-3.4); ABSOLUTE MONOCYTE COUNT 0.9 /CUMM (0.10-0.60); BASOPHIL % 0.5 % (0.0-2.0); GRANULOCYTE % 45.7 % (42.2-75.2); HEMATOCRIT 33.5 % (37-47); MEAN CORPUSCULAR HGB 29.5 PG (27.0-31.0); MEAN CORPUSCULAR HGB CONC 32.4 G/DL (33.0-37.0); MEAN PLATELET VOLUME 9.5 FL (7.4-10.4); PLATELET COUNT 164 /CUMM (130-400); RBC DISTRIBUTION WIDTH 14.8 % (11.5-14.5); RED BLOOD CELL CT 3.68 /CUMM (4.20-5.40); WHITE BLOOD CELL COUNT 5.1 /CUMM (4.8-10.8)
[2017-12-12 08:38] LABS: PT 15.1 SEC (9.4-12.5)
[2017-12-12 08:40] VITALS: BP 168/74
[2017-12-12] MEDS ORDERED: AMLODIPINE BESYL5 M1 PO (10:10)
== END 2017-12-12 12:00 | disposition home health service (06) | DRG 308 ==
LOC: ERH 20:45 → ERHI 22:56 → 1NO 22:56 → CRI 22:56 → ENRESERV 23:29 → CRI 12-09 01:00 → 1NO 12-10 20:35 → ENPENDDIS 12-12 10:10 → ENTRNSPT 12-12 11:33 → EDTRNSPT 12-12 11:55 → EDTRNSPTSTS 12-12 11:55 → 1NO 12-12 12:00 → CMPTRNSPT 12-12 12:12
PROVIDERS: Emergency Medicine; Internal Medicine; Internal Medicine Endocrinology, Diabetes & Metabolism
PROC: 5A1D70Z Performance of Urinary Filtration, Intermittent, Less than 6 Hours Per Day (ICD-10-PCS; principal; 2017-12-09)
DX: R00.1 Bradycardia, unspecified (principal); N18.6 End stage renal disease; E87.2 Acidosis; E87.5 Hyperkalemia; D47.2 Monoclonal gammopathy; I12.0 Hypertensive chronic kidney disease with stage 5 chronic kidney disease or end stage renal disease; I69.351 Hemiplegia and hemiparesis following cerebral infarction affecting right dominant side; Z99.2 Dependence on renal dialysis; I48.0 Paroxysmal atrial fibrillation; Z79.01 Long term (current) use of anticoagulants; T46.1X5A Adverse effect of calcium-channel blockers, initial encounter; T44.7X5A Adverse effect of beta-adrenoreceptor antagonists, initial encounter; Y92.009 Unspecified place in unspecified non-institutional (private) residence as the place of occurrence of the external cause; I25.10 Atherosclerotic heart disease of native coronary artery without angina pectoris; K57.90 Diverticulosis of intestine, part unspecified, without perforation or abscess without bleeding; M19.90 Unspecified osteoarthritis, unspecified site; M10.9 Gout, unspecified; E21.3 Hyperparathyroidism, unspecified; G40.909 Epilepsy, unspecified, not intractable, without status epilepticus; R79.1 Abnormal coagulation profile; D63.1 Anemia in chronic kidney disease; I16.0 Hypertensive urgency
CPT/HCPCS: 1NP; 86618; CCU; ERO; 36415; 36592; 71045; 82436; 93005; 93010; 93306; 97116-GO; 97161-GP; 99291; J2501; J3490

== ENCOUNTER 2018-03-03 13:14 | Emergency (ER) | payer OTHER, MEDICARE ==
[~2018-03-03] VITALS: Ht 157.5 cm; Wt 63.5 kg
[~2018-03-03 13:14] MED LIST changes: +AMLODIPINE BESYL5 M1 PO; +COUMADIN4 M1 PO
--- NOTE | 2018-03-03 14:14 | ED GENERAL ADULT ---
History of Present Illness General Chief Complaint: General Adult Stated Complaint: BIBA BLEEDING AV SHUNT AFTER DIALYSIS Source: patient, family Exam Limitations: no limitations Vital Signs & Intake/Output Vital Signs & Intake/Output Vital Signs Date Time Temp Pulse Resp B/P B/P Pulse O2 O2 Flow FiO2 Mean Ox Delivery Rate 03/03 1441 03/03 1441 03/03 1324 97.5 73 18 10 Room Air Room Air Allergies Coded Allergies: No Known Allergies (01/13/17) Reconcile Medications Allopurinol 100 MG TABLET 1 TAB PO DAILY GOUT (Reported) Amlodipine Besylate 5 MG TABLET 1 TAB PO DAILY BLOOD PRESSURE . Calcium Acetate 667 MG CAPSULE 4 CAP PO TID PHOSPHORUS BINDER (Reported) Doxazosin Mesylate (Cardura) 4 MG TABLET 1 TAB PO DAILY BP (Reported) Hydralazine HCl 25 MG TABLET 1 TAB PO TID bp (Reported) Irbesartan (Avapro) 300 MG TABLET 1 TAB PO DAILY HEART (Reported) Levetiracetam (Keppra) 500 MG TABLET 1 TAB PO BID seizures (Reported) Lovastatin 20 MG TABLET 1 TAB PO DAILY CHOLESTEROL (Reported) Omeprazole 40 MG CAPSULE.DR 1 CAP PO DAILY GI (Reported) Vit B Cmplx 3/FA/Vit C/Biotin (Jenny-Anthony Rx Tablet) 1 MG-60 MG-300 MCG TABLET 1 TAB PO DAILY SUPPLEMENT (Reported) Warfarin Sodium (Jantoven) 5 MG TABLET 1 TAB PO 1700 BLOOD THINNER (Reported) Triage Note: 72 YEAR OLD FEMALE BIBBeata FROM DIALYSIS. PER EMS AFTER DIALYIS WAS FINISHED THE SITE CONTINED BLEED DEPSITE INTERVENTIONS BY STAFF AT DIALYSIS SITE. PT ARRIVES TO ED A&0 X3, CLEAR SPEECH, WITH CLAMP APPLIED TO FISTULA SITE. NO BLEEDING NOTED AT THIS TIME, NURSING WILL CONTINUE TO MONITOR. PT DAUGHTER REPORTS SHE TAKES COUMADIN AND IS DUE TO HAVE HER INR CHECKED TODAY. Triage Nurses Notes Reviewed? yes HPI: 72-year-old female brought in by ambulance from dialysis presents to emergency department with a bleeding fistula site. According to EMS they were unable to stop the bleeding at dialysis even though a pressure dressing was applied. EMS reports they have not had to change the bandage since leaving dialysis and they believe it has stopped. Patient was also supposed to have a Coumadin level checked today but due to the holiday she has not yet had a Coumadin level drawn. Patient has not taken any of her blood pressure medications today. States she feels cold but this is normal for her after dialysis. Denies any chest pain or shortness of breath. Patient did have a similar occurrence back in October which required a stitch to stop the bleeding. (Ernesto Alberto PA-C) Past History Travel History Traveled to [place] past 21 day No Medical History Any Pertinent Medical History? 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 No (Ernesto Alberto PA-C) Review of Systems Review of Systems Constitutional: Reports: no symptoms. EENTM: Reports: no symptoms. Respiratory: Reports: no symptoms. Cardiovascular: Reports: no symptoms. GI: Reports: no symptoms. Genitourinary: Reports: no symptoms. Musculoskeletal: Reports: no symptoms. Skin: Reports: no symptoms. Neurological/Psychological: Reports: no symptoms. Hematologic/Endocrine: Reports: see HPI. Immunologic/Allergic: Reports: no symptoms. All Other Systems: Reviewed and Negative (Ernesto Alberto PA-C) Physical Exam Physical Exam General Appearance: well developed/nourished, no apparent distress, alert Head: atraumatic, normal appearance Eyes: Bilateral: normal appearance, PERRL, EOMI. Ears, Nose, Throat: normal pharynx, normal ENT inspection Neck: supple Respiratory: normal breath sounds, quiet respiration Cardiovascular: regular rate/rhythm Gastrointestinal: soft, non-tender Extremities: Actively bleeding from arterial side of fistula. No bleeding from venous. Skin: intact, Bleeding from AV fistula of left upper arm Core Measures ACS in differential dx? No CVA/TIA Diagnosis: No Sepsis Present: No Sepsis Focused Exam Completed? No (Remy GARCIA,Ernesto) Progress Differential Diagnoses I considered the following diagnoses in my evaluation of the patient: [ Coagulopathy, AV fistula malfunction] Plan of Care: Orders Procedure Date/time Status PARTIAL THROMBOPLASTIN TIME 03/03 1341 Complete PROTHROMBIN TIME 03/03 1341 Complete COMPREHENSIVE METABOLIC PANEL 03/03 1341 Complete CBC WITHOUT DIFFERENTIAL 03/03 1341 Complete Current Medications Sig/Keyla Start time Last Medication Dose Stop Time Status Admin Thrombin 10,000 UNITS ONCE ONE 03/03 1515 CAN (Thrombin Bovine) 03/03 1516 Hydralazine HCl 50 MG TID 03/03 1400 UNVr 03/03 (Apresoline) 1441 Amlodipine Besylate 10 MG DAILY 03/03 1350 UNVr 03/03 (Norvasc) 1441 Laboratory Tests 03/03/18 1407: Anion Gap 11, Estimated GFR 12 L, BUN/Creatinine Ratio 3.3 L, Glucose 89, Calcium 7.8 L, Total Bilirubin 0.5, AST 21, ALT 20, Alkaline Phosphatase 74, Total Protein 6.6, Albumin 3.4 L, Globulin 3.2, Albumin/Globulin Ratio 1.1, PT 35.6 H, INR 3.23 H, APTT 41 H, CBC w Diff NO MAN DIFF REQ, RBC 2.80 L, MCV 91.4, MCH 29.5, MCHC 32.3 L, RDW 16.8 H, MPV 8.1, Gran % 55.1, Lymphocytes % 26.8, Monocytes % 13.0 H, Eosinophils % 4.6, Basophils % 0.5, Absolute Granulocytes 2.5, Absolute Lymphocytes 1.2, Absolute Monocytes 0.6, Absolute Eosinophils 0.2, Absolute Basophils 0 Initial ED EKG: none Comments: Update at 1500: Discussed with Vascular Dr. Read who recommended placing a superficial figure 8 stitch. Stich was placed by myself. Pt tolerated procedure well. Bleeding controlled. Update at 1600: No further bleeding after stitch was placed. Dressings applied. Patient's lab work was reviewed. Her INR is therapeutic. Other lab work is nonactionable. Patient will be discharged home with this time. She is in stable condition. She has another dialysis appointment on Wednesday when she can have the stitch removed. She was hypertensive upon arrival although she did not take her morning medications. I did give her a dose of these medications. Discharge blood pressure is 174/60. No evidence of hypertensive emergency/ urgency. Discussed with . (Remy GARCIA,Ernesto) Departure Departure Disposition: HOME OR SELF CARE Condition: Stable Clinical Impression Primary Impression: Hemorrhage of arteriovenous fistula Qualifiers: Encounter type: initial encounter Qualified Code: T82.838A - Hemorrhage due to vascular prosthetic devices, implants and grafts, initial encounter Referrals: Diamond Luna MD (PCP/Family) Additional Instructions: Follow-up with your scheduled dialysis appointment in 2 days to have suture removed. Return with any new or worsening symptoms, rebleeding. Departure Forms: Customer Survey General Discharge Information (Ernesto Alberto PA-C) PA/HAMPER MAKER Co-Sign Statement Statement: ED Attending supervision documentation- x I saw and evaluated the patient. I have also reviewed all the pertinent lab results and diagnostic results. I agree with the findings and the plan of care as documented in the PA's/HAMPER MAKER's documentation. [] I have reviewed the ED Record and agree with the PA's/HAMPER MAKER's documentation. [] Additions or exceptions (if any) to the PAs/HAMPER MAKER's note and plan are summarized below: [] (Susan ODELL,Davide) Procedures Laceration/Wound Repair Laceration/Wound Repair: Wound Location: Left upper extremity Wound's Depth, Shape: Superficial puncture of AV fistula Wound Explored: clean Progress: Patient presented with an arterial bleed from her AV fistula. Area was anesthetized with 1 cc of lidocaine with epinephrine. Pressure was held on the brachial artery by ED nurse. A [id number] stitch was placed using a 5-0 Ethilon suture. Bleeding was controlled. Patient tolerated procedure well. (Ernesto Alberto PA-C) Critical Care Note Critical Care Note Critical Care Time: 30-74 min (Ernesto Alberto PA-C)
[2018-03-03 14:20] LABS: ABSOLUTE BASOPHIL COUNT 0 /CUMM (0.0-0.2); ABSOLUTE EOSINOPHIL COUNT 0.2 /CUMM (0.0-0.7); ABSOLUTE GRANULOCYTE CT 2.5 /CUMM (1.4-6.5); ABSOLUTE MONOCYTE COUNT 0.6 /CUMM (0.10-0.60); MEAN PLATELET VOLUME 8.1 FL (7.4-10.4); WHITE BLOOD CELL COUNT 4.6 /CUMM (4.8-10.8)
[2018-03-03 14:26] LABS: ABSOLUTE LYMPH COUNT 1.2 /CUMM (1.2-3.4); BASOPHIL % 0.5 % (0.0-2.0); EOSINOPHIL % 4.6 % (0-5); GRANULOCYTE % 55.1 % (42.2-75.2); HEMATOCRIT 25.5 % (37-47); MEAN CORPUSCULAR HGB 29.5 PG (27.0-31.0); MEAN CORPUSCULAR HGB CONC 32.3 G/DL (33.0-37.0); MEAN CORPUSCULAR VOLUME 91.4 FL (81.0-99.0); PLATELET COUNT 218 /CUMM (130-400); RBC DISTRIBUTION WIDTH 16.8 % (11.5-14.5)
[2018-03-03 14:30] LABS: PT 35.6 SEC (9.4-12.5); PTT 41 SEC (25-37)
[2018-03-03 16:41] VITALS: BP 174/60
== END 2018-03-03 16:44 ==
LOC: ERH 13:14
PROVIDERS: Physician Assistant
DX: T82.838A Hemorrhage due to vascular prosthetic devices, implants and grafts, initial encounter (principal); Z79.01 Long term (current) use of anticoagulants

== ENCOUNTER 2018-04-09 11:25 | Emergency (ER) | payer OTHER, MEDICARE ==
--- NOTE | 2018-04-09 12:35 | ED GENERAL ADULT ---
History of Present Illness General Chief Complaint: General Adult Stated Complaint: SIB DEVITTA FOR HIGH HEART RATE Source: patient, family Exam Limitations: no limitations Vital Signs & Intake/Output Vital Signs & Intake/Output Vital Signs Date Time Temp Pulse Resp B/P B/P Pulse O2 O2 Flow FiO2 Mean Ox Delivery Rate 04/09 1404 107 16 168/88 98 Room Air 04/09 1319 Room Air 04/09 1148 97.0 134 20 138/80 97 Room Air Allergies Coded Allergies: No Known Allergies (01/13/17) Reconcile Medications Allopurinol 100 MG TABLET 1 TAB PO DAILY GOUT (Reported) Amlodipine Besylate 5 MG TABLET 1 TAB PO DAILY BLOOD PRESSURE . Calcium Acetate 667 MG CAPSULE 4 CAP PO TID PHOSPHORUS BINDER (Reported) Doxazosin Mesylate (Cardura) 4 MG TABLET 1 TAB PO DAILY BP (Reported) Hydralazine HCl 25 MG TABLET 1 TAB PO TID bp (Reported) Irbesartan (Avapro) 300 MG TABLET 1 TAB PO DAILY HEART (Reported) Levetiracetam (Keppra) 500 MG TABLET 1 TAB PO BID seizures (Reported) Lovastatin 20 MG TABLET 1 TAB PO DAILY CHOLESTEROL (Reported) Omeprazole 40 MG CAPSULE.DR 1 CAP PO DAILY GI (Reported) Vit B Cmplx 3/FA/Vit C/Biotin (Jenny-Anthony Rx Tablet) 1 MG-60 MG-300 MCG TABLET 1 TAB PO DAILY SUPPLEMENT (Reported) Warfarin Sodium (Jantoven) 5 MG TABLET 1 TAB PO 1700 BLOOD THINNER (Reported) Triage Note: PT STATES SHE GOT HER DIALYSIS TODAY AND WAS SENT HERE AFTER FOR ELEVATED HR. PT STATES HX OF A-FIB. PT DENIES CP/SOB Triage Nurses Notes Reviewed? yes Onset: Abrupt Duration: minute(s): Timing: single episode today HPI: 72-year-old female with a history of A. fib (on Coumadin), coronary artery disease, hypertension, CVA, CK D (on hemodialysis), GI bleed, hyperparathyroidism sent in from dialysis for tachycardia. Patient received her entire dialysis session, and discharge her vitals were noted to have a heart rate of 130. Patient denies any symptoms at that time, no chest pain, shortness of breath, palpitations, lightheadedness, or dizziness. Patient remains asymptomatic with no complaints at this time. Reports med compliance with her doxazosin and Coumadin. (Carmela Ruiz) Past History Travel History Traveled to [place] past 21 day No Medical History Any Pertinent Medical History? 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 No (Carmela Ruiz) Review of Systems Review of Systems Constitutional: Reports: no symptoms. EENTM: Reports: no symptoms. Respiratory: Reports: no symptoms. Cardiovascular: Reports: see HPI. GI: Reports: no symptoms. Genitourinary: Reports: no symptoms. Musculoskeletal: Reports: no symptoms. Skin: Reports: no symptoms. Neurological/Psychological: Reports: no symptoms. Hematologic/Endocrine: Reports: no symptoms. Immunologic/Allergic: Reports: no symptoms. (Carmela Ruiz) Physical Exam Physical Exam General Appearance: well developed/nourished, no apparent distress, alert, awake , comfortable Head: atraumatic, normal appearance Eyes: Bilateral: normal appearance. Neck: normal inspection Respiratory: normal breath sounds, lungs clear Cardiovascular: irregular rhythm with rate in the 90s Gastrointestinal: soft, non-tender Back: normal inspection Extremities: normal inspection Neurologic/Psych: awake, alert, normal mood/affect Skin: intact, normal color, warm/dry Core Measures ACS in differential dx? No CVA/TIA Diagnosis: No Sepsis Present: No Sepsis Focused Exam Completed? No (Carmela Ruiz) Progress Differential Diagnoses I considered the following diagnoses in my evaluation of the patient: [A. fib versus actually derangement versus thyroid imbalance versus infection vs ACS] Plan of Care: Orders Procedure Date/time Status PROTHROMBIN TIME 04/09 1240 Complete TSH REFLEX 04/09 1147 Complete TROPONIN LEVEL 04/09 1147 Complete MAGNESIUM 04/09 1147 Complete COMPREHENSIVE METABOLIC PANEL 04/09 1147 Complete CBC WITHOUT DIFFERENTIAL 04/09 1147 Complete EKG 04/09 1133 Active Laboratory Tests 04/09/18 1312: Anion Gap 13, Estimated GFR 12 L, BUN/Creatinine Ratio 4.1 L, Glucose 106 H, Calcium 8.1 L, Magnesium 1.8, Total Bilirubin 0.4, AST 16, ALT 16, Alkaline Phosphatase 73, Troponin I 0.02, Total Protein 6.5, Albumin 3.4 L, Globulin 3.1 , Albumin/Globulin Ratio 1.1, TSH &T3 &Free T4 Intrp 2.160, PT 40.1 H, INR 3.63 H, CBC w Diff NO MAN DIFF REQ, RBC 3.36 L, MCV 90.6, MCH 29.1, MCHC 32.1 L, RDW 15.4 H, MPV 8.2, Gran % 70.5, Lymphocytes % 14.1 L, Monocytes % 13.1 H, Eosinophils % 1.5, Basophils % 0.8, Absolute Granulocytes 5.4, Absolute Lymphocytes 1.1 L, Absolute Monocytes 1.0 H, Absolute Eosinophils 0.1, Absolute Basophils 0.1 04/09/18 1147: D-Dimer High Sensitivty Cancelled, Urine Color Cancelled, Urine Clarity Cancelled, Urine pH Cancelled, Ur Specific [place] Cancelled, Urine Protein Cancelled, Urine Ketones Cancelled, Urine Nitrite Cancelled, Urine Bilirubin Cancelled, Urine Urobilinogen Cancelled, Ur Leukocyte Esterase Cancelled, Ur Microscopic Cancelled, Urine Hemoglobin Cancelled, Urine Glucose Cancelled On arrival to the emergency department patient's triage vitals noted a heart rate of 134, her EKG showed A. fib with a rate in the 90s. Patient has remained with a heart rate between 90 and 102 while in the emergency department. Patient remains asymptomatic. Discussed with the patient's on-call bologna maker, and patient will follow-up in the office. Labs showed a mildly elevated INR of 3.6, the family was instructed to call the bologna maker in the morning for further direction on her Coumadin dosage. Given strict return precautions. Initial ED EKG: AFIB (rate in 90's) (Carmela Ruiz) Departure Departure Disposition: HOME OR SELF CARE Condition: Stable Clinical Impression Primary Impression: Atrial fibrillation Referrals: Diamond Luna MD (PCP/Family) Additional Instructions: Continue taking your doxazosin as prescribed. Follow-up with cardiology for reevaluation, and your elevated INR. Return to the emergency department for any new or worsening symptoms. Departure Forms: Customer Survey General Discharge Information (Carmela Ruiz) PA/SALT PLANT OPERATOR Co-Sign Statement Statement: ED Attending supervision documentation- []X I saw and evaluated the patient. I have also reviewed all the pertinent lab results and diagnostic results. I agree with the findings and the plan of care as documented in the PA's/SALT PLANT OPERATOR's documentation. [X] I have reviewed the ED Record and agree with the PA's/SALT PLANT OPERATOR's documentation. [] Additions or exceptions (if any) to the PAs/SALT PLANT OPERATOR's note and plan are summarized below: [] (Eva ODELL,Duncan Coppola) Critical Care Note Critical Care Note Critical Care Time: non-applicable (Carmela Ruiz)
[2018-04-09 13:27] LABS: ABSOLUTE BASOPHIL COUNT 0.1 /CUMM (0.0-0.2); ABSOLUTE EOSINOPHIL COUNT 0.1 /CUMM (0.0-0.7); ABSOLUTE GRANULOCYTE CT 5.4 /CUMM (1.4-6.5); ABSOLUTE LYMPH COUNT 1.1 /CUMM (1.2-3.4); BASOPHIL % 0.8 % (0.0-2.0); EOSINOPHIL % 1.5 % (0-5); GRANULOCYTE % 70.5 % (42.2-75.2); HEMATOCRIT 30.5 % (37-47); MEAN CORPUSCULAR HGB 29.1 PG (27.0-31.0); MEAN CORPUSCULAR HGB CONC 32.1 G/DL (33.0-37.0); MEAN CORPUSCULAR VOLUME 90.6 FL (81.0-99.0); MEAN PLATELET VOLUME 8.2 FL (7.4-10.4); PLATELET COUNT 271 /CUMM (130-400); RBC DISTRIBUTION WIDTH 15.4 % (11.5-14.5); RED BLOOD CELL CT 3.36 /CUMM (4.20-5.40); WHITE BLOOD CELL COUNT 7.6 /CUMM (4.8-10.8)
[2018-04-09 13:28] LABS: PT 40.1 SEC (9.4-12.5)
[2018-04-09 14:04] VITALS: BP 168/88
--- NOTE | 2018-04-09 14:07 | RADIOLOGY REPORT ---
EXAMINATION: XR CHEST CLINICAL INFORMATION: Atrial fibrillation COMPARISON: 12/08/2017 TECHNIQUE: 2 views of the chest were obtained. FINDINGS: Lungs are well expanded and clear. No evidence of pulmonary vascular congestion, pulmonary edema or consolidation. On the lateral view, the posterior costophrenic sulci are slightly blunted (possible trace pleural effusions). Chronic cardiomegaly. Atherosclerotic calcification of the aorta. Bones appear diffusely osteopenic. No acute findings within the degenerated, dextroscoliotic thoracic spine. IMPRESSION: 1. Cardiomegaly without pulmonary edema. 2. Trace pleural effusions are suspected.
== END 2018-04-09 15:01 ==
LOC: ERH 11:25
PROVIDERS: Physician Assistant; Physician Assistant Medical
DX: I48.91 Unspecified atrial fibrillation (principal); Z79.01 Long term (current) use of anticoagulants
CPT/HCPCS: 71046; 93005; 93010